=== PATIENT | female | born 1955 | race African-American/Black ===

== ENCOUNTER → 2019-11-14 12:50 | Outpatient (CLI) | payer MEDICARE, SELFPAY ==
--- NOTE | ~2019-11-14 | MR_ITS ---
EXAMINATION: MR cervical spine wo/w con EXAM DATE: 11/14/2019 14:20 INDICATION: Multiple sclerosis. Follow-up. TECHNIQUE: Multi-sequential, multiplanar MR images of the cervical spine were obtained without contra st. Axial T2, axial T2 MERGE sequence. Sagittal T1, T2, T2 fat saturation images also obtained. Axi al T1 weighted sequence. Patient was then injected with 15 mL Multihance intravenous contrast and re imaged. Postcontrast axial and sagittal T1-weighted fat saturation sequences were obtained. Compar sangita is made to prior examination from 10/16/2017. FINDINGS: Again there is anterior, osseous fusion of the C4-6 vertebral bodies. There is some increa sed T2 cord signal posterior to the C4-5 disc level and also posterior to the C2 level, with slight v olume loss. Likely 2 regions of myelomalacia. No enhancing regions to suggest active disease. The blaze tebral bodies are aligned in the AP dimension. There is mild to moderate disc disease C3-4 and C6-7. There is a goiter. Level by level evaluation: C2-C3: Disc does not extend beyond the endplate margin. Uncovertebral joint arthropathy: None. Facet joint arthropathy: Moderate left, mild right. Neural foraminal stenosis: No stenosis. Central canal stenosis: No stenosis. C3-C4: There is a mild to moderate diffuse disc bulge, central protrusion Uncovertebral joint arthropathy: Mild to moderate bilateral. Facet joint arthropathy: Moderate bilateral. Neural foraminal stenosis: Moderate to severe left, mild to moderate right. Central canal stenosis: Mild to moderate . Central canal measures 5-6 mm in mid sagittal AP diameter . Cord is being indented but no cord edema. C4-C5: This level is fused. Uncovertebral joint arthropathy: Mild but fused. Facet joint arthropathy: Mild. Neural foraminal stenosis: Mild right. Central canal stenosis: No stenosis. C5-C6: This level is fused. Uncovertebral joint arthropathy: Fused. Facet joint arthropathy: Probably partially fused. Neural foraminal stenosis: Mild right. Central canal stenosis: No stenosis. C6-C7: There is a moderate diffuse disc bulge. Uncovertebral joint arthropathy: Mild to moderate bilateral. Facet joint arthropathy: Mild to moderate bilateral. Neural foraminal stenosis: Moderate left, mild to moderate right. Central canal stenosis: Mild. C7-T1: There is a mild diffuse disc bulge. Uncovertebral joint arthropathy: Mild. Facet joint arthropathy: Mild bilateral. Neural foraminal stenosis: No stenosis. Central canal stenosis: No stenosis. Compared to prior study, slight progression in the disc disease. The spinal cord signal, appearance d oes not appear significantly changed. IMPRESSION: 1. Small regions of abnormal cervical cord signal, myelomalacia. Could be quiescent multiple scleros is. No enhancing lesions, no evidence of active disease. 2. Mild progression in cervical spondylosis as detailed above. Reviewed, dictated and finalized at location A. IMPRESSION: 1. Small regions of abnormal cervical cord signal, myelomalacia. Could be quie scent multiple sclerosis. No enhancing lesions, no evidence of active disease. 2. Mild progression in cervical spondylosis as detailed above.
[2019-11-14 13:50] LABS: Estimated Glomerular Filt Rate > 60
== END ==
PROVIDERS: Visit Provider Psychiatry & Neurology Neurology
DX: G35 Multiple sclerosis (principal); G95.89 Other specified diseases of spinal cord; M47.812 Spondylosis without myelopathy or radiculopathy, cervical region
CPT/HCPCS: 36415; 72156; A9577

== ENCOUNTER 2020-06-09 10:38 | Outpatient (CLI) | payer MEDICARE, SELFPAY ==
--- NOTE | ~2020-06-09 | XR_ITS ---
EXAMINATION: XR elbow RT 2V DATE: 06/09/2020 11:05 INDICATION: Acute onset right elbow pain TECHNIQUE: Anteroposterior and lateral views of the right elbow were obtained. COMPARISON: None. FINDINGS: Alignment is normal. No fracture or joint effusion. Joint spaces are normal. Soft tissues are unremar kable. IMPRESSION: 1. Negative right elbow radiographs. Reviewed, dictated and finalized at location B. R OPERATOR
--- NOTE | ~2020-06-09 | XR_ITS ---
EXAMINATION: XR shoulder RT min 2V DATE: 06/09/2020 11:05 INDICATION: Right shoulder pain. TECHNIQUE: 4 views of right shoulder were obtained. COMPARISON: Right shoulder radiographs 04/20/2008 FINDINGS: Bone alignment is normal. No fracture. There is mild osteoarthritis of glenohumeral joint a nd moderate osteoarthritis of acromioclavicular joint. IMPRESSION: 1. Polyarticular osteoarthritis. Reviewed, dictated and finalized at location A. ITY CONTROL SCIENTIST
== END 2020-06-09 10:39 | disposition home or self-care (01) ==
LOC: ANHIMG 10:46
PROVIDERS: PCP Internal Medicine; Visit Provider Internal Medicine
DX: M79.601 Pain in right arm (principal); M19.011 Primary osteoarthritis, right shoulder
CPT/HCPCS: 73030; 73070

== ENCOUNTER 2020-08-09 03:06 | Emergency (ER) | payer MEDICARE, SELFPAY ==
--- NOTE | ~2020-08-09 | XR_ITS ---
EXAMINATION: XR shoulder RT min 2V INDICATION: Right shoulder pain TECHNIQUE: Four views of the right shoulder are submitted. COMPARISON: 06/09/2020 FINDINGS: Normal alignment. No fracture. There is mild osteoarthritis of the glenohumeral joint and m oderate osteoarthritis of the acromioclavicular joint. Soft tissues are unremarkable. Changes of cerv ical spine fusion are noted. IMPRESSION: 1. No acute osseous abnormality. Reviewed, dictated and finalized at location A.
--- NOTE | ~2020-08-09 | CT_ITS ---
EXAMINATION: CT brain wo con, CT cervical spine wo con EXAM DATE: 08/09/2020 03:48 INDICATION: Fall, head injury, neck pain. TECHNIQUE: Spiral CT of the head was performed without contrast. Axial, coronal and sagittal images were reviewed. Spiral CT of the cervical spine was performed without contrast. Axial images were rev iewed. Coronal and sagittal reformatted images were also reviewed. The dose-length product (DLP) fo r this examination was 605.33 (accession [id number]), 349.77 (accession [id number]) mGy-cm. The exposure was tailored according to patient size, and iterative reconstruction (ASIR) was used as additional dose reduction technique. Correlation is made to brain MRI examination 10/16/2017. FINDINGS: HEAD CT: There is small acute subdural hematoma along the right side of the falx, measuring up to 5 m m in thickness. There is no acute intraparenchymal hemorrhage. No evidence of intraparenchymal brain mass lesion. No evidence of acute infarction. Again there is extensive white matter disease, with i nvolvement of the corpus callosum confirmed on prior MRI examination, appearance most consistent with changes from quiescent multiple sclerosis. There is mild atrophy. There is no mass effect or midline shift. There is no obstructive hydrocephalus suspected. There are no acute calvarial fractures. Th e orbits are unremarkable. Soft tissue is unremarkable. The visualized sinuses and mastoid air cell s are well aerated. CERVICAL CT: Anterior and interbody fusion C4-6. There is ossification of the posterior longitudinal ligament at these levels contributing to mild to moderate midcervical central canal stenosis There is no evidence of acute cervical fracture. The odontoid process is intact. Pre-dens space is normal. Prevertebral soft tissue is normal. There are no soft tissue abnormalities identified. There is no disc space widening or traumatic vertebral body subluxation suspected. There is advanced left-sided facet arthropathy at C2-3 and C3-4. Multinodular goiter. Moderate disc disease at C3-4 and C6-7. A d etailed level by level evaluation of spondylosis can be added as addendum if requested. IMPRESSION: 1. Acute small right-sided subdural myxoma. 2. White matter changes, old multiple sclerosis. 3. Intact cervical fusion. 4. Spondylosis. STAT Rad radiologist phoned, discussed this case with clinician as per documentation in their report, which was faxed and scanned into PACS with this exam. Reviewed, dictated and finalized at location B. IMPRESSION: 1. Acute small right-sided subdural myxoma. 2. White matter changes, old multiple sclerosis. 3. Intact cervical fusion. 4. Spondylosis. STAT Rad radiologist phoned, discussed this case with clinician as per document ation in their report, which was faxed and scanned into PACS with this exam.
--- NOTE | ~2020-08-09 | XR_ITS ---
EXAMINATION: XR pelvis 1-2V INDICATION: Pain after fall TECHNIQUE: AP view the pelvis is obtained. COMPARISON: None available FINDINGS: Bone alignment is normal. There is no fracture. There is moderate left hip osteoarthritis. Calcified atherosclerosis is noted. IMPRESSION: 1. No acute osseous abnormality. Reviewed, dictated and finalized at location A.
--- NOTE | ~2020-08-09 | XR_ITS ---
EXAMINATION: XR chest 1V INDICATION: Pain after fall TECHNIQUE: AP view of the chest is obtained. COMPARISON: None available FINDINGS: The lungs are free of acute opacities. There is no pleural effusion or pneumothorax. The ca rdiomediastinal silhouette is normal. There are partially imaged changes of fusion in the lower cervi carlitos spine. IMPRESSION: 1. No acute cardiopulmonary abnormality. Reviewed, dictated and finalized at location A.
[2020-08-09 03:05] VITALS: BP 196/93; PULSE 86; RESP 18; TEMP 36.4; O2SAT 100
[2020-08-09 03:16] VITALS: BP 196/93; PULSE 86; RESP 18; TEMP 36.4; O2SAT 100
--- NOTE | 2020-08-09 03:22 | PC.NURSE ---
Pt to imaging at this time.
[2020-08-09 03:48] VITALS: BP 196/98; PULSE 84; O2SAT 100
--- NOTE | 2020-08-09 03:54 | ED.GENADULT ---
HPI - General Adult General Chief complaint: Head Injury Stated complaint: slipped, fell, hit back of head Time Seen by Provider: 08/09/20 03:07 Source: RN notes reviewed History of Present Illness HPI narrative: Patient presents to emergency department from home via EMS for a fall. Patient had gotten up and was going to the restroom when she had a slip and fall states she does have a walker at home but does not use it patient states she hit the back of her head but does not believe she lost any consciousness notes some mild neck pain as well as right shoulder pain patient denies any vision changes, chest pain, shortness of breath abdominal pain or any other symptoms Related Data Allergies Allergy/AdvReac Type Severity Reaction Status Date / Time No Known Allergies Allergy Verified 08/09/20 03:14 Review of Systems Review of Systems: Narrative: Gen.: Denies fevers or chills Eyes: Denies eye pain or visual change ENT: Denies congestion Respiratory: Denies shortness of breath or cough CV: Denies chest pain GI: Denies abdominal pain nausea, emesis or diarrhea Musculoskeletal: See HPI Neuro: Denies numbness, tingling, weakness or focal weakness Skin: Denies rash Except as documented, all other systems reviewed and negative PMFSH Past Medical History Medical History Benign essential hypertension Biceps tendinitis of both shoulders BMI 27.0-27.9,adult BMI 28.0-28.9,adult BMI 30.0-30.9,adult Cervicalgia Chronic pain of right knee Colon cancer screening DJD (degenerative joint disease) DM type 2 (diabetes mellitus, type 2) Dysphagia Encounter for general adult medical examination w/o abnormal findings Encounter for Medicare annual wellness exam Encounter for screening mammogram for malignant neoplasm of breast Exposure to COVID-19 virus Follow up Hx of breast cancer Hyperlipidemia Multiple sclerosis Muscle weakness 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 HEENT: normocephalic atraumtaic. No facial tenderness without pain. EYES: PERRL NECK: C-collar present supple. No midline tenderness to palpation. Tender to palpation bilateral para 2 muscles C5-7 RESPIRATORY: No respiratory distress. Clear to auscultation bilaterally CARDIOVASCULAR: Regular rate and rhythm without murmurs rubs or gallops. ABDOMINAL: Soft, nontender, nondistended, no rebound or guarding MUSCULOSKELETAl: Moves all extremities. No tenderness to palpation of left upper and bilateral lower extremities. No clubbing cyanosis or edema. Mild tenderness over the right anterior shoulder no swelling or ecchymosis pain with flexion greater than 45 degrees no tenderness of the right elbow or wrist, radial pulse 2+ neurovascular intact NEURO: Awake and alert ?3. Follows commands. Speech normal. No focal deficits. SKIN:: Warm, dry. Normal Color Course Course Emergency Course: Discussed with patient results of CT scan and need for transfer request [facility] at this time. Denies any blood thinner use Called and discussed with [facility] Dr. Rodriguez presentation work-up accepts transfer at this time Patient is due for a.m. amlodipine at this time will hold p.o. and give hydralazine Vital Signs Vital signs: Vital Signs Temperature 97.5 F L 08/09/20 03:05
[2020-08-09 04:00] VITALS: BP 209/91; PULSE 74; O2SAT 100
--- NOTE | 2020-08-09 04:05 | PC.NURSE ---
david rn in room taking manual bp on pt due to monitor reading 209/91. pt states she normally takes her amlodapine in the AM but didn't yesterday. notified.
--- NOTE | 2020-08-09 04:06 | PC.NURSE ---
Manual blood pressure taken by RN, 202/96. EDP aware.
--- NOTE | 2020-08-09 04:07 | PC.NURSE ---
pt told mia hernandez that she actually thinks she did take her bp medication yesterday AM. notified.
--- NOTE | 2020-08-09 04:32 | PC.NURSE ---
david bellamy and this rn attempted to get IV in pt at this time, no success. mario bellamy in room attempting. rn will give hydralzine once access is established.
--- NOTE | 2020-08-09 04:34 | PC.NURSE ---
[facility] accepted transfer to [facility] at this time. ETA [id number]
[2020-08-09] MEDS: hydrALAZINE HCL 20 MG/ML VIAL 10 MG IV PUSH (04:42)
--- NOTE | 2020-08-09 04:43 | PC.NURSE ---
[facility] run report not available at this time to send with pt.'s chart to [facility].
[2020-08-09 04:45] VITALS: BP 164/127; PULSE 89
[2020-08-09 04:55] LABS: Basophils Absolute Auto 0.1 K/mm3 (0.0-0.1); Basophils Percent Auto 0.5 % (0.2-1.2); Hematocrit 42.4 % (37.0-47.0); Hemoglobin 13.2 g/dL (12.0-15.0); Immature Granulocyte Absolute 0.04 K/mm3 (0.00-0.031); Immature Granulocyte Percent A 0.4 % (0-0.5); Lymphocytes Absolute Auto 1.98 K/mm3 (0.9-3.2); Lymphocytes Percent Auto 17.7 % (18.3-44.2); Mean Corpuscular HGB Conc 31.1 g/dl (32-36); Mean Corpuscular Hemoglobin 25.8 pg (26-34); Mean Platelet Volume 11.8 fl (7.4-10.4); Monocytes Percent Auto 8.8 % (2.6-8.5); Neutrophils Absolute Auto 8.1 K/mm3 (1.3-6.7); Neutrophils Percent Auto 72.6 % (45.5-73.1); Platelet Count Result 248 k/mm3 (150-375); Red Blood Count 5.11 M/mm3 (4.2-5.4); Red Cell Distribution Width 15.1 % (11.5-14.5); White Blood Count 11.2 K/mm3 (4.5-10.0)
[2020-08-09 05:15] LABS: Prothrombin Time 13.6 Seconds (11.1-14.7)
[2020-08-09 05:16] LABS: Partial Thromboplastin Time 23.6 SECONDS (22.3-36.8)
== END 2020-08-09 04:58 | disposition short-term general hospital (02) ==
PROVIDERS: Emergency Provider Emergency Medicine; PCP Internal Medicine
DX: S06.5X0A Traumatic subdural hemorrhage without loss of consciousness, initial encounter (principal); S40.011A Contusion of right shoulder, initial encounter; I10 Essential (primary) hypertension; G35 Multiple sclerosis; E11.9 Type 2 diabetes mellitus without complications; E78.5 Hyperlipidemia, unspecified; E55.9 Vitamin D deficiency, unspecified; Z85.3 Personal history of malignant neoplasm of breast; Z79.84 Long term (current) use of oral hypoglycemic drugs; W01.0XXA Fall on same level from slipping, tripping and stumbling without subsequent striking against object, initial encounter
CPT/HCPCS: 36415; 70450; 71045; 72125; 72170; 73030; 85025; 85610; 85730; 96374; 99285; J0360; L0140

== ENCOUNTER 2020-08-23 07:53 | Outpatient (CLI) | payer MEDICARE, SELFPAY ==
--- NOTE | ~2020-08-23 | XR_ITS ---
EXAMINATION: XR UGI w barium swallow DATE: 08/23/2020 08:39 INDICATION: Dysphagia. TECHNIQUE: The patient drank thin barium. Fluoroscopy of the esophagus, stomach, and proximal small b owel was performed. Fluoroscopy exposure time was 1.0 minutes. The total number of images was 282. To lizbet dose-area product was 5.6 Gy-cm^2. COMPARISON: CT cervical spine 08/09/2020 FINDINGS: There are changes of anterior fusion procedure from C4 to C6 with anterior plate and screws . There is decreased primary and secondary esophageal peristalsis. Some abnormal tertiary waves were noted. There is no mass or stricture of the esophagus. There is no hiatal hernia. The stomach and pro ximal small bowel show normal folding patterns. IMPRESSION: 1. Mild esophageal dysmotility. Reviewed, dictated and finalized at location A.
== END 2020-08-23 07:54 | disposition home or self-care (01) ==
PROVIDERS: PCP Internal Medicine; Visit Provider Internal Medicine
DX: R13.10 Dysphagia, unspecified (principal)
CPT/HCPCS: 74240

== ENCOUNTER → 2020-08-28 02:08 | Outpatient (CLI) | payer MEDICARE, SELFPAY ==
[2020-08-28 19:55] LABS: SARS-CoV-2 RNA PCR Negative
== END ==
PROVIDERS: PCP Internal Medicine; Visit Provider Internal Medicine Gastroenterology
DX: Z01.812 Encounter for preprocedural laboratory examination (principal); Z20.822 Contact with and (suspected) exposure to COVID-19
CPT/HCPCS: C9803; U0003; U0005

== ENCOUNTER 2020-08-31 02:55 | Day surgery (SDC) | payer MEDICARE, SELFPAY ==
[2020-08-25 15:11] VITALS: BMI 45.1
[2020-08-31 11:25] VITALS: BP 138/70; PULSE 97; RESP 18; TEMP 36.2; O2SAT 98; BMI 28.0
[2020-08-31] MEDS: LACTATED RINGERS 1,000 ML 150 ML IV CONT (11:29)
[2020-08-31 11:31] LABS: Glucose Point of Care 206 mg/dl (65-105)
--- NOTE | 2020-08-31 11:39 | WPDANESEPPF ---
Anes - Initial Pre Proc Eval Procedure: Operation Date: 08/31/20 11:30 Proposed Procedures p Esophagogastroduodenoscopy - Darrin Pablo MD Date/Time: 08/31/20 11:39 Surgeon: Darrin Pablo MD Pre Op Diagnosis: esphageal stricture, dysphagia Patient Data Age: 64 Gender: F Height: 5 ft 6 in Weight: 78.8 kg Last Vital Signs Temp 97.2 F L 08/31/20 11:25 Pulse 97 08/31/20 11:25 Resp 18 08/31/20 11:25 BP 138/70 08/31/20 11:25 Pulse Ox 98 08/31/20 11:25 Allergies Allergy/AdvReac Type Severity Reaction Status Date / Time No Known Allergies Allergy Verified 08/31/20 11:22 Home Medications Medication Instructions Recorded Confirmed Type lancets #100 each 02/21/19 08/06/20 Rx ezetimibe 10 mg tablet 10 mg PO DAILY #90 tablet 06/26/19 08/25/20 Rx solifenacin 10 mg tablet 10 mg PO DAILY #90 tablet 10/30/19 08/25/20 Rx amlodipine 5 mg-benazepril 10 mg See Rx Instructions .ROUTE 02/11/20 08/25/20 Rx capsule .COMPLEX #90 cap blood sugar diagnostic See Rx Instructions .ROUTE 04/26/20 08/25/20 Rx .COMPLEX #50 strip blood-glucose meter #1 ea 07/22/20 08/06/20 Rx indapamide 2.5 mg tablet 2.5 mg PO DAILY #90 tablet 07/22/20 08/25/20 Rx linagliptin 5 mg tablet 5 mg PO QAM 08/18/20 08/25/20 History teriflunomide [Aubagio] 14 mg PO DAILY 08/25/20 08/25/20 History insulin glargine 100 unit/mL (3 26 unit SUBCUT QPM #15 ml 08/30/20 08/31/20 Rx mL) subcutaneous pen pen needle, diabetic 32 gauge x #100 ea 08/30/20 Rx rosuvastatin 40 mg tablet See Rx Instructions .ROUTE 08/30/20 08/31/20 Rx .COMPLEX #90 tablet Laboratory Tests 08/31/20 11:28 POC Capillary Glucose 206 mg/dl H mg/dl (65-105) Patient hx anesthesia problems: none Family hx anesthesia problems: none PMFSH Past Medical History Medical History (Updated 08/30/20 @ 13:[address] [facility]) Benign essential hypertension Biceps tendinitis of both shoulders BMI 27.0-27.9,adult BMI 28.0-28.9,adult BMI 30.0-30.9,adult Carpal tunnel syndrome, bilateral Cervicalgia Chronic pain of right knee Colon cancer screening DJD (degenerative joint disease) DM type 2 (diabetes mellitus, type 2) Dysphagia Encounter for general adult medical examination w/o abnormal findings Encounter for Medicare annual wellness exam Encounter for screening mammogram for malignant neoplasm of breast Episode of syncope Esophageal stricture Exposure to COVID-19 virus Follow up Hx of breast cancer Hyperlipidemia Multiple sclerosis Muscle weakness 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 Shoulder pain, bilateral Subdural hematoma Urinary frequency Vitamin B12 deficiency Family History Family History Mother Hypertension Family history of diabetes mellitus in first degree relative Diabetes mellitus Father Cerebrovascular accident Sibling Family history of lung cancer Family history of primary malignant neoplasm of liver Social History Social History Smoking status: Never smoker Second hand tobacco smoke exposure: No Alcohol intake: never Living arrangements: with family Spiritual care concerns: No Anes - Eval Final PreProcedure Day of Procedure 08/31/20 11:39 Patient weight: obese Heart: regular rate and rhythm Lungs: clear to auscultation Airway: Mallampati scale class II Neurological: alert and oriented Last oral intake: >/= 8 hours ASA classification: III Emergent: no Anesthetic plan: proceed Anesthesia type and monitoring: general GIVS and standard monitoring Informed Consent: The patient's anesthetic plan and its attendant risks and benefits were discussed with the patient/family/POA. Questions were solicited and answers provided to the satisfaction of the patient/family/POA.
[2020-08-31] MEDS: BENZOCAINE (*SP) 60 ML SPRAY CAN (HURRICAINE) 1 SPRAY MUCOUS MEM (11:42)
[2020-08-31 12:02] VITALS: BP 131/71; PULSE 83; RESP 14; O2SAT 98
[2020-08-31 12:12] VITALS: BP 126/78; PULSE 95; RESP 25; O2SAT 100
[2020-08-31 12:22] VITALS: BP 140/81; PULSE 82; RESP 15; O2SAT 100
--- NOTE | 2020-09-03 13:11 | PM.HPGS ---
History of Present Illness History of Present Illness Consent: Risks, benefits, and alternatives have been discussed and questions answered. Patient agrees to proceed with procedure. Chief complaint: esphageal stricture, dysphagia Narrative: Jacinta Moreno is a 64 year old female was been having difficulty with swallowing. An upper GI showed narrowing in the proximal esophagus. She has had previous cervical spine surgery. Review of Systems Review of Systems: All systems reviewed & are unremarkable except as noted in HPI and below PMFSH Past Medical History Medical History Benign essential hypertension Biceps tendinitis of both shoulders BMI 27.0-27.9,adult BMI 28.0-28.9,adult BMI 30.0-30.9,adult Carpal tunnel syndrome, bilateral Cervicalgia Chronic pain of right knee Colon cancer screening DJD (degenerative joint disease) DM type 2 (diabetes mellitus, type 2) Dysphagia Encounter for general adult medical examination w/o abnormal findings Encounter for Medicare annual wellness exam Encounter for screening mammogram for malignant neoplasm of breast Episode of syncope Esophageal stricture Exposure to COVID-19 virus Follow up Hx of breast cancer Hyperlipidemia Multiple sclerosis Muscle weakness On intermediate drug therapy Shoulder pain, bilateral Subdural hematoma Urinary frequency Vitamin B12 deficiency Family History Family History Mother Hypertension Family history of diabetes mellitus in first degree relative Diabetes mellitus Father Cerebrovascular accident Sibling Family history of lung cancer Family history of primary malignant neoplasm of liver Social History Social History Smoking status: Never smoker Second hand tobacco smoke exposure: No Alcohol intake: never Spiritual care concerns: No Meds Home Medications and Allergies Home Medications Medication Instructions Recorded Confirmed Type lancets #100 each 02/21/19 09/02/20 Rx ezetimibe 10 mg tablet 10 mg PO DAILY #90 tablet 06/26/19 09/02/20 Rx solifenacin 10 mg tablet 10 mg PO DAILY #90 tablet 10/30/19 09/02/20 Rx amlodipine 5 mg-benazepril 10 mg See Rx Instructions .ROUTE 02/11/20 09/02/20 Rx capsule .COMPLEX #90 cap blood sugar diagnostic See Rx Instructions .ROUTE 04/26/20 09/02/20 Rx .COMPLEX #50 strip blood-glucose meter #1 ea 07/22/20 09/02/20 Rx indapamide 2.5 mg tablet 2.5 mg PO DAILY #90 tablet 07/22/20 09/02/20 Rx linagliptin 5 mg tablet 5 mg PO QAM 08/18/20 09/02/20 History Aubagio 14 mg PO DAILY 08/25/20 09/02/20 History insulin glargine 100 unit/mL (3 26 unit SUBCUT QPM #15 ml 08/30/20 09/02/20 Rx mL) subcutaneous pen pen needle, diabetic 32 gauge x #100 ea 08/30/20 09/02/20 Rx rosuvastatin 40 mg tablet See Rx Instructions .ROUTE 08/30/20 09/02/20 Rx .COMPLEX #90 tablet omeprazole 40 mg PO DAILY #30 cap 08/31/20 09/02/20 Rx Allergies Allergy/AdvReac Type Severity Reaction Status Date / Time No Known Allergies Allergy Verified 08/31/20 11:22 Exam Const: General: alert Orientation/consciousness: patient oriented x3 Resp: Auscultation: clear to auscultation bilaterally Cardio: Rhythm: regular rhythm GI: GI Palp: Yes Soft to palpation and No Tenderness to palpation present (GI) Neuro: General: patient oriented x3 Assessment and Plan Assessment and plan (1) Esophageal stricture: Code(s): K22.2 - Esophageal obstruction Status: Acute Assessment and Plan: EGD with possible biopsy or dilatation or cautery.
== END 2020-08-31 12:45 | disposition home or self-care (01) ==
PROVIDERS: PCP Internal Medicine; Visit Provider Internal Medicine Gastroenterology
PROC: 0DJ08ZZ Inspection of Upper Intestinal Tract, Via Natural or Artificial Opening Endoscopic (ICD-10-PCS; CPT 43235; principal; 2020-08-31 11:30)
DX: K22.2 Esophageal obstruction (principal); K25.3 Acute gastric ulcer without hemorrhage or perforation; K20.90 Esophagitis, unspecified without bleeding; I10 Essential (primary) hypertension; E78.5 Hyperlipidemia, unspecified; E11.9 Type 2 diabetes mellitus without complications; E53.8 Deficiency of other specified B group vitamins; G56.03 Carpal tunnel syndrome, bilateral upper limbs; M54.2 Cervicalgia; M25.561 Pain in right knee; M19.90 Unspecified osteoarthritis, unspecified site; G35 Multiple sclerosis; R35.0 Frequency of micturition; Z85.3 Personal history of malignant neoplasm of breast; Z79.899 Other long term (current) drug therapy
CPT/HCPCS: 43249; 43239; 82948; 87081; 88305; C1726; C9803; J2704; J7120; U0003; U0005

== ENCOUNTER 2020-12-14 15:55 | Outpatient (CLI) | payer MEDICARE, SELFPAY ==
--- NOTE | ~2020-12-14 | US_ITS ---
EXAMINATION:US venous doppler LE LT INDICATION:Left leg pain and swelling TECHNIQUE: Multiple grayscale, color flow and Doppler images of the left lower extremity deep venous systems were obtained and reviewed. COMPARISON:No prior studies for comparison. FINDINGS: The common femoral, superficial femoral and popliteal veins demonstrate normal respiratory variation, augmentation and compressibility. Color flow is also seen within the posterior tibial, pe roneal, greater saphenous and profunda veins. 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 IMPRESSION: 1: No lower extremity deep venous thrombosis. Reviewed, dictated and finalized at location A.
[2020-12-14 17:28] LABS: INR 0.9; Prothrombin Time 12.4 Seconds (11.1-14.7)
[2020-12-14 17:29] LABS: Partial Thromboplastin Time 26.1 SECONDS (22.3-36.8)
== END 2020-12-14 15:56 | disposition home or self-care (01) ==
LOC: ANHIMG 16:00
PROVIDERS: PCP Internal Medicine; Visit Provider Internal Medicine
DX: M79.605 Pain in left leg (principal); M79.89 Other specified soft tissue disorders
CPT/HCPCS: 36415; 85610; 85730; 93971

== ENCOUNTER 2021-03-29 11:55 | Outpatient (CLI) | payer MEDICARE, SELFPAY ==
--- NOTE | ~2021-03-29 | XR_ITS ---
XR lumbar spine 2-3V 03/29/2021 12:38 Indication: Low back pain Procedure: 4 views lumbar spine Comparison: No prior studies for comparison. Findings: There is degenerative disc disease at L4-5 and L5-S1. There is moderate lower lumbar facet hypertrophy. There is grade 1 degenerative spondylolisthesis at L3-4. No acute fracture or traumatic malalignment. Pedicles are intact. Sacral foramen are symmetric. Impression: 1: Moderate lumbar spondylosis. Reviewed, dictated and finalized at location A. CTOR CHECK Impression: 1: Moderate lumbar spondylosis.
[2021-03-29 12:25] LABS: Basophils Absolute Auto 0.1 K/mm3 (0.0-0.1); Basophils Percent Auto 0.6 % (0.2-1.2); Eosinophils Absolute Auto 0.2 K/mm3 (0-0.3); Eosinophils Percent Auto 2.3 % (0-4.4); Hematocrit 37.7 % (37.0-47.0); Hemoglobin 11.5 g/dL (12.0-15.0); Immature Granulocyte Absolute 0.02 K/mm3 (0.00-0.031); Immature Granulocyte Percent A 0.2 % (0-0.5); Lymphocytes Absolute Auto 1.62 K/mm3 (0.9-3.2); Lymphocytes Percent Auto 19.5 % (18.3-44.2); Mean Corpuscular HGB Conc 30.5 g/dl (32-36); Mean Corpuscular Hemoglobin 25.2 pg (26-34); Mean Corpuscular Volume 82.7 fl (80-100); Monocytes Absolute Auto 0.7 K/mm3 (0.1-0.6); Monocytes Percent Auto 8.7 % (2.6-8.5); Neutrophils Absolute Auto 5.7 K/mm3 (1.3-6.7); Neutrophils Percent Auto 68.7 % (45.5-73.1); Platelet Count Result 210 k/mm3 (150-375); Red Blood Count 4.56 M/mm3 (4.2-5.4); Red Cell Distribution Width 16.4 % (11.5-14.5); White Blood Count 8.3 K/mm3 (4.5-10.0)
[2021-03-29 12:44] LABS: Anion Gap 8 mmol/L (8-16); Blood Urea Nitrogen 10 mg/dL (7-17); Calcium 9.3 mg/dL (8.4-10.2); Carbon Dioxide 27 mmol/L (22-30); Chloride 104 mmol/L (98-107); Estimated Glomerular Filt Rate > 60; Glucose 166 mg/dL (65-110); Potassium 3.9 mmol/L (3.4-5.0); Sodium 139 mmol/L (137-145)
[2021-03-29 21:27] LABS: Erythrocyte Sedimentation Rate 48 mm/hr (0-20)
== END 2021-03-29 11:56 | disposition home or self-care (01) ==
PROVIDERS: PCP Internal Medicine; Visit Provider Internal Medicine
DX: M79.604 Pain in right leg (principal); M47.816 Spondylosis without myelopathy or radiculopathy, lumbar region; M79.605 Pain in left leg; M62.81 Muscle weakness (generalized); Z51.81 Encounter for therapeutic drug level monitoring; Z79.899 Other long term (current) drug therapy; I10 Essential (primary) hypertension; M79.89 Other specified soft tissue disorders
CPT/HCPCS: 36415; 72100; 80048; 85025; 85652; 86140

== ENCOUNTER 2021-05-06 11:43 | Outpatient (CLI) | payer MEDICARE, SELFPAY ==
[2021-05-06 13:19] LABS: Hepatitis B Surface Antigen Negative (Negative)
[2021-05-06 13:36] LABS: HIV 1/2 Ab P24 Ag Result Negative (Negative); Hepatitis C Virus Antibody Negative (Negative)
== END 2021-05-06 11:44 | disposition home or self-care (01) ==
PROVIDERS: PCP Internal Medicine; Visit Provider Internal Medicine
DX: Z11.4 Encounter for screening for human immunodeficiency virus [HIV] (principal); Z13.9 Encounter for screening, unspecified; W46.0XXA Contact with hypodermic needle, initial encounter
CPT/HCPCS: 36415; 86703; 86803; 87340; G0432

== ENCOUNTER 2021-08-14 04:40 | Observation (INO) | payer MEDICARE, SELFPAY ==
[2021-08-14] VITALS (13 sets, daily range): BP systolic 113–191; BP diastolic 62–146; PULSE 85–169; RESP 12–35; TEMP 36.3–37.6; O2SAT 96–100; BMI 23.6
--- NOTE | ~2021-08-14 | MR_ITS ---
EXAMINATION: MR brain/brain stem wo/w con DATE: 08/14/2021 15:43 INDICATION: dizziness TECHNIQUE: Magnetic resonance imaging (MRI) of the brain and brainstem was performed without and with 14 mL MultiHance intravenous contrast. Sequences included sagittal and axial T1-weighted SE, axial d iffusion-weighted FS EPI ASSET, axial T2*-weighted GRE, axial T2-weighted FLAIR Propeller, and axial T2-weighted Propeller. Postcontrast axial and coronal T1-weighted SE was obtained. Apparent diffusion coefficient (ADC) maps were created. COMPARISON: CT brain 08/14/2021, MR brain 10/16/2017 FINDINGS: Examination is limited by motion. No abnormal restricted diffusion to suggest acute ischemic infarct. No MRI evidence of hemorrhage or extra-axial collection. No suspicious foci of susceptibility to suggest prior intraparenchymal hemorr alexandro. Severe confluent white matter change with areas of encephalomalacia. Mild generalized parenchym al volume loss. Ventricles are proportional to brain volume. Basilar cisterns are patent. Partially e mpty sella. Flow voids are preserved. No abnormal enhancement. Orbits and aerated spaces are within normal limits. IMPRESSION: Motion limited examination. 1. Extensive white matter disease consistent with the given history of multiple sclerosis. 2. No current evidence of active demyelination. Reviewed, dictated and finalized at location K.
--- NOTE | ~2021-08-14 | CT_ITS ---
EXAMINATION: CT brain wo con INDICATION: Confusion, dizziness COMPARISON: 08/09/2020 TECHNIQUE: Standard unenhanced head CT. The dose-length product (DLP) was 605.33 mGy-cm. The mA was a djusted according to patient size. Iterative reconstruction technique was employed. FINDINGS: There is no acute intraparenchymal hemorrhage. No evidence of mass lesion. No evidence of a cute infarction. There is extensive periventricular and subcortical hypodensity. There is mild promin ence of the sulci and ventricles related to cerebral atrophy. Intracranial calcified cerebral atheros clerosis is noted. There are no extra-axial collections. There is no mass effect or midline shift. Th e orbits and soft tissues are unremarkable. The visualized sinuses and mastoid air cells are well aer ated. IMPRESSION: 1. No acute intracranial abnormality. 2. Age related findings. Reviewed, dictated and finalized at location A.
--- NOTE | ~2021-08-14 | XR_ITS ---
EXAMINATION: XR chest 1V portable INDICATION: Altered mental status TECHNIQUE: Portable AP chest at 0546 hours COMPARISON: 08/09/2020 FINDINGS: The lungs are free of acute opacities. There is no pleural effusion or pneumothorax. The ca rdiomediastinal silhouette is normal. IMPRESSION: 1. No acute cardiopulmonary abnormality. Reviewed, dictated and finalized at location A.
--- NOTE | 2021-08-14 04:50 | ECG_ITS ---
Measurements Intervals [place] Rate: 166 P: [place]: 0 QRS: 48 QRSD: 75 T: 64 QT: 264 QTc: 440 Interpretive Statements SINUS OR ECTOPIC ATRIAL TACHYCARDIA BASELINE WANDER- III, V3 ABNORMAL ECG Electronically Signed On 08-14-2021 8:56:53 CDT by Fadi Fu D.O.
[2021-08-14] MEDS: LORazepam INJ (*CRX) 2 MG/ML VIAL 1 MG IV PUSH (04:55)
[2021-08-14] MEDS: SODIUM CHLORIDE 0.9% IV 1,000 ML 999 ML IV CONT ×2 (04:59→05:44)
--- NOTE | 2021-08-14 05:07 | PC.NURSE ---
Unable to obtain IV access x 1 attempt; multiple attempts by other RNs. 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
[2021-08-14 05:11] LABS: Basophils Absolute Auto 0.1 K/mm3 (0.0-0.1); Basophils Percent Auto 0.6 % (0.2-1.2); Eosinophils Absolute Auto 0.3 K/mm3 (0-0.3); Eosinophils Percent Auto 2.2 % (0-4.4); Hematocrit 38.5 % (37.0-47.0); Hemoglobin 11.4 g/dL (12.0-15.0); Immature Granulocyte Absolute 0.03 K/mm3 (0.00-0.031); Immature Granulocyte Percent A 0.2 % (0-0.5); Lymphocytes Absolute Auto 4.99 K/mm3 (0.9-3.2); Lymphocytes Percent Auto 41.1 % (18.3-44.2); Mean Corpuscular HGB Conc 29.6 g/dl (32-36); Mean Corpuscular Hemoglobin 25.7 pg (26-34); Mean Corpuscular Volume 86.7 fl (80-100); Mean Platelet Volume 11.1 fl (7.4-10.4); Monocytes Absolute Auto 1.2 K/mm3 (0.1-0.6); Monocytes Percent Auto 10.1 % (2.6-8.5); Neutrophils Absolute Auto 5.5 K/mm3 (1.3-6.7); Neutrophils Percent Auto 45.8 % (45.5-73.1); Platelet Count Result 293 k/mm3 (150-375); Red Blood Count 4.44 M/mm3 (4.2-5.4); Red Cell Distribution Width 15.8 % (11.5-14.5); White Blood Count 12.1 K/mm3 (4.5-10.0)
[2021-08-14 05:20] LABS: Ethanol < 10 mg/dL (<10)
[2021-08-14 05:22] LABS: Alanine Aminotransferase 22 U/L (4-35); Alkaline Phosphatase 208 U/L (38-126); Anion Gap 14 mmol/L (8-16); Aspartate Amino Transferase 35 U/L (14-36); Bilirubin,Total 0.4 mg/dL (0.2-1.3); Blood Urea Nitrogen 11 mg/dL (7-17); Calcium 9.2 mg/dL (8.4-10.2); Carbon Dioxide 23 mmol/L (22-30); Chloride 104 mmol/L (98-107); Estimated Glomerular Filt Rate > 60; Glucose 213 mg/dL (65-110); INR 1.1; Magnesium 1.6 mg/dL (1.6-2.3); Potassium 4.5 mmol/L (3.4-5.0); Prothrombin Time 14.1 Seconds (11.1-14.7); Sodium 141 mmol/L (137-145)
[2021-08-14 05:33] LABS: Lactic Acid Reflex 8.5 mmol/L (0.7-2.0); Platelet Estimate Adequate (Adequate); Troponin I 0.015 ng/mL (0.000-0.034)
[2021-08-14 05:34] LABS: Anisocytosis 1+ (NORMAL); Hypochromasia 1+ (NORMAL)
--- NOTE | 2021-08-14 05:36 | ED.GENADULT ---
HPI - General Adult General Chief complaint: Altered Mental Status <Dharmesh Tolliver MD - Last Filed: 08/14/21 07:38> Stated complaint: altered <Dharmesh Tolliver MD - Last Filed: 08/14/21 07:38> Time Seen by Provider: 08/14/21 04:42 <Dharmesh Tolliver MD - Last Filed: 08/14/21 07:38> History of Present Illness HPI narrative: Patient is a six 5-year-old female who presents the emergency department with chief complaint of bilateral knee pain and altered mental status. Per EMS the patient called originally for bilateral knee pain but when they arrived there the patient was screaming and was complaining that she was going to fall. The patient is able to answer some questions denying pain states that she is afraid that she might fall even he is laying on stretcher the patient denies vertigo symptoms states that she does feel somewhat lightheaded. The patient denies chest pain denies shortness of breath denies abdominal pain. <Dharmesh Tolliver MD - Last Filed: 08/14/21 07:38> Related Data Home medications: Home Medications Medication Instructions Recorded Confirmed linagliptin 5 mg tablet 5 mg PO QAM 08/18/20 07/26/21 Aubagio 14 mg PO DAILY 08/25/20 07/26/21 insulin degludec 100 unit/mL (3 See Rx Instructions SUBCUT DAILY 11/18/20 07/26/21 mL) subcutaneous pen cholecalciferol (vitamin D3) 75 5,000 unit PO DAILY tablet 07/18/21 07/26/21 mcg (3,000 unit) tablet <Dharmesh Tolliver MD - Last Filed: 08/14/21 07:38> Allergies/adverse reactions: Allergies Allergy/AdvReac Type Severity Reaction Status Date / Time No Known Allergies Allergy Verified 07/26/21 14:22 <Dharmesh Tolliver MD - Last Filed: 08/14/21 07:38> Review of Systems Review of Systems: A 10 system review of systems was completed on the patient and is negative except for what is stated in the HPI. Nursing and ancillary documentation was reviewed. <Dharmesh Tolliver MD - Last Filed: 08/14/21 07:38> [facility] Past Medical History Medical History: Medical History Bakers cyst Benign essential hypertension Biceps tendinitis of both shoulders BMI 25.0-25.9,adult BMI 26.0-26.9,adult BMI 27.0-27.9,adult BMI 28.0-28.9,adult BMI 30.0-30.9,adult Carpal tunnel syndrome, bilateral Cervicalgia Chronic pain of right knee Colon cancer screening DJD (degenerative joint disease) DM type 2 (diabetes mellitus, type 2) Dysphagia Encounter for general adult medical examination w/o abnormal findings Encounter for Medicare annual wellness exam Encounter for screening mammogram for malignant neoplasm of breast Episode of syncope Esophageal stricture Esophagitis Exposure to COVID-19 virus Follow up Hemoglobin A1C greater than 9%, indicating poor diabetic control 07/14/20 A1c = 9.6 Hx of breast cancer Hyperlipidemia 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 Lower extremity pain, bilateral Multiple sclerosis Muscle weakness Need for pneumococcal vaccine Needle stick, hypodermic, accidental 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 Overactive bladder Pain and swelling of left lower extremity PMR (polymyalgia rheumatica) Right shoulder pain Shoulder pain, bilateral Subdural hematoma Urinary frequency Vitamin B12 deficiency <Dharmesh Tolliver MD - Last Filed: 08/14/21 07:38> Family History Family History: Family History Mother Hypertension Family history of diabetes mellitus in first degree relative Diabetes mellitus Father Cerebrovascular accident Sibling Family history of lung cancer Family history of primary malignant neoplasm of liver <Dharmesh Tolliver MD - Last Filed: 08/14/21 07:38> Social History Social History: Social History Smoking status: Never smoker Se
[2021-08-14 05:41] LABS: Glucose Point of Care 220 mg/dl (65-105)
[2021-08-14 05:46] LABS: Appearance Urine Clear (Clear); Bilirubin Urine Negative (Negative); Blood Urine Negative (Negative); Glucose Urine UA Trace mg/dL (Negative); Ketones Urine Trace mg/dL (Negative); Leukocyte Esterase Ur Negative LEU/UL (Negative); Nitrate Urine Negative (Negative); Protein Urine 2+ mg/dL (Negative); Urobilinogen Urine 0.2 mg/dL (<2.0); pH Urine 6.5 (5.0-9.0)
[2021-08-14 05:50] LABS: Mucus Urine Rare /lpf; RBC Urine 0-2 /hpf (0-2); Squamous Epithelial Cell Urine Rare /hpf (Few); WBC Urine 0-3 /hpf
[2021-08-14 05:55] LABS: Add Urine Microscopic? YES; Color Urine Light Yellow (Yellow)
[2021-08-14 06:01] LABS: Amphetamine Screen Urine Negative (Negative); Barbiturate Screen Urine Negative (Negative); Benzodiazepines Screen Urine Negative (Negative); Cannabinoid Screen Urine Negative (Negative); Cocaine Screen Urine Negative (Negative); Methadone Screen Urine Negative (Negative); Opiate Screen Urine Negative (Negative); Phencyclidine Screen Urine Negative (Negative)
--- NOTE | 2021-08-14 06:34 | ECG_ITS ---
Measurements Intervals [place] Rate: 143 P: 49 AL: 133 QRS: 16 QRSD: 74 T: 43 QT: 293 QTc: 453 Interpretive Statements SINUS TACHYCARDIA, POSSIBLE ATRIAL FLUTTER BORDERLINE R WAVE PROGRESSION, ANTERIOR LEADS BASELINE ARTIFACT- I, II, III, AVR, AVL, AVF, V1-V6 ABNORMAL ECG Electronically Signed On 08-16-2021 9:48:28 CDT by Fadi Fu D.O.
[2021-08-14] MEDS: METOPROLOL TARTRATE INJ 5 MG/5 ML VIAL IV PUSH (06:51)
[2021-08-14 08:09] LABS: Reflex Lactic Acid Yes or No Add Lactic
[2021-08-14] MEDS: FUROSEMIDE INJ 40 MG/4 ML VIAL IV PUSH (08:26)
[2021-08-14] MEDS: VALSARTAN 160 MG TABLET 320 MG PO (08:27)
[2021-08-14] MEDS: MECLIZINE HCL 25 MG TABLET PO (08:28)
[2021-08-14] MEDS: LABETALOL HCL INJ 100 MG/20 ML VIAL 20 MG IV PUSH (08:50)
[2021-08-14 09:15] LABS: Lactic Acid 1.5 mmol/L (0.7-2.0)
[2021-08-14 09:34] LABS: Troponin I 0.192 ng/mL (0.000-0.034)
[2021-08-14 10:15] LABS: SARS-CoV-2 RNA PCR Negative
--- NOTE | 2021-08-14 12:05 | PC.NURSE ---
This patient, Jacinta Moreno, was admitted to IMU Room 206-01. Patient/family oriented to hospital policies and general routines including ID bracelet, bed and alarms, visiting hours, pain management, procedures, bathroom and other care routines, personal items, smoking policy, room service/diet, and visiting hours. Information on how to activate the Rapid Response Team has been discussed. Patient/Family are encouraged to report perceived risks to care and to ask questions if they do not understand what they are told or what they should do.
--- NOTE | 2021-08-14 12:41 | PM.IMHP ---
H&P: HPI History of Present Illness Date/Time: 08/14/21 12:41 Chief Complaint: 65 years old female with past medical history of hypertension diabetes presented to the hospital with severe bilateral knee pain worsening gradually associated with altered mental status and feeling that going to fall denies weakness of upper or lower extremities patient recently had bilateral knee injections at the ER patient was found to have tachycardia up to 169 elevated lactic acid up to 8 blood pressure was elevated more than 220 systolic patient was given IV Lasix IV labetalol blood pressure improved mental status improved troponin was elevated patient admitted for further evaluation and treatment Review of Systems Review of Systems: Twelve system review was done was negative except mentioned in HPI PMFSH Past Medical History Medical History Bakers cyst Benign essential hypertension Biceps tendinitis of both shoulders BMI 25.0-25.9,adult BMI 26.0-26.9,adult BMI 27.0-27.9,adult BMI 28.0-28.9,adult BMI 30.0-30.9,adult Carpal tunnel syndrome, bilateral Cervicalgia Chronic pain of right knee Colon cancer screening DJD (degenerative joint disease) DM type 2 (diabetes mellitus, type 2) Dysphagia Encounter for general adult medical examination w/o abnormal findings Encounter for Medicare annual wellness exam Encounter for screening mammogram for malignant neoplasm of breast Episode of syncope Esophageal stricture Esophagitis Exposure to COVID-19 virus Follow up Hemoglobin A1C greater than 9%, indicating poor diabetic control 07/14/20 A1c = 9.6 Hx of breast cancer Hyperlipidemia 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 Lower extremity pain, bilateral Multiple sclerosis Muscle weakness Need for pneumococcal vaccine Needle stick, hypodermic, accidental On long-term drug therapy Overactive bladder Pain and swelling of left lower extremity PMR (polymyalgia rheumatica) Right shoulder pain Shoulder pain, bilateral Subdural hematoma Urinary frequency Vitamin B12 deficiency Family History Family History Mother Hypertension Family history of diabetes mellitus in first degree relative Diabetes mellitus Father Cerebrovascular accident Sibling Family history of lung cancer Family history of primary malignant neoplasm of liver Social History Social History Smoking status: Never smoker Second hand tobacco smoke exposure: No Alcohol intake: never Substance use: never Substance use type: does not use Gender identity (if verbalized by the patient): Female Spiritual care concerns: No Meds Home Medications and Allergies Home Medications Medication Instructions Recorded Confirmed Type linagliptin 5 mg tablet 5 mg PO QAM 08/18/20 08/14/21 History Aubagio 14 mg PO DAILY 08/25/20 08/14/21 History insulin degludec 100 unit/mL (3 19 unit SUBCUT DAILY 11/18/20 08/14/21 History mL) subcutaneous pen ezetimibe 10 mg tablet 10 mg PO DAILY #90 tablet 06/22/21 08/14/21 Rx omeprazole 40 mg capsule,delayed 40 mg PO DAILY #90 cap 06/22/21 08/14/21 Rx release solifenacin 10 mg tablet 10 mg PO DAILY #90 tablet 06/22/21 08/14/21 Rx valsartan 320 mg tablet 320 mg PO DAILY #90 tablet 08/08/21 08/14/21 Rx furosemide 40 mg PO DAILY 08/14/21 08/14/21 History potassium chloride 25 meq PO DAILY 08/14/21 08/14/21 History rosuvastatin 40 mg PO DAILY 08/14/21 08/14/21 History Allergies Allergy/AdvReac Type Severity Reaction Status Date / Time No Known Allergies Allergy Verified 07/26/21 14:22 Vital Signs Vital Signs - 24 hr 08/14/21 04:41 08/14/21 06:08 08/14/21 06:51 Temperature 99.6 F Pulse Rate 169 H 137 H 135 H Respiratory Rate 35 H 15 Blood Pressure 164/146 H 191/142 H Pulse Oximetry 98 08/14/21 07:20 08/14/21 09:03
[2021-08-14 13:01] LABS: Creatine Kinase 90 U/L (30-135)
[2021-08-14 13:04] LABS: Hemoglobin A1C 9.8 % (<5.7)
[2021-08-14] MEDS: MECLIZINE HCL 12.5 MG TABLET PO ×3 (13:32→20:59)
[2021-08-14] MEDS: LORazepam INJ (*CRX) 2 MG/ML VIAL 0.5 MG IV PUSH (14:53)
[2021-08-14] MEDS: ASPIRIN 81 MG ENTERIC TABLET PO (14:53)
[2021-08-14 17:20] LABS: Glucose Point of Care 229 mg/dl (65-105)
[2021-08-14] MEDS: INSULIN ASPART (*BKC) 100 UNITS/ML SUB-Q (17:31)
[2021-08-14] MEDS: HEPARIN SODIUM 5,000 UNITS/ML VIAL 5000 UNITS SUB-Q (20:58)
[2021-08-14] MEDS: carvediloL 12.5 MG TABLET PO (20:59)
[2021-08-14] MEDS: PANTOPRAZOLE 40 MG TABLET PO (21:00)
[2021-08-15] VITALS (14 sets, daily range): BP systolic 121–141; BP diastolic 59–78; PULSE 79–96; RESP 16–20; TEMP 36.6–36.8; O2SAT 96–100
[2021-08-15 05:39] LABS: Basophils Absolute Auto 0.1 K/mm3 (0.0-0.1); Basophils Percent Auto 0.8 % (0.2-1.2); Eosinophils Absolute Auto 0.1 K/mm3 (0-0.3); Eosinophils Percent Auto 1.5 % (0-4.4); Hematocrit 33.8 % (37.0-47.0); Hemoglobin 10.1 g/dL (12.0-15.0); Immature Granulocyte Absolute 0.02 K/mm3 (0.00-0.031); Immature Granulocyte Percent A 0.3 % (0-0.5); Lymphocytes Absolute Auto 3.18 K/mm3 (0.9-3.2); Lymphocytes Percent Auto 40.3 % (18.3-44.2); Mean Corpuscular HGB Conc 29.9 g/dl (32-36); Mean Corpuscular Hemoglobin 25.4 pg (26-34); Mean Corpuscular Volume 85.1 fl (80-100); Monocytes Absolute Auto 0.8 K/mm3 (0.1-0.6); Monocytes Percent Auto 9.6 % (2.6-8.5); Neutrophils Absolute Auto 3.8 K/mm3 (1.3-6.7); Neutrophils Percent Auto 47.5 % (45.5-73.1); Platelet Count Result 223 k/mm3 (150-375); Red Blood Count 3.97 M/mm3 (4.2-5.4); Red Cell Distribution Width 15.9 % (11.5-14.5); White Blood Count 7.9 K/mm3 (4.5-10.0)
[2021-08-15 05:57] LABS: Alanine Aminotransferase 11 U/L (6-35); Albumin Level 3.2 g/dL (3.5-5.1); Alkaline Phosphatase 93 U/L (38-126); Anion Gap 6 mmol/L (8-16); Aspartate Amino Transferase 20 U/L (14-36); Bilirubin,Total 0.6 mg/dL (0.2-1.3); Blood Urea Nitrogen 13 mg/dL (7-17); Calcium 8.4 mg/dL (8.4-10.2); Carbon Dioxide 29 mmol/L (22-30); Chloride 104 mmol/L (98-107); Estimated CRCL calculation 72 ml/min; Estimated Glomerular Filt Rate > 60; Glucose 129 mg/dL (65-110); Potassium 3.1 mmol/L (3.4-5.0); Sodium 139 mmol/L (137-145)
[2021-08-15 06:14] LABS: Anisocytosis 1+ (NORMAL); Hypochromasia 1+ (NORMAL); Ovalocytes 1+ (NORMAL); Platelet Estimate Adequate (Adequate)
[2021-08-15 09:01] LABS: Glucose Point of Care 146 mg/dl (65-105)
[2021-08-15] MEDS: POTASSIUM CHLORIDE 10 MEQ TABLET.ER 20 MEQ PO (09:47)
[2021-08-15] MEDS: SOLIFENACIN 5 MG TABLET 10 MG PO (09:47)
[2021-08-15] MEDS: ASPIRIN 81 MG ENTERIC TABLET PO (09:47)
[2021-08-15] MEDS: carvediloL 12.5 MG TABLET PO ×2 (09:48→20:32)
[2021-08-15] MEDS: MECLIZINE HCL 12.5 MG TABLET PO ×4 (09:48→20:32)
[2021-08-15] MEDS: VALSARTAN 160 MG TABLET 320 MG PO (09:48)
[2021-08-15] MEDS: PANTOPRAZOLE 40 MG TABLET PO ×2 (09:48→20:32)
[2021-08-15] MEDS: HEPARIN SODIUM 5,000 UNITS/ML VIAL 5000 UNITS SUB-Q ×2 (09:49→20:32)
[2021-08-15] MEDS: ROSUVASTATIN 10 MG TABLET 40 MG PO (09:49)
[2021-08-15] MEDS: EZETIMIBE 10 MG TABLET PO (09:49)
--- NOTE | 2021-08-15 11:03 | PM.IMPN ---
Progress Note: A&P Assessment and Plan (1) Hypertension, uncontrolled: Code(s): I10 - Essential (primary) hypertension Status: Acute Assessment and Plan: Associated with hypertensive urgency associated with altered mental status and dizziness CT scan of the head was negative Status post labetalol IV Lasix Started Coreg and hydralazine Cardiology recommendation pending (2) Overactive bladder: Code(s): N32.81 - Overactive bladder Status: Acute Assessment and Plan: Most likely related to multiple sclerosis Lactic acid was elevated no evidence of infection continue to monitor No clinical evidence of septic arthritis Follow-up blood culture (3) PMR (polymyalgia rheumatica): Code(s): M35.3 - Polymyalgia rheumatica Status: Acute Assessment and Plan: Pain control (4) Multiple sclerosis: Code(s): G35 - Multiple sclerosis Status: Acute Assessment and Plan: Probable associated with acute exacerbation MRI shows extensive multiple sclerosis Neurology consult May benefit from IV steroid (5) Hyperlipidemia: Qualifiers: Hyperlipidemia type: mixed hyperlipidemia Qualified Code(s): E78.2 - Mixed hyperlipidemia Code(s): E78.5 - Hyperlipidemia, unspecified Status: Acute Assessment and Plan: Resume home medication once reconciled (6) DM type 2 (diabetes mellitus, type 2): Qualifiers: Diabetes mellitus assisted insulin use: unspecified 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 status Diabetes mellitus complication status: without complication Qualified Code(s): E11.9 - Type 2 diabetes mellitus without complications Code(s): E11.9 - Type 2 diabetes mellitus without complications Status: Acute Assessment and Plan: Insulin sliding scale (7) Elevated troponin: Code(s): R77.8 - Other specified abnormalities of plasma proteins Status: Acute Assessment and Plan: Probably related to hypertensive urgency cardiology consult is pending Pending D-dimer if D-dimer is positive may need CT scan of the chest to rule out PE (8) Sinus tachycardia: Code(s): R00.0 - Tachycardia, unspecified Status: Acute Assessment and Plan: Improved continue telemonitor pending cardiology evaluation Probably related to bilateral lower extremity pain (9) Bilateral knee pain: Code(s): M25.561 - Pain in right knee; M25.562 - Pain in left knee Status: Acute Assessment and Plan: Status post therapeutic injection in the bilateral knee no evidence of infection pain is better controlled now Anticipate discharge [place] once okay with Neurology and Cardiology Probably patient will need IV steroid for 3 days pending neurology evaluation Subjective Date/time seen: 08/15/21 11:03 Interval history: 65 years old female with past medical history of hypertension diabetes presented to the hospital with severe bilateral knee pain worsening gradually associated with altered mental status and feeling that going to fall denies weakness of upper or lower extremities patient recently had bilateral knee injections at the ER patient was found to have tachycardia up to 169 elevated lactic acid up to 8 blood pressure was elevated more than 220 systolic patient was given IV Lasix IV labetalol blood pressure improved mental status improved patient also complained of dizziness and generalized weakness MRI of the brain shows extensive multiple sclerosis patient feels better today Patient denies fever headache chest pain shortness of breath I am seeing the patient for hypertensive urgency Exam Narrative: Alert Chest no wheeze crackles Abdomen nontender nondistended CVS S1 + S2 Lower extremity edema Weakness of upper lower extremity 4/5 Sensation intact Difficulty of opening right upper eyelid Objective Data Vital Signs Vital Signs: Vital Signs - 24 hr 08/14/21 11:41 08/14/21 12:00 08/14/21 14:00 Temperat
[2021-08-15 11:33] LABS: D Dimer 1.62 ug/mL (<0.48)
--- NOTE | 2021-08-15 11:57 | PHAR ---
HOME MED VERIFIED = AUBAGIO 14 MG IN FLIGHT RADIO OPERATOR'S 30 TABLET BOTTLE. NO RX LABEL ON BOTTLE.
[2021-08-15] MEDS: INSULIN GLARGINE (*BKC) 100 UNITS/ML 15 UNITS SUB-Q (12:15)
[2021-08-15] MEDS: INSULIN ASPART (*BKC) 100 UNITS/ML SUB-Q (12:15)
[2021-08-15] MEDS: POTASSIUM CHLORIDE 20 MEQ TABLET 40 MEQ PO (12:15)
[2021-08-15 12:38] LABS: Glucose Point of Care 203 mg/dl (65-105)
--- NOTE | 2021-08-15 15:47 | ECG_ITS ---
Measurements Intervals [place] Rate: 86 P: 29 MO: 136 QRS: 0 QRSD: 80 T: 42 QT: 393 QTc: 472 Interpretive Statements SINUS RHYTHM BORDERLINE R WAVE PROGRESSION, ANTERIOR LEADS CONSIDER INFERIOR INFARCT, AGE INDETERMINATE ABNORMAL ECG Electronically Signed On 08-15-2021 16:35:29 CDT by Fadi Fu D.O.
--- NOTE | 2021-08-15 15:57 | PM.CNCAR ---
Assessment and Plan Additional Plan This is a 65-year-old woman with elevated troponin levels that were done for reasons that I cannot explain. She has no cardiovascular symptoms and no evidence of acute coronary syndrome on ECG. Her blood pressure was very high on admission which might explain this because she was in severe pain with her knees. In the absence of any additional concern regarding her cardiac status I do not recommend keeping her in the hospital for ischemic workup at this time. Please contact me if you have any questions regarding this situation Fer Warren MD [facility] History of Present Illness History of Present Illness Consult date/time: 08/15/21 15:57 Consult reason: Other (Elevated troponin level) Reason For Visit: Vertigo, Uncontrolled Hypertension Narrative: This is a 65-year-old woman that I am seeing at the request of the hospitalist this afternoon because of an elevated troponin level that was found upon admission to the hospital over the weekend. She is not known to have any cardiac problems before this to the best of her knowledge. She is a pleasant lady with a history of hypertension, dyslipidemia and multiple sclerosis. She apparently has a lot of trouble with chronic severe knee pain related to degenerative joint disease and related to her to her multiple sclerosis. Apparently she receives some sort of injection periodically for treatment of this pain. The pain became severe and intolerable over the weekend and she came into the emergency room for that reason. She is not reporting any sense of heaviness pain or pressure in the chest when she came into the emergency room she was very tachycardic her EKG showed rapid sinus tachycardia but no acute ST or T-wave abnormalities. For reasons that are not clear to me after looking at the chart troponin levels were done and they were out of normal range for this reason we have been consulted to see her. She is resting comfortably in bed when I came in to see her in the IMU she was sleeping upon awakening offers no complaints. Review of Systems Constitutional: Constitutional: Reports no additional constitutional complaints Eyes: Eyes: Reports no additional eye complaints ENT: Reports system reviewed and no additional complaints, except as documented Cardiovascular: Cardiovascular: Reports no additional cardiovascular complaints Respiratory: Respiratory: Reports no additional respiratory complaints Gastrointestinal: Gastrointestinal: Reports no additional gastrointestinal complaints Musculoskeletal: Musculoskeletal: Reports no additional musculoskeletal complaints Integumentary/Breasts: Skin/Breast: Reports system reviewed and no additional complaints, except as docu Neurologic: Reports system reviewed and no additional complaints, except as documented Endocrine: Endocrine: Reports no additional endocrine complaints Hematologic/Lymphatic: Hematologic/Lymphatic: Reports no additional hematologic/lymphatic complaints Allergic/Immunologic: Allergic/Immunologic: Reports no additional allergic/immunologic complaints PMFSH Past Medical History Medical History Bakers cyst Benign essential hypertension Biceps tendinitis of both shoulders BMI 25.0-25.9,adult BMI 26.0-26.9,adult BMI 27.0-27.9,adult BMI 28.0-28.9,adult BMI 30.0-30.9,adult Carpal tunnel syndrome, bilateral Cervicalgia Chronic pain of right knee Colon cancer screening DJD (degenerative joint disease) DM type 2 (diabetes mellitus, type 2) Dysphagia Encounter for general adult medical examination w/o abnormal findings Encounter for Medicare annual wellness exam Encounter for screening mammogram for malignant neoplasm of breast Episode of syncope Esophageal stricture Esophagitis Exposure to COVID-19 virus Follow up Hemoglobin A1C greater than 9%, indicating poor diabetic control 07/14/20 A1c = 9.6 Hx of breast cancer Hyperlipidemi
[2021-08-15 16:41] LABS: Glucose Point of Care 184 mg/dl (65-105)
--- NOTE | 2021-08-15 16:54 | WPDNEURCNPN ---
Consult date: 08/15/21 HPI: Jacinta Moreno is a 65 year old female has been admitted to [facility] through the emergency room with history of 1. Hypertension 2. Diabetes mellitus 3. Ongoing severe bilateral knee pain which is gradually getting worse 4. Changes in the mental status with statement like she is getting weaker and she will fall on initial evaluation she was found to be tachycardiac with blood heart rate of 169 and lactic acid of 8 blood pressure of 220 systolic for which she received IV Lasix IV labetalol with some improvement in the mental status and was admitted for further evaluation she has never a smoker never alcohol intake never substance user and her out medications included a bulge of 14 mg daily for the ongoing diagnosis of multiple sclerosis in addition to insulin ease at [facility] for diabetes and Terry starting furosemide for the blood pressure elevation and rosuvastatin 40 mg daily for hyper cholesterolemia, initial vital signs were abnormal, CBC revealed mild leukocytosis, normal electrolytes a blood sugar of 213, waited alkaline phos of 208 admitted to the hospital for the hypertension, ongoing history of multiple sclerosis, and polymyalgia rheumatica in addition to diabetes mellitus Review of Systems Review of Systems: All systems reviewed & are unremarkable except as noted in HPI and below PMFSH Past Medical History Medical History Bakers cyst Benign essential hypertension Biceps tendinitis of both shoulders BMI 25.0-25.9,adult BMI 26.0-26.9,adult BMI 27.0-27.9,adult BMI 28.0-28.9,adult BMI 30.0-30.9,adult Carpal tunnel syndrome, bilateral Cervicalgia Chronic pain of right knee Colon cancer screening DJD (degenerative joint disease) DM type 2 (diabetes mellitus, type 2) Dysphagia Encounter for general adult medical examination w/o abnormal findings Encounter for Medicare annual wellness exam Encounter for screening mammogram for malignant neoplasm of breast Episode of syncope Esophageal stricture Esophagitis Exposure to COVID-19 virus Follow up Hemoglobin A1C greater than 9%, indicating poor diabetic control 07/14/20 A1c = 9.6 Hx of breast cancer Hyperlipidemia 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 Lower extremity pain, bilateral Multiple sclerosis Muscle weakness Need for pneumococcal vaccine Needle stick, hypodermic, accidental 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 Overactive bladder Pain and swelling of left lower extremity PMR (polymyalgia rheumatica) Right shoulder pain Shoulder pain, bilateral Subdural hematoma Urinary frequency Vitamin B12 deficiency Family History Family History Mother Hypertension Family history of diabetes mellitus in first degree relative Diabetes mellitus Father Cerebrovascular accident Sibling Family history of lung cancer Family history of primary malignant neoplasm of liver Social History Social History Smoking status: Never smoker Second hand tobacco smoke exposure: No Alcohol intake: never Substance use: never Substance use type: does not use Gender identity (if verbalized by the patient): Female Spiritual care concerns: No Meds Home Medications and Allergies Home Medications Medication Instructions Recorded Confirmed Type linagliptin 5 mg tablet 5 mg PO QAM 08/18/20 08/14/21 History Aubagio 14 mg PO DAILY 08/25/20 08/14/21 History insulin degludec 100 unit/mL (3 19 unit SUBCUT DAILY 11/18/20 08/14/21 History mL) subcutaneous pen ezetimibe 10 mg tablet 10 mg PO DAILY #90 tablet 06/22/21 08/14/21 Rx omeprazole 40 mg capsule,delayed 40 mg PO DAILY #90 cap 06/22/21 08/14/21 Rx release solifenacin 10 mg tablet 10 mg PO DAILY #90 tablet 06/22/21 08/14/21 Rx valsartan 320 mg tablet 320 mg PO DAILY #90 tablet 08/08/21 08/14/21 Rx furosemide 40 mg PO DAILY 08/14/21 08/14/21 Histor
[2021-08-15 20:30] LABS: Glucose Point of Care 248 mg/dl (65-105)
[2021-08-16] VITALS (17 sets, daily range): BP systolic 113–141; BP diastolic 54–81; PULSE 70–100; RESP 14–20; TEMP 36.5–36.8; O2SAT 97–100
[2021-08-16 06:22] LABS: Basophils Absolute Auto 0.1 K/mm3 (0.0-0.1); Basophils Percent Auto 0.9 % (0.2-1.2); Eosinophils Absolute Auto 0.3 K/mm3 (0-0.3); Eosinophils Percent Auto 3.7 % (0-4.4); Hematocrit 35.3 % (37.0-47.0); Hemoglobin 10.2 g/dL (12.0-15.0); Immature Granulocyte Absolute 0.02 K/mm3 (0.00-0.031); Immature Granulocyte Percent A 0.3 % (0-0.5); Lymphocytes Absolute Auto 2.96 K/mm3 (0.9-3.2); Lymphocytes Percent Auto 43.3 % (18.3-44.2); Mean Corpuscular HGB Conc 28.9 g/dl (32-36); Mean Corpuscular Hemoglobin 25.3 pg (26-34); Mean Corpuscular Volume 87.6 fl (80-100); Monocytes Absolute Auto 0.8 K/mm3 (0.1-0.6); Monocytes Percent Auto 12.3 % (2.6-8.5); Neutrophils Absolute Auto 2.7 K/mm3 (1.3-6.7); Neutrophils Percent Auto 39.5 % (45.5-73.1); Platelet Count Result 220 k/mm3 (150-375); Red Blood Count 4.03 M/mm3 (4.2-5.4); Red Cell Distribution Width 15.7 % (11.5-14.5); White Blood Count 6.8 K/mm3 (4.5-10.0)
[2021-08-16 06:39] LABS: Alanine Aminotransferase 11 U/L (6-35); Albumin Level 3.3 g/dL (3.5-5.1); Alkaline Phosphatase 87 U/L (38-126); Anion Gap 5 mmol/L (8-16); Aspartate Amino Transferase 18 U/L (14-36); Bilirubin,Total 0.7 mg/dL (0.2-1.3); Blood Urea Nitrogen 13 mg/dL (7-17); Calcium 8.5 mg/dL (8.4-10.2); Carbon Dioxide 27 mmol/L (22-30); Chloride 107 mmol/L (98-107); Estimated CRCL calculation 72 ml/min; Estimated Glomerular Filt Rate > 60; Glucose 123 mg/dL (65-110); Potassium 3.5 mmol/L (3.4-5.0); Sodium 139 mmol/L (137-145)
[2021-08-16] MEDS: carvediloL 12.5 MG TABLET PO ×2 (08:24→20:29)
[2021-08-16] MEDS: PANTOPRAZOLE 40 MG TABLET PO ×2 (08:24→20:29)
[2021-08-16] MEDS: POTASSIUM CHLORIDE 10 MEQ TABLET.ER 20 MEQ PO (08:24)
[2021-08-16] MEDS: FUROSEMIDE 40 MG TABLET PO (08:24)
[2021-08-16] MEDS: ROSUVASTATIN 10 MG TABLET 40 MG PO (08:25)
[2021-08-16] MEDS: VALSARTAN 160 MG TABLET 320 MG PO (08:25)
[2021-08-16] MEDS: EZETIMIBE 10 MG TABLET PO (08:25)
[2021-08-16] MEDS: SOLIFENACIN 5 MG TABLET 10 MG PO (08:25)
[2021-08-16] MEDS: MECLIZINE HCL 12.5 MG TABLET PO ×4 (08:25→20:29)
[2021-08-16] MEDS: ASPIRIN 81 MG ENTERIC TABLET PO (08:25)
[2021-08-16] MEDS: HEPARIN SODIUM 5,000 UNITS/ML VIAL 5000 UNITS SUB-Q ×2 (08:26→20:29)
[2021-08-16] MEDS: ACETAMINOPHEN 325 MG TABLET 650 MG PO ×3 (08:33→22:23)
[2021-08-16 08:59] LABS: Glucose Point of Care 196 mg/dl (65-105)
[2021-08-16] MEDS: INSULIN GLARGINE (*BKC) 100 UNITS/ML 15 UNITS SUB-Q (10:07)
[2021-08-16 12:09] LABS: Glucose Point of Care 255 mg/dl (65-105)
[2021-08-16] MEDS: INSULIN ASPART (*BKC) 100 UNITS/ML SUB-Q ×2 (12:52→17:23)
--- NOTE | 2021-08-16 13:40 | ECHO_ITS ---
Patient Info Name: Jacinta Moreno Age: 65 years : 1955 Gender: Female Ht: 66 in Wt: 146 lbs BSA: 1.76 m2 HR: 79 bpm BP: 134 / 66 mmHg Heart Rhythm: Sinus Rhythm Technical Quality: Fair Exam Date: 08/16/2021 10:45 AM Exam Location: [facility] Patient Status: Outpatient Admit Date: 08/14/2021 Staff Ordering Physician: Perico Biswas MD Farm Mortgage Agent: Kim Munoz RDCS Attending Provider: Kim Corona DO Referring Physician: True KHAN; Exam Type: CA echo doppler color flow Study Info Indications - elevated troponin, htn Complete two-dimensional, color flow and Doppler transthoracic echocardiogram is performed. Summary 1. Complete two-dimensional, color flow and Doppler transthoracic echocardiogram is performed. 2. Left ventricular chamber dimension is normal. 3. Left ventricular systolic function is normal, estimated at 65-70%. 4. There is no increased left ventricular wall thickness. 5. The left ventricular diastolic function is normal. 6. There is trace mitral valve regurgitation. 7. There is no aortic valve stenosis. Left Ventricle Left ventricular chamber dimension is normal. Left ventricular systolic function is normal, estimated at 65-70%. There is no increased left ventricular wall thickness. The left ventricular diastolic function is normal. Right Ventricle Right ventricular chamber dimension is normal. Right ventricular systolic function is normal. Left Atria Left atrial chamber dimension is normal. Right Atria Right atrial chamber dimension is normal. Aortic Valve The aortic valve is not well visualized. There is no aortic valve stenosis. There is no aortic valve regurgitation. Pulmonic Valve The pulmonic valve is not well visualized. Mitral Valve The mitral valve has thickened leaflets. There is trace mitral valve regurgitation. The mitral valve annulus is mildly calcified. Tricuspid Valve The tricuspid valve leaflets are normal. There is trace tricuspid valve regurgitation. No pulmonary hypertension, estimated pulmonary arterial systolic pressure is 22 mmHg. Pericardium/Pleural The pericardium appears normal. There is no pericardial effusion. Inferior Vena Cava Normal inferior vena cava with >50% collapse upon inspiration consistent with normal right atrial pressure, 5 mmHg. Aorta The aortic root size at the sinus of Valsalva is normal. There is mild aortic atherosclerosis. Left Ventricular Outflow Tract Name Value Normal LVOT 2D LVOT Diameter 2.0 cm LVOT Doppler LVOT Peak Gradient 3 mmHg LVOT Mean Gradient 1 mmHg LVOT VTI 14 cm LVOT VTI/AV VTI Ratio 0.7 LVOT Stroke Volume 44 ml LVOT CO 3.4 l/min LVOT CI 1.9 l/min/m2 Pulmonic Valve Name Value Normal
--- NOTE | 2021-08-16 13:51 | WPDNEUROPN ---
Subjective Date/time seen: 08/16/21 13:52 Objective Data Vital Signs Vital Signs: Vital Signs - 24 hr 08/15/21 14:00 08/15/21 16:00 08/15/21 18:00 Temperature 36.8 C Pulse Rate 89 90 94 Respiratory Rate 18 Blood Pressure 133/68 Pulse Oximetry 100 08/15/21 20:00 08/15/21 20:32 08/15/21 22:00 Temperature 36.7 C Pulse Rate 81 84 81 Respiratory Rate 18 Blood Pressure 141/60 H Pulse Oximetry 97 08/15/21 23:51 08/16/21 00:00 08/16/21 02:00 Temperature 36.6 C Pulse Rate 79 74 82 Respiratory Rate 18 18 Blood Pressure 136/63 Pulse Oximetry 97 97 08/16/21 04:00 08/16/21 05:30 08/16/21 08:00 Temperature 36.6 C 36.7 C Pulse Rate 82 79 91 Respiratory Rate 20 18 Blood Pressure 134/66 113/61 Pulse Oximetry 97 100 08/16/21 08:16 08/16/21 12:00 Temperature 36.8 C Pulse Rate 79 Respiratory Rate 14 Blood Pressure 122/81 Pulse Oximetry 97 100 Intake/Output Intake/Output: Intake & Output 08/13/21 08/14/21 08/15/21 08/16/21 23:59 23:59 23:59 23:59 Intake Total 2240 1020 440 Output Total 500 900 650 Balance 1740 120 -210 Meds/Results Medications: Active Medications Generic Name Dose Route Start Last Admin Trade Name Freq PRN Reason Stop Dose Admin Acetaminophen 650 mg 08/16/21 07:54 08/16/21 08:33 Acetaminophen 325 Mg Tablet PO 650 mg Q6H PRN Administration Mild Pain (1-3) or Fever Aspirin 81 mg 08/14/21 13:30 08/16/21 08:25 Aspirin 81 Mg Enteric Tablet PO 81 mg QAM DASHA Administration Carvedilol 12.5 mg 08/14/21 21:00 08/16/21 08:24 Carvedilol 12.5 Mg Tablet PO 12.5 mg Q12HR DASHA Administration Dextrose 12.5 gm 08/14/21 12:40 Dextrose 50% 25 Gm/50 Ml Syringe IV PUSH PRN PRN Hypoglycemia Protocol Ezetimibe 10 mg 08/15/21 09:00 08/16/21 08:25 Ezetimibe 10 Mg Tablet PO 10 mg DAILY DASHA Administration Furosemide 40 mg 08/16/21 09:00 08/16/21 08:24 Furosemide 40 Mg Tablet PO 40 mg DAILY DASHA Administration Glucagon 1 mg 08/14/21 12:40 Glucagon For Inj 1 Mg Vial IM PRN PRN Hypoglycemia Protocol Glucose 15 gm 08/14/21 12:40 Glucose Oral Gel 15 Gm Of Glucse In 37.5 Gm Tube PO PRN PRN Hypoglycemia Protocol Heparin Sodium (Porcine) 5,000 units 08/14/21 21:00 08/16/21 08:26 Heparin Sodium 5,000 Units/Ml Vial SUB-Q 5,000 units Q12HR DASHA Administration Home Med 1 each 08/15/21 09:00 08/16/21 08:26 Teriflunomide [Aubagio] 14 Mg Tablet BY MOUTH 09/14/21 08:59 1 each DAILY DASHA Administration Hydralazine HCl 10 mg 08/14/21 12:38 Hydralazine Hcl 20 Mg/Ml Vial IV PUSH Q6H PRN Hypertension Dextrose 1,000 mls @ 100 mls/hr 08/14/21 12:40 Dextrose 5% 1,000 Ml IVPB PRN PRN Hypoglycemia Protocol Insulin Aspart 3 - 6 units 08/14/21 17:00 08/16/21 12:52 Insulin Aspart (*Bkc) 100 Units/Ml SUB-Q 4 units TIDWM DASHA Administration Protocol Insulin Glargine 15 units 08/15/21 09:00 08/16/21 10:07 Insulin Glargine (*Bkc) 100 Units/Ml SUB-Q 15 units DAILY DASHA Administration Meclizine HCl 12.5 mg 08/14/21 13:00 08/16/21 12:53 Meclizine Hcl 12.5 Mg Tablet PO 12.5 mg QID DASHA Administration Miscellaneous Information 1 each 08/15/21 00:01 Tradjenta Is Nonoformulary XX 09/14/21 00:00 [facility] Morphine Sulfate 2 mg 08/14/21 12:40 Morphine Sulfate (*Crx) 2 Mg/Ml Inj IV PUSH Q4H PRN For pain 7-10 Non-Formulary Medication 5 mg 08/15/21 09:00 Linagliptin [Tradjenta] PO 09/14/21 08:59 QAM DASHA Ondansetron HCl 4 mg 08/14/21 08:51 Ondansetron Inj 4 Mg/2 Ml Vial IV PUSH Q4H PRN Nausea Pantoprazole Sodium 40 mg 08/14/21 21:00 08/16/21 08:24 Pantoprazole 40 Mg Tablet PO 40 mg Q12HR DASHA Administration Perflutren Lipid Microsphere 0 ml 08/15/21 13:40 Perflutren Lipid Microspheres 1.5 Ml Vial Diluted To 10 Ml
--- NOTE | 2021-08-16 16:44 | PM.DS ---
DS: Summary Time Spent with Patient Time attestation: Total time spent providing and/or coordinating discharge services: DS: Data Data Completed and Pending Labs on day of discharge: Labs from last 24 hours 08/16/21 08/16/21 08/16/21 12:05 08:56 05:18 WBC RBC Hgb Hct MCV MCH MCHC RDW Plt Count MPV Immature Gran % (Auto) Neut % (Auto) Lymph % (Auto) Talbot % (Auto) Eos % (Auto) Baso % (Auto) Lymph # (Auto) Talbot # (Auto) Eos # (Auto) Baso # (Auto) Abs Immat Gran (auto) Absolute Neuts (auto) Absolute Nucleated RBC Nucleated RBC % Sodium 139 Potassium 3.5 Chloride 107 Carbon Dioxide 27 Anion Gap 5 L BUN 13 Creatinine 0.60 L Estim Creat Clear Calc 72 Estimated GFR > 60 Glucose 123 H POC Capillary Glucose 255 H 196 H Calcium 8.5 Total Bilirubin 0.7 AST 18 ALT 11 Alkaline Phosphatase 87 Total Protein 7.0 Albumin 3.3 L 08/16/21 08/15/21 05:18 20:22 WBC 6.8 RBC 4.03 L Hgb 10.2 L Hct 35.3 L MCV 87.6 MCH 25.3 L MCHC 28.9 L RDW 15.7 H Plt Count 220 MPV 12.0 H Immature Gran % (Auto) 0.3 Neut % (Auto) 39.5 L Lymph % (Auto) 43.3 Talbot % (Auto) 12.3 H Eos % (Auto) 3.7 Baso % (Auto) 0.9 Lymph # (Auto) 2.96 Talbot # (Auto) 0.8 H Eos # (Auto) 0.3 Baso # (Auto) 0.1 Abs Immat Gran (auto) 0.02 Absolute Neuts (auto) 2.7 Absolute Nucleated RBC 0.0 Nucleated RBC % 0.0 Sodium Potassium Chloride Carbon Dioxide Anion Gap BUN Creatinine Estim Creat Clear Calc Estimated GFR Glucose POC Capillary Glucose 248 H Calcium Total Bilirubin AST ALT Alkaline Phosphatase Total Protein Albumin Preliminary micro results at discharge 08/14/21 14:14 Blood Culture - Preliminary Blood 08/14/21 14:14 Blood Culture - Preliminary Blood Discharge Plan Discharge Attending physician on discharge: Sharmila Ceballos Consulting providers: Pankaj Paz ; Fermín eMade Discharging Clinician: Sharmila Ceballos Patient Disposition: Home, Self-Care Activity: as tolerated Diet: heart healthy Discharge Instructions: patient to follow-up with her neurologist and orthopedic as scheduled, patient to follow-up with her primary care provider as soon as possible, patient is instructed if any symptoms redeveloped to go to nearest emergency department Patient Instructions: Antibiotic Form Stand Alone Forms: General Discharge Information Follow-up/Referrals: Wilbert Crowder MD [Primary Care Provider] - Discharge Medications: New carvedilol [Coreg] 12.5 mg Tablet 12.5 mg PO Q12HR Qty: 60 RF: 0 aspirin 81 mg Tablet,Delayed Release (Dr/Ec) 81 mg PO QAM Qty: 30 RF: 0 meclizine 12.5 mg tablet 12.5 mg PO TID PRN (Reason: dizziness) Qty: 20 RF: 0 Continued Aubagio 14 mg Tablet 14 mg PO DAILY RF: 0 furosemide 40 mg tablet 40 mg PO DAILY RF: 0 potassium chloride 10 mEq capsule, extended release 25 meq PO DAILY RF: 0 rosuvastatin 40 mg tablet 40 mg PO DAILY RF: 0 Tradjenta 5 mg tablet 5 mg PO QAM RF: 0 Tresiba FlexTouch U-100 100 unit/mL (3 mL) insulin pen 19 unit subcut DAILY RF: 0 ezetimibe [Zetia] 10 mg tablet 10 mg PO DAILY Qty: 90 RF: 1 omeprazole 40 mg capsule,delayed release(DR/EC) 40 mg PO DAILY Qty: 90 RF: 1 solifenacin [Vesicare] 10 mg tablet 10 mg PO DAILY Qty: 90 RF: 1 valsartan 320 mg tablet 320 mg PO DAILY Qty: 90 RF: 1 Date of admission: 08/14/21 08:51 Primary Care Provider: Wilbert Crowder Admitting Provider: Kim Corona Attending physician on admission: Kim Corona Condition: Stable
[2021-08-16 16:45] LABS: Glucose Point of Care 211 mg/dl (65-105)
--- NOTE | 2021-08-16 17:46 | PM.IMPN ---
Progress Note: A&P Assessment and Plan (1) Hypertension, uncontrolled: Code(s): I10 - Essential (primary) hypertension Status: Acute Assessment and Plan: Associated with hypertensive urgency associated with altered mental status and dizziness CT scan of the head was negative Status post labetalol IV Lasix Started Coreg and hydralazine Cardiology recommendation pending (2) Overactive bladder: Code(s): N32.81 - Overactive bladder Status: Acute Assessment and Plan: Most likely related to multiple sclerosis Lactic acid was elevated no evidence of infection continue to monitor No clinical evidence of septic arthritis Follow-up blood culture (3) PMR (polymyalgia rheumatica): Code(s): M35.3 - Polymyalgia rheumatica Status: Acute Assessment and Plan: Pain control (4) Multiple sclerosis: Code(s): G35 - Multiple sclerosis Status: Acute Assessment and Plan: Probable associated with acute exacerbation MRI shows extensive multiple sclerosis Neurology consult May benefit from IV steroid (5) Hyperlipidemia: Qualifiers: Hyperlipidemia type: mixed hyperlipidemia Qualified Code(s): E78.2 - Mixed hyperlipidemia Code(s): E78.5 - Hyperlipidemia, unspecified Status: Acute Assessment and Plan: Resume home medication once reconciled (6) DM type 2 (diabetes mellitus, type 2): Qualifiers: Diabetes mellitus penitentiary insulin use: unspecified mobility architect manager insulin use status Diabetes mellitus complication status: without complication Qualified Code(s): E11.9 - Type 2 diabetes mellitus without complications Code(s): E11.9 - Type 2 diabetes mellitus without complications Status: Acute Assessment and Plan: Insulin sliding scale (7) Elevated troponin: Code(s): R77.8 - Other specified abnormalities of plasma proteins Status: Acute Assessment and Plan: Probably related to hypertensive urgency cardiology consult is pending Pending D-dimer if D-dimer is positive may need CT scan of the chest to rule out PE (8) Sinus tachycardia: Code(s): R00.0 - Tachycardia, unspecified Status: Acute Assessment and Plan: Improved continue telemonitor pending cardiology evaluation Probably related to bilateral lower extremity pain (9) Bilateral knee pain: Code(s): M25.561 - Pain in right knee; M25.562 - Pain in left knee Status: Acute Assessment and Plan: Status post therapeutic injection in the bilateral knee no evidence of infection pain is better controlled now Anticipate discharge Scharff once okay with Neurology and Cardiology Probably patient will need IV steroid for 3 days pending neurology evaluation 08/16/2021 interval history: Patient with tachycardia and elevated blood pressure which is trending down patient was seen by Cardiology not suspect any cardiac issues, patient continued to complain bilateral knee pain states he was seen by her orthopedic and had a gel placed and both of her knees patient continue to have pain but states is much better as compared to when she arrived, patient work with physical therapy and taper maximum assistance with bed ambulation recommending patient will benefit going to acute rehab, patient is working with disabilities caregiver and further recommendation to follow. patient has been is present in the room Subjective Date/time seen: 08/16/21 17:46 Chief Complaint: 65 years old female with past medical history of hypertension diabetes presented to the hospital with severe bilateral knee pain worsening gradually associated with altered mental status and feeling that going to fall denies weakness of upper or lower extremities patient recently had bilateral knee injections at the ER patient was found to have tachycardia up to 169 elevated lactic acid up to 8 blood pressure was elevated more than 220 systolic patient was given IV Lasix IV labetalol bl
[2021-08-16 20:25] LABS: Glucose Point of Care 126 mg/dl (65-105)
[2021-08-17] VITALS (12 sets, daily range): BP systolic 88–143; BP diastolic 52–66; PULSE 16–87; RESP 14–20; TEMP 36.2–37.3; O2SAT 97–100
[2021-08-17] MEDS: ACETAMINOPHEN 325 MG TABLET 650 MG PO ×2 (07:22→21:32)
[2021-08-17 07:59] LABS: Basophils Absolute Auto 0.1 K/mm3 (0.0-0.1); Basophils Percent Auto 0.8 % (0.2-1.2); Eosinophils Absolute Auto 0.3 K/mm3 (0-0.3); Eosinophils Percent Auto 4.6 % (0-4.4); Hematocrit 35.1 % (37.0-47.0); Hemoglobin 10.3 g/dL (12.0-15.0); Immature Granulocyte Absolute 0.02 K/mm3 (0.00-0.031); Immature Granulocyte Percent A 0.3 % (0-0.5); Lymphocytes Absolute Auto 2.31 K/mm3 (0.9-3.2); Lymphocytes Percent Auto 38.3 % (18.3-44.2); Mean Corpuscular HGB Conc 29.3 g/dl (32-36); Mean Corpuscular Hemoglobin 25.6 pg (26-34); Mean Corpuscular Volume 87.1 fl (80-100); Mean Platelet Volume 11.3 fl (7.4-10.4); Monocytes Absolute Auto 0.7 K/mm3 (0.1-0.6); Monocytes Percent Auto 12.1 % (2.6-8.5); Neutrophils Absolute Auto 2.6 K/mm3 (1.3-6.7); Neutrophils Percent Auto 43.9 % (45.5-73.1); Platelet Count Result 208 k/mm3 (150-375); Red Blood Count 4.03 M/mm3 (4.2-5.4); Red Cell Distribution Width 15.7 % (11.5-14.5)
[2021-08-17 08:10] LABS: Anion Gap 4 mmol/L (8-16); Blood Urea Nitrogen 10 mg/dL (7-17); Calcium 8.3 mg/dL (8.4-10.2); Carbon Dioxide 30 mmol/L (22-30); Chloride 104 mmol/L (98-107); Estimated CRCL calculation 85 ml/min; Estimated Glomerular Filt Rate > 60; Glucose 118 mg/dL (65-110); Potassium 3.4 mmol/L (3.4-5.0); Sodium 138 mmol/L (137-145)
[2021-08-17 08:13] LABS: Anisocytosis 1+ (NORMAL); Platelet Estimate Adequate (Adequate)
[2021-08-17 08:20] LABS: Glucose Point of Care 127 mg/dl (65-105)
[2021-08-17] MEDS: ASPIRIN 81 MG ENTERIC TABLET PO (09:30)
[2021-08-17] MEDS: PANTOPRAZOLE 40 MG TABLET PO ×2 (09:30→21:26)
[2021-08-17] MEDS: VALSARTAN 160 MG TABLET 320 MG PO (09:31)
[2021-08-17] MEDS: POTASSIUM CHLORIDE 10 MEQ TABLET.ER 20 MEQ PO (09:31)
[2021-08-17] MEDS: FUROSEMIDE 40 MG TABLET PO (09:31)
[2021-08-17] MEDS: carvediloL 12.5 MG TABLET PO ×2 (09:31→21:25)
[2021-08-17] MEDS: MECLIZINE HCL 12.5 MG TABLET PO ×4 (09:31→21:25)
[2021-08-17] MEDS: EZETIMIBE 10 MG TABLET PO (09:31)
[2021-08-17] MEDS: ROSUVASTATIN 10 MG TABLET 40 MG PO (09:31)
[2021-08-17] MEDS: INSULIN GLARGINE (*BKC) 100 UNITS/ML 15 UNITS SUB-Q (09:32)
[2021-08-17] MEDS: HEPARIN SODIUM 5,000 UNITS/ML VIAL 5000 UNITS SUB-Q ×2 (09:32→21:26)
[2021-08-17] MEDS: SOLIFENACIN 5 MG TABLET 10 MG PO (09:33)
[2021-08-17 12:32] LABS: Glucose Point of Care 220 mg/dl (65-105)
[2021-08-17] MEDS: INSULIN ASPART (*BKC) 100 UNITS/ML SUB-Q (13:47)
[2021-08-17 17:00] LABS: Glucose Point of Care 162 mg/dl (65-105)
--- NOTE | 2021-08-17 17:11 | PC.NURSE ---
Blood pressure reassessed - 108/54, heart rate 74. Patient denies dizziness, shortness of breath, pain. Patient resting comfortably at this time.
--- NOTE | 2021-08-17 19:01 | PM.IMPN ---
Progress Note: A&P Assessment and Plan (1) Hypertension, uncontrolled: Code(s): I10 - Essential (primary) hypertension Status: Acute Assessment and Plan: Associated with hypertensive urgency associated with altered mental status and dizziness CT scan of the head was negative Status post labetalol IV Lasix Started Coreg and hydralazine Cardiology recommendation pending (2) Overactive bladder: Code(s): N32.81 - Overactive bladder Status: Acute Assessment and Plan: Most likely related to multiple sclerosis Lactic acid was elevated no evidence of infection continue to monitor No clinical evidence of septic arthritis Follow-up blood culture (3) PMR (polymyalgia rheumatica): Code(s): M35.3 - Polymyalgia rheumatica Status: Acute Assessment and Plan: Pain control (4) Multiple sclerosis: Code(s): G35 - Multiple sclerosis Status: Acute Assessment and Plan: Probable associated with acute exacerbation MRI shows extensive multiple sclerosis Neurology consult May benefit from IV steroid (5) Hyperlipidemia: Qualifiers: Hyperlipidemia type: mixed hyperlipidemia Qualified Code(s): E78.2 - Mixed hyperlipidemia Code(s): E78.5 - Hyperlipidemia, unspecified Status: Acute Assessment and Plan: Resume home medication once reconciled (6) DM type 2 (diabetes mellitus, type 2): Qualifiers: Diabetes mellitus longterm insulin use: unspecified terminal manager insulin use status Diabetes mellitus complication status: without complication Qualified Code(s): E11.9 - Type 2 diabetes mellitus without complications Code(s): E11.9 - Type 2 diabetes mellitus without complications Status: Acute Assessment and Plan: Insulin sliding scale (7) Elevated troponin: Code(s): R77.8 - Other specified abnormalities of plasma proteins Status: Acute Assessment and Plan: Probably related to hypertensive urgency cardiology consult is pending Pending D-dimer if D-dimer is positive may need CT scan of the chest to rule out PE (8) Sinus tachycardia: Code(s): R00.0 - Tachycardia, unspecified Status: Acute Assessment and Plan: Improved continue telemonitor pending cardiology evaluation Probably related to bilateral lower extremity pain (9) Bilateral knee pain: Code(s): M25.561 - Pain in right knee; M25.562 - Pain in left knee Status: Acute Assessment and Plan: Status post therapeutic injection in the bilateral knee no evidence of infection pain is better controlled now Anticipate discharge Scharff once okay with Neurology and Cardiology Probably patient will need IV steroid for 3 days pending neurology evaluation 08/16/2021 interval history: Patient with tachycardia and elevated blood pressure which is trending down patient was seen by Cardiology not suspect any cardiac issues, patient continued to complain bilateral knee pain states he was seen by her orthopedic and had a gel placed and both of her knees patient continue to have pain but states is much better as compared to when she arrived, patient work with physical therapy and taper maximum assistance with bed ambulation recommending patient will benefit going to acute rehab, patient is working with med care manager and further recommendation to follow. patient has been is present in the room. 08/17/2021 interval history: Patient with tachycardia and elevated blood pressure which is trending down patient was seen by Cardiology not suspect any cardiac issues, patient continued to complain bilateral knee pain states he was seen by her orthopedic and had a gel placed and both of her knees patient continue to have pain but states is much better as compared to when she arrived, patient work with physical therapy and required maximum assistance with ambulation recommending patient will benefit going to acute rehab, patient is working with care
[2021-08-17 20:07] LABS: Glucose Point of Care 305 mg/dl (65-105)
[2021-08-18] VITALS (10 sets, daily range): BP systolic 106–155; BP diastolic 56–64; PULSE 61–85; RESP 16–20; TEMP 36.6–37.5; O2SAT 97–100
[2021-08-18 04:43] LABS: Basophils Absolute Auto 0.1 K/mm3 (0.0-0.1); Eosinophils Absolute Auto 0.3 K/mm3 (0-0.3); Hematocrit 33.6 % (37.0-47.0); Hemoglobin 10.2 g/dL (12.0-15.0); Immature Granulocyte Absolute 0.02 K/mm3 (0.00-0.031); Immature Granulocyte Percent A 0.3 % (0-0.5); Lymphocytes Absolute Auto 3.11 K/mm3 (0.9-3.2); Lymphocytes Percent Auto 43.1 % (18.3-44.2); Mean Corpuscular HGB Conc 30.4 g/dl (32-36); Mean Corpuscular Hemoglobin 25.7 pg (26-34); Mean Corpuscular Volume 84.6 fl (80-100); Monocytes Absolute Auto 0.8 K/mm3 (0.1-0.6); Monocytes Percent Auto 11.5 % (2.6-8.5); Neutrophils Absolute Auto 2.9 K/mm3 (1.3-6.7); Neutrophils Percent Auto 40.1 % (45.5-73.1); Platelet Count Result 214 k/mm3 (150-375); Red Blood Count 3.97 M/mm3 (4.2-5.4); Red Cell Distribution Width 15.5 % (11.5-14.5); White Blood Count 7.2 K/mm3 (4.5-10.0)
[2021-08-18 04:54] LABS: Anion Gap 5 mmol/L (8-16); Blood Urea Nitrogen 12 mg/dL (7-17); Calcium 8.3 mg/dL (8.4-10.2); Carbon Dioxide 29 mmol/L (22-30); Chloride 103 mmol/L (98-107); Estimated CRCL calculation 72 ml/min; Estimated Glomerular Filt Rate > 60; Glucose 122 mg/dL (65-110); Potassium 3.4 mmol/L (3.4-5.0); Sodium 137 mmol/L (137-145)
[2021-08-18] MEDS: ACETAMINOPHEN 325 MG TABLET 650 MG PO ×2 (08:27→20:35)
[2021-08-18] MEDS: ROSUVASTATIN 10 MG TABLET 40 MG PO (08:28)
[2021-08-18] MEDS: MECLIZINE HCL 12.5 MG TABLET PO ×4 (08:28→20:29)
[2021-08-18] MEDS: ASPIRIN 81 MG ENTERIC TABLET PO (08:28)
[2021-08-18] MEDS: POTASSIUM CHLORIDE 10 MEQ TABLET.ER 20 MEQ PO (08:29)
[2021-08-18] MEDS: SOLIFENACIN 5 MG TABLET 10 MG PO (08:29)
[2021-08-18] MEDS: PANTOPRAZOLE 40 MG TABLET PO ×2 (08:29→20:29)
[2021-08-18] MEDS: VALSARTAN 160 MG TABLET 320 MG PO (08:29)
[2021-08-18] MEDS: carvediloL 12.5 MG TABLET PO ×2 (08:29→20:32)
[2021-08-18] MEDS: EZETIMIBE 10 MG TABLET PO (08:30)
[2021-08-18] MEDS: HEPARIN SODIUM 5,000 UNITS/ML VIAL 5000 UNITS SUB-Q ×2 (08:30→20:34)
[2021-08-18] MEDS: INSULIN GLARGINE (*BKC) 100 UNITS/ML 15 UNITS SUB-Q (08:30)
[2021-08-18] MEDS: FUROSEMIDE 40 MG TABLET PO (08:30)
[2021-08-18 12:03] LABS: Glucose Point of Care 172 mg/dl (65-105)
[2021-08-18] MEDS: POTASSIUM CHLORIDE 20 MEQ PACKET (FOR LIQUID) 40 MEQ PO (13:48)
[2021-08-18 16:32] LABS: Glucose Point of Care 236 mg/dl (65-105)
--- NOTE | 2021-08-18 17:29 | PM.IMPN ---
Progress Note: A&P Assessment and Plan (1) Hypertension, uncontrolled: Code(s): I10 - Essential (primary) hypertension Status: Acute Assessment and Plan: Associated with hypertensive urgency associated with altered mental status and dizziness CT scan of the head was negative Status post labetalol IV Lasix Started Coreg and hydralazine Cardiology recommendation pending (2) Overactive bladder: Code(s): N32.81 - Overactive bladder Status: Acute Assessment and Plan: Most likely related to multiple sclerosis Lactic acid was elevated no evidence of infection continue to monitor No clinical evidence of septic arthritis Follow-up blood culture (3) PMR (polymyalgia rheumatica): Code(s): M35.3 - Polymyalgia rheumatica Status: Acute Assessment and Plan: Pain control (4) Multiple sclerosis: Code(s): G35 - Multiple sclerosis Status: Acute Assessment and Plan: Probable associated with acute exacerbation MRI shows extensive multiple sclerosis Neurology consult May benefit from IV steroid (5) Hyperlipidemia: Qualifiers: Hyperlipidemia type: mixed hyperlipidemia Qualified Code(s): E78.2 - Mixed hyperlipidemia Code(s): E78.5 - Hyperlipidemia, unspecified Status: Acute Assessment and Plan: Resume home medication once reconciled (6) DM type 2 (diabetes mellitus, type 2): Qualifiers: Diabetes mellitus group home insulin use: unspecified equipment 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 insulin use status Diabetes mellitus complication status: without complication Qualified Code(s): E11.9 - Type 2 diabetes mellitus without complications Code(s): E11.9 - Type 2 diabetes mellitus without complications Status: Acute Assessment and Plan: Insulin sliding scale (7) Elevated troponin: Code(s): R77.8 - Other specified abnormalities of plasma proteins Status: Acute Assessment and Plan: Probably related to hypertensive urgency cardiology consult is pending Pending D-dimer if D-dimer is positive may need CT scan of the chest to rule out PE (8) Sinus tachycardia: Code(s): R00.0 - Tachycardia, unspecified Status: Acute Assessment and Plan: Improved continue telemonitor pending cardiology evaluation Probably related to bilateral lower extremity pain (9) Bilateral knee pain: Code(s): M25.561 - Pain in right knee; M25.562 - Pain in left knee Status: Acute Assessment and Plan: Status post therapeutic injection in the bilateral knee no evidence of infection pain is better controlled now Anticipate discharge Scharff once okay with Neurology and Cardiology Probably patient will need IV steroid for 3 days pending neurology evaluation 08/16/2021 interval history: Patient with tachycardia and elevated blood pressure which is trending down patient was seen by Cardiology not suspect any cardiac issues, patient continued to complain bilateral knee pain states he was seen by her orthopedic and had a gel placed and both of her knees patient continue to have pain but states is much better as compared to when she arrived, patient work with physical therapy and taper maximum assistance with bed ambulation recommending patient will benefit going to acute rehab, patient is working with nursing care partner and further recommendation to follow. patient has been is present in the room. 08/17/2021 interval history: Patient with tachycardia and elevated blood pressure which is trending down patient was seen by Cardiology not suspect any cardiac issues, patient continued to complain bilateral knee pain states he was seen by her orthopedic and had a gel placed and both of her knees patient continue to have pain but states is much better as compared to when she arrived, patient work with physical therapy and required maximum assistance with ambulation recommending patient will benefit going to acute rehab, patient is working with care
[2021-08-18] MEDS: INSULIN ASPART (*BKC) 100 UNITS/ML SUB-Q (17:33)
[2021-08-18 20:27] LABS: Glucose Point of Care 161 mg/dl (65-105)
[2021-08-19] VITALS: BP 120/56; PULSE 72; RESP 16; TEMP 37.2; O2SAT 100
[2021-08-19 04:43] VITALS: BP 137/66; PULSE 74; RESP 16; TEMP 36.3; O2SAT 100
[2021-08-19 04:52] LABS: Basophils Absolute Auto 0.1 K/mm3 (0.0-0.1); Eosinophils Absolute Auto 0.3 K/mm3 (0-0.3); Eosinophils Percent Auto 4.7 % (0-4.4); Hematocrit 33.5 % (37.0-47.0); Hemoglobin 10.2 g/dL (12.0-15.0); Immature Granulocyte Absolute 0.02 K/mm3 (0.00-0.031); Immature Granulocyte Percent A 0.3 % (0-0.5); Lymphocytes Percent Auto 47.1 % (18.3-44.2); Mean Corpuscular HGB Conc 30.4 g/dl (32-36); Mean Corpuscular Hemoglobin 26.2 pg (26-34); Mean Corpuscular Volume 85.9 fl (80-100); Mean Platelet Volume 11.7 fl (7.4-10.4); Monocytes Absolute Auto 0.8 K/mm3 (0.1-0.6); Monocytes Percent Auto 12.2 % (2.6-8.5); Neutrophils Absolute Auto 2.1 K/mm3 (1.3-6.7); Neutrophils Percent Auto 34.7 % (45.5-73.1); Platelet Count Result 223 k/mm3 (150-375); Red Cell Distribution Width 15.4 % (11.5-14.5); White Blood Count 6.2 K/mm3 (4.5-10.0)
[2021-08-19] MEDS: ACETAMINOPHEN 325 MG TABLET 650 MG PO (05:00)
[2021-08-19 05:07] LABS: Anion Gap 6 mmol/L (8-16); Blood Urea Nitrogen 13 mg/dL (7-17); Calcium 8.4 mg/dL (8.4-10.2); Carbon Dioxide 27 mmol/L (22-30); Chloride 104 mmol/L (98-107); Estimated CRCL calculation 63 ml/min; Estimated Glomerular Filt Rate > 60; Glucose 103 mg/dL (65-110); Potassium 3.9 mmol/L (3.4-5.0); Sodium 137 mmol/L (137-145)
[2021-08-19 08:00] VITALS: BP 126/63; PULSE 75; RESP 20; TEMP 36.8; O2SAT 100
[2021-08-19 08:13] LABS: Glucose Point of Care 111 mg/dl (65-105)
[2021-08-19] MEDS: ROSUVASTATIN 10 MG TABLET 40 MG PO (08:26)
[2021-08-19] MEDS: EZETIMIBE 10 MG TABLET PO (08:26)
[2021-08-19] MEDS: SOLIFENACIN 5 MG TABLET 10 MG PO (08:26)
[2021-08-19] MEDS: FUROSEMIDE 40 MG TABLET PO (08:26)
[2021-08-19] MEDS: ASPIRIN 81 MG ENTERIC TABLET PO (08:26)
[2021-08-19] MEDS: POTASSIUM CHLORIDE 10 MEQ TABLET.ER 20 MEQ PO (08:27)
[2021-08-19] MEDS: carvediloL 12.5 MG TABLET PO (08:27)
[2021-08-19] MEDS: PANTOPRAZOLE 40 MG TABLET PO (08:27)
[2021-08-19] MEDS: MECLIZINE HCL 12.5 MG TABLET PO ×2 (08:27→12:01)
[2021-08-19] MEDS: HEPARIN SODIUM 5,000 UNITS/ML VIAL 5000 UNITS SUB-Q (08:27)
[2021-08-19] MEDS: VALSARTAN 160 MG TABLET 320 MG PO (08:28)
[2021-08-19] MEDS: INSULIN GLARGINE (*BKC) 100 UNITS/ML 15 UNITS SUB-Q (08:29)
[2021-08-19 11:45] LABS: Glucose Point of Care 199 mg/dl (65-105)
[2021-08-19 12:22] VITALS: BP 94/41; PULSE 69; RESP 16; TEMP 37; O2SAT 92
--- NOTE | 2021-08-19 12:36 | PM.DS ---
DS: Admitting Diagnosis Discharge Date 08/19/2021 Admitting Diagnosis severe bilateral knee pain DS: Discharge Diagnosis Discharge Diagnosis (1) Hypertension, uncontrolled: Code(s): I10 - Essential (primary) hypertension Status: Acute Assessment and Plan: Associated with hypertensive urgency associated with altered mental status and dizziness CT scan of the head was negative Status post labetalol IV Lasix Started Coreg and hydralazine Cardiology recommendation pending (2) Overactive bladder: Code(s): N32.81 - Overactive bladder Status: Acute Assessment and Plan: Most likely related to multiple sclerosis Lactic acid was elevated no evidence of infection continue to monitor No clinical evidence of septic arthritis Follow-up blood culture (3) PMR (polymyalgia rheumatica): Code(s): M35.3 - Polymyalgia rheumatica Status: Acute Assessment and Plan: Pain control (4) Multiple sclerosis: Code(s): G35 - Multiple sclerosis Status: Acute Assessment and Plan: Probable associated with acute exacerbation MRI shows extensive multiple sclerosis Neurology consult May benefit from IV steroid (5) Hyperlipidemia: Qualifiers: Hyperlipidemia type: mixed hyperlipidemia Qualified Code(s): E78.2 - Mixed hyperlipidemia Code(s): E78.5 - Hyperlipidemia, unspecified Status: Acute Assessment and Plan: Resume home medication once reconciled (6) DM type 2 (diabetes mellitus, type 2): Qualifiers: Diabetes mellitus skilled nursing insulin use: unspecified intermodal dispatcher insulin use status Diabetes mellitus complication status: without complication Qualified Code(s): E11.9 - Type 2 diabetes mellitus without complications Code(s): E11.9 - Type 2 diabetes mellitus without complications Status: Acute Assessment and Plan: Insulin sliding scale (7) Elevated troponin: Code(s): R77.8 - Other specified abnormalities of plasma proteins Status: Acute Assessment and Plan: Probably related to hypertensive urgency cardiology consult is pending Pending D-dimer if D-dimer is positive may need CT scan of the chest to rule out PE (8) Sinus tachycardia: Code(s): R00.0 - Tachycardia, unspecified Status: Acute Assessment and Plan: Improved continue telemonitor pending cardiology evaluation Probably related to bilateral lower extremity pain (9) Bilateral knee pain: Code(s): M25.561 - Pain in right knee; M25.562 - Pain in left knee Status: Acute Assessment and Plan: Status post therapeutic injection in the bilateral knee no evidence of infection pain is better controlled now Anticipate discharge [facility] once okay with Neurology and Cardiology Probably patient will need IV steroid for 3 days pending neurology evaluation 08/16/2021 interval history: Patient with tachycardia and elevated blood pressure which is trending down patient was seen by Cardiology not suspect any cardiac issues, patient continued to complain bilateral knee pain states he was seen by her orthopedic and had a gel placed and both of her knees patient continue to have pain but states is much better as compared to when she arrived, patient work with physical therapy and taper maximum assistance with bed ambulation recommending patient will benefit going to acute rehab, patient is working with assurance services manager health care and further recommendation to follow. patient has been is present in the room. 08/17/2021 interval history: Patient with tachycardia and elevated blood pressure which is trending down patient was seen by Cardiology not suspect any cardiac issues, patient continued to complain bilateral knee pain states he was seen by her orthopedic and had a gel placed and both of her knees patient continue to have pain but states is much better as compared to when she arrived, patient work with physical therapy and required maximum assi
[2021-08-19 13:16] LABS: EDCOVIDSCREEN Negative (Negative)
== END 2021-08-19 13:47 ==
LOC: ANHED 09:35 → ANHIMU 08-16 07:57
PROVIDERS: Emergency Medicine; Internal Medicine; Admitting Provider Student in an Organized Health Care Education/Training Program; Emergency Provider Emergency Medicine; PCP Internal Medicine; Visit Provider Family Medicine
DX: R41.82 Altered mental status, unspecified (principal); R42 Dizziness and giddiness; M25.562 Pain in left knee; M25.561 Pain in right knee; N32.81 Overactive bladder; M35.3 Polymyalgia rheumatica; G35 Multiple sclerosis; R77.8 Other specified abnormalities of plasma proteins; R00.0 Tachycardia, unspecified; I10 Essential (primary) hypertension; E11.9 Type 2 diabetes mellitus without complications; E78.5 Hyperlipidemia, unspecified; Z85.3 Personal history of malignant neoplasm of breast; Z20.822 Contact with and (suspected) exposure to COVID-19; Z79.899 Other long term (current) drug therapy
CPT/HCPCS: 36415; 51701; 70450; 70553; 71045; 80048; 80053; 80307; 81001; 82550; 82948; 83036; 83605; 83735; 84484; 85025; 85380; 85610; 85730; 87040; 87426; 93005; 93306; 96361; 96372; 96374; 96375; 96376; 97110; 97163; 97165; 97530; 97535; 99285; A9270; A9577; C9803; G0378; J1644; J1815; J1940; J2060; J7030; U0003; U0005

== ENCOUNTER 2021-09-08 01:00 | Day surgery (SDC) | payer MEDICARE, SELFPAY ==
[2021-08-24 13:28] VITALS: BMI 43.7
--- NOTE | 2021-09-08 07:13 | PM.HPGS ---
History of Present Illness History of Present Illness Consent: Risks, benefits, and alternatives have been discussed and questions answered. Patient agrees to proceed with procedure. Chief complaint: dysphagia Narrative: Jacinta Moreno is a 65 year old female who has had difficulty with swallowing for few years.? I noticed that she had a barium swallow study 5 years ago that was interpreted as normal.? however 1 done last year shows mild decrease in esophageal motility and evidence of previous cervical spine fusion. She feels as though the food will not go down past her neck.? She also feels tightness in the area just above her sternal notch.? She states that liquids go down fine but solid food she must chew repeatedly.? She takes omeprazole.? She believes that it was started because of these symptoms, not heartburn.? She actually does not take omeprazole every day.? She denies nausea vomiting or weight loss.? Her appetite is good.? She has no abdominal pain.? She does have MS but does not feel that it is related to this condition.? She had? an anterior approach for surgery on her cervical spine many years ago but has not had thyroid surgery or other neck surgery. Review of Systems Review of Systems: All systems reviewed & are unremarkable except as noted in HPI and below PMFSH Past Medical History Medical History Bakers cyst Benign essential hypertension Biceps tendinitis of both shoulders BMI 25.0-25.9,adult BMI 26.0-26.9,adult BMI 27.0-27.9,adult BMI 28.0-28.9,adult BMI 30.0-30.9,adult Carpal tunnel syndrome, bilateral Cervicalgia Chronic pain of right knee Colon cancer screening DJD (degenerative joint disease) DM type 2 (diabetes mellitus, type 2) Dysphagia Encounter for general adult medical examination w/o abnormal findings Encounter for Medicare annual wellness exam Encounter for screening mammogram for malignant neoplasm of breast Episode of syncope Esophageal stricture Esophagitis Exposure to COVID-19 virus Follow up Hemoglobin A1C greater than 9%, indicating poor diabetic control 07/14/20 A1c = 9.6 Hx of breast cancer Hyperlipidemia 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 Lower extremity pain, bilateral Multiple sclerosis Muscle weakness Need for pneumococcal vaccine Needle stick, hypodermic, accidental On detention drug therapy Overactive bladder Pain and swelling of left lower extremity PMR (polymyalgia rheumatica) Right shoulder pain Shoulder pain, bilateral Subdural hematoma Urinary frequency Vitamin B12 deficiency Family History Family History Mother Hypertension Family history of diabetes mellitus in first degree relative Diabetes mellitus Father Cerebrovascular accident Sibling Family history of lung cancer Family history of primary malignant neoplasm of liver Social History Social History Smoking status: Never smoker Second hand tobacco smoke exposure: No Alcohol intake: never Substance use: never Substance use type: does not use Living arrangements: with family Gender identity (if verbalized by the patient): Female Spiritual care concerns: No Meds Home Medications and Allergies Home Medications Medication Instructions Recorded Confirmed Type linagliptin 5 mg tablet (Tradjenta) 5 mg PO QAM 08/18/20 09/08/21 History teriflunomide 14 mg tablet 14 mg PO DAILY 08/25/20 09/08/21 History (Aubagio) insulin degludec 100 unit/mL (3 19 unit subcut DAILY 11/18/20 09/08/21 History mL) subcutaneous pen (Tresiba FlexTouch U-100 insulin) ezetimibe 10 mg tablet (Zetia) 10 mg PO DAILY #90 tabs 06/22/21 09/08/21 Rx omeprazole 40 mg capsule,delayed 40 mg PO DAILY #90 caps 06/22/21 09/08/21 Rx release solifenacin 10 mg tablet (Vesicare) 10 mg PO DAILY #90 tabs 06/22/21 09/08/21 Rx valsartan 320 mg table
[2021-09-08 10:00] VITALS: BP 183/68; PULSE 85; RESP 16; TEMP 36.3; O2SAT 100; BMI 24.0
[2021-09-08] MEDS: LACTATED RINGERS 1,000 ML 150 ML IV CONT (10:25)
[2021-09-08 10:27] LABS: Glucose Point of Care 154 mg/dl (65-105)
--- NOTE | 2021-09-08 10:46 | WPDANESEPPF ---
Anes - Initial Pre Proc Eval Procedure: Operation Date: 09/08/21 10:00 Proposed Procedures p Esophagogastroduodenoscopy - Darrin Pablo MD Date/Time: 09/08/21 10:46 Surgeon: Darrin Pablo MD Pre Op Diagnosis: dysphagia Patient Data Age: 65 Gender: F Height: 1.68 m Weight: 67.5 kg Last Vital Signs Temp 97.3 F L 09/08/21 10:00 Pulse 85 09/08/21 10:00 Resp 16 09/08/21 10:00 BP 183/68 H 09/08/21 10:00 Pulse Ox 100 09/08/21 10:00 O2 Del Method Room Air 09/08/21 10:00 Allergies Allergy/AdvReac Type Severity Reaction Status Date / Time No Known Allergies Allergy Verified 09/08/21 10:13 Home Medications Medication Instructions Recorded Confirmed Type linagliptin 5 mg tablet (Tradjenta) 5 mg PO QAM 08/18/20 09/08/21 History teriflunomide 14 mg tablet 14 mg PO DAILY 08/25/20 09/08/21 History (Aubagio) insulin degludec 100 unit/mL (3 19 unit subcut DAILY 11/18/20 09/08/21 History mL) subcutaneous pen (Tresiba FlexTouch U-100 insulin) ezetimibe 10 mg tablet (Zetia) 10 mg PO DAILY #90 tabs 06/22/21 09/08/21 Rx omeprazole 40 mg capsule,delayed 40 mg PO DAILY #90 caps 06/22/21 09/08/21 Rx release solifenacin 10 mg tablet (Vesicare) 10 mg PO DAILY #90 tabs 06/22/21 09/08/21 Rx valsartan 320 mg tablet 320 mg PO DAILY #90 tabs 08/08/21 09/08/21 Rx furosemide 40 mg tablet 40 mg PO DAILY 08/14/21 09/08/21 History potassium chloride 10 mEq 25 meq PO DAILY 08/14/21 09/08/21 History capsule,extended release rosuvastatin 40 mg tablet 40 mg PO DAILY 08/14/21 09/08/21 History aspirin 81 mg tablet,delayed 81 mg PO QAM #30 tabs 08/16/21 09/08/21 Rx release carvedilol 12.5 mg tablet (Coreg) 12.5 mg PO Q12HR #60 tabs 08/16/21 09/08/21 Rx meclizine 12.5 mg tablet 12.5 mg PO TID PRN dizziness #20 08/16/21 09/08/21 Rx tabs Laboratory Tests 09/08/21 10:21 POC Capillary Glucose 154 mg/dl H mg/dl (65-105) Patient hx anesthesia problems: none Family hx anesthesia problems: none Results Review: All pre-operative results and documents have been reviewed as part of the pre-operative evaluation. [facility] Past Medical History Medical History Bakers cyst Benign essential hypertension Biceps tendinitis of both shoulders BMI 25.0-25.9,adult BMI 26.0-26.9,adult BMI 27.0-27.9,adult BMI 28.0-28.9,adult BMI 30.0-30.9,adult Carpal tunnel syndrome, bilateral Cervicalgia Chronic pain of right knee Colon cancer screening DJD (degenerative joint disease) DM type 2 (diabetes mellitus, type 2) Dysphagia Encounter for general adult medical examination w/o abnormal findings Encounter for Medicare annual wellness exam Encounter for screening mammogram for malignant neoplasm of breast Episode of syncope Esophageal stricture Esophagitis Exposure to COVID-19 virus Follow up Hemoglobin A1C greater than 9%, indicating poor diabetic control 07/14/20 A1c = 9.6 Hx of breast cancer Hyperlipidemia 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 Lower extremity pain, bilateral Multiple sclerosis Muscle weakness Need for pneumococcal vaccine Needle stick, hypodermic, accidental On watermaster drug therapy Overactive bladder Pain and swelling of left lower extremity PMR (polymyalgia rheumatica) Right shoulder pain Shoulder pain, bilateral Subdural hematoma Urinary frequency Vitamin B12 deficiency Family History Family History Mother Hypertension Family history of diabetes mellitus in first degree relative Diabetes mellitus Father Cerebrovascular accident Sibling Family history of lung cancer Family history of primary malignant neoplasm of liver Social History Social History Smoking status: Never smoker Second hand tobacco smoke exposure: No Alcohol intake: never Substance use: never Substance use type: does
[2021-09-08] MEDS: BENZOCAINE (*SP) 60 ML SPRAY CAN (HURRICAINE) 1 SPRAY MUCOUS MEM (11:09)
[2021-09-08 11:20] VITALS: BP 130/73; PULSE 77; RESP 13; O2SAT 100
[2021-09-08 11:30] VITALS: BP 123/70; PULSE 79; RESP 18; O2SAT 100
[2021-09-08 11:37] LABS: Glucose Point of Care 160 mg/dl (65-105)
[2021-09-08 11:40] VITALS: BP 135/79; PULSE 76; RESP 20; O2SAT 100
== END 2021-09-08 11:46 | disposition home or self-care (01) ==
PROVIDERS: PCP Internal Medicine; Visit Provider Internal Medicine Gastroenterology
PROC: 0DJ08ZZ Inspection of Upper Intestinal Tract, Via Natural or Artificial Opening Endoscopic (ICD-10-PCS; CPT 43235; principal; 2021-09-08 10:00)
DX: K22.2 Esophageal obstruction (principal); K20.90 Esophagitis, unspecified without bleeding; I10 Essential (primary) hypertension; E11.9 Type 2 diabetes mellitus without complications; E78.5 Hyperlipidemia, unspecified; G35 Multiple sclerosis; E53.8 Deficiency of other specified B group vitamins; Z79.84 Long term (current) use of oral hypoglycemic drugs; Z79.4 Long term (current) use of insulin; Z79.82 Long term (current) use of aspirin
CPT/HCPCS: 43239; 43450; 82948; 88305; J2704; J7120

== ENCOUNTER 2021-09-09 11:49 | Outpatient (CLI) | payer MEDICARE, SELFPAY ==
[2021-09-09 12:09] LABS: Basophils Absolute Auto 0.1 K/mm3 (0.0-0.1); Basophils Percent Auto 0.7 % (0.2-1.2); Eosinophils Absolute Auto 0.3 K/mm3 (0-0.3); Eosinophils Percent Auto 3.7 % (0-4.4); Hematocrit 33.4 % (37.0-47.0); Hemoglobin 10.1 g/dL (12.0-15.0); Immature Granulocyte Absolute 0.02 K/mm3 (0.00-0.031); Immature Granulocyte Percent A 0.2 % (0-0.5); Mean Corpuscular HGB Conc 30.2 g/dl (32-36); Mean Corpuscular Hemoglobin 25.6 pg (26-34); Mean Corpuscular Volume 84.8 fl (80-100); Mean Platelet Volume 11.6 fl (7.4-10.4); Monocytes Absolute Auto 0.8 K/mm3 (0.1-0.6); Monocytes Percent Auto 8.6 % (2.6-8.5); Neutrophils Absolute Auto 5.8 K/mm3 (1.3-6.7); Neutrophils Percent Auto 62.8 % (45.5-73.1); Platelet Count Result 218 k/mm3 (150-375); Red Blood Count 3.94 M/mm3 (4.2-5.4); Red Cell Distribution Width 14.3 % (11.5-14.5); White Blood Count 9.2 K/mm3 (4.5-10.0)
[2021-09-09 12:20] LABS: Hemoglobin A1C 9.6 % (<5.7)
[2021-09-09 12:24] LABS: Alanine Aminotransferase 16 U/L (6-35); Albumin Level 3.4 g/dL (3.5-5.1); Alkaline Phosphatase 103 U/L (38-126); Anion Gap 4 mmol/L (8-16); Aspartate Amino Transferase 19 U/L (14-36); Bilirubin,Total 0.3 mg/dL (0.2-1.3); Blood Urea Nitrogen 12 mg/dL (7-17); CRP 1.2 mg/dL (<1.0); Calcium 8.6 mg/dL (8.4-10.2); Carbon Dioxide 29 mmol/L (22-30); Chloride 105 mmol/L (98-107); Cholesterol 90 mg/dL (0-200); Estimated Glomerular Filt Rate > 60; Glucose 243 mg/dL (65-110); HDL Direct 25 mg/dL; Potassium 3.6 mmol/L (3.4-5.0); Sodium 138 mmol/L (137-145); Triglycerides 101 mg/dL (<150)
[2021-09-09 12:33] LABS: LDL Cholesterol Direct 33 mg/dL
[2021-09-09 13:36] LABS: Erythrocyte Sedimentation Rate > 140 mm/hr (0-20)
[2021-09-09 13:48] LABS: Free T4 Free Thyroxine 1.39 ng/mL (0.78-2.19); Vitamin D 25 Hydroxy 33.8 ng/mL
[2021-09-12 13:01] LABS: Apolipoprotein B 54 mg/dL (<90)
== END 2021-09-09 11:50 | disposition home or self-care (01) ==
LOC: ANHLAB 11:52
PROVIDERS: PCP Internal Medicine; Visit Provider Internal Medicine
DX: E78.2 Mixed hyperlipidemia (principal); E11.9 Type 2 diabetes mellitus without complications; Z79.899 Other long term (current) drug therapy; I10 Essential (primary) hypertension; G35 Multiple sclerosis; M35.3 Polymyalgia rheumatica; E55.9 Vitamin D deficiency, unspecified
CPT/HCPCS: 36415; 80053; 80061; 82172; 82306; 83036; 84439; 84443; 85025; 85652; 86140

== ENCOUNTER 2021-10-25 07:39 | Emergency (ER) | payer MEDICARE, SELFPAY ==
[2021-10-25] VITALS (13 sets, daily range): BP systolic 162–215; BP diastolic 87–104; PULSE 80–121; RESP 18–22; TEMP 36.7; O2SAT 95–100
--- NOTE | ~2021-10-25 | CT_ITS ---
EXAMINATION: CT brain wo con DATE: 10/25/2021 09:36 INDICATION: Confusion. Head injury. TECHNIQUE: Computed tomography (CT) of the head was performed without intravenous contrast. The mA wa s adjusted according to patient size. Iterative reconstruction technique was employed. The dose-lengt h product was 605.33 mGy-cm. COMPARISON: Head CT 08/14/2021, brain MRI 08/14/2021 FINDINGS: There are scattered areas of low attenuation in the cerebral white matter. There is no intr acranial hemorrhage, acute infarction, or abnormal intracranial mass lesion. The ventricles are violetta l in size. The orbits are normal. The paranasal sinuses are clear. The mastoid air cells are normal. IMPRESSION: 1. Stable extensive cerebral white matter disease, likely a combination multiple sclerosis and chroni c small vessel ischemic disease. Reviewed, dictated and finalized at location A. IMPRESSION: 1. Stable extensive cerebral white matter disease, likely a combination multipl e sclerosis and chronic small vessel ischemic disease.
--- NOTE | ~2021-10-25 | XR_ITS ---
EXAMINATION: XR knee LT min 4V DATE: 10/25/2021 10:00 INDICATION: Left knee pain. Fall. TECHNIQUE: 4 views of left knee were obtained. COMPARISON: Left knee radiographs 12/17/2012 FINDINGS: Bone alignment is normal. No fracture. There is severe osteoarthritis of patellofemoral com partment and mild osteoarthritis of medial and lateral compartments. There is chondrocalcinosis of th e menisci. No knee joint effusion. IMPRESSION: 1. Severe left knee osteoarthritis. Reviewed, dictated and finalized at location A.
--- NOTE | ~2021-10-25 | CT_ITS ---
EXAMINATION: CT cervical spine wo con DATE: 10/25/2021 09:36 INDICATION: Head injury. TECHNIQUE: Computed tomography (CT) of the cervical spine was performed without intravenous contrast. Automated exposure control and iterative reconstruction technique were employed. The dose-length pro duct was 176.45 mGy-cm. COMPARISON: CT cervical spine 08/09/2020 FINDINGS: The thyroid is enlarged. There is 9 degrees levocurvature of cervicothoracic spine. There a re changes of anterior fusion procedure from C4 to C6 with discectomies, healed interbody bone graft, and anterior plate and screws. Vertebral body heights are normal. There is moderately decreased disc height at C3-C4 and C6-C7 with endplate remodeling. 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 The following disc levels are specifically discussed: C2-C3: There is mild bilateral uncovertebral joint osteoarthritis. There is mild right and moderate l eft facet joint osteoarthritis. There is no neural foraminal stenosis. There is mild central canal st enosis. C3-C4: There is moderate and mild left uncovertebral joint osteoarthritis. There is mild right and se sanam left facet joint osteoarthritis. There is mild bilateral neural foraminal stenosis. There is mod erate central canal stenosis. C4-C5: There is moderate right and mild left uncovertebral joint hypertrophy. There is ankylosis of t he facet joints with mild hypertrophy. There is mild bilateral neural foraminal stenosis. There is mi ld central canal stenosis. C5-C6: There is no uncovertebral joint hypertrophy. There is ankylosis of the facet joints with mild hypertrophy. There is no neural foraminal stenosis. There is moderate central canal stenosis. C6-C7: There is moderate bilateral uncovertebral joint osteoarthritis. There is severe bilateral face t joint osteoarthritis. There is mild bilateral neural foraminal stenosis. There is mild central elzbieta l stenosis. C7-T1: There is no uncovertebral joint osteoarthritis. There is severe bilateral facet joint osteoart hritis. There is mild bilateral neural foraminal stenosis. There is no central canal stenosis. IMPRESSION: 1. No fracture. 2. Moderate cervical spondylosis. 3. Anterior fusion from C4 to C6. Reviewed, dictated and finalized at location A.
--- NOTE | ~2021-10-25 | XR_ITS ---
EXAMINATION: XR hip BI 2V w AP pelvis DATE: 10/25/2021 10:00 INDICATION: Hip pain. Fall. TECHNIQUE: An anteroposterior view of the pelvis and 2 views of each hip were obtained. COMPARISON: Pelvis radiograph 08/09/2020 FINDINGS: Bone alignment is normal. No fracture. There is severe lumbar spondylosis. There is moderat e osteoarthritis of the hips. IMPRESSION: 1. Moderate osteoarthritis of the hips. Reviewed, dictated and finalized at location A.
--- NOTE | ~2021-10-25 | XR_ITS ---
EXAMINATION: XR chest 2V DATE: 10/25/2021 10:00 INDICATION: Altered mental status. TECHNIQUE: Frontal and lateral views of the chest were obtained. COMPARISON: Chest single view 08/14/2021 FINDINGS: The chest demonstrates clear lungs without pneumonia, pleural effusion, or pneumothorax. Th e heart size is normal. There are changes of anterior fusion procedure in cervical spine. IMPRESSION: 1. No acute cardiopulmonary disease. Reviewed, dictated and finalized at location A.
--- NOTE | ~2021-10-25 | XR_ITS ---
EXAMINATION: XR knee RT min 4V DATE: 10/25/2021 10:00 INDICATION: Right knee pain. Fall. TECHNIQUE: 4 views of right knee were obtained. COMPARISON: Right knee radiographs 02/21/2019 FINDINGS: Bone alignment is normal. No fracture. There is moderate osteoarthritis of medial and later al compartments and severe osteoarthritis of patellofemoral compartment. There is chondrocalcinosis o f the menisci. No knee joint effusion. IMPRESSION: 1. Severe right knee osteoarthritis. Reviewed, dictated and finalized at location A.
--- NOTE | 2021-10-25 08:08 | ED.FALL ---
HPI - Fall General Chief Complaint: Fall Stated Complaint: fall. right knee pain Time Seen by Provider: 10/25/21 08:08 History of Present Illness HPI Narrative: The patient is a 66-year-old female with a history of type 2 diabetes, hypertension, multiple sclerosis, chronic bilateral knee pain, presenting to the emergency department for evaluation of a ground-level fall. Patient is accompanied by her who helps to provide the history. Reportedly, the patient was trying to stand up from the couch after she had been watching television, she was using her walker to help her ambulate when she fell forward onto her knees, striking her head. This was witnessed by the who states she did not lose consciousness. Patient is not on any anticoagulation. Patient had no prodromal symptoms prior to the fall such as chest pain, lightheadedness or dizziness. Patient's feels like her mental status has changed since the fall states that she is more confused from baseline. Patient currently is awake alert and oriented to person, place and to time. Intermittently throughout the history she does become confused at one time talking about her insurance cards being in the refrigerator, bu can recognize this and then correct. Patient without fever, chills, nausea, vomiting. Normal oral intake per family. Denies any dysuria, hematuria or any other infectious type symptoms such as cough or shortness of breath. Patient is also reporting bilateral knee pain which is dull, aching in nature. Patient states she has a longstanding history of chronic knee pain. Patient denies any specific hip pain. Reviewed previous admission, patient seemed to have similar complaints of altered mental status, elevated blood pressure and chronic knee pain in which work-ups for all of these were negative per chart review. Related Data Home Medications Medication Instructions Recorded Confirmed linagliptin 5 mg tablet (Tradjenta) 5 mg PO QAM 08/18/20 09/13/21 teriflunomide 14 mg tablet 14 mg PO DAILY 08/25/20 09/13/21 (Aubagio) furosemide 40 mg tablet 40 mg PO DAILY 08/14/21 09/13/21 potassium chloride 10 mEq 25 meq PO DAILY 08/14/21 09/13/21 capsule,extended release rosuvastatin 40 mg tablet 40 mg PO DAILY 08/14/21 09/13/21 oxybutynin chloride 10 mg 10 mg PO DAILY 09/09/21 09/13/21 tablet,extended release 24 hr insulin degludec 100 unit/mL (3 26 unit subcut DAILY 09/12/21 09/13/21 mL) subcutaneous pen (Tresiba FlexTouch U-100 insulin) Allergies Allergy/AdvReac Type Severity Reaction Status Date / Time No Known Allergies Allergy Verified 10/25/21 08:07 Review of Systems Review of Systems: CONSTITUTIONAL: Denies fever, chills, or sweats. EYES: Denies visual changes, redness, or discharge. ENT: Denies rhinorrhea, congestion, sore throat, or otalgia. CARDIOVASCULAR: Denies chest pain, palpitations, or edema. RESPIRATORY: Denies cough or dyspnea. GASTROINTESTINAL: Denies abdominal pain, nausea, vomiting, or diarrhea. GENITOURINARY: Denies dysuria or hematuria. SKIN: Denies rash or itching. MUSCULOSKELETAL: Denies back pain, reports bilateral knee pain NEUROLOGIC: Denies headache, numbness, or weakness. [facility] Past Medical History Medical History Bakers cyst Benign essential hypertension Biceps tendinitis of both shoulders BMI 25.0-25.9,adult BMI 26.0-26.9,adult BMI 27.0-27.9,adult BMI 28.0-28.9,adult BMI 30.0-30.9,adult Carpal tunnel syndrome, bilateral Cervicalgia Chronic pain of right knee Colon cancer screening DJD (degenerative joint disease) DM type 2 (diabetes mellitus, type 2) Dysphagia Encounter for general adult medical examination w/o abnormal findings Encounter for Medicare annual wellness exam Encounter for routine adult health examination with abnormal findings Encounter for screening mammogram for malignant neoplasm of breast Episode of syncope Esophageal stricture
--- NOTE | 2021-10-25 08:26 | ECG_ITS ---
Measurements Intervals [place] Rate: 115 P: 58 OK: 200 QRS: 1 QRSD: 82 T: 24 QT: 320 QTc: 443 Interpretive Statements SINUS TACHYCARDIA CONSIDER INFERIOR INFARCT, AGE INDETERMINATE BASELINE ARTIFACT- II, III, AVR, AVF, V5 ABNORMAL ECG Electronically Signed On 10-25-2021 10:11:34 CDT by Fadi Fu D.O.
--- NOTE | 2021-10-25 09:14 | PC.NURSE ---
pt attempted to provide urine sample. unable to at this time.
[2021-10-25] MEDS: ACETAMINOPHEN 500 MG TABLET 1000 MG PO (09:20)
[2021-10-25] MEDS: SODIUM CHLORIDE 0.9% IV 500 ML 999 ML IV CONT (09:20)
--- NOTE | 2021-10-25 09:24 | PC.NURSE ---
Pt to CT at this time
[2021-10-25 09:30] LABS: Basophils Absolute Auto 0.1 K/mm3 (0.0-0.1); Basophils Percent Auto 0.5 % (0.2-1.2); Eosinophils Absolute Auto 0.1 K/mm3 (0-0.3); Eosinophils Percent Auto 0.6 % (0-4.4); Hematocrit 39.3 % (37.0-47.0); Hemoglobin 11.9 g/dL (12.0-15.0); Immature Granulocyte Absolute 0.06 K/mm3 (0.00-0.031); Immature Granulocyte Percent A 0.4 % (0-0.5); Lymphocytes Absolute Auto 1.77 K/mm3 (0.9-3.2); Lymphocytes Percent Auto 12.5 % (18.3-44.2); Mean Corpuscular HGB Conc 30.3 g/dl (32-36); Mean Corpuscular Hemoglobin 24.8 pg (26-34); Mean Platelet Volume 12.1 fl (7.4-10.4); Monocytes Absolute Auto 0.9 K/mm3 (0.1-0.6); Monocytes Percent Auto 6.6 % (2.6-8.5); Neutrophils Absolute Auto 11.2 K/mm3 (1.3-6.7); Neutrophils Percent Auto 79.4 % (45.5-73.1); Platelet Count Result 235 k/mm3 (150-375); Red Blood Count 4.79 M/mm3 (4.2-5.4); Red Cell Distribution Width 17.4 % (11.5-14.5); White Blood Count 14.1 K/mm3 (4.5-10.0)
[2021-10-25 09:51] LABS: Anion Gap 9 mmol/L (8-16); Blood Urea Nitrogen 15 mg/dL (7-17); Calcium 8.7 mg/dL (8.4-10.2); Carbon Dioxide 23 mmol/L (22-30); Chloride 108 mmol/L (98-107); Estimated CRCL calculation 74 ml/min; Estimated Glomerular Filt Rate > 60; Glucose 166 mg/dL (65-110); Potassium 4.3 mmol/L (3.4-5.0); Sodium 140 mmol/L (137-145)
--- NOTE | 2021-10-25 10:12 | PC.NURSE ---
attempted to straight cath patient. no urine output at this time
[2021-10-25 10:16] LABS: Troponin I 0.017 ng/mL (0.000-0.034)
[2021-10-25] MEDS: METOPROLOL TARTRATE INJ 5 MG/5 ML VIAL IV PUSH (11:04)
[2021-10-25 11:16] LABS: Appearance Urine Clear (Clear); Bilirubin Urine Negative (Negative); Blood Urine 2+ (Negative); Color Urine Yellow (Yellow); Glucose Urine UA Negative (Negative); Ketones Urine Negative (Negative); Leukocyte Esterase Ur Negative LEU/UL (Negative); Nitrate Urine Negative (Negative); Protein Urine Negative (Negative); Specific Grav Ur 1.015 (1.001-1.035); Urobilinogen Urine 0.2 mg/dL (<2.0)
--- NOTE | 2021-10-25 11:22 | PC.NURSE ---
Patient report received from MADHAV Ruiz. All questions answered and care of patient assumed.
--- NOTE | 2021-10-25 11:27 | PC.NURSE ---
Pt. was st. cathed by ED staff; checked pt. - no urine in bag; pt. stated she felt the irritation of the catheter; checked pt. approx 20 minutes ago - pt. had voided in bed; pt., bed cleaned at that time; straight cath obtained, clear yellow urine obtained and sent to lab.
[2021-10-25 11:36] LABS: Mucus Urine Rare /lpf; RBC Urine 0-2 /hpf (0-2); WBC Urine 0-3 /hpf
[2021-10-25 11:42] LABS: Add Urine Microscopic? YES
[2021-10-25] MEDS: VALSARTAN 160 MG TABLET 320 MG PO (11:57)
[2021-10-25] MEDS: carvediloL 12.5 MG TABLET PO (11:57)
== END 2021-10-25 12:07 | disposition home or self-care (01) ==
PROVIDERS: Emergency Provider Emergency Medicine; PCP Internal Medicine
DX: S09.90XA Unspecified injury of head, initial encounter (principal); I10 Essential (primary) hypertension; E11.9 Type 2 diabetes mellitus without complications; G35 Multiple sclerosis; Z79.4 Long term (current) use of insulin; E78.5 Hyperlipidemia, unspecified; Z85.3 Personal history of malignant neoplasm of breast; N32.81 Overactive bladder; M35.3 Polymyalgia rheumatica; E53.8 Deficiency of other specified B group vitamins; E55.9 Vitamin D deficiency, unspecified; R90.82 White matter disease, unspecified; M47.812 Spondylosis without myelopathy or radiculopathy, cervical region; M16.0 Bilateral primary osteoarthritis of hip; M17.0 Bilateral primary osteoarthritis of knee; R94.31 Abnormal electrocardiogram [ECG] [EKG]; R00.0 Tachycardia, unspecified; W01.0XXA Fall on same level from slipping, tripping and stumbling without subsequent striking against object, initial encounter
CPT/HCPCS: 36415; 51701; 70450; 71046; 72125; 73521; 73564; 80048; 81001; 84443; 84484; 85025; 93005; 96361; 96374; 99284; A9270; J7040

== ENCOUNTER 2022-06-05 08:03 | Outpatient (RCR) | payer MEDICARE, SELFPAY ==
[2022-03-09 12:30] VITALS: BMI 24.3
== END 2022-06-07 23:59 | disposition home or self-care (01) ==
LOC: ANHWOC 08:03
PROVIDERS: PCP Internal Medicine; Visit Provider Internal Medicine
DX: S81.809D Unspecified open wound, unspecified lower leg, subsequent encounter (principal)
CPT/HCPCS: 29581

== ENCOUNTER 2022-06-08 10:11 | Outpatient (RCR) | payer MEDICARE, SELFPAY ==
[2022-06-08 00:05] VITALS: BMI 24.3
== END 2022-07-24 12:48 | disposition home or self-care (01) ==
LOC: ANHWOC 10:11
PROVIDERS: PCP Internal Medicine; Visit Provider Internal Medicine
DX: S81.809D Unspecified open wound, unspecified lower leg, subsequent encounter (principal)
CPT/HCPCS: 29581

== ENCOUNTER 2022-11-20 15:45 | Outpatient (CLI) | payer MEDICARE, SELFPAY ==
[2022-11-20 16:47] LABS: Basophils Absolute Auto 0.1 K/mm3 (0.0-0.1); Basophils Percent Auto 0.7 % (0.2-1.2); Eosinophils Absolute Auto 0.4 K/mm3 (0-0.3); Eosinophils Percent Auto 4.9 % (0-4.4); Hematocrit 39.9 % (37.0-47.0); Immature Granulocyte Absolute 0.02 K/mm3 (0.00-0.031); Immature Granulocyte Percent A 0.2 % (0-0.5); Lymphocytes Percent Auto 32.7 % (18.3-44.2); Mean Corpuscular HGB Conc 30.1 g/dl (32-36); Mean Corpuscular Volume 86.6 fl (80-100); Mean Platelet Volume 11.1 fl (7.4-10.4); Monocytes Absolute Auto 0.6 K/mm3 (0.1-0.6); Neutrophils Absolute Auto 4.7 K/mm3 (1.3-6.7); Neutrophils Percent Auto 54.5 % (45.5-73.1); Platelet Count Result 211 k/mm3 (150-375); Red Blood Count 4.61 M/mm3 (4.2-5.4); Red Cell Distribution Width 16.2 % (11.5-14.5); White Blood Count 8.6 K/mm3 (4.5-10.0)
[2022-11-20 17:01] LABS: Alanine Aminotransferase 26 U/L (6-35); Albumin Level 4.5 g/dL (3.5-5.1); Alkaline Phosphatase 115 U/L (38-126); Anion Gap 8 mmol/L (8-16); Aspartate Amino Transferase 24 U/L (14-36); Bilirubin,Total 0.6 mg/dL (0.2-1.3); Blood Urea Nitrogen 13 mg/dL (7-17); CRP 0.7 mg/dL (<1.0); Calcium 9.3 mg/dL (8.4-10.2); Carbon Dioxide 28 mmol/L (22-30); Chloride 106 mmol/L (98-107); Estimated Glomerular Filt Rate > 60; Glucose 130 mg/dL (65-110); Potassium 3.9 mmol/L (3.4-5.0); Sodium 142 mmol/L (137-145)
[2022-11-20 17:43] LABS: Erythrocyte Sedimentation Rate 36 mm/hr (0-20)
== END 2022-11-20 15:46 | disposition home or self-care (01) ==
LOC: ANHLAB 15:48
PROVIDERS: PCP Internal Medicine; Visit Provider Orthopaedic Surgery
DX: Z01.818 Encounter for other preprocedural examination (principal)
CPT/HCPCS: 36415; 80053; 85025; 85652; 86140

== ENCOUNTER 2022-11-22 13:39 | Outpatient (NON) | payer MEDICARE, SELFPAY ==
[2022-11-22 13:59] LABS: Appearance Urine Clear (Clear); Bacteria Urine None Seen /hpf; Bilirubin Urine Negative (Negative); Color Urine Yellow (Yellow); Glucose Urine UA Negative (Negative); Ketones Urine Negative (Negative); Leukocyte Esterase Ur Trace LEU/UL (Negative); Nitrate Urine Negative (Negative); Non Pathogenic Casts 0-2; Protein Urine Negative (Negative); RBC Urine 0-2 /hpf (0-2); Specific Grav Ur 1.009 (1.001-1.035); Squamous Epithelial Cell Urine Few /hpf (Few); Urobilinogen Urine 0.2 mg/dL (<2.0); WBC Urine 0-5 /hpf; pH Urine 5.5 (5.0-9.0)
[2022-11-22 14:06] LABS: Add Urine Microscopic? YES
== END 2022-11-22 13:40 | disposition home or self-care (01) ==
PROVIDERS: PCP Internal Medicine; Visit Provider Orthopaedic Surgery
DX: Z01.818 Encounter for other preprocedural examination (principal)
CPT/HCPCS: 81001

== ENCOUNTER 2022-11-24 15:34 | Outpatient (CLI) | payer MEDICARE, SELFPAY ==
--- NOTE | ~2022-11-24 | XR_ITS ---
EXAMINATION: XR chest 2V DATE: 11/24/2022 16:06 INDICATION: Hypertension TECHNIQUE: AP and lateral views of the chest are obtained. COMPARISON: 10/25/2021 FINDINGS: The lungs are free of acute opacities. No pleural effusion or pneumothorax. The cardiomedia stinal silhouette is normal. There is moderate thoracic spondylosis. There are changes of anterior fu nando procedure in the lower cervical spine. IMPRESSION: 1. No acute cardiopulmonary abnormality. Reviewed, dictated and finalized at location B.
== END 2022-11-24 15:35 | disposition home or self-care (01) ==
PROVIDERS: PCP Internal Medicine; Visit Provider Orthopaedic Surgery
DX: Z01.818 Encounter for other preprocedural examination (principal)
CPT/HCPCS: 71046

== ENCOUNTER 2023-09-19 12:55 | Outpatient (CLI) | payer MEDICARE, SELFPAY ==
--- NOTE | ~2023-09-19 | XR_ITS ---
XR sinus min 3V 09/19/2023 13:42 Indication: Cough Procedure: 5 views sinuses Comparison: No prior studies for comparison. Findings: There is no significant opacification the paranasal sinuses. No cyst nasal septal deviation . No air-fluid levels. Mastoids are pneumatized. Impression: 1: No significant abnormality of the sinuses. Reviewed, dictated and finalized at location B. Impression: 1: No significant abnormality of the sinuses.
--- NOTE | ~2023-09-19 | XR_ITS ---
XR chest 2V 09/19/2023 13:42 Indication: Cough Procedure: 2 view chest Comparison: Comparison to multiple prior studies sequentially, with oldest reviewed study dated 06/2020. Findings: Heart size normal. Right basilar airspace disease may represent atelectasis and/or pneumoni a. No significant effusion. No edema. No pneumothorax. Impression: 1: Right basilar airspace disease, atelectasis versus pneumonia. Reviewed, dictated and finalized at location B. Impression: 1: Right basilar airspace disease, atelectasis versus pneumonia.
== END 2023-09-19 12:56 | disposition home or self-care (01) ==
PROVIDERS: PCP Internal Medicine; Visit Provider Internal Medicine
DX: R05.9 Cough, unspecified (principal)
CPT/HCPCS: 70220; 71046

== ENCOUNTER 2024-02-01 12:08 | Outpatient (CLI) | payer MEDICARE, SELFPAY ==
--- NOTE | ~2024-02-01 | XR_ITS ---
EXAMINATION: XR hip RT min 2V DATE: 02/01/2024 12:41 INDICATION: Right hip pain. TECHNIQUE: 2 views of right hip were obtained. COMPARISON: Right hip radiographs 10/25/2021 FINDINGS: Alignment is normal. No fracture. There is mild right hip osteoarthritis. IMPRESSION: 1. Mild right hip osteoarthritis. Reviewed, dictated and finalized at location A.
== END 2024-02-01 12:09 | disposition home or self-care (01) ==
PROVIDERS: PCP Internal Medicine; Visit Provider Internal Medicine
DX: M16.11 Unilateral primary osteoarthritis, right hip (principal)
CPT/HCPCS: 73502

== ENCOUNTER 2024-12-22 08:00 | Outpatient (RCR) | payer MEDICARE, SELFPAY ==
--- NOTE | 2024-11-05 12:25 | WNDPHOTO ---
PHOTO ONLY - See Nursing Notes and/ or assessments for documentation.
[2024-11-05 12:53] VITALS: BMI 30.7
--- NOTE | 2024-12-19 10:53 | PCWOUND ---
WOCN NOTE Patient called to cancel due to illness. Rescheduled for next Sunday.
== END 2025-02-03 23:59 | disposition home or self-care (01) ==
LOC: ANHWOC 08:00
PROVIDERS: PCP Internal Medicine; Visit Provider Internal Medicine
DX: S81.801A Unspecified open wound, right lower leg, initial encounter (principal)
CPT/HCPCS: 29581; 99213; G0463

== ENCOUNTER 2025-01-12 09:44 | Inpatient (IN) | payer MEDICARE, SELFPAY ==
--- NOTE | ~2025-01-12 | XR_ITS ---
XR cervical spine 4-5V Indication: history of surgery on cervical spine. Comparison: None Findings: Anterior fixation of C4, C5-C6 with a disc prosthesis at C3-4, no fracture identified. Moderate loss of the remaining disc height throughout Soft tissues unremarkable Impression: No acute abnormality. Reviewed, dictated and finalized at location P. Impression: No acute abnormality.
--- NOTE | ~2025-01-12 | MR_ITS ---
EXAMINATION: MR cervical spine wo con DATE: 01/14/2025 10:57 INDICATION: Lower extremity weakness TECHNIQUE: Magnetic resonance imaging (MRI) of the cervical spine was performed without intravenous contrast. Sequences included sagittal T2-weighted FSE, sagittal T2-weighted FS FSE, sagittal T1-weighted FSE, axial MERGE and axial T2- weighted FSE. COMPARISON: Cervical spine CT dated 10/25/2021 and MRI dated 11/14/2019 FINDINGS: Bone alignment is normal. There is prominent metallic magnetic field artifact associated with an anterior plate and screw fixation associated with previously seen C4-C6 anterior spinal fusion. There is additional metallic magnetic field artifact projecting over the anterior margin of the C3 vertebral body and obscuring the C3-C4 disc space, unclear whether this is related to the prior plate-screw fixation or there has been interval extension of the anterior fusion also include C3-C4. Bone marrow signal intensity is normal. Moderate disc height loss at C6-C7, T2-T3 and T3-T4 and mild disc height loss at T1-T2. Assessment for subtle cord signal changes is limited by the adjacent metallic magnetic field artifact. There does however appear to be an unchanged small region of myelomalacia with increased cord signal on both the left and right sides of the cord at the level of C4 with associated decreased AP diameter at this level which is been present since MRI dated 11/14/2019. Enlarged multinodular goiter. The following disc levels are specifically discussed: C2-C3: Disc is mildly bulging. There is mild bilateral uncovertebral joint osteoarthritis. There is right and severe left facet joint osteoarthritis. There is mild left neural foraminal stenosis. There is no central canal stenosis. C3-C4: Disc space is largely obscured by magnetic field artifact as previously noted. There is mild posterior bulging of the margin of the thecal sac, unclear whether related to a disc bulge or hypertrophic endplate osteophytes post prior discectomy. Moderate hypertrophic changes at the bilateral uncovertebral joints. There is moderate to severe right and severe left facet joint osteoarthritis. There is moderate bilateral neural foraminal stenosis. There is moderate central canal stenosis which measures 6 mm AP in the mid sagittal plane with effacement of the surrounding CSF signal. C4-C5: Disc space is fused. Ossification along the posterior longitudinal ligament. There is mild osteoarthritic changes at the bilateral facet joints with developing fusion. There is minimal bilateral neural foraminal stenosis. There is mild central canal stenosis. C5-C6: Disc space is fused. Ossification of the posterior longitudinal ligament. There is mild osteoarthritic changes at the bilateral facet joints with developing fusion. There is minimal neural foraminal stenosis. There is mild central canal stenosis. C6-C7: Disc is bulging with annular fissure. There is mild to moderate right and moderate left uncovertebral joint osteoarthritis. There is moderate bilateral facet joint osteoarthritis. There is moderate left and mild to moderate right neural foraminal stenosis. There is mild central canal stenosis. C7-T1: The disc does not extend beyond the endplate margin. There is minimal bilateral uncovertebral joint osteoarthritis. There is moderate to severe left and severe right facet joint osteoarthritis. There is mild bilateral, left greater than right neural foraminal stenosis. There is no central canal stenosis. IMPRESSION: 1. Again seen C4-C6 anterior spinal fusion with anterior plate and screw fixation. There is new magnetic field artifact now obscuring the C3-C4 disc space which was not present at the time of the prior study suggesting possible interval extension of the anterior fusion. Correlate with surgical history and could consider correlation with plain radiographs as clinically indicated. 2. No significant change in moderate cervical spondylosis including a small region of likely myelomalacia with decrease cross-sectional diameter of the cord and increased cord signal at the level of C4. 3. Multinodular goiter. Reviewed, dictated and finalized at location A. IMPRESSION: 1. Again seen C4-C6 anterior spinal fusion with anterior plate and screw fixati on. There is new magnetic field artifact now obscuring the C3-C4 disc space whi ch was not present at the time of the prior study suggesting possible interval extension of the anterior fusion. Correlate with surgical history and could con accounting teacher correlation with plain radiographs as clinically indicated. 2. No significant change in moderate cervical spondylosis including a small reg ion of likely myelomalacia with decrease cross-sectional diameter of the cord a nd increased cord signal at the level of C4. 3. Multinodular goiter.
--- NOTE | ~2025-01-12 | XR_ITS ---
EXAMINATION: XR lumbar puncture diagnostic DATE: 01/22/2025 14:19 INDICATION: Bilateral lower limb weakness. TECHNIQUE: The procedure including the risks and benefits was discussed with the patient. Risks discussed included spinal headache, cerebrospinal fluid leak, bleeding, and infection. The patient understood the risks and agreed to proceed. A timeout was performed to verify the patient's name, date of , and procedure to be performed. Prior lumbar spine MRI and CT were reviewed with the tip the conus confirmed at the level of midportion of the L2 vertebral body. The skin overlying the L2-L3 level was prepped and draped in usual sterile fashion. Subcutaneous 1% lidocaine was used for local anesthesia. A 22 gauge spinal needle was advanced under fluoroscopic guidance. The needle was removed and the entry site was cleaned and dressed. There were no immediate complications. A total of 2 fluoroscopic images and one crosstable lateral radiograph were obtained. The amount of fluoroscopy time used during this procedure was 0.4 minutes. Total DAP was 7.498 Gycm^2. There were no immediate complications. FINDINGS: Real-time fluoroscopy demonstrates the needle at the L2-L3 level. Opening pressure was 16 cm water. (Normal range is variably defined as 6-20 cm water and up to 25 cm water in obese patients. Pressure >25 cm water is one of the modified Dandy criteria for idiopathic intracranial hypertension). 14 mL of clear, colorless fluid was collected in 4 tubes. IMPRESSION: 1. Successful fluoro-guided lumbar puncture with normal opening pressure of 16 cm water. Reviewed, dictated and finalized at location A.
--- NOTE | ~2025-01-12 | XR_ITS ---
EXAMINATION: XR hip RT min 2V, XR femur RT min 2V, XR knee RT min 4V DATE: 01/22/2025 12:42 INDICATION: Right hip and knee pain and stiffness TECHNIQUE: 1. Anteroposterior and frog-leg lateral views of the right hip were obtained. 2. AP and lateral views of the right femur obtained on overlapping proximal and distal images. 3. AP, lateral and 2 oblique views of the right knee were obtained. COMPARISON: None. FINDINGS: Alignment is normal. No fracture. Noncemented right total knee arthroplasty without patellar resurfacing which appears well seated with no periprosthetic lucency to suggest loosening or infection. Right hip joint space is normal. Mild osteoarthritis at the right sacral iliac joint. Small right knee joint effusion. Soft tissues are otherwise unremarkable. IMPRESSION: 1. No acute osseous abnormality at the right hip, femur or knee. 2. Right total knee arthroplasty with small right knee joint effusion. Reviewed, dictated and finalized at location A. IMPRESSION: 1. No acute osseous abnormality at the right hip, femur or knee. 2. Right total knee arthroplasty with small right knee joint effusion. IMPRESSION: 1. No acute osseous abnormality at the right hip, femur or knee. 2. Right total knee arthroplasty with small right knee joint effusion.
--- NOTE | ~2025-01-12 | XR_ITS ---
EXAMINATION: XR hip RT min 2V, 01/15/2025 15:05 CDT HISTORY: pain in the right hip COMPARISON: No comparisons available. Findings: No acute fracture or malalignment. No significant degenerative changes. Soft tissues unremarkable. Impression: No acute fracture or malalignment. Reviewed, dictated and finalized at location P. Impression: No acute fracture or malalignment.
--- NOTE | ~2025-01-12 | MR_ITS ---
EXAMINATION: MR lumbar spine wo con DATE: 01/14/2025 11:36 INDICATION: Lower extremity weakness. TECHNIQUE: Magnetic resonance imaging (MRI) of the lumbar spine was performed without intravenous contrast. Sequences included sagittal T2-weighted FSE, sagittal T2-weighted FS FSE, sagittal T1-weighted FSE, and axial T2-weighted FSE. COMPARISON: None FINDINGS: There is 4 degrees levocurvature of lumbar spine. There is 3 mm anterolisthesis of L3 on L4. Vertebral body heights are normal. There is mildly decreased disc height at L3-L4 and severely decreased disc height at L4-L5 and L5-S1. There is ligamentum flavum hypertrophy at the disc levels from L1-L2 through L4-L5. The distal spinal cord signal intensity is normal. The conus medullaris is at L2. The following disc levels are specifically discussed: L1-L2: The disc is bulging. There is severe bilateral facet joint osteoarthritis. There is mild bilateral neural foraminal stenosis. There is mild central canal stenosis. L2-L3: The disc is bulging. There is severe bilateral facet joint osteoarthritis. There is mild bilateral neural foraminal stenosis. There is no central canal stenosis. L3-L4: The disc is bulging with superimposed right central reticular zone extrusion. There is severe bilateral facet joint osteoarthritis. There is moderate right and mild left neural foraminal stenosis. There is moderate central canal stenosis. There is severe stenosis of right lateral recess. L4-L5: The disc is bulging and has an annular fissure. There is severe bilateral facet joint osteoarthritis. There is mild right and moderate left neural foraminal stenosis. There is mild central canal stenosis. L5-S1: The disc is bulging and has an annular fissure. There is severe bilateral facet joint osteoarthritis. There is moderate bilateral neural foraminal stenosis. There is mild central canal stenosis. IMPRESSION: 1. Severe lumbar spondylosis. Reviewed, dictated and finalized at location E.
--- NOTE | ~2025-01-12 | MR_ITS ---
EXAMINATION: MR thoracic spine wo con DATE: 01/14/2025 11:25 INDICATION: Lower extremity weakness TECHNIQUE: Magnetic resonance imaging (MRI) of the thoracic spine was performed without intravenous contrast. Sagittal localizer T1-weighted FSE of the cervicothoracic spine was obtained. Thoracic spine sequences included sagittal T2-weighted FSE, sagittal T1-weighted SE, Sagittal fluid sensitive FSE STIR, and axial T2-weighted FSE. COMPARISON: None FINDINGS: 25 degree upper thoracic dextroscoliosis. Sagittal alignment is normal. Vertebral body heights are normal. Normal marrow signal.Mild disc height loss at T2-T3 through T7-T8 as well as at T9-T10. Right paracentral disc protrusions at C7-T1 and T1-T2, each resulting in mild central canal stenosis and which indent the right ventral surface of the cord at both levels. Mild diffuse disc bulge with minimal central canal stenosis at T2-T3. Left paracentral disc protrusions at T3-T4 through T5-T6 which results in mild central canal stenosis most prominent at T3-T4 and T4-T5 where it flattens the left ventral surface of the cord. Diffuse disc bulge with mild central canal stenosis at T6-T7. Right paracentral disc protrusion at T7-T8 resulting in mild central canal stenosis. Annular fissure and small right paracentral disc extrusion at T9-T10 with disc material extending up to 5 mm cephalad to the level of the inferior endplate of T9. Minimal disc bulge without significant central canal stenosis at T11-T12. There is normal thoracic spinal cord signal. The conus terminates at L2. Paravertebral soft tissues are unremarkable. IMPRESSION: 1. 25 degrees upper thoracic dextroscoliosis with mild spondylosis. Reviewed, dictated and finalized at location A.
--- NOTE | ~2025-01-12 | CT_ITS ---
EXAMINATION: CT lumbar spine wo con DATE: 01/12/2025 11:19 INDICATION: Low back pain. Lower extremity weakness. TECHNIQUE: Computed tomography (CT) of the lumbar spine was performed without intravenous contrast. Automated exposure control and iterative reconstruction technique were employed. The dose-length product was 755.86 mGy-cm. COMPARISON: None FINDINGS: 8 degree thoracolumbar dextrocurvature. 2-3 mm anterolisthesis L3 on L4. Vertebral body heights are normal. No acute fracture. Severe disc height loss with mild degenerative endplate changes at L4-L5 and L5-S1. Mild to moderate disc height loss with vacuum phenomena at L3-L4. Additional mild disc height loss at T9-T10. Paravertebral soft tissues are unremarkable. The following disc levels are specifically discussed: T10-T11: The disc does not extend beyond the endplate margin. There is moderate bilateral facet joint osteoarthritis. There is mild bilateral neural foraminal stenosis. There is no central canal stenosis. T11-T12: The disc does not extend beyond the endplate margin. There is moderate right and severe left facet joint osteoarthritis. There is mild left neural foraminal stenosis. There is no central canal stenosis. T12-L1: The disc does not extend beyond the endplate margin. There is moderate bilateral facet joint osteoarthritis. There is no neural foraminal stenosis. There is no central canal stenosis. L1-L2: Disc is mildly bulging. There is moderate left and moderate to severe right facet joint osteoarthritis. There is mild bilateral neural foraminal stenosis. There is minimal central canal stenosis. L2-L3: Disc is mildly bulging. There is moderate left and severe right facet joint osteoarthritis. There is mild bilateral neural foraminal stenosis. There is mild central canal stenosis. L3-L4: Disc is bulging. There is hypertrophy of the ligamentum flavum. There is severe bilateral facet joint osteoarthritis. There is mild bilateral neural foraminal stenosis. There is severe central canal stenosis. L4-L5: Disc is bulging. There is hypertrophy of the ligamentum flavum. There is severe bilateral facet joint osteoarthritis. There is moderate right and severe left neural foraminal stenosis. There is moderate central canal stenosis. L5-S1: Disc is bulging. There is moderate bilateral facet joint osteoarthritis. There is severe bilateral neural foraminal stenosis. There is mild central canal stenosis. IMPRESSION: 1. A degree thoracolumbar dextrocurvature with severe lower lumbar spondylosis. Reviewed, dictated and finalized at location A.
--- NOTE | ~2025-01-12 | MR_ITS ---
EXAMINATION: MR brain/brain stem wo/w con DATE: 01/16/2025 11:42 INDICATION: Acute exacerbation of multiple sclerosis TECHNIQUE: Magnetic resonance imaging (MRI) of the brain and brainstem was performed without and with 18 mL Multihance intravenous contrast. Sequences included sagittal and axial T1-weighted FLAIR, axial T1-weighted FSE, axial diffusion-weighted FS EPI, sagittal T2-weighted FLAIR, axial T2*-weighted GRE, axial T2-weighted FLAIR Propeller, and axial T2-weighted Propeller. Postcontrast sequences included axial, coronal, and sagittal T1-weighted FSE. Apparent diffusion coefficient (ADC) maps were created. COMPARISON: 08/14/2021, 10/16/2017 and 09/22/2015 FINDINGS: extensive confluent increased T2-weighted signal intensity in the periventricular and deep cerebral white matter with associated decreased T1 signal intensity and areas of volume loss. There are other scattered lesions of increased T2-weighted signal intensity in the cerebral white matter including juxtacortical lesions. There are also lesions in the middle cerebellar peduncles and bilateral cerebellar white matter. These all appear unchanged on MRI studies dating between 08/14/2021 and 09/22/2015. None of the lesions enhance.. No other abnormally enhancing brain lesions identified. There is no acute ischemic infarct or intracranial hemorrhage. The ventricles are normal in size with normal variant cavum septum pellucidum and vergae. There is mild mucosal thickening in the frontal and ethmoid sinuses. The mastoid air cells are normal. The orbits are normal. IMPRESSION: 1. Extensive chronically unchanged cerebral and cerebellar white matter disease, consistent with quiescent multiple sclerosis. Reviewed, dictated and finalized at location A. IMPRESSION: 1. Extensive chronically unchanged cerebral and cerebellar white matter disease , consistent with quiescent multiple sclerosis.
--- NOTE | ~2025-01-12 | XR_ITS ---
EXAMINATION: XR knee RT 3V, 01/15/2025 15:05 CDT HISTORY: pain in the right kne COMPARISON: No comparisons available. Findings: No acute fracture or malalignment. Prosthesis intact Soft tissues unremarkable. Impression: No acute fracture or malalignment. Reviewed, dictated and finalized at location P. Impression: No acute fracture or malalignment.
[2025-01-12 09:56] VITALS: BP 138/54; PULSE 69; RESP 17; TEMP 36.4; O2SAT 100
--- OUTSIDE RECORDS SUMMARY | 2025-01-12 10:38 | XMS_ITS | Clinical Summary ---
Author Organization [facility] Address [facility] [place] [address] Care Team Providers Care Harvester Operator Name Role Phone Deni Conklin MD Primary Care Provider [phone] Medications insulin glargine 100 UNIT/ML injection (PEN) Inject 18 Units into the skin in the morning. Active amLODIPine-benaz epril 5-10 MG capsule Take by mouth daily. 06/23/2021 Active Dalfampridine 10 MG TABLET SR 12 HR Take 10 mg by mouth 2 (two) times daily. 10/06/2020 Active furosemide 40 MG tablet Take 40 mg by mouth in the morning. 12/14/2020 Active glimepiride 2 MG tablet Take 2 mg by mouth in the morning. Active linaGLIPtin 5 MG tablet Take 5 mg by mouth in the morning. Active omeprazole 40 MG capsule Take 40 mg by mouth in the morning. 06/22/2021 Active potassium chloride CR 10 MEQ CR capsule Take 10 mEq by mouth in the morning. 12/14/2020 Active rosuvastatin 40 MG tablet TAKE 1 TABLET DAILY (DISCONTINU E ATORVASTATI N) 05/16/2021 Active Active Problems Problem Noted Date Diagnosed Date Carpal tunnel syndrome, bilateral 10/07/2020 Overview (08/31/2021): Last Assessment & Plan: EMG/NCS 08/04/20: Severe right and moderate to severe left median nerve entrapment at the flexor retinaculum. Non localizing bilateral ulnar neuropathy. 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 Likely a mix of diabetic neuropathy and compression at wrist due to carpal tunnel syndrome. Follow-up with orthopedic hand surgeon Dr. Sebastien Landeros on 10/27/20. Patient deferred on carpal tunnel release. Acute pain due to trauma 08/11/2020 Subdural hematoma 08/10/2020 Overview (08/31/2021): Last Assessment & Plan: Fell August 09, 2020. 6 mm right parafalcine subdural hematoma Resolved on September 16, 2020 study Fall prevention discussed Ongoing physical therapy Using a walker Osteoarthritis of right knee 10/16/2019 Overview (08/31/2021): Last Assessment & Plan: Severe tricompartmental degenerative changes per x-ray of right knee on May 01, 2019 Orthopedic follow-up Neurogenic bladder 09/18/2017 Overview (08/31/2021): Treatment history Detrol LA (oxybutinyn) 03/2007-01/2009 Vesicare (solifenacin) 09/2010- Last Assessment & Plan: Solifenacin 10 mg daily Hypercholesterolemia 08/23/2013 Overview (08/31/2021): Hypercholesterolemia Hypertension 08/23/2013 Overview (08/31/2021): HTN (hypertension) Last Assessment & Plan: Scheduled amlodipine + PRN labetalol Ductal carcinoma in situ (DCIS) of right breast 06/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 Status post breast-concerning surgery followed by whole breast radiation therapy completed in December 2008 Multiple sclerosis 09/17/2008 Overview (08/31/2021): Multiple Sclerosis DMT History: Rebif: 08/2011- 06/2015 Aubagio: 06/2015- Current Last Assessment & Plan: Aubagio 14 mg daily. Risks discussed including hepatotoxicity and hypertension. Increased risk of serious complications if develops COVID 19 infection discussed including pneumonia and possible reviewed. She received her 3rd mRNA COVID-19 vaccine May 16, 2021. She understands that vaccination data generally favorable for Aubagio, but potentially she may not be protected against COVID-19. Paxlovid advised if develops COVID-19. Dalfampridine 10 mg twice a day Ongoing physical therapy Vitamin D3 2000 IU daily MRI cervical spine November 2019: Status post ACDF C4-6. Trophic cord. Increased T2 signal C2 ventrally and C4-5 levels. Type 2 diabetes mellitus ([facility]) 09/17 Overview (08/31/2021): Last Assessment & Plan: Elevated blood glucose in ICU, likely 2/2 poor glycemic control + concurrent prednisone prior to admission - Lantus 10u qhs + HDSSI - Endo consult Immunizations Immunization Administration Dates Next Due Fluzone Intradermal Quad (IIV4) 01/31/2016 Influenza (Generic) 02/10/2015,01/21/2014,2012,02/07/2012 Influenza Adult (Generic) 12/31/2018,12/27/2017, 01/02/2017 Social History Tobacco Use Types Packs/Day Years Used Date Smoking Tobacco: Never Assessed Comments Unknown Sex and Gender Information Value Date Recorded Sex Assigned at Not on file Legal Sex Female 10:37 AM CDT Gender Identity Not on file Sexual Orientation Not on file Last Filed Vital Signs Vital Sign Reading Time Taken Comments Blood Pressure 139/71 08/31/2021 10:28 AM CDT Pulse 70 08/31/2021 10:28 AM CDT Temperature 35.9 C (96.6 F) 08/31/2021 10:28 AM CDT Respiratory Rate 20 08/31/2021 10:28 AM CDT Oxygen Saturation 98% 08/31/2021 10:28 AM CDT Inhaled Oxygen Concentration - - Weight 65.9 kg (145 lb 3.2 oz) 08/31/2021 10:28 AM CDT Height - - Body Mass Index - - Plan of Treatment Health Maintenance Due Date Last Done Comments Colorectal Cancer Screening Colonoscopy (10 Years) 1955 Kidney Health Evaluation 1955 Diabetes: Retinopathy Eye Exam 09/26/1971 Hepatitis C 09/26/1971 DTaP, Tdap and Td Vaccines (1 - Tdap) 1972 Mammogram Screening 1993 Zoster Vaccines (1 of 2) 09/26/2003 RSV Immunization or 60+ Years (1 - Risk 60-74 years 1-dose series) 2013 Annual Medicare Wellness Visit 2018 Dexa Scan (General) 2018 Pneumococcal Vaccine: 50+ Years (2 of 2 - PPSV23) 01/14/2020 11/19/2019 Hemoglobin A1C 02/24/2022 08/24/2021, 05/0 07/2020, 08/09/2020 Lipid Panel 08/24/2022 08/24/2021 COVID-19 Vaccine ( season) 2024 05/16/2021, 06/28/2020, 05/31/2020 Influenza Adult (#1) 2025 12/31/2018, 12/27/2017, 01/02/2017, Additional history exists Meningococcal B Vaccine Aged Out No l onger eligible based on patient's age to complete this topic Meningococcal Vaccine Aged Out No martha logan eligible based on patient's age to complete this topic RSV Immunizations Under 20 Months Aged Out No longer eligible based on patient's age to complete this topic Procedures Procedure Name Priority Date/Time Associated Diagnosis Comments LIPID PANEL Routine 08/24/2021 6:58 AM CDT HTN (hypertension) Hyperlipidemia Vitamin B12 deficiency anemia White matter disease, unspecified Multiple sclerosis DM type 2 (diabetes mellitus, type 2) HEMOGLOBIN, GLYCOSYLATED Routine 08/24/2021 6:58 AM CDT HTN (hypertension) Hyperlipidemia Vitamin B12 deficiency anemia White matter disease, unspecified Multiple sclerosis DM type 2 (diabetes mellitus, type 2) from Last 3 Months or Most Recently Relevant to Health Maintenance Results * (ABNORMAL) HEMOGLOBIN, GLYCOSYLATED (08/24/2021 6:58 AM CDT) HGB A1C 10.2(H) <5.7 % 08/24/2021 11:32 AM CDT [facility] Comment: INCREASED RISK OF DIABETES <5.7% NON-DIABETES 5.7-6.4% INCREASED RISK FOR FUTURE DIABETES > OR = 6.5 CONSISTENT WITH DIABETES STANDARDS OF MEDICAL CARE IN DIABETES-2010 DIABETES CARE, 33(SUPP 1): S1-S61,2010 ESTIMATED AVG GLUCOSE 246 mg/dL 08/24/2021 11:32 AM CDT [facility] 08/24/2021 6:58 AM CDT us Deni Conklin MD LABORATORY Final Resul t [facility] [address] [place] [address], [place] [phone] * (ABNORMAL) LIPID PANEL (08/24/2021 6:58 AM CDT) Pathologist [facility] CHOLESTEROL 99 <200.0 MG/DL 08/24/2021 11:30 AM CDT [facility] TRIGLYCERIDES 112 <150 MG/DL 08/24/2021 11:30 AM T [facility] HDL 36(L) >40.0 MG/DL 08/24/2021 11:30 AM CDT [facility] LDL (CALCULATED) 41 <100 MG/DL 08/25/19 11:30 AM CDT [facility] NON HDL CHOLESTEROL 63 <130 MG/DL 08/24 11:30 AM CDT [facility] CHOL/HDL RATIO 2.8 0.0 - 4.5 08/24/2021 11:30 AM CDT [facility] VLDL CALCULATION 22 5 - 55 MG/DL 08/24/2021 11:30 AM CDT [facility] LIPID INTERPRETATION 08/24/2021 11:30 AM CDT [facility] Comment: NIH CONCENSUS REPORT RECOMMENDATIONS: ADULT CHILD LOW RISK: CHOLESTEROL <200 <170 TRIGLYCERIDE <150 --- HDL >=60 --- LDL <100 <110 BORDERLINE: CHOLESTEROL 200-239 170-199 TRIGLYCERIDE 150-199 --- HDL 40-59 --- LDL 100-159 110-129 HIGH RISK: CHOLESTEROL >=240 >=200 TRIGLYCERIDE >=200 --- HDL <40 --- LDL >=160 >=130 08/24/2021 6:58 AM CDT Deni Conklin MD LABORATORY Final Resul t [facility] [address] [place] [address], from Last 3 Months or Most Recently Relevant to Health Maintenance Insurance [employer] MEDICARE Care Teams Harvester Operator Relationship Specialty [place] [address] [place] [address] PCP - General FAMILY PRACTICE 08/24/21
--- OUTSIDE RECORDS SUMMARY | 2025-01-12 10:39 | XMS_ITS ---
Author Organization [facility] Care Team Providers Care Tip Fixer Name Role Phone Deni Conklin Unavailable Unavailable Allergies and adverse reactions No Known Allergies Care Team Name Role Address Phone Organization Dates Deni Conklin PCP [address] [place], [address], [place] (Office): : [facility] 08/19/2021 - 09/02/2021 Immunizations Immunization Status Vaccine Details Vaccine Code CodeSystem Jad e Notes Prevnar 13 normal pneumococcal conjugate vaccine, 13 valent 133 CVX created date: 08/30/2021 consent date: 08/30/2021 Influenza (Flu) normal Influenza, high-dose, split virus, trivalent, injectable, preservative free 135 CVX created date: 08/30/2021 consent date: 08/30/2021 Mental Status Section Date Assessment Total Score Description 09/02/2021 BIMS 15 cognitively int act CAM 0 No delirium ind icated PHQ-9 06 mild depression 08/26/2021 BIMS 15 cognitively int act CAM 0 No delirium ind icated PHQ-9 06 mild depression Insurance Providers Problems Problem # Description Date of onset Resolved Date Code CodeSystem Concern Status 1 CARPAL TUNNEL SYNDROME, UNSPECIFIED UPPER LIMB 08/19/[address] active 2 DYSPHAGIA, UNSPECIFIED 08/19/[address] active 3 ESOPHAGEAL OBSTRUCTION 08/19/[address] active 4 ESSENTIAL (PRIMARY) HYPERTENSION 08/19/[address] active 5 HYPERLIPIDEMIA, UNSPECIFIED 08/19/[address] active 6 MULTIPLE SCLEROSIS 08/19/[address] active 7 OVERACTIVE BLADDER 08/19/2021 873440154 SNOMED C T active 8 PERSONAL HISTORY OF MALIGNANT NEOPLASM OF BREAST 08/19/[address] active 9 POLYMYALGIA RHEUMATICA 08/19/[address] active 10 TACHYCARDIA, UNSPECIFIED 08/19/[address] active 11 TYPE 2 DIABETES MELLITUS WITH DIABETIC NEUROPATHY, UNSPECIFIED 08/19/[address] active 12 UNSPECIFIED OSTEOARTHRITIS, UNSPECIFIED SITE 08/19/[address] active 13 VITAMIN B12 DEFICIENCY ANEMIA, UNSPECIFIED 08/19/[address] active 14 WHITE MATTER DISEASE, UNSPECIFIED 08/19/[address] active Reason for Referral No Reasons for Referral Entered Social History Social History Observation Description Start Date End Date Code Code System Current Smoking Status Tobacco smoking consumption unknown 732682269 SNOMED CT Sex Assigned At Female 1955 33591-7 [facility] Gender Identity Sexual Orientation Vital Signs Code Code System Vitals Name Values and Units Timing Information 05339-2 [facility] Pain Level Value=0.0 09/02/2021 2339-0 [facility] Blood Sugar Tjraf=069.0 Units=mg/dL 09/02/2021 9279-1 [facility] Respiratory Rate Value=18.0 Units=/m in 09/02/2021 8462-4 [facility] Blood Pressure-Diastolic Value=76 Un its=mmHg 09/02/2021 8480-6 [facility] Blood Pressure-Systolic Ntzjf=514 Un its=mmHg 09/02/2021 8310-5 [facility] Body Temperature Value=97.8 Units= F 09/02/2021 8867-4 [facility] Heart rate Value=80.0 Units=/min 42290-7 [facility] O2 % dC Oximetry Value=96.0 Units= % 09/02/2021 55257-1 [facility] Weight Vijio=939.2 Units=Lbs 8302-2 [facility] Height Value=66.0 Units=Inches 08/19/2021
--- OUTSIDE RECORDS SUMMARY | 2025-01-12 10:39 | XMS_ITS | Clinical Summary ---
Author Organization [facility] Address [address] [place] [address] Care Team Providers Care Cryptography Teacher Name Role Phone Wilbert Crowder MD Primary Care Provider [phone] Moo Kirkpatrick MD Unavailable [phone] Amandeep Pagan Unavailable [phone] Lalo Gasca MD Unavailable [phone] Allergies No known active allergies Medications linaGLIPtin (TRADJENTA) 5 mg tablet Take 1 tablet (5 mg total) by mouth every morning Active furosemide (LASIX) 40 mg tablet Take 1 tablet (40 mg total) by mouth every morning 1 Active cholecalciferol (Vitamin D3) 2000 unit tablet Take 1 tablet (2,000 Units total) by mouth daily Active aspirin 81 mg enteric coated tablet Take 1 tablet (81 mg total) by mouth daily Active benzonatate (TESSALON) 200 mg capsule Take 1 capsule (200 mg total) by mouth 3 (three) times a day as needed for cough Active insulin degludec (TRESIBA) 100 unit/mL vial for injection Inject 35 Units under the skin daily with dinner Active solifenacin (VESIcare) 10 mg tablet Take 1 tablet (10 mg total) by mouth every morning Active valsartan (DIOVAN) 160 mg tablet Take 1 tablet (160 mg total) by mouth every morning Active senna-docusate (PERICOLACE) 8.6-50 mgIndications:c onstipation Take 1 tablet by mouth 2 (two) times a day for 10 days 20 tablet 4 Active teriflunomide 14 mg tabletIndicatio ns:Multiple sclerosis Take 1 tablet (14 mg total) by mouth every morning 90 tablet 3 5 Active Microlet Lancet misc USE TO CHECK BLOOD SUGAR TWICE A DAY 5 Active BD Veronica 2nd Gen Pen Needle 32 gauge x needle USE ONE NEEDLE WITH TRESIBA DAILY 5 Active carvediloL (COREG) 25 mg tablet Take 1 tablet (25 mg total) by mouth 2 (two) times a day with meals 5 Active glimepiride (AMARYL) 1 mg tablet Take 2 tablets (2 mg total) by mouth daily before breakfast 5 Active rosuvastatin (CRESTOR) 5 mg tablet Take 1 tablet (5 mg total) by mouth daily 5 Active dalfampridine 10 mg tablet extended release 12 hrIndications:M ultiple sclerosis Take 1 tablet (10 mg total) by mouth every 12 (twelve) hours 180 tablet 3 5 Active Active Problems Problem Noted Date Diagnosed Date Cervical disc disorder with myelopathy of mid-cervical region 08/06/2023 Cervical spinal stenosis 08/06/2023 Chronic pain of right knee 03/23/2022 Dysphagia, unspecified 08/19/2021 Esophageal obstruction 08/19/2021 Overactive bladder 08/19/2021 Polymyalgia rheumatica 08/19/2021 Tachycardia, unspecified 08/19/2021 Type 2 diabetes mellitus wit h diabetic neuropathy, unspecified 08/19/2021 Vitamin B12 deficiency anemia, unspecified 08/19 Carpal tunnel syndrome, unspecified upper limb 0 08/19/2021 Hyperlipidemia, unspecified 08/19/2021 White matter disease, unspecified 08/19/2021 Unspecified osteoarthritis, unspecified site Carpal tunnel syndrome, bilateral 10/07/2020 Assessment & Plan (05/12/2023 4:41 PM PLASTIC MACHINE OPERATOR): EMG/NCS 08/04/20: Severe right and moderate to severe left median nerve entrapment at the flexor retinaculum. Non localizing bilateral ulnar neuropathy. 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 Likely a mix of diabetic neuropathy and compression at wrist due to carpal tunnel syndrome. Previous follow-up with orthopedic hand surgeon Dr. Crowe; patient deferred on carpal tunnel release. Her Assessment & Plan (07/06/2021 1:51 PM CDT): EMG/NCS 08/04/20: Severe right and moderate to severe left median nerve entrapment at the flexor retinaculum. Non localizing bilateral ulnar neuropathy. 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 Likely a mix of diabetic neuropathy and compression at wrist due to carpal tunnel syndrome. Follow-up with orthopedic hand surgeon Dr. Sebastien Landeros on 10/27/20. Patient deferred on carpal tunnel release. Assessment & Plan (10/07/2020 8:39 AM CDT): EMG/NCS 08/04/20: Severe right and moderate to severe left median nerve entrapment at the flexor retinaculum. Non localizing bilateral ulnar neuropathy. 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 Likely a mix of diabetic neuropathy and compression at wrist due to carpal tunnel syndrome. Scheduled for evaluation with orthopedic hand surgeon Dr. Sebastien Landeros on 10/27/20. Since painful, gabapentin 300-600 mg every 8 hours as needed. Risks discussed including leg edema and gait imbalance. Acute pain due to trauma 08/11/2020 Subdural hematoma 08/10/2020 Assessment & Plan (05/12/2023 4:39 PM PLASTIC MACHINE OPERATOR): August 09, 2020. 6 mm right parafalcine subdural hematoma Resolved on September 16, 2020 study Fall prevention discussed Ongoing physical therapy Using a walker Assessment & Plan (07/06/2021 1:50 PM CDT): August 09, 2020. 6 mm right parafalcine subdural hematoma Resolved on September 16, 2020 study Fall prevention discussed Ongoing physical therapy Using a walker Assessment & Plan (10/07/2020 8:25 AM CDT): Fell August 09, 2020. 6 mm right parafalcine subdural hematoma Resolved on September 16, 2020 study Fall prevention discussed Ongoing physical therapy Using a walker Assessment & Plan (08/10/2020 11:13 PM CDT): Mechanical fall now with SDH - Stable on CT scan - No residual deficits - Not on AC - Per NSGY, Keppra 500 BID x7d Primary osteoarthritis of right knee 10/16/2019 Assessment & Plan (07/06/2021 1:52 PM CDT): Severe tricompartmental degenerative changes per x-ray of right knee on May 01, 2019 Orthopedic follow-up Assessment & Plan (10/07/2020 8:32 AM CDT): Severe tricompartmental degenerative changes per x-ray of right knee on May 01, 2019 Orthopedic follow-up Assessment & Plan (04/21/2020 6:30 AM PLASTIC MACHINE OPERATOR): Severe tricompartmental degenerative changes per x-ray of right knee on May 01, 2019 Orthopedic follow-up Assessment & Plan (10/16/2019 9:44 AM CDT): Severe tricompartmental degenerative changes per x-ray of right knee on May 01, 2019 Orthopedic follow-up Neurogenic bladder 09/18/2017 Overview (12/07/2020): Treatment history Detrol LA (oxybutinyn) 03/2007-01/2009 Vesicare (solifenacin) 09/2010- Assessment & Plan (05/12/2023 4:41 PM PLASTIC MACHINE OPERATOR): Solifenacin 10 mg daily Likely exacerbated by furosemide Assessment & Plan (07/06/2021 1:51 PM CDT): Solifenacin 10 mg daily Assessment & Plan (10/07/2020 8:30 AM CDT): Solifenacin 10 mg daily Assessment & Plan (04/21/2020 6:29 AM PLASTIC MACHINE OPERATOR): Solifenacin 10 mg daily Assessment & Plan (10/16/2019 9:43 AM CDT): Solifenacin 10 mg daily Assessment & Plan (04/10/2019 11:06 AM PLASTIC MACHINE OPERATOR): Vesicare Assessment & Plan (09/10/2018 11:34 AM CDT): Vesicare prn in the past Assessment & Plan (03/04/2018 10:30 AM PLASTIC MACHINE OPERATOR): Vesicare prn Assessment & Plan (09/18/2017 12:05 PM CDT): Vesicare prn Hypertension 08/23/2013 Overview (07/12/2016): HTN (hypertension) Assessment & Plan (08/10/2020 11:17 PM CDT): Scheduled amlodipine + PRN labetalol Assessment & Plan (10/16/2019 9:45 AM CDT): Apparently blood pressure improved but elevated at 170 5/91 on June 02, 2019. Risk of hypertension on Aubagio discussed. Assessment & Plan (03/04/2018 10:31 AM PLASTIC MACHINE OPERATOR): Follow-up with PCP KRISH due to persistent hypertension. Risk of hypertension with Aubagio was discussed Patient will check her blood pressure twice a day for 1 week in chair with her primary care physician. Her blood pressure was elevated 156/90 at appointment Assessment & Plan (09/18/2017 11:57 AM CDT): Follow-up with PCP KRISH due to persistent hypertension. Risk of hypertension with Aubagio was discussed. 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 Status post breast-concerning surgery followed by whole breast radiation therapy completed in December 2008 Assessment & Plan (07/06/2021 1:52 PM CDT): Grade 1, ER positive. Status post breast-concerning surgery followed by whole breast radiation therapy completed in December 2008 Assessment & Plan (10/07/2020 8:32 AM CDT): Grade 1, ER positive. Status post breast-concerning surgery followed by whole breast radiation therapy completed in December 2008 Assessment & Plan (04/21/2020 6:30 AM PLASTIC MACHINE OPERATOR): Grade 1, ER positive. Status post breast-concerning surgery followed by whole breast radiation therapy completed in December 2008 Assessment & Plan (10/16/2019 9:45 AM CDT): Grade 1, ER positive. Status post breast-concerning surgery followed by whole breast radiation therapy completed in December 2008 Assessment & Plan (03/04/2018 10:31 AM PLASTIC MACHINE OPERATOR): Grade 1, ER positive. Status post breast-concerning surgery followed by whole breast radiation therapy completed in December 2008 Assessment & Plan (09/18/2017 12:01 PM CDT): Grade 1, ER positive. Status post breast-concerning surgery followed by whole breast radiation therapy completed in December 2008 Type 2 diabetes mellitus 09/17/2008 Assessment & Plan (08/10/2020 11:18 PM CDT): Elevated blood glucose in ICU, likely 2/2 poor glycemic control + concurrent prednisone prior to admission - Lantus 10u qhs + HDSSI - Endo consult Multiple sclerosis 09/17/2008 Overview (03/14/2018): Multiple Sclerosis DMT History: Rebif: 08/2011- 06/2015 Aubagio: 06/2015- Current Assessment & Plan (05/12/2023 4:39 PM PLASTIC MACHINE OPERATOR): Left optic neuritis 2002 Resume teriflunomide (Aubagio) 14 mg daily. Option of [facility] discussed. Risks discussed including hepatotoxicity and hypertension. Currently hypertensive off of teriflunomide. Address with Dr. Crowder. Increased risk of serious complications if develops COVID 19 infection discussed including pneumonia and possible reviewed. Last COVID-19 vaccine fall 2022. She understands that vaccination data generally favorable for Aubagio, but potentially she may not be protected against COVID- 19. Paxlovid advised if she develops COVID-19. Dalfampridine 10 mg twice a day Continue physical therapy exercises Vitamin D3 3000 IU daily MRI cervical spine November 2019: Status post ACDF C4-6. Increased T2 signal C2 ventrally and C4-5 levels. Assessment & Plan (07/06/2021 1:49 PM CDT): Aubagio 14 mg daily. Risks discussed including [...] T2 signal C2 ventrally and C4-5 levels. Assessment & Plan (10/07/2020 8:34 AM CDT): Aubagio. Risks discussed including hepatotoxicity and hypertension. Increased risk of serious complications if develops coronavirus infection (COVID-19) discussed including pneumonia and possible reviewed. She received her 2nd mRNA COVID-19 vaccine in early 2020. Patient understands that vaccinations such as influenza are generally effective on Aubagio, but lacking COVID-19 vaccination efficacy data on Aubagio. Potentially she may not be protected as reviewed with patient. I advised her to wear a mask in public and around unvaccinated people. Resume dalfampridine since helped gait. Risks discussed including seizures. Ongoing home physical therapy Vitamin D3 2000 IU daily Will order follow-up MRI scan of the brain at next appointment. MRI ordered November 2019 but only her cervical spine MRI was completed. Assessment & Plan (08/10/2020 11:14 PM CDT): Was on prednisone daily x5d prior to fall - Discontinued prednisone on admission to SICU Assessment & Plan (04/21/2020 6:29 AM PLASTIC MACHINE OPERATOR): Aubagio. Risks discussed including hepatotoxicity and hypertension. Increased risk of serious complications if develops coronavirus infection (COVID-19) discussed including pneumonia and possible reviewed. Patient wants to continue Aubagio. She is primarily staying at home and maintaining social distancing. COVID-19 vaccination recommended. Patient understands that vaccinations such as influenza are generally effective on Aubagio, but lacking COVID-19 vaccination efficacy data on Aubagio. Potentially she may not be protected as reviewed with patient. Ampyra. Risks discussed including seizures. Continue exercise; recommended recumbent bike at home. Water therapy helpful, but no longer able to participate due to COVID-19. Vitamin D3 2000 IU daily Assessment & Plan (10/16/2019 9:45 AM CDT): Aubagio. Risks discussed including hepatotoxicity and hypertension. Increased risk of serious complications if develops coronavirus infection (COVID-19) discussed including pneumonia and possible reviewed. Patient wants to continue Aubagio. She is primarily staying at home and maintaining social distancing. Ampyra. Risks discussed including seizures. Continue exercise; recommended recumbent bike at home. Water therapy helpful, but no longer able to participate Vitamin D3 2000 IU daily Assessment & Plan (04/10/2019 11:06 AM PLASTIC MACHINE OPERATOR): Continue Aubagio daily. Reviewed risks including hepatotoxicity and blood pressure. Blood work today Close blood pressure monitoring Discussed co-morbidities and Ms Ampyra 10mg BID. Discussed importance of 12 hours apart and risk of seizure Restart Vitamin D 3 3,000IU daily. Reviewed importance. Will recheck levels at next visit. PT ordered Follow up with Dr. Shaikh in 6 months summer Assessment & Plan (09/10/2018 12:49 PM CDT): Continue Aubagio. Discussed risks including hepatotoxicity and hypertension. She is instructed to watch her blood pressure daily and to discuss with her PCP today. Blood work today Continue exercise Continue Ampyra, new script sent. Reviewed narrow therapeutic index and dosing including risks of seizure Continue Vitamin D Follow up in 6 months or sooner if any issues Assessment & Plan (03/04/2018 10:30 AM PLASTIC MACHINE OPERATOR): Aubagio. Risks discussed including hepatotoxicity and hypertension. Ampyra. Risks discussed including seizures. Continue exercise; continue going to the gym Orthopedic evaluation recommended for right knee pain Vitamin D3 4000 IU daily Assessment & Plan (09/18/2017 11:57 AM CDT): Aubagio. Risks discussed including hepatotoxicity. Ampyra. Risks discussed including seizures. Continue exercise Vitamin D3 4000 IU daily Resolved Problems Problem Noted Date Diagnosed Date Resolved Date Vitamin D deficiency 09/10/2018 05 021 Assessment & Plan (09/10/2018 12:50 PM CDT): Currently taking 2,000IU to meet goal for MS patients of 50-80 High risk medication use 09/10/201808/2020 Encounter for screening mamm ogram for malignant neoplasm of breast 11/27/2017 08/11/2020 History of breast cancer 11/09/2016 Carcinoma in situ of breast 09/21/2011 09/18/2017 Atypical ductal hyperplasia of breast 09/21/2011 08/11/2020 Bacteremia 09/17/2008 08/11/2020 Postoperative infection 09/17/2008 05/08/2020 Encounters Date Type Department Care Team Description 10/24/2024 Telephone [facility] [address] [place] [id number] Sujata SimaGlenn headley 10/24/2024 Telephone [facility] [address] [place] [address] Mark Shaikh MD 10/20/2024 Telephone [facility] [address] [place] [address] Patria Jacobs RN 10/17/2024 12:45 PM CDT Office Visit [facility] [address] [place] [address] Mark Shaikh MD Multiple sclerosis (HCC) (Primary Dx); Ductal carcinoma in situ (DCIS) of right breast; Carpal tunnel syndrome, bilateral; Subdural hematoma (HCC); Cervical spinal stenosis; Neurogenic bladder 10/14/2024 10:53 AM CDT - 10/14/2024 11:59 PM CDT Hospital Encounter [facility] ([facility]) [address] [place] [id number] Screening mammogram, encounter for Discharge Disposition: Discharge to home or self care from Last 3 Months Immunizations Immunization Administration Dates Next Due Influenza, Quad, Adjuvantate d, Intramuscular 02/15/2021 Influenza, Quadrivalent, Hig h Dose, Preservative Free, Intrr 11/26/2019 Influenza, Quadrivalent, Rec ombinant, Egg Free, Preservative Free, Intramuscular 01/31/2016 Influenza, Quadrivalent, Spl it, Preservative Free, Intramuscular 12/28/2017,12/27/2017,01/02/2017 Influenza, Trivalent, High D ose, Split, Preservative Free, Intramuscular 12/31/2018 Influenza, Trivalent, IM (MDV) 02/10/2015 Influenza, Unspecified 12/31/2018,2017,01/02/2017,02/10,01/21/2014,02/10/2013,02/07/2012 Pneumococcal Conjugate PCV 13 11/19/2019 Pneumococcal, Unspecified 02/07/2012 Surgical History Surgery Date Site/Laterality Comments FLUORO GUIDED INJECTION SHOULDER RIGHT 10/19/2020 Right TOTAL KNEE ARTHROPLASTY 12/08/2022 - 01/06/2023 Right ANTERIOR CERVICAL DISCECTOMY W/ FUSION C4-6 BREAST LUMPECTOMY 04/09/2008 - 04/08/2009 Right DCIS HYSTERECTOMY N/A Uterus only removed BREAST EXCISIONAL BIOPSY 08/26/2010 Right benign BREAST EXCISIONAL BIOPSY 04/09/2008 - 04/08/2009 Left ADH BREAST LUMPECTOMY 04/09/2010 - 04/08/2011 Left DCIS BREAST BIOPSY 04/09/2010 - 04/08/2011 Left malignant needle bx BREAST BIOPSY 07/26/2010 Right benign stereo bx Medical History Medical History Date Comments Hypertension Diabetes mellitus Multiple sclerosis Cervical disc disorder with myelopathy of mid-cervical region History of breast cancer Dyslipidemia Polymyalgia rheumatica Neurogenic bladder Osteoarthritis Chronic anemia LEFT Breast cancer- DCIS 2010 DCIS Right Breast cancer- DCIS 2008 DCIS History of radiation therapy 200 and 2010 for breast cancer Family History Medical History Relation Name Comments Stroke Father Coronary artery disease Mother Relation Name Status Comments Father Mother Social History Tobacco Use Types Packs/Day Years Used Date Smoking Tobacco: Never Smokeless Tobacco: Never Tobacco Cessation:Counseling Given: Not Answered Alcohol Use Standard Drinks/Week Comments No 0 (1 standard drink = 0.6 oz pur e alcohol) AUDIT-C Answer Date Recorded Q1: How often do you have a drink containing alcohol? Never 08/27/2023 Q2: How many drinks containi ng alcohol do you have on a typical day when you are drinking? Patient does not drink Q3: How often do you have si x or more drinks on one occasion? Never 08/27/2023 PHQ-2 Answer Date Recorded PHQ-2 Total Score (If total score is 3 or more points, staff should administer the PHQ-9) 0 12/20/2022 Personal Safety Answer Date Recorded Have you ever been in or are you currently in a harmful physical or emotional relationship or is someone making you feel afraid or unsafe? Denies 08/27/2023 Comments No Sex and Gender Information Value Date Recorded Sex Assigned at Not on file Legal Sex Female 2:36 PM PLASTIC MACHINE OPERATOR Gender Identity Not on file Sexual Orientation Not on file Obstetrics History Para Term AB IAB SAB Ectopic Multiple Livin g Live Births 3 3 Date Outcome GA Total Labor Labor/2nd/3rd Weight Sex Type Anes PTL Margaret A1 A5 Name Clin Last Filed Vital Signs Vital Sign Reading Time Taken Comments Blood Pressure 118/66 10/17/2024 12:34 PM CDT Pulse 80 10/17/2024 12:34 PM CDT Temperature 36.3 C (97.4 F) 10/17/2024 12:34 PM CDT Respiratory Rate 18 08/28/2023 12:08 PM CDT Oxygen Saturation 96% 10/17/2024 12:34 PM CDT Inhaled Oxygen Concentration - - Weight 85.7 kg (189 lb) 10/17/2024 12:34 PM CDT Height 167.6 cm (5' 6) 10/17/2024 12:34 PM CDT Body Mass Index 30.51 10/17/2024 12:34 PM CDT Plan of Treatment Health Maintenance Due Date Last Done Comments Albumin Creatinine Ratio, Urine 1953 Colon Cancer Screening-Colonoscopy 1955 Hepatitis C Screening 1955 Osteoporosis Screening-Bone Density Scan 1953 Dilated Eye Exam 1953 Foot Exam 1953 DTaP/Tdap/Td Vaccine (1 - Tdap) 1964 Hepatitis B Screening 09/26/1971 Zoster Vaccine (1 of 2) 09/26/2003 Well Visit 65+ 2018 Pneumococcal vaccine 65+ (2 of 2 - PPSV23, PCV20, or PCV21) 01/14/2020 11/19/2019, 02/07/2012 Lipid Panel 08/24/2022 08/24/2021, 08/09/2020 Depression Screening 12/01/2023 11/30/2022, 03/23/2022, 03/23/2022 Hemoglobin A1C 02/09/2024 08/09/2023, 05/0 07/2020, 08/09/2020 Fall Risk Assessment 08/27/2024 08/28/2023 Covid-19 Vaccine (2024-2 6 season) 2024 05/16/2021, 06/28/2020, 05/31/2020 Influenza Vaccine (#1) 2024 , 11/26/2019, 12/31/2018, Additional history exists eGFR 01/15/2025 01/16/2024, 05/0 05/2023, 05/11/2023 Breast Cancer Screening-Mammogram 10/14/2025 10/14/2024, 03/12/2020, 12/19/2018, Additional history exists Medical Devices Implanted Type Area Laboratory Supervisor Device Identifier Shelf Expiration Date Model / Serial / Lot Depuy [employer] Attune Fb Tib Base Sz 6 Por [id number] - [id number] Implanted:Qty: 1 on 12/20/2022 by Slim Gan MD at [facility] Right: Knee [employer]uy [employer] 08/06/2032 [id number] / / [id number] [employer] Attune Cruciate Retain Cementless Knee Right 6 Component Femoral [id number] - [id number] Implanted:Qty: 1 on 12/20/2022 by Slim Gan MD at [facility] Right: Knee [employer]uy [employer] 11/06/2032 [id number] / / [id number] Dep[employer] Insert Attune Right Medial Stabilized Size 6 5mm [id number] - [id number] Implanted:Qty: 1 on 12/20/2022 by Slim Gan MD at [facility] Right: Knee [employer] 06/06/2030 [id number] / / [id number] [employer] Allograft Bone Putty 2.5cc 700-025 - [id number] Implanted:Qty: 1 on 08/27/2023 by Lalo Gasca MD at [facility] N/A: Spine Cervical [employer] [id number] 09/06/2025 700-025 / / [id number] [employer] Cage Spinal Cervical 6 Degree Acif Titanium [id number] - [id number] Implanted:Qty: 1 on 08/27/2023 by Lalo Gasca MD at [facility] N/A: Spine Cervical [employer] [id number] 01/03/2028 [id number] / / [id number] [employer] Screw Trelloss-C Sa 3.5x14mm [id number] - [id number] Implanted:Qty: 1 on 08/27/2023 by Lalo Gasca MD at [facility] N/A: Spine Cervical [employer] [id number] 01/11/2028 [id number] / / [id number] [employer] Screw Trelloss-C Sa 3.5x14mm [id number] - [id number] Implanted:Qty: 1 on 08/27/2023 by Lalo Gasca MD at [facility] N/A: Spine Cervical [employer] [id number] 12/16/2027 [id number] / / [id number] Procedures Procedure Name Priority Date/Time Associated Diagnosis Comments VITAMIN D 25 HYDROXY Routine 10/22/2024 11:56 AM CDT NMO IGG AUTOANTIBODIES Routine 10/22/2024 11:56 AM CDT Multiple sclerosis (HCC) HEPATIC FUNCTION PANEL Routine 10/22/2024 11:56 AM CDT Multiple sclerosis (HCC) CBC WITH AUTO DIFFERENTIAL Routine 10/22/2024 11:56 AM CDT Multiple sclerosis (HCC) SCREENING MAMMOGRAM BILATERAL W KENNETH Schedule Routine, Read Routine (OP Routine) 10/14/2024 12:15 PM CDT Screening mammogram, encounter for EGFR Routine 01/16/2024 3:33 PM CDT Multiple sclerosis (HCC) HEMOGLOBIN A1C Routine 08/09/2023 9:00 AM CDT Preoperative evaluation to rule out surgical contraindication LIPID PANEL STAT 08/09/2020 4:41 PM CDT from Last 3 Months or Most Recently Relevant to Health Maintenance Results * NMO - neuromyelitis optica autoantibody, IgG, serum (10/22/2024 11:56 AM CDT) Interpretation Sabrina Carlos-[place] KarlI bandar Comment: NEGATIVE This test did not detect abnormal levels of anti-AQP4 antibodies. Technical Results At [facility] Sabrina Barajas-Sabrina Guaman Comment: Interpretive Result Table INTERPRETIVE RESULT: Negative TEST: anti-AQP4 TECHNICAL RESULT: <1.5 REFERENCE RANGE: Negative <3.0 U/ml, Positive >=3.0 U/ml COMMENTS Consuelo BarajasI bandar-Consuelo BarajasI bandar Comment: Comments: This result does not exclude a diagnosis of Neuromyelitis Optica. Recommendations: Health care providers, please contact the [facility] Client Services Department at if you wish to speak with a clinical employment consultant regarding this test result. Background information: NMO (neuromyelitis optica, Devic disease) is an immune-mediated chronic inflammatory disease that predominantly affects the optic nerve and spinal cord and presents with optic neuritis (ON) and myelitis (1,2). Limited forms of this disease, such as isolated ON, brainstem encephalitis and longitudinal extensive transverses myelitis (LETM), have been referred to as NMO spectrum disorders (NMOSD) (2). NMO was originally thought to be a variant of multiple sclerosis, however, now is recognized as a distinct disease (2). The presence of autoantibodies against aquaporin-4 (AQP4), sometimes referred to as AQP4-IgG or NMO IgG, in patient serum is associated with NMO (3,4). Patients seropositive for AQP4 antibodies present with poor visual outcome and longitudinally extensive spinal cord lesions (3,5). METHODS [facility] Comment: Detection of antibodies was performed by Enzyme Linked Immunosorbent Assay (ERIC) methodology. Limitations of analysis: Although rare, false positive or false negative results may occur. All results should be interpreted in the context of clinical findings, relevant history, and other laboratory data. AQP4 references Ath Reacción,I la-[facility],I la Comment: 1. Joe Freedman, et al. (2014) VÍCTOR Neurol 71:276-83. (PMID: 20531095) 2. Chandu Shaw, et al. (2014) J Neurol 261: 1-16. (PMID: [id number]) 3. Kezuka, T, et al. (2012) J Neuroophthalmol 32: 107-10. (PMID: [id number]) 4. DarFOX, et al. (2014) Neurology 82: 474-81. (PMID: [id number]) 5. Troy S, et al. (2008) Brain 131: 3072-80. (PMID: 68564022) Laboratory oversight provided by Jami Wei M.D., Ph.D., CLIA license [place], [facility] (CLIA# [id number]) Testing performed at: [facility] [address] [place] [id number] Blood 10/22/2024 11:5 6 AM CDT 10/22/2024 11:56 AM CDT Narrative [facility] - 10/30/2024 10:41 AM CDT FASTING:NO FASTING: NO us Mark Shaikh MD LAB BLOOD ORDERABLES Final Re sult [facility] [address] [place] [address], [address] [place] [id number] * (ABNORMAL) CBC with auto differential (10/22/2024 11:56 AM CDT) WBC 6.4 3.8 - 10.8 Thousand/u L [facility] RBC, POC 4.29 3.80 - 5.10 Million/uL [facility] Hgb 11.4(L) 11.7 - 15.5 g/dL [facility] Hct 38.1 35.0 - 45.0 % [facility] MCV 88.8 80.0 - 100.0 fL [facility] MCH 26.6(L) 27.0 - 33.0 pg [facility] MCHC 29.9(L) 32.0 - 36.0 g/dL [facility] Comment: For adults, a slight decrease in the calculated MCHC value (in the range of 30 to 32 g/dL) is most likely not clinically significant; however, it should be interpreted with caution in correlation with other red cell parameters and the patient's clinical condition. Rdw 13.9 11.0 - 15.0 % [facility] Platelets 170 140 - 400 Thousand/u L [facility] MPV 13.0(H) 7.5 - 12.5 fL [facility] Neutrophils, abs 3,558 1,500 - 7,800 cells/uL [facility] Lymphocytes, abs 1,824 850 - 3,900 cells/uL [facility] Monocyte abs 608 200 - 950 cells/uL [facility] Eosinophils, abs 352 15 - 500 cells/uL [facility] Basophils, abs 58 0 - 200 cells/uL [facility] Neutrophils 55.6 % [facility] Lymphocyte pct 28.5 % [facility] Monocytes 9.5 % [facility] Eosinophils 5.5 % [facility] Basophils 0.9 % [facility] Blood 10/22/2024 11:5 6 AM CDT 10/22/2024 11:56 AM CDT Narrative [facility] - 10/30/2024 10:41 AM CDT FASTING:NO FASTING: NO Mark Shaikh MD LAB BLOOD ORDERABLES Final Re sult [facility] [address] [place] [address] * Vitamin D 25 hydroxy (10/22/2024 11:56 AM CDT) Vitamin D 25-OH 77 30 - 100 ng/mL [facility] Comment: Vitamin D Status 25-OH Vitamin D: Deficiency: <20 ng/mL Insufficiency: 20 - 29 ng/mL Optimal: > or = 30 ng/mL For 25-OH Vitamin D testing on patients on D2-supplementation and patients for whom quantitation of D2 and D3 fractions is required, the QuestAssureD(TM) 25-OH VIT D, (D2,D3), LC/MS/MS is recommended: order code [id number] (patients >2yrs). See Note 1 Note 1 For additional information, please refer to http://education.[employer]/faq/KER868 (This link is being provided for informational/ educational purposes only.) 10/22/2024 11:5 6 AM CDT 10/22/2024 11:56 AM CDT Narrative [facility] - 10/30/2024 10:41 AM CDT FASTING:NO FASTING: NO Mark Shaikh MD LAB BLOOD ORDERABLES Final Re sult [facility] [address] [place] [address] * (ABNORMAL) Hepatic function panel (10/22/2024 11:56 AM CDT) Protein, Total 7.2 6.4 - 8.4 g/dL [facility] Albumin 3.9 3.6 - 5.1 g/dL [facility] Globulin 3.3 2.2 - 4.0 g/dL (calc) [facility] Alb/glob ratio 1.2 0.9 - 2.3 (calc) [facility] Bilirubin, total 0.5 0.2 - 1.2 mg/dL [facility] Bilirubin, direct 0.2 < OR = 0.2 mg/dL [facility] Bilirubin, indirect 0.3 0.2 - 1.2 mg/dL (calc) [facility] Alk phos 98 37 - 153 U/L [facility] AST 8(L) 10 - 35 U/L [facility] ALT (SGPT) 7 6 - 29 U/L [facility] Blood 10/22/2024 11:5 6 AM CDT 10/22/2024 11:56 AM CDT Narrative [facility] - 10/30/2024 10:41 AM CDT FASTING:NO FASTING: NO us Mark Shaikh MD LAB BLOOD ORDERABLES Final Re sult [facility] [address] [place] [address] * Screening Mammogram Bilateral W Kenneth (10/14/2024 12:15 PM CDT) Anatomical Region Laterality Modality Breast Bilateral Mammography Impressions 10/14/2024 12:56 PM CDT Bilateral No evidence of malignancy in either breast. OVERALL BI-RADS FINAL ASSESSMENT: 2 - Benign RECOMMENDATION: Recommend bilateral annual screening mammography. Narrative 10/14/2024 12:56 PM CDT EXAMINATION: Screening Mammogram Bilateral W Kenneth: 10/14/2024 COMPARISON: Relevent prior studies available at the time of interpretation were reviewed, including the most recent mammogram on: 03/12/2020. TECHNIQUE: Mammography was performed with 2D and digital breast tomosynthesis (DBT) images. CAD was utilized. BREAST PARENCHYMAL COMPOSITION: There are scattered areas of fibroglandular density. FINDINGS: Bilateral 1) Post-Surgical Finding: There are post-surgical findings from a previous lumpectomy with radiation seen in both breasts. There has been no interval development of a suspicious finding. This finding is benign. There is no suspicious mass, calcification, or architectural distortion in either breast. us Self Screening Mammogram IMG MAMMO PROCEDURES Fi nal Result * eGFR (01/16/2024 3:33 PM CDT) eGFR 79 >=60 mL/min/1. 73 m2 Comment: Interpretive Data Reference Interval Normal >/= 90 mL/min/1.73m2 Mildly decreased* 60 - 89 mL/min/1.73m2 Mildly to moderately decreased 45 - 59 mL/min/1.73m2 Moderately to severely decreased 30 - 44 mL/min/1.73m2 Severely decreased 15 - 29 mL/min/1.73m2 Kidney Failure < 15 mL/min/1.73m2 *Relative to young adult level Estimated glomerular filtration rate is determined by the 2020 CKD-EPI equation recommended by the National Kidney Foundation (A Unifying Approach to GFR Estimation: Recommendations of the NKF-ASK Task Force on Reassessing the Inclusion of Race in Diagnosing Kidney Disease, JASN 2020). The CKD-EPI equation should not be used for patients with unstable renal function and has not been validated in children and those over 70. Current interpretive data was last reviewed 2021. Blood 01/16/2024 3:33 PM CDT 01/16/2024 3:33 PM CDT Mary GREENWOOD LAB BLOOD ORDERABLES Final Resu lt [facility] [address] Department [place] [address] * (ABNORMAL) Hemoglobin A1c (08/09/2023 9:00 AM CDT) Hgb A1C 8.3(H) 4.0 - 5.6 % Estimated Average Glucose 192 mg/dL [facility] Comment: The ADA recommends reporting an estimated Average Glucose (eAG) with all Hemoglobin A1c results using the equation derived from a study of 507 normal and diabetic adults. Minority populations were underrepresented and children were not included. (Diabetes Care 31:0858-6269, 2008). The eAG is not equivalent to a fasting glucose. Blood 08/09/2023 9:00 AM CDT 08/09/2023 9:31 AM CDT us Katina Lyle NP LAB BLOOD ORDERABLES Fin al Result [facility] [address] Department [place] [address] * (ABNORMAL) Lipid panel (08/09/2020 4:41 PM CDT) Cholesterol 127 30 - 199 mg/dL [facility] Comment: Interpretive Data Ages < or = 19 years Acceptable: <170 mg/dL Borderline high: 170-199 mg/dL High: >or= 200 mg/dL Ages > or = 20 years Desirable: <200 mg/dL Borderline high: 200-239 mg/dL High: >or= 240 mg/dL Literature References: 1. Expert Panel on Integrated Guidelines for Cardiovascular Health and Risk Reduction in Children and Adolescents. Pediatrics 2011;128:S213 2. NCEP Expert Panel. Circulation 2004;110:227 Current Interpretive Data was last revised on 2017. Triglycerides 151(H) <=149 mg/dL [facility] Comment: Interpretive Data Ages < or = 9 years Acceptable: <75 mg/dL Borderline high: 75-99 mg/dL High: >or= 100 mg/dL Ages 10 to 20 years Acceptable: <90 mg/dL Borderline high: 90-129 mg/dL High: >or= 130 mg/dL Ages > or = 20 years Desirable: <150 mg/dL Borderline high: 150-199 mg/dL High: 200-499 mg/dL Very high: >or= 499 mg/dL Literature References: 1. Expert Panel on Integrated Guidelines for Cardiovascular Health and Risk Reduction in Children and Adolescents. Pediatrics 2011;128:S213 2. NCEP Expert Panel. Circulation 2004;110:227 Current Interpretive Data was last revised on 2017. HDL 37(L) >=40 mg/dL [facility] Comment: Interpretive Data Ages < or = 19 years Acceptable: >45 mg/dL Borderline low: 40-45 mg/dL Low: <40 mg/dL Ages > or = 20 years Desirable: >or= 60 mg/dL Low: <40 mg/dL Literature References: 1. Expert Panel on Integrated Guidelines for Cardiovascular Health and Risk Reduction in Children and Adolescents. Pediatrics 2011;128:S213 2. NCEP Expert Panel. Circulation 2004;110:227 Current Interpretive Data was last revised on 2017. LDL, calculated 60 <=129 mg/dL [facility] Comment: Interpretive Data Ages < or = 19 years Acceptable: <110 mg/dL Borderline high: 110-129 mg/dL High: >or= 130 mg/dL Ages > or = 20 years Optimal: <100 mg/dL Near optimal: 100-129 mg/dL Borderline high: 130-159 mg/dL High: >160 mg/dL Literature References: 1. Expert Panel on Integrated Guidelines for Cardiovascular Health and Risk Reduction in Children and Adolescents. Pediatrics 2011;128:S213 2. NCEP Expert Panel. Circulation 2004;110:227 Current Interpretive Data was last revised on 2017. Non-HDL Cholesterol 90 mg/dL [facility] Comment: Interpretive Data Ages < or = 19 years Acceptable: <120 mg/dL Borderline high: 120-144 mg/dL High: >145 mg/dL Ages > or = 20 years When triglycerides are >200 mg/dL, Non-HDL cholesterol is a secondary target of therapy with treatment goals that are 30 mg/dL greater than the LDL cholesterol target. Literature References: 1. Expert Panel on Integrated Guidelines for Cardiovascular Health and Risk Reduction in Children and Adolescents. Pediatrics 2011;128:S213 2. NCEP Expert Panel. Circulation 2004;110:227 Current Interpretive Data was last revised on 2017. Chol/HDL ratio 3 [facility] Blood specimen (specimen) 08/09/2020 4:41 PM CDT 08/09/2020 4:48 PM CDT us Blaze Valles MD LAB BLOOD ORDERABLES Edit ed Result - Final [facility] Department [place] [address] from Last 3 Months or Most Recently Relevant to Health Maintenance Insurance [employer] MEDICARE Advance Directives For more information, please contact: [phone] * Full Code (Latest Code Status on File) Date Activated Date Inactivated Comments 08/27/2023 2:21 PM 08/28/2023 5:34 PM * Full Code Date Activated Date Inactivated Comments 12/20/2022 3:47 PM 12/21/2022 7:17 PM * Full Code Date Activated Date Inactivated Comments 08/09/2020 3:19 PM 08/12/2020 8:01 PM Care Teams Cryptography Teacher Relationship Specialty Start Date End Date Wilbert Crowder MD PCP - General 07/07/16 Moo Kirkpatrick MD [address] [facility] [address] [place] [address] Anesthesiologist Pain Management 03/23/22 Amandeep Pagan PA [address] [facility] [address] [place] [address] Physician Forest Pathologist Orthopedic Surgery 12/21/22 [place] [address] [place] [id number] Consulting Physician Neurosurgery 08/28/23
--- OUTSIDE RECORDS SUMMARY | 2025-01-12 10:39 | XMS_ITS | Clinical Summary ---
Author Organization [facility] Address [address] [place] [address] Phone Care Team Providers Care Conveyor Belt Installer Name Role Phone Wilbert Crowder MD Primary Care Provider [phone] Social History Tobacco Use Types Packs/Day Years Used Date Smoking Tobacco: Never Assessed Comments Unknown Sex and Gender Information Value Date Recorded Sex Assigned at Not on file Legal Sex Female 9:24 AM CDT Gender Identity Not on file Sexual Orientation Not on file Plan of Treatment Health Maintenance Due Date Last Done Comments Hepatitis C Virus (HCV) Screening 1955 TdaP Immunization 1955 Cologuard 1998 Colonoscopy 1998 Colorectal Cancer Screening 1998 Immunochemical Fecal Occult Blood 1998 Zoster Immunization (1 of 2) 09/26/2003 Pneumococcal Immunization (50+ years) (2 of 2 - PCV20 or PCV21) 11/18/2020 11/19/2019, 02/07/2012 Medicare Initial AWV [id number] 04/09/2021 Influenza Immunization (#1) 12/08/202411/07, 12/31/2018, 12/27/2017, Additional history exists SARS-COV-2 Immunization ( season) 2024 05/16/2021, 06/28/2020, 05/31/2020 Respiratory Syncytial Virus (RSV) Immunization (Adult) (1 - 1-dose 75+ series) 2028 Hepatitis B Immunization Aged Out No longer eligible based on patient's age to complete this topic Human Papillomavirus (HPV) Immunization Aged Out No longer eligible based on patient's age to complete this topic Meningococcal Immunization (ACWY) Aged Out No longer eligible based on patient's age to complete this topic Rotavirus Immunization Aged Out No lo nger eligible based on patient's age to complete this topic Insurance MEDICARE C AETNA Care Teams Conveyor Belt Installer Relationship Specialty Start Date End Date Wilbert Crodwer MD PCP - General Internal Medicine 07/26/20
--- OUTSIDE RECORDS SUMMARY | 2025-01-12 10:39 | XMS_ITS ---
Author Organization [facility] Address [address] [place] [address] Care Team Providers Care Anesthetic Assistant Name Role Phone Wilbert Crowder MD Primary Care Provider [phone] Moo Kirkpatrick MD Unavailable Amandeep Pagan Unavailable [phone] Lalo Gasca MD Unavailable Active Problems Problem Noted Date Diagnosed Date [...] 10/07/2020 Assessment & Plan (05/12/2023 4:41 PM BUSINESS ANALYST CONSULTANT): EMG/NCS 08/04/20: Severe right and moderate to [...] 08/10/2020 Assessment & Plan (05/12/2023 4:39 PM BUSINESS ANALYST CONSULTANT): August 09, 2020. 6 mm right parafalcine [...] follow-up Assessment & Plan (04/21/2020 6:30 AM BUSINESS ANALYST CONSULTANT): Severe tricompartmental degenerative changes per x-ray of right knee on May 01, 2019 Orthopedic follow-up Assessment & Plan (10/16/2019 9:44 AM CDT): Severe tricompartmental degenerative changes per x-ray of right knee on May 01, 2019 Orthopedic follow-up Neurogenic bladder 09/18/2017 Overview (12/07/2020): Treatment history Detrol LA (oxybutinyn) 03/2007-01/2009 Vesicare (solifenacin) 09/2010- Assessment & Plan (05/12/2023 4:41 PM BUSINESS ANALYST CONSULTANT): Solifenacin 10 mg daily Likely exacerbated by furosemide Assessment & Plan (07/06/2021 1:51 PM CDT): Solifenacin 10 mg daily Assessment & Plan (10/07/2020 8:30 AM CDT): Solifenacin 10 mg daily Assessment & Plan (04/21/2020 6:29 AM BUSINESS ANALYST CONSULTANT): Solifenacin 10 mg daily Assessment & Plan (10/16/2019 9:43 AM CDT): Solifenacin 10 mg daily Assessment & Plan (04/10/2019 11:06 AM BUSINESS ANALYST CONSULTANT): Vesicare Assessment & Plan (09/10/2018 11:34 AM CDT): Vesicare prn in the past Assessment & Plan (03/04/2018 10:30 AM BUSINESS ANALYST CONSULTANT): Vesicare prn Assessment & Plan (09/18/2017 12:05 PM CDT): Vesicare prn Hypertension 08/23/2013 Overview (07/12/2016): HTN (hypertension) Assessment & Plan (08/10/2020 11:17 PM CDT): Scheduled amlodipine + PRN labetalol Assessment & Plan (10/16/2019 9:45 AM CDT): Apparently blood pressure improved but elevated at 170 5/91 on June 02, 2019. Risk of hypertension on Aubagio discussed. Assessment & Plan (03/04/2018 10:31 AM BUSINESS ANALYST CONSULTANT): Follow-up with PCP KRISH due to persistent [...] 06/25/2013 Assessment & Plan (05/12/2023 4:42 PM BUSINESS ANALYST CONSULTANT): Grade 1, ER positive. Status post breast-concerning [...] 2008 Assessment & Plan (04/21/2020 6:30 AM BUSINESS ANALYST CONSULTANT): Grade 1, ER positive. Status post breast-concerning surgery followed by whole breast radiation therapy completed in December 2008 Assessment & Plan (10/16/2019 9:45 AM CDT): Grade 1, ER positive. Status post breast-concerning surgery followed by whole breast radiation therapy completed in December 2008 Assessment & Plan (03/04/2018 10:31 AM BUSINESS ANALYST CONSULTANT): Grade 1, ER positive. Status post breast-concerning [...] Current Assessment & Plan (05/12/2023 4:39 PM BUSINESS ANALYST CONSULTANT): Left optic neuritis 2002 Resume teriflunomide (Aubagio) 14 mg daily. Option of [facility] discussed. Risks discussed including [...] SICU Assessment & Plan (04/21/2020 6:29 AM BUSINESS ANALYST CONSULTANT): Aubagio. Risks discussed including hepatotoxicity and hypertension. [...] daily Assessment & Plan (04/10/2019 11:06 AM BUSINESS ANALYST CONSULTANT): Continue Aubagio daily. Reviewed risks including hepatotoxicity [...] issues Assessment & Plan (03/04/2018 10:30 AM BUSINESS ANALYST CONSULTANT): Aubagio. Risks discussed including hepatotoxicity and hypertension. Ampyra. Risks discussed including seizures. Continue exercise; continue going to the gym Orthopedic evaluation recommended for right knee pain Vitamin D3 4000 IU daily Assessment & Plan (09/18/2017 11:57 AM CDT): Aubagio. Risks discussed including hepatotoxicity. Ampyra. Risks discussed including seizures. Continue exercise Vitamin D3 4000 IU daily Current Treatment and Therapy Plans No current plan information found. Past Treatment and Therapy Plans No past plan information found. Lifetime Dose Tracking * Chemical Lifetime Dose Automatic Entry Manual Entr y Fluoro Time 0.102 minutes 0.102 minutes 0 minutes Air kerma at the reference point (Ka,r) 0.529 mGy 0 .529 mGy 0 mGy DLP 1,232 mGycm 1,232 mGycm 0 mGycm Resolved Problems Problem Noted Date Diagnosed Date Resolved Date Vitamin D deficiency 09/10/2018 021 Assessment & Plan (09/10/2018 12:50 PM CDT): Currently taking 2,000IU to meet goal for MS patients of 50-80 High risk medication use 09/10/201808/2020 Encounter for screening mamm ogram for malignant neoplasm of breast 11/27/2017 08/11/2020 History of breast cancer 11/09/2016 Carcinoma in situ of breast 09/21/2011 09/18/2017 Atypical ductal hyperplasia of breast 09/21/2011 08/11/2020 Bacteremia 09/17/2008 08/11/2020 Postoperative infection 09/17/200808/2020
[2025-01-12 10:49] VITALS: PULSE 69; RESP 15; O2SAT 100
--- NOTE | 2025-01-12 10:55 | ED.WEAKNESS ---
HPI - Weakness General Chief complaint: Weakness Stated complaint: weakness Time Seen by Provider: 01/12/25 10:50 History of Present Illness HPI Narrative: 69-year-old female history of MS, DMD 2, HLD, HTN presents ER complaining of lower extremity weakness for 6 days. States the weakness began gradually. Also reports pain to the right lower back that radiates into her thigh. Patient was seen at PCP of last week and prescribed tramadol. Reports no improvement with her pain. Patient states she is unable to stand or ambulate due to the weakness. Denies saddle anesthesia, bowel or bladder deficits. Related Data Home Medications ?Medication ?Instructions ?Recorded ?Confirmed ?Last Taken ?Type linagliptin 5 mg tablet (Tradjenta) 5 mg PO QAM 08/18/20 01/12/25 01/11/25 History teriflunomide 14 mg tablet 14 mg PO DAILY 08/25/20 01/12/25 01/11/25 History (Aubagio) cholecalciferol (vitamin D3) 50 100 mcg PO DAILY 11/09/22 01/12/25 01/11/25 History mcg (2,000 unit) capsule valsartan 160 mg tablet 160 mg PO BID 04/30/24 01/12/25 01/11/25 History Allergies Allergy/AdvReac Type Severity Reaction Status Date / Time No Known Allergies Allergy Verified 11/11/24 15:12 Review of Systems Review of Systems: All systems reviewed & are unremarkable except as noted in HPI and below PMFSH Past Medical History Medical History Chronic venous insufficiency BMI 31.0-31.9,adult Vitamin D deficiency Need for pneumococcal vaccine Overactive bladder PMR (polymyalgia rheumatica) Bakers cyst Hemoglobin A1C greater than 9%, indicating poor diabetic control 07/14/20 A1c = 9.6 Esophagitis Subdural hematoma Episode of syncope Esophageal stricture Carpal tunnel syndrome, bilateral Dysphagia Cervicalgia DJD (degenerative joint disease) Colon cancer screening Encounter for screening mammogram for malignant neoplasm of breast Benign essential hypertension Vitamin B12 deficiency Chronic pain of right knee Hx of breast cancer s/p radiation On medical terminologist drug therapy Multiple sclerosis Hyperlipidemia DM type 2 (diabetes mellitus, type 2) Surgical History Surgical History History of hysterectomy H/O excision of lamina of cervical vertebra for decompression of spinal cord Status post total knee replacement, right Family History Family History Mother Hypertension Family history of diabetes mellitus in first degree relative Diabetes mellitus Father Cerebrovascular accident Sibling Family history of lung cancer Family history of primary malignant neoplasm of liver Social History Social History Smoking status: Never smoker Second hand tobacco smoke exposure: No Alcohol intake: never Substance use: never Substance use type: does not use Lack of Transportation: No Lack of Food: Never True Current Housing: I Have Housing Concerned About Future Housing: No Difficulty Paying Gas/Electric Bills: No Difficulty Paying for Meds: No Currently Unemployed: No Education: Bachelor's Degree Difficulty w/ Childcare or Family Care: No Living arrangements: with family Gender identity (if verbalized by the patient): Female Spiritual care concerns: No Exam Const: General: no acute distress and alert Nutritional Appearance: well nourished and obese Orientation/consciousness: patient oriented x3 HENMT: Head: normal to inspection Eyes: Conjunctivae: conjunctivae normal Pupils: Equal, round and reactive pupils present EOM: EOMs intact bilaterally Chest: Chest palpation & inspection: normal inspection of the chest Resp: Effort & Inspection: normal respiratory effort and uses accessory muscles Auscultation: clear to auscultation bilaterally Cardio: Rate: regular rate Rhythm: regular rhythm Back/Spine/Pelvis: Other: l spine: TTP to right paravetebral lumbar spine. No midline tenderness, no step-offs Skin: General skin exam: normal color Rashes: no rashes Wounds: no wounds Neuro: General: patient oriented x3 and CN's II-XI intact bilaterally Speech: normal speech Other: generalized weakness to bilateral LEs, R>L. Extrem: General: normal to inspection Psych: Mental Status: mental status grossly normal Affect: normal affect Attitude: cooperative Course Vital Signs Vital signs: Vital Signs Temperature 36.4 C 01/12/25 09:56 Pulse Rate 69 01/12/25 09:56 Respiratory Rate 17 01/12/25 09:56 Blood Pressure 138/54 L 01/12/25 09:56 Pulse Oximetry 100 01/12/25 09:56 Temperature 36.4 C 01/12/25 09:56 Pulse Rate 62 01/12/25 13:30 Respiratory Rate 13 01/12/25 13:30 Blood Pressure 135/75 01/12/25 13:30 Pulse Oximetry 97 01/12/25 13:30 Oxygen Delivery Room Air 01/12/25 10:49 MDM - Weakness Lab Data 01/12/25 11:37 01/12/25 11:37 Labs: Lab Results 01/12/25 01/12/25 Range/Units 11:37 12:09 WBC 8.3 (4.5-10.0) K/mm3 RBC 4.70 (4.2-5.4) M/mm3 Hgb 12.2 (12.0-15.0) g/dL Hct 40.3 (37.0-47.0) % MCV 85.7 (80-100) fl MCH 26.0 (26-34) pg MCHC 30.3 L (32-36) g/dl RDW 16.0 H (11.5-14.5) % Plt Count 196 (150-375) k/mm3 MPV 11.1 H (7.4-10.4) fl Immature Gran % (Auto) 0.4 (0-0.5) % Neut % (Auto) 67.0 (45.5-73.1) % Lymph % (Auto) 19.4 (18.3-44.2) % [place] % (Auto) 9.0 H (2.6-8.5) % Eos % (Auto) 3.5 (0-4.4) % Baso % (Auto) 0.7 (0.2-1.2) % Lymph # (Auto) 1.61 (0.9-3.2) K/mm3 [place] # (Auto) 0.8 H (0.1-0.6) K/mm3 Eos # (Auto) 0.3 (0-0.3) K/mm3 Baso # (Auto) 0.1 (0.0-0.1) K/mm3 Abs Immat Gran (auto) 0.03 (0.00-0.031) K/mm3 Absolute Neuts (auto) 5.6 (1.3-6.7) K/mm3 Absolute Nucleated RBC 0.000 (0.0-0.012) K/mm3 Nucleated RBC % 0.0 (0.0-0.2) % Sodium 137 (137-145) mmol/L Potassium 3.6 (3.4-5.0) mmol/L Chloride 99 (98-107) mmol/L Carbon Dioxide 30 (22-30) mmol/L Anion Gap 8 (4-12) mmol/L BUN 12 (7-17) mg/dL Creatinine 0.79 (0.7-1.0) mg/dL Estim Creat Clear Calc 63 ml/min Estimated GFR > 60 (59 - ) Glucose 184 H (65-110) mg/dL Calcium 9.3 (8.4-10.2) mg/dL Total Bilirubin 0.7 (0.2-1.3) mg/dL AST 31 (14-36) U/L ALT 14 (6-35) U/L Alkaline Phosphatase 145 H (38-126) U/L Total Protein 8.3 H (6.3-8.2) g/dL Albumin 3.9 (3.5-5.1) g/dL Urine Color Yellow (Yellow) Urine Appearance Clear (Clear) Urine pH 5.5 (5.0-9.0) Ur Specific [place] 1.011 (1.001-1.035) Urine Protein Negative (Negative) mg/dL Urine Glucose (UA) Negative (Negative) mg/dL Urine Ketones Negative (Negative) mg/dL Ur Blood (Man) Negative (Negative) Urine Nitrate Negative (Negative) Urine Bilirubin Negative (Negative) Urine Urobilinogen 1.0 (<2.0) mg/dL Leukocyte Esterase Rfl Negative (Negative) CHRISTIN/UL Discharge Plan Discharge Clinical Impression: Generalized weakness, Low back pain, At high risk for falls Patient Disposition: Still a Patient Condition: Stable
[2025-01-12 11:56] LABS: Hematocrit 40.3 % (37.0-47.0); Hemoglobin 12.2 g/dL (12.0-15.0); Immature Granulocyte Percent A 0.4 % (0-0.5); Lymphocytes Absolute Auto 1.61 K/mm3 (0.9-3.2); Mean Corpuscular HGB Conc 30.3 g/dl (32-36); Mean Corpuscular Hemoglobin 26.0 pg (26-34); Mean Corpuscular Volume 85.7 fl (80-100); Nucleated Red Blood Cells Absolute Auto 0.000 K/mm3 (0.0-0.012); Nucleated Red Blood Cells Perc 0.0 % (0.0-0.2); Platelet Count Result 196 k/mm3 (150-375); Red Blood Count 4.70 M/mm3 (4.2-5.4); White Blood Count 8.3 K/mm3 (4.5-10.0)
[2025-01-12 12:09] LABS: Alanine Aminotransferase 14 U/L (6-35); Albumin Level 3.9 g/dL (3.5-5.1); Alkaline Phosphatase 145 U/L (38-126); Anion Gap 8 mmol/L (4-12); Aspartate Amino Transferase 31 U/L (14-36); Bilirubin,Total 0.7 mg/dL (0.2-1.3); Blood Urea Nitrogen 12 mg/dL (7-17); Calcium 9.3 mg/dL (8.4-10.2); Carbon Dioxide 30 mmol/L (22-30); Chloride 99 mmol/L (98-107); Estimated CRCL calculation 63 ml/min; Estimated Glomerular Filt Rate > 60; Glucose 184 mg/dL (65-110); Potassium 3.6 mmol/L (3.4-5.0); Sodium 137 mmol/L (137-145); Total Protein 8.3 g/dL (6.3-8.2)
[2025-01-12 12:14] VITALS: BP 127/56; PULSE 69; RESP 20
[2025-01-12 12:17] LABS: Add Urine Microscopic? NO; Appearance Urine Clear (Clear); Glucose Urine UA Negative (Negative); Leukocyte Esterase Ur Negative LEU/UL (Negative); Nitrate Urine Negative (Negative); Specific Grav Ur 1.011 (1.001-1.035)
--- OUTSIDE RECORDS SUMMARY | 2025-01-12 13:09 | XMS_ITS ---
Author Organization [facility] Care Team Providers Care Kennel Assistant Name Role Phone Deni Conklin Unavailable Unavailable Allergies and adverse reactions No Known Allergies Care Team Name Role Address Phone Organization Dates Deni Conklin PCP [address] [place], [address], [place] States (Office): : [facility] 08/19/2021 - 09/02/2021 Immunizations Immunization Status [...] CARPAL TUNNEL SYNDROME, UNSPECIFIED UPPER LIMB 08/19/[address] active 2 DYSPHAGIA, UNSPECIFIED 08/19/[address] active 3 ESOPHAGEAL OBSTRUCTION 08/19/[address] active 4 ESSENTIAL (PRIMARY) HYPERTENSION 08/19/[address] active 5 HYPERLIPIDEMIA, UNSPECIFIED 08/19/[address] active 6 MULTIPLE SCLEROSIS 08/19/[address] active 7 OVERACTIVE BLADDER 08/19/2021 121588033 SNOMED C T active 8 PERSONAL HISTORY OF MALIGNANT NEOPLASM OF BREAST 08/19/[address] active 9 POLYMYALGIA RHEUMATICA 08/19/[address] active 10 TACHYCARDIA, UNSPECIFIED 08/19/[address] active 11 TYPE 2 DIABETES MELLITUS WITH DIABETIC NEUROPATHY, UNSPECIFIED 08/19/[address] active 12 UNSPECIFIED OSTEOARTHRITIS, UNSPECIFIED SITE 08/19/[address] active 13 VITAMIN B12 DEFICIENCY ANEMIA, UNSPECIFIED 08/19/[address] active 14 WHITE MATTER DISEASE, UNSPECIFIED 08/19/[address] active Reason for Referral No Reasons for Referral Entered Social History Social History Observation Description Start Date End Date Code Code System Current Smoking Status Tobacco smoking consumption unknown 775465478 SNOMED CT Sex Assigned At Female 1955 41249-3 [facility] Gender Identity Sexual Orientation Vital Signs Code Code System Vitals Name Values and Units Timing Information 65534-6 [facility] Pain Level Value=0.0 09/02/2021 2339[facility] Blood Sugar Kovox=796.0 Units=mg/dL 09/02/2021 9279-1 [facility] Respiratory Rate Value=18.0 Units=/m in 09/02/2021 8462-4 [facility] Blood Pressure-Diastolic Value=76 Un its=mmHg 09/02/2021 8480-6 [facility] Blood Pressure-Systolic Klcov=902 Un its=mmHg 09/02/2021 8310-5 [facility] Body Temperature Value=97.8 Units= F 09/02/2021 8867-4 [facility] Heart rate Value=80.0 Units=/min 48731-8 [facility] O2 % dC Oximetry Value=96.0 Units= % 09/02/2021 43587-1 [facility] Weight Zjwjf=854.2 Units=Lbs 8302-2 [facility] Height Value=66.0 Units=Inches 08/19/2021
--- OUTSIDE RECORDS SUMMARY | 2025-01-12 13:09 | XMS_ITS | Clinical Summary ---
Author Organization [facility] Address [facility] [place] [address] Care Team Providers Care Toe Former [employer] Name Role Phone Deni Conklin MD Primary Care Provider [phone] Medications insulin glargine 100 UNIT/ML injection (PEN) [...] and C4-5 levels. Type 2 diabetes mellitus ([facility]) 09/17 Overview (08/31/2021): Last Assessment & Plan: [...] 10.2(H) <5.7 % 08/24/2021 11:32 AM CDT [facility] Comment: INCREASED RISK OF DIABETES <5.7% NON-DIABETES 5.7-6.4% INCREASED RISK FOR FUTURE DIABETES > OR = 6.5 CONSISTENT WITH DIABETES STANDARDS OF MEDICAL CARE IN DIABETES-2010 DIABETES CARE, 33(SUPP 1): S1-S61,2010 ESTIMATED AVG GLUCOSE 246 mg/dL 08/24/2021 11:32 AM CDT [facility] 08/24/2021 6:58 AM CDT us Deni Conklin MD LABORATORY Final Resul t [facility] [address] [place] [address], [place] [phone] * (ABNORMAL) LIPID PANEL (08/24/2021 6:58 AM CDT) Pathologist [facility] CHOLESTEROL 99 <200.0 MG/DL 08/24/2021 11:30 AM CDT [facility] TRIGLYCERIDES 112 <150 MG/DL 08/24/2021 11:30 AM T [facility] HDL 36(L) >40.0 MG/DL 08/24/2021 11:30 AM CDT [facility] LDL (CALCULATED) 41 <100 MG/DL 08/25/19 11:30 AM CDT [facility] NON HDL CHOLESTEROL 63 <130 MG/DL 08/24 11:30 AM CDT [facility] CHOL/HDL RATIO 2.8 0.0 - 4.5 08/24/2021 11:30 AM CDT [facility] VLDL CALCULATION 22 5 - 55 MG/DL 08/24/2021 11:30 AM CDT [facility] LIPID INTERPRETATION 08/24/2021 11:30 AM CDT [facility] Comment: [facility] CONCENSUS REPORT RECOMMENDATIONS: ADULT CHILD LOW RISK: CHOLESTEROL <200 <170 TRIGLYCERIDE <150 --- HDL >=60 --- LDL <100 <110 BORDERLINE: CHOLESTEROL 200-239 170-199 TRIGLYCERIDE 150-199 --- HDL 40-59 --- LDL 100-159 110-129 HIGH RISK: CHOLESTEROL >=240 >=200 TRIGLYCERIDE >=200 --- HDL <40 --- LDL >=160 >=130 08/24/2021 6:58 AM CDT Deni Conklin MD LABORATORY Final Resul t [facility] [address] [place] [address], from Last 3 Months or Most Recently Relevant to Health Maintenance Insurance [employer] MEDICARE Care Teams Toe Former [employer] Relationship Specialty [place] [address] [place] [address] PCP - General FAMILY PRACTICE 08/24/21
--- OUTSIDE RECORDS SUMMARY | 2025-01-12 13:09 | XMS_ITS | Clinical Summary ---
Author Organization [facility] Address [address] [place] [address] Care Team Providers Care Chartered Accountant Name Role Phone Wilbert Crowder MD Primary Care Provider [phone] Moo Kirkpatrick MD Unavailable [phone] Amandeep Pagan Unavailable [phone] Lalo Gasca MD Unavailable [phone] Allergies No known active allergies Medications [...] 10/07/2020 Assessment & Plan (05/12/2023 4:41 PM PHONE MANAGER): EMG/NCS 08/04/20: Severe right and moderate to [...] 08/10/2020 Assessment & Plan (05/12/2023 4:39 PM PHONE MANAGER): August 09, 2020. 6 mm right parafalcine [...] follow-up Assessment & Plan (04/21/2020 6:30 AM PHONE MANAGER): Severe tricompartmental degenerative changes per x-ray of right knee on May 01, 2019 Orthopedic follow-up Assessment & Plan (10/16/2019 9:44 AM CDT): Severe tricompartmental degenerative changes per x-ray of right knee on May 01, 2019 Orthopedic follow-up Neurogenic bladder 09/18/2017 Overview (12/07/2020): Treatment history Detrol LA (oxybutinyn) 03/2007-01/2009 Vesicare (solifenacin) 09/2010- Assessment & Plan (05/12/2023 4:41 PM PHONE MANAGER): Solifenacin 10 mg daily Likely exacerbated by furosemide Assessment & Plan (07/06/2021 1:51 PM CDT): Solifenacin 10 mg daily Assessment & Plan (10/07/2020 8:30 AM CDT): Solifenacin 10 mg daily Assessment & Plan (04/21/2020 6:29 AM PHONE MANAGER): Solifenacin 10 mg daily Assessment & Plan (10/16/2019 9:43 AM CDT): Solifenacin 10 mg daily Assessment & Plan (04/10/2019 11:06 AM PHONE MANAGER): Vesicare Assessment & Plan (09/10/2018 11:34 AM CDT): Vesicare prn in the past Assessment & Plan (03/04/2018 10:30 AM PHONE MANAGER): Vesicare prn Assessment & Plan (09/18/2017 12:05 PM CDT): Vesicare prn Hypertension 08/23/2013 Overview (07/12/2016): HTN (hypertension) Assessment & Plan (08/10/2020 11:17 PM CDT): Scheduled amlodipine + PRN labetalol Assessment & Plan (10/16/2019 9:45 AM CDT): Apparently blood pressure improved but elevated at 170 5/91 on June 02, 2019. Risk of hypertension on Aubagio discussed. Assessment & Plan (03/04/2018 10:31 AM PHONE MANAGER): Follow-up with PCP KRISH due to persistent [...] 06/25/2013 Assessment & Plan (05/12/2023 4:42 PM PHONE MANAGER): Grade 1, ER positive. Status post breast-concerning [...] 2008 Assessment & Plan (04/21/2020 6:30 AM PHONE MANAGER): Grade 1, ER positive. Status post breast-concerning surgery followed by whole breast radiation therapy completed in December 2008 Assessment & Plan (10/16/2019 9:45 AM CDT): Grade 1, ER positive. Status post breast-concerning surgery followed by whole breast radiation therapy completed in December 2008 Assessment & Plan (03/04/2018 10:31 AM PHONE MANAGER): Grade 1, ER positive. Status post breast-concerning [...] Current Assessment & Plan (05/12/2023 4:39 PM PHONE MANAGER): Left optic neuritis 2002 Resume teriflunomide (Aubagio) [...] SICU Assessment & Plan (04/21/2020 6:29 AM PHONE MANAGER): Aubagio. Risks discussed including hepatotoxicity and hypertension. [...] daily Assessment & Plan (04/10/2019 11:06 AM PHONE MANAGER): Continue Aubagio daily. Reviewed risks including hepatotoxicity [...] issues Assessment & Plan (03/04/2018 10:30 AM PHONE MANAGER): Aubagio. Risks discussed including hepatotoxicity and hypertension. [...] Telephone [facility] [address] [place] [id number] Sujata SimaGlenn headley 10/24/2024 Telephone [facility] [address] [place] [address] Mark Shaikh MD 10/20/2024 Telephone [facility] [address] [place] [address] Patria Jacobs RN 10/17/2024 12:45 PM CDT Office Visit [facility] [address] [place] [address] Mark Shaikh MD Multiple sclerosis (HCC) (Primary Dx); Ductal carcinoma in situ (DCIS) of right breast; Carpal tunnel syndrome, bilateral; Subdural hematoma (HCC); Cervical spinal stenosis; Neurogenic bladder 10/14/2024 10:53 AM CDT - 10/14/2024 11:59 PM CDT Hospital Encounter [facility] ([facility]) [address] [place] [address] Screening mammogram, encounter for Discharge Disposition: Discharge [...] on file Legal Sex Female 2:36 PM PHONE MANAGER Gender Identity Not on file Sexual Orientation [...] history exists Medical Devices Implanted Type Area Vehicle Washer Device Identifier Shelf Expiration Date Model / Serial / Lot [employer]uy [employer] Attune Fb Tib Base Sz 6 Por [id number] - [id number] Implanted:Qty: 1 on 12/20/2022 by Slim Gan MD at [facility] Right: Knee [employer] 08/06/2032 [id number] / / [id number] [employer] Attune Cruciate Retain Cementless Knee Right 6 Component Femoral [id number] - [id number] Implanted:Qty: 1 on 12/20/2022 by Slim Gan MD at [facility] Right: Knee [employer] 11/06/2032 [id number] / / [id number] [employer] Insert Attune Right Medial Stabilized Size 6 5mm [id number] - [id number] Implanted:Qty: 1 on 12/20/2022 by Slim Gan MD at [facility] Right: Knee [employer] 06/06/2030 [id number] / / [id number] [employer] Allograft Bone Putty 2.5cc 700-025 - [id number] Implanted:Qty: 1 on 08/27/2023 by Lalo Gasca MD at [facility] N/A: Spine Cervical [employer] [id number] 09/06/2025 700-025 / / [id number] [employer] Cage Spinal Cervical 6 Degree Acif Titanium [id number] - [id number] Implanted:Qty: 1 on 08/27/2023 by Lalo Gasca MD at [facility] N/A: Spine Cervical [employer] [id number] 01/03/2028 [id number] / / [id number] [employer] Screw Trelloss-C Sa 3.5x14mm [id number] - [id number] Implanted:Qty: 1 on 08/27/2023 by Lalo Gasca MD at [facility] N/A: Spine Cervical [employer] [id number] 01/11/2028 [id number] / / [id number] [employer] Screw Trelloss-C Sa 3.5x14mm [id number] - [id number] Implanted:Qty: 1 on 08/27/2023 by Lalo Gasca MD at [facility] N/A: Spine Cervical [employer] [id number] 12/16/2027 [id number] / / [id number] Procedures Procedure Name Priority Date/Time Associated Diagnosis [...] serum (10/22/2024 11:56 AM CDT) Interpretation Sabrina [place] KarlI bandar Comment: NEGATIVE This test did [...] Recommendations: Health care providers, please contact the [employer] Client Services Department at if you wish to speak with a clinical internet sales consultant regarding this test result. Background information: [...] longitudinally extensive spinal cord lesions (3,5). METHODS [employer] [facility] [place] Comment: Detection of antibodies was performed by Enzyme Linked Immunosorbent Assay (ERIC) methodology. Limitations of analysis: Although rare, false positive or false negative results may occur. All results should be interpreted in the context of clinical findings, relevant history, and other laboratory data. AQP4 references [facility] [employer] [place] [facility] Comment: 1. Joe Freedman, et al. (2014) VÍCTOR Neurol 71:276-83. (PMID: 32216749) 2. Chandu Shaw, et al. (2014) J Neurol 261: 1-16. (PMID: 78298345) 3. Kezuka, T, et al. (2012) J Neuroophthalmol 32: 107-10. (PMID: 85298034) 4. DarFOX, et al. (2014) Neurology 82: 474-81. (PMID: 58479999) 5. Troy S, et al. (2008) Brain 131: 3072-80. (PMID: 19435581) Laboratory oversight provided by Jami Wei M.D., Ph.D., CLIA license [place], [facility] (CLIA# [id number]) Testing performed at: [facility] [address] [place] [address] Blood 10/22/2024 11:5 6 AM CDT 10/22/2024 11:56 AM CDT Narrative [facility] - 10/30/2024 10:41 AM CDT FASTING:NO FASTING: NO us Mark Shaikh MD LAB BLOOD ORDERABLES Final Re sult [facility] [address] [place] [address], [address] [place] [id number] * (ABNORMAL) CBC with auto differential (10/22/2024 [...] LAB BLOOD ORDERABLES Final Re sult [facility] [address] [place] [address] * Vitamin D 25 hydroxy (10/22/2024 11:56 AM CDT) Vitamin D 25-OH 77 30 - 100 ng/mL [facility] Comment: Vitamin D Status 25-OH Vitamin D: Deficiency: <20 ng/mL Insufficiency: 20 - 29 ng/mL Optimal: > or = 30 ng/mL For 25-OH Vitamin D testing on patients on D2-supplementation and patients for whom quantitation of D2 and D3 fractions is required, the QuestAssureD(TM) 25-OH VIT D, (D2,D3), LC/MS/MS is recommended: order code 44606 (patients >2yrs). See Note 1 Note 1 For additional information, please refer to http://education.Simworx/faq/BPF558 (This link is being provided for informational/ educational purposes only.) 10/22/2024 11:5 6 AM CDT 10/22/2024 11:56 AM CDT Narrative [facility] - 10/30/2024 10:41 AM CDT FASTING:NO FASTING: NO Mark Shaikh MD LAB BLOOD ORDERABLES Final Re sult [facility] [address] [place] [address] * (ABNORMAL) Hepatic function panel (10/22/2024 11:56 AM CDT) Protein, Total 7.2 6.4 - 8.4 g/dL [facility] Albumin 3.9 3.6 - 5.1 g/dL [facility] Globulin 3.3 2.2 - 4.0 g/dL (calc) [facility] Alb/glob ratio 1.2 0.9 - 2.3 (calc) [facility] Bilirubin, total 0.5 0.2 - 1.2 mg/dL [facility] Bilirubin, direct 0.2 < OR = 0.2 mg/dL [facility] Bilirubin, indirect 0.3 0.2 - 1.2 mg/dL (calc) [facility] Alk phos 98 37 - 153 U/L [facility] AST 8(L) 10 - 35 U/L [facility] ALT (SGPT) 7 6 - 29 U/L [facility] Blood 10/22/2024 11:5 6 AM CDT 10/22/2024 11:56 AM CDT Narrative [facility] - 10/30/2024 10:41 AM CDT FASTING:NO FASTING: NO us Mark Shaikh MD LAB BLOOD ORDERABLES Final Re sult [facility] [address] [place] [address] * Screening Mammogram Bilateral W Kenneth (10/14/2024 [...] [place] LAB BLOOD ORDERABLES Final Resu lt [facility] [address] Department [place] [address] * (ABNORMAL) Hemoglobin A1c (08/09/2023 9:00 AM CDT) Hgb A1C 8.3(H) 4.0 - 5.6 % Estimated Average Glucose 192 mg/dL [facility] Comment: The ADA recommends reporting an estimated Average Glucose (eAG) with all Hemoglobin A1c results using the equation derived from a study of 507 normal and diabetic adults. Minority populations were underrepresented and children were not included. (Diabetes Care 31:1815-9917, 2008). The eAG is not equivalent to a fasting glucose. Blood 08/09/2023 9:00 AM CDT 08/09/2023 9:31 AM CDT us Katina Lyle NP LAB BLOOD ORDERABLES Fin al Result [facility] [address] Department [place] [address] * (ABNORMAL) Lipid panel (08/09/2020 4:41 PM CDT) Cholesterol 127 30 - 199 mg/dL [facility] Comment: Interpretive Data Ages < or = [...] on 2017. Triglycerides 151(H) <=149 mg/dL [facility] Comment: Interpretive Data Ages < or = [...] 2017. LDL, calculated 60 <=129 mg/dL [facility] Comment: Interpretive Data Ages < or = [...] BLOOD ORDERABLES Edit ed Result - Final [facility] [address] [facility] Department [place] [address] from Last 3 Months or Most Recently Relevant to Health Maintenance Insurance [employer] MEDICARE Advance Directives For more information, please contact: [phone] * Full Code (Latest Code Status on File) Date Activated Date Inactivated Comments 08/27/2023 2:21 PM 08/28/2023 5:34 PM * Full Code Date Activated Date Inactivated Comments 12/20/2022 3:47 PM 12/21/2022 7:17 PM * Full Code Date Activated Date Inactivated Comments 08/09/2020 3:19 PM 08/12/2020 8:01 PM Care Teams Chartered Accountant Relationship Specialty Start Date End Date Wilbert Crowder MD PCP - General 07/07/16 Moo Kirkpatrick MD [address] [place] [address] Anesthesiologist Pain Management 03/23/22 Amandeep Pagan PA [address] [place] [address] Physician Comic Illustrator Orthopedic Surgery 12/21/22 [place] [address] [place] [address] Consulting Physician Neurosurgery 08/28/23
--- OUTSIDE RECORDS SUMMARY | 2025-01-12 13:09 | XMS_ITS ---
Author Organization [facility] Address [address] [place] [address] Care Team Providers Care District Manager Postal Service Name Role Phone Wilbert Crowder MD Primary Care Provider Moo Kirkpatrick MD Unavailable Amandeep Pagan Unavailable [phone] Lalo Gasca MD Unavailable [phone] Active Problems Problem Noted Date Diagnosed Date [...] 10/07/2020 Assessment & Plan (05/12/2023 4:41 PM KNOBBER): EMG/NCS 08/04/20: Severe right and moderate to [...] 08/10/2020 Assessment & Plan (05/12/2023 4:39 PM KNOBBER): August 09, 2020. 6 mm right parafalcine [...] follow-up Assessment & Plan (04/21/2020 6:30 AM KNOBBER): Severe tricompartmental degenerative changes per x-ray of right knee on May 01, 2019 Orthopedic follow-up Assessment & Plan (10/16/2019 9:44 AM CDT): Severe tricompartmental degenerative changes per x-ray of right knee on May 01, 2019 Orthopedic follow-up Neurogenic bladder 09/18/2017 Overview (12/07/2020): Treatment history Detrol LA (oxybutinyn) 03/2007-01/2009 Vesicare (solifenacin) 09/2010- Assessment & Plan (05/12/2023 4:41 PM KNOBBER): Solifenacin 10 mg daily Likely exacerbated by furosemide Assessment & Plan (07/06/2021 1:51 PM CDT): Solifenacin 10 mg daily Assessment & Plan (10/07/2020 8:30 AM CDT): Solifenacin 10 mg daily Assessment & Plan (04/21/2020 6:29 AM KNOBBER): Solifenacin 10 mg daily Assessment & Plan (10/16/2019 9:43 AM CDT): Solifenacin 10 mg daily Assessment & Plan (04/10/2019 11:06 AM KNOBBER): Vesicare Assessment & Plan (09/10/2018 11:34 AM CDT): Vesicare prn in the past Assessment & Plan (03/04/2018 10:30 AM KNOBBER): Vesicare prn Assessment & Plan (09/18/2017 12:05 PM CDT): Vesicare prn Hypertension 08/23/2013 Overview (07/12/2016): HTN (hypertension) Assessment & Plan (08/10/2020 11:17 PM CDT): Scheduled amlodipine + PRN labetalol Assessment & Plan (10/16/2019 9:45 AM CDT): Apparently blood pressure improved but elevated at 170 5/91 on June 02, 2019. Risk of hypertension on Aubagio discussed. Assessment & Plan (03/04/2018 10:31 AM KNOBBER): Follow-up with PCP KRISH due to persistent [...] 06/25/2013 Assessment & Plan (05/12/2023 4:42 PM KNOBBER): Grade 1, ER positive. Status post breast-concerning [...] 2008 Assessment & Plan (04/21/2020 6:30 AM KNOBBER): Grade 1, ER positive. Status post breast-concerning surgery followed by whole breast radiation therapy completed in December 2008 Assessment & Plan (10/16/2019 9:45 AM CDT): Grade 1, ER positive. Status post breast-concerning surgery followed by whole breast radiation therapy completed in December 2008 Assessment & Plan (03/04/2018 10:31 AM KNOBBER): Grade 1, ER positive. Status post breast-concerning [...] Current Assessment & Plan (05/12/2023 4:39 PM KNOBBER): Left optic neuritis 2002 Resume teriflunomide (Aubagio) [...] SICU Assessment & Plan (04/21/2020 6:29 AM KNOBBER): Aubagio. Risks discussed including hepatotoxicity and hypertension. [...] daily Assessment & Plan (04/10/2019 11:06 AM KNOBBER): Continue Aubagio daily. Reviewed risks including hepatotoxicity [...] issues Assessment & Plan (03/04/2018 10:30 AM KNOBBER): Aubagio. Risks discussed including hepatotoxicity and hypertension. [...]
--- OUTSIDE RECORDS SUMMARY | 2025-01-12 13:09 | XMS_ITS | Clinical Summary ---
Author Organization [facility] Address [address] [place] [address] Phone Care Team Providers Care Way Inspector Name Role Phone Wilbert Crowder MD Primary Care Provider [phone] Social History Tobacco Use Types Packs/Day Years [...] topic Insurance MEDICARE C AETNA Care Teams Way Inspector Relationship Specialty Start Date End Date Wilbert Crowder MD PCP - General Internal Medicine 07/26/20
[2025-01-12 13:30] VITALS: BP 135/75; PULSE 62; RESP 13; O2SAT 97
[2025-01-12 13:31] VITALS: BMI 31.1
--- NOTE | 2025-01-12 13:46 | PM.IMHP ---
H&P: HPI History of Present Illness Date/Time: 01/12/25 13:46 Chief Complaint: Weakness, Leg Pain Narrative: 69 y/o F with PMH of multiple sclerosis, polymyalgia rheumatica, OAB, SDH, DJD, breast cancer, hyperlipidemia, and diabetes, and hypertension presents here with lower extremity weakness and right lower extremity pain. The patient presents here from home home on 01/12 for further evaluation of lower extremity weakness and right lower extremity pain. She reports onset approximately 6 days ago. She reports the weakness in her lower extremities has been gradual and progressively worsening. Now also experiencing low back pain that radiates into her right anterior thigh. She was initially evaluated by her PCP 1 week ago and was prescribed tramadol without relief. Weakness in her lower extremities is so significant that she is now unable to stand up or ambulate. At baseline she is ambulatory with a cane or a walker. She denies associated saddle anaesthesia, bladder incontinence, bowel incontinence, or recent straining/trauma/falls. She has a history significant for multiple sclerosis, follows with a neurologist at [facility]. Has not had a flare up of her MS previously, typically well controlled. Initial VS at presentation: 97.6? F, HR 69, R 17, 138/54, and 100% on RA. ED workup showed: No leukocytosis, no anemia, no significant electrolyte derangements, creatinine 0.79 and GFR >60, glucose 184, UA unremarkable. Lumbar CT showed a degree of thoracolumbar dextrocurvature with severe lower lumbar spondylosis. Review of Systems Review of Systems: All systems reviewed & are unremarkable except as noted in HPI and below PMFSH Past Medical History Medical History Chronic venous insufficiency BMI 31.0-31.9,adult Vitamin D deficiency Need for pneumococcal vaccine Overactive bladder PMR (polymyalgia rheumatica) Bakers cyst Hemoglobin A1C greater than 9%, indicating poor diabetic control 07/14/20 A1c = 9.6 Esophagitis Subdural hematoma Episode of syncope Esophageal stricture Carpal tunnel syndrome, bilateral Dysphagia Cervicalgia DJD (degenerative joint disease) Colon cancer screening Encounter for screening mammogram for malignant neoplasm of breast Benign essential hypertension Vitamin B12 deficiency Chronic pain of right knee Hx of breast cancer s/p radiation On prison drug therapy Multiple sclerosis Hyperlipidemia DM type 2 (diabetes mellitus, type 2) Surgical History Surgical History History of hysterectomy H/O excision of lamina of cervical vertebra for decompression of spinal cord Status post total knee replacement, right Family History Family History Mother Hypertension Family history of diabetes mellitus in first degree relative Diabetes mellitus Father Cerebrovascular accident Sibling Family history of lung cancer Family history of primary malignant neoplasm of liver Social History Social History Smoking status: Never smoker Second hand tobacco smoke exposure: No Alcohol intake: never Substance use: never Substance use type: does not use Lack of Transportation: No Lack of Food: Never True Current Housing: I Have Housing Concerned About Future Housing: No Difficulty Paying Gas/Electric Bills: No Difficulty Paying for Meds: No Currently Unemployed: No Education: Bachelor's Degree Difficulty w/ Childcare or Family Care: No Living arrangements: with family Gender identity (if verbalized by the patient): Female Spiritual care concerns: No Meds Home Medications and Allergies Home Medications ?Medication ?Instructions ?Recorded ?Confirmed ?Type linagliptin 5 mg tablet (Tradjenta) 5 mg PO QAM 08/18/20 01/12/25 History teriflunomide 14 mg tablet 14 mg PO DAILY 08/25/20 01/12/25 History (Aubagio) aspirin 81 mg tablet,delayed 81 mg PO QAM #30 tabs 08/16/21 01/12/25 Rx release cholecalciferol (vitamin D3) 50 100 mcg PO DAILY 11/09/22 01/12/25 History mcg (2,000 unit) capsule blood sugar diagnostic (Contour #100 strips 08/14/23 01/12/25 Rx Next Test Strips) benzonatate 200 mg capsule See Rx Instructions .Route 10/15/23 01/12/25 Rx .COMPLEX PRN cough #30 caps valsartan 160 mg tablet 160 mg PO BID 04/30/24 01/12/25 History furosemide 40 mg tablet See Rx Instructions .Route 06/16/24 01/12/25 Rx .COMPLEX #180 tabs carvedilol 25 mg tablet See Rx Instructions .Route 07/29/24 01/12/25 Rx .COMPLEX #180 tabs lancets #100 ea 08/15/24 01/12/25 Rx glimepiride 1 mg tablet See Rx Instructions .Route 08/31/24 01/12/25 Rx .COMPLEX #90 tabs rosuvastatin 5 mg tablet 5 mg PO DAILY #90 tabs 10/21/24 01/12/25 Rx spironolactone 50 mg tablet 50 mg PO DAILY #90 tabs 10/21/24 01/12/25 Rx (Aldactone) solifenacin 10 mg tablet (Vesicare) 10 mg PO DAILY #90 tabs 10/28/24 01/12/25 Rx lancets (Microlet Lancet) #200 ea 12/15/24 01/12/25 Rx tramadol 50 mg tablet See Rx Instructions PO .COMPLEX 01/07/25 01/12/25 Rx PRN pain #40 tabs Allergies Allergy/AdvReac Type Severity Reaction Status Date / Time No Known Allergies Allergy Verified 11/11/24 15:12 Vital Signs Vital Signs - 24 hr 01/12/25 09:56 01/12/25 10:49 01/12/25 12:14 Temperature 97.6 F Pulse Rate 69 69 69 Respiratory Rate 17 15 20 Blood Pressure 138/54 L 127/56 L Pulse Oximetry 100 100 Oxygen Delivery Room Air 01/12/25 13:30 Temperature Pulse Rate 62 Respiratory Rate 13 Blood Pressure 135/75 Pulse Oximetry 97 Oxygen Delivery Exam Const: General: comfortable and no acute distress Other: , female, nontoxic appearance HENMT: Face/Nose/Sinus: Normal nares present Mouth: Yes moist mucous membranes Eyes: General: appearance normal, both eyes and all related structures Sclera: sclerae normal Pupils: Equal, round and reactive pupils present EOM: EOMs intact bilaterally Resp: Effort & Inspection: normal respiratory effort Auscultation: clear to auscultation bilaterally Cardio: Rate: regular rate Rhythm: regular rhythm Other: S1-S2 present without murmur, rub, ectopy GI: Other: Abdomen soft, nondistended, nontender. Normoactive bowel sounds in all quadrants. Skin: General skin exam: normal color and no rashes or lesions noted Wounds: no wounds Neuro: Speech: normal speech Sensory Exam: normal sensation Other: A&O x4. +5in the upper extremities bilaterally. +4 in the lower extremities, right however worse than the left. Extrem: Other: 1+ pitting edema to the bilateral lower extremities, symmetric Psych: Mental Status: mental status grossly normal Affect: normal affect Other: Good insight and judgment, pleasant H&P: Results Labs Labs: Short CBC 01/12/25 Range/Units 11:37 WBC 8.3 (4.5-10.0) K/mm3 Hgb 12.2 (12.0-15.0) g/dL Hct 40.3 (37.0-47.0) % Plt Count 196 (150-375) k/mm3 BMP 01/12/25 11:37 Sodium 137 Potassium 3.6 Chloride 99 Carbon Dioxide 30 BUN 12 Creatinine 0.79 Glucose 184 H Calcium 9.3 Liver Function 01/12/25 Range/Units 11:37 Total Bilirubin 0.7 (0.2-1.3) mg/dL AST 31 (14-36) U/L ALT 14 (6-35) U/L Alkaline Phosphatase 145 H (38-126) U/L Albumin 3.9 (3.5-5.1) g/dL Urine 01/12/25 Range/Units 12:09 Urine Color Yellow (Yellow) Urine Appearance Clear (Clear) Urine pH 5.5 (5.0-9.0) Ur Specific [place] 1.011 (1.001-1.035) Urine Protein Negative (Negative) mg/dL Urine Glucose (UA) Negative (Negative) mg/dL Assessment and Plan Assessment and plan (1) Lower extremity weakness: Qualifiers: Laterality: bilateral Qualified Code(s): R29.898 - Other symptoms and signs involving the musculoskeletal system Code(s): R29.898 - Other symptoms and signs involving the musculoskeletal system Status: Acute Assessment and Plan: 6 days of BLE weakness and lower back pain radiating into her R thigh. Patient has hx of multiple sclerosis for which Neurology has been consulted, possibility of flare up as etiology. PT/OT/care coordination consulted for evaluation and acute rehab services. - PT/OT eval - care coordination for acute rehab - CT lumbar (01/12): A degree thoracolumbar dextrocurvature with severe lower lumbar spondylosis. - analgesics prn: Tylenol, Batchelor, morphine. Hold home tramadol. (2) Multiple sclerosis: Code(s): G35 - Multiple sclerosis Status: Acute Assessment and Plan: - see above - patient reports she has previously been stable and has not had any significant progression in her disease since diagnosis many years ago - follows with Neurology at [facility] - continue teriflulnomide (3) DM type 2 (diabetes mellitus, type 2): Qualifiers: Diabetes mellitus complication status: without complication Diabetes mellitus long term care social worker insulin use: unspecified long term care social worker insulin use status Qualified Code(s): E11.9 - Type 2 diabetes mellitus without complications Code(s): E11.9 - Type 2 diabetes mellitus without complications Status: Acute Assessment and Plan: - hypoglycemia protocol - POC blood glucose ACHS - home medication: Continue glimepiride, tradjenta - correct regimen ordered - high dose TIDWM, based off BMI - A1C 9.6% on 10/13/2024 (4) Hyperlipidemia: Qualifiers: Hyperlipidemia type: mixed hyperlipidemia Qualified Code(s): E78.2 - Mixed hyperlipidemia Code(s): E78.5 - Hyperlipidemia, unspecified Status: Chronic Assessment and Plan: - continue rosuvastatin (5) Benign essential hypertension: Code(s): I10 - Essential (primary) hypertension Status: Chronic Assessment and Plan: - chronic, currently 135/75, stable. - continue home medications: Coreg, Lasix, spironolactone, valsartan - monitor Plan Diet: Diabetic GI Prophylaxis: n/a DVT Prophylaxis: SCDs IV fluids: None Lines/Tubes: Peripheral IV Code Status: Full code Quality VTE Prophylaxis VTE prophylaxis: mechanical ordered Hospitalist MIPS Advance Care Plan I have confirmed that the patient's Advanced Care Plan is present, code status is documented, or surrogate decision maker is listed in patient medical record.: Yes Medication Reconciliation I have utilized all available resources to obtain, update and review the patients current medications (includes all prescriptions, OTC, herbals, cannabis, and nutritional supplements).: Yes
--- NOTE | 2025-01-12 14:08 | ADMGEN ---
This patient, Jacinta Moreno, was admitted to [facility] Room 328-01. Patient/family oriented to hospital policies and general routines including ID bracelet, bed and alarms, visiting hours, pain management, procedures, bathroom and other care routines, personal items, smoking policy, room service/diet, and visiting hours. Information on how to activate the Rapid Response Team has been discussed. Patient/Family are encouraged to report perceived risks to care and to ask questions if they do not understand what they are told or what they should do.
[2025-01-12] MEDS: HYDROcodone/acetaminophen (*CRX) 5-325 MG TABLET 1 TAB PO ×2 (17:25→23:15)
[2025-01-12 20:00] VITALS: BP 138/64; PULSE 78; PULSE 95; RESP 20; TEMP 36.9; O2SAT 100; O2SAT 96
[2025-01-12 20:35] VITALS: PULSE 95; RESP 20; O2SAT 96
[2025-01-13 04:00] VITALS: BP 123/53; PULSE 80; RESP 16; TEMP 37.1; O2SAT 100
--- NOTE | 2025-01-13 08:24 | PCPTNOTE ---
spoke with Current hospitalist. OK to remove bedrest orders for pt to safely participate in skilled therapy. Will make nursing aware.
[2025-01-13] MEDS: FUROSEMIDE 40 MG TABLET 80 MG PO (09:14)
[2025-01-13] MEDS: GLIMEPIRIDE 1 MG TABLET PO (09:14)
[2025-01-13] MEDS: ROSUVASTATIN 5 MG TABLET PO (09:14)
[2025-01-13] MEDS: CHOLECALCIFEROL (VITAMIN D3) 25 MCG (1,000 UNITS) TABLET 100 MCG PO (09:14)
[2025-01-13] MEDS: SOLIFENACIN 5 MG TABLET 10 MG PO (09:14)
[2025-01-13] MEDS: VALSARTAN 160 MG TABLET PO ×2 (09:14→20:53)
[2025-01-13 09:15] VITALS: PULSE 80
[2025-01-13] MEDS: SPIRONOLACTONE 50 MG TABLET PO (09:15)
[2025-01-13] MEDS: ASPIRIN 81 MG ENTERIC TABLET PO (09:15)
--- NOTE | 2025-01-13 09:34 | P.PNIM_ITS ---
Progress Note: A&P Assessment and Plan (1) Lower extremity weakness: Qualifiers: Laterality: bilateral Qualified Code(s): R29.898 - Other symptoms and signs involving the musculoskeletal system Code(s): R29.898 - Other symptoms and signs involving the musculoskeletal system Status: Acute Assessment and Plan: 6 days of BLE weakness and lower back pain radiating into her R thigh. Patient has hx of multiple sclerosis for which Neurology has been consulted, possibility of flare up as etiology. PT/OT/care coordination consulted for evaluation and acute rehab services. MRI pending. Recent history of a right knee placement - PT/OT eval - care coordination for acute rehab - CT lumbar (01/12): A degree thoracolumbar dextrocurvature with severe lower lumbar spondylosis. - analgesics prn: Tylenol, Blair, morphine. Hold home tramadol. 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: unspecified fdc insulin use status Qualified Code(s): E11.9 - Type 2 diabetes mellitus without complications Code(s): E11.9 - Type 2 diabetes mellitus without complications Status: Acute Assessment and Plan: - hypoglycemia protocol - POC blood glucose ACHS - home medication: Continue glimepiride, tradjenta - correct regimen ordered - high dose TIDWM, based off BMI - A1C 9.6% on 10/13/2024 (4) Hyperlipidemia: Qualifiers: Hyperlipidemia type: mixed hyperlipidemia Qualified Code(s): E78.2 - Mixed hyperlipidemia Code(s): E78.5 - Hyperlipidemia, unspecified Status: Chronic Assessment and Plan: - continue rosuvastatin (5) Benign essential hypertension: Code(s): I10 - Essential (primary) hypertension Status: Chronic Assessment and Plan: - chronic, currently 135/75, stable. - continue home medications: Coreg, Lasix, spironolactone, valsartan - monitor Plan Diet: Diabetic GI Prophylaxis: n/a DVT Prophylaxis: SCDs IV fluids: None Lines/Tubes: Peripheral IV Code Status: Full code Subjective Date/time seen: 01/13/25 09:34 Interval history: Patient reports a her last multiple sclerosis flare up was years ago but did not experience any leg weakness. Patient denies any urinary or fecal incontinence. Patient underwent a right knee replacement last December. Patient reports of back pain radiating to right lower extremity. Will order MRI Review of Systems Review of Systems: All systems reviewed & are unremarkable except as noted in HPI and below Exam Const: General: comfortable and no acute distress Other: , female, nontoxic appearance HENMT: Face/Nose/Sinus: Normal nares present Mouth: Yes moist mucous membranes Eyes: General: appearance normal, both eyes and all related structures Sclera: sclerae normal Pupils: Equal, round and reactive pupils present EOM: EOMs intact bilaterally Resp: Effort & Inspection: normal respiratory effort Auscultation: clear to auscultation bilaterally Cardio: Rate: regular rate Rhythm: regular rhythm Other: S1-S2 present without murmur, rub, ectopy GI: Other: Abdomen soft, nondistended, nontender. Normoactive bowel sounds in all quadrants. Skin: General skin exam: normal color and no rashes or lesions noted Wounds: no wounds Neuro: Cranial nerves: Yes Equal, round and reactive pupils present Speech: normal speech Sensory Exam: normal sensation Other: A&O x4. +5in the upper extremities bilaterally. +4 in the lower extremities, right however worse than the left. Extrem: Other: 1+ pitting edema to the bilateral lower extremities, symmetric Psych: Mental Status: mental status grossly normal Affect: normal affect Other: Good insight and judgment, pleasant Objective Data Vital Signs Vital Signs: Vital Signs - 24 hr 01/12/25 09:56 01/12/25 10:49 01/12/25 12:14 Temperature 97.6 F Pulse Rate 69 69 69 Respiratory Rate 17 15 20 Blood Pressure 138/54 L 127/56 L Pulse Oximetry 100 100 Oxygen Delivery Room Air Fraction of Inspired Oxygen 01/12/25 13:30 01/12/25 20:00 01/12/25 20:00 Temperature 98.4 F Pulse Rate 62 78 95 Respiratory Rate 13 20 20 Blood Pressure 135/75 138/64 Pulse Oximetry 97 100 96 Oxygen Delivery Room Air Fraction of Inspired Oxygen 21 01/12/25 20:35 01/13/25 04:00 01/13/25 08:00 Temperature 98.7 F Pulse Rate 95 80 Respiratory Rate 20 16 Blood Pressure 123/53 L Pulse Oximetry 96 100 Oxygen Delivery Room Air Room Air Fraction of Inspired Oxygen 21 01/13/25 09:15 Temperature Pulse Rate 80 Respiratory Rate Blood Pressure Pulse Oximetry Oxygen Delivery Fraction of Inspired Oxygen Intake/Output Intake/Output: Intake & Output 01/10/25 01/11/25 01/12/25 01/13/25 23:59 23:59 23:59 23:59 Intake Total 240 240 Output Total 200 Balance 40 240 Meds/Results Medications: Active Medications Generic Name Dose Route Start Last Admin Trade Name Freq PRN Reason Stop Dose Admin Acetaminophen 650 mg 01/12/25 12:59 Acetaminophen 325 Mg Tablet PO Q4H PRN Mild Pain (1-3) or Fever Hydrocodone Bitart/Acetaminophen 1 tab 01/12/25 15:25 01/12/25 23:15 Hydrocodone/Acetaminophen (*Crx) 5-325 Mg Tablet PO 1 tab Q4H PRN Administration Moderate Pain (4-6) Aspirin 81 mg 01/13/25 09:00 01/13/25 09:15 Aspirin 81 Mg Enteric Tablet PO 81 mg QAM DASHA Administration Benzonatate 200 mg 01/13/25 00:06 Benzonatate 100 Mg Capsule PO TID PRN cough Bisacodyl 5 mg 01/12/25 15:25 Bisacodyl 5 Mg Tablet Ec PO DAILY PRN Constipation Carvedilol 25 mg 01/13/25 09:00 01/13/25 09:15 Carvedilol 25 Mg Tablet PO 25 mg Q12HR DASHA Administration Dextrose 12.5 gm 01/12/25 15:25 Dextrose 50% 25 Gm/50 Ml Syringe IV PUSH PRN PRN Hypoglycemia Protocol Furosemide 80 mg 01/13/25 09:00 01/13/25 09:14 Furosemide 40 Mg Tablet PO 80 mg DAILY DASHA Administration Glimepiride 1 mg 01/13/25 08:00 01/13/25 09:14 Glimepiride 1 Mg Tablet PO 1 mg DAILY@0800 DASHA Administration Glucagon 1 mg 01/12/25 15:25 Glucagon For Inj 1 Mg Vial IM PRN PRN Hypoglycemia Protocol Glucose 15 gm 01/12/25 15:25 Glucose Oral Gel 15 Gm Of Glucse In 37.5 Gm Tube PO PRN PRN Hypoglycemia Protocol Dextrose 1,000 mls @ 100 mls/hr 01/12/25 15:25 Dextrose 5% 1,000 Ml IVPB PRN PRN Hypoglycemia Protocol Insulin Aspart 4 - 8 units 01/12/25 17:00 01/13/25 09:15 Insulin Aspart (*Bkc) 100 Units/Ml SUB-Q Not Given TIDWM DASHA Protocol Miscellaneous Information 1 each 01/13/25 00:01 01/13/25 00:59 Teriflunomide [Aubagio] 14 Mg Tablet Is Nonform, Can Patient Bring From Home? XX 02/12/25 00:00 Not Given CLARIFY DASHA Morphine Sulfate 2 mg 01/12/25 15:40 Morphine Sulfate (*Crx) 4 Mg/Ml Inj IV PUSH Q4H PRN Pain Rated 7-10 Non-Formulary Medication 14 mg 01/13/25 09:00 Teriflunomide [Aubagio] PO 02/12/25 08:59 DAILY DASHA Rosuvastatin Calcium 5 mg 01/13/25 09:00 01/13/25 09:14 Rosuvastatin 5 Mg Tablet PO 5 mg DAILY DASHA Administration Sitagliptin Phosphate 100 mg 01/13/25 09:00 01/13/25 09:21 Sitagliptin Phosphate 100 Mg Tablet PO 100 mg QAM DASHA Administration Solifenacin 10 mg 01/13/25 09:00 01/13/25 09:14 Solifenacin 5 Mg Tablet PO 10 mg QAM DASHA Administration Spironolactone 50 mg 01/13/25 09:00 01/13/25 09:15 Spironolactone 50 Mg Tablet PO 50 mg DAILY DASHA Administration Valsartan 160 mg 01/13/25 09:00 01/13/25 09:14 Valsartan 160 Mg Tablet PO 160 mg Q12HR DASHA Administration Vitamin D 100 mcg 01/13/25 09:00 01/13/25 09:14 Cholecalciferol (Vitamin D3) 25 Mcg (1,000 Units) Tablet PO 100 mcg DAILY DASHA Administration Radiology Results: ITS Impressions Lumbar Spine CT 01/12/25 11:28 IMPRESSION: 1. A degree thoracolumbar dextrocurvature with severe lower lumbar spondylosis. Labs Labs: Laboratory Results - last 24 hr 01/12/25 01/12/25 01/12/25 11:37 12:09 22:00 WBC 8.3 RBC 4.70 Hgb 12.2 Hct 40.3 MCV 85.7 MCH 26.0 MCHC 30.3 L RDW 16.0 H Plt Count 196 MPV 11.1 H Immature Gran % (Auto) 0.4 Neut % (Auto) 67.0 Lymph % (Auto) 19.4 Beckham % (Auto) 9.0 H Eos % (Auto) 3.5 Baso % (Auto) 0.7 Lymph # (Auto) 1.61 Beckham # (Auto) 0.8 H Eos # (Auto) 0.3 Baso # (Auto) 0.1 Abs Immat Gran (auto) 0.03 Absolute Neuts (auto) 5.6 Absolute Nucleated RBC 0.000 Nucleated RBC % 0.0 Sodium 137 Potassium 3.6 Chloride 99 Carbon Dioxide 30 Anion Gap 8 BUN 12 Creatinine 0.79 Estim Creat Clear Calc 63 Estimated GFR > 60 Glucose 184 H POC Capillary Glucose 208 H Calcium 9.3 Total Bilirubin 0.7 AST 31 ALT 14 Alkaline Phosphatase 145 H Total Protein 8.3 H Albumin 3.9 Urine Color Yellow Urine Appearance Clear Urine pH 5.5 Ur Specific [place] 1.011 Urine Protein Negative Urine Glucose (UA) Negative Urine Ketones Negative Ur Blood (Man) Negative Urine Nitrate Negative Urine Bilirubin Negative Urine Urobilinogen 1.0 Leukocyte Esterase Rfl Negative 01/13/25 07:20 WBC RBC Hgb Hct MCV MCH MCHC RDW Plt Count MPV Immature Gran % (Auto) Neut % (Auto) Lymph % (Auto) Beckham % (Auto) Eos % (Auto) Baso % (Auto) Lymph # (Auto) Beckham # (Auto) Eos # (Auto) Baso # (Auto) Abs Immat Gran (auto) Absolute Neuts (auto) Absolute Nucleated RBC Nucleated RBC % Sodium Potassium Chloride Carbon Dioxide Anion Gap BUN Creatinine Estim Creat Clear Calc Estimated GFR Glucose POC Capillary Glucose 154 H Calcium Total Bilirubin AST ALT Alkaline Phosphatase Total Protein Albumin Urine Color Urine Appearance Urine pH Ur Specific [place] Urine Protein Urine Glucose (UA) Urine Ketones Ur Blood (Man) Urine Nitrate Urine Bilirubin Urine Urobilinogen Leukocyte Esterase Rfl Quality VTE Prophylaxis VTE prophylaxis: mechanical ordered Hospitalist MIPS Advance Care Plan I have confirmed that the patient's Advanced Care Plan is present, code status is documented, or surrogate decision maker is listed in patient medical record.: Yes Medication Reconciliation I have utilized all available resources to obtain, update and review the patients current medications (includes all prescriptions, OTC, herbals, cannabis, and nutritional supplements).: Yes
[2025-01-13 09:59] LABS: Hematocrit 36.1 % (37.0-47.0); Hemoglobin 10.9 g/dL (12.0-15.0); Mean Corpuscular HGB Conc 30.2 g/dl (32-36); Mean Corpuscular Hemoglobin 26.2 pg (26-34); Mean Corpuscular Volume 86.8 fl (80-100); Platelet Count Result 176 k/mm3 (150-375); Red Blood Count 4.16 M/mm3 (4.2-5.4); White Blood Count 7.0 K/mm3 (4.5-10.0)
[2025-01-13 10:22] LABS: Alanine Aminotransferase 13 U/L (6-35); Albumin Level 3.3 g/dL (3.5-5.1); Alkaline Phosphatase 118 U/L (38-126); Anion Gap 3 mmol/L (4-12); Aspartate Amino Transferase 27 U/L (14-36); Bilirubin,Total 0.6 mg/dL (0.2-1.3); Blood Urea Nitrogen 10 mg/dL (7-17); Calcium 8.7 mg/dL (8.4-10.2); Carbon Dioxide 31 mmol/L (22-30); Chloride 101 mmol/L (98-107); Estimated CRCL calculation 68 ml/min; Estimated Glomerular Filt Rate > 60; Glucose 263 mg/dL (65-110); Potassium 3.9 mmol/L (3.4-5.0); Sodium 135 mmol/L (137-145); Total Protein 6.7 g/dL (6.3-8.2)
--- NOTE | 2025-01-13 12:23 | PC.NURSE ---
This nurse took over care of patient at 1200 and agrees with previous nurse shift assessment.
[2025-01-13] MEDS: INSULIN ASPART (*BKC) 100 UNITS/ML SUB-Q (12:31)
[2025-01-13 14:00] VITALS: BP 131/61; PULSE 79; RESP 18; TEMP 36.3; O2SAT 100
[2025-01-13 20:00] VITALS: PULSE 80; RESP 18; O2SAT 100
[2025-01-13 20:33] VITALS: BP 148/55; PULSE 79; RESP 18; TEMP 36.7; O2SAT 100
[2025-01-13 20:52] VITALS: PULSE 80
[2025-01-13] MEDS: HYDROcodone/acetaminophen (*CRX) 5-325 MG TABLET 1 TAB PO (20:52)
[2025-01-14 06:10] VITALS: BP 120/74; PULSE 72; RESP 18; TEMP 36.7; O2SAT 98
[2025-01-14 07:10] LABS: Potassium 3.4 mmol/L (3.4-5.0)
[2025-01-14] MEDS: CHOLECALCIFEROL (VITAMIN D3) 25 MCG (1,000 UNITS) TABLET 100 MCG PO (08:30)
[2025-01-14 08:31] VITALS: PULSE 88
[2025-01-14] MEDS: GLIMEPIRIDE 1 MG TABLET PO (08:31)
[2025-01-14] MEDS: SOLIFENACIN 5 MG TABLET 10 MG PO (08:31)
[2025-01-14] MEDS: VALSARTAN 160 MG TABLET PO ×2 (08:32→20:51)
[2025-01-14] MEDS: ROSUVASTATIN 5 MG TABLET PO (08:32)
[2025-01-14] MEDS: SPIRONOLACTONE 50 MG TABLET PO (08:33)
[2025-01-14] MEDS: ASPIRIN 81 MG ENTERIC TABLET PO (08:33)
[2025-01-14] MEDS: FUROSEMIDE 40 MG TABLET 80 MG PO (08:33)
[2025-01-14] MEDS: diazePAM INJ (*CRX) 10 MG/2 ML SYRINGE 5 MG IV PUSH (10:15)
--- NOTE | 2025-01-14 10:54 | PCPTNOTE ---
The patient treatment was not able to be completed at this time due to patient out of room for MRI. Will plan to continue treatment per plan of care.
--- NOTE | 2025-01-14 11:35 | PCOTNOTE ---
Patient out of the room at this time. Patient is down having a MRI, will try back at a later time.
[2025-01-14] MEDS: INSULIN ASPART (*BKC) 100 UNITS/ML SUB-Q (11:58)
--- NOTE | 2025-01-14 13:25 | PHAR ---
Home med Teriflunomide 14mg tablet verified by pharmacy. White round tablet, imprints H T41
[2025-01-14] MEDS: TERIFLUNOMIDE 14 MG 1 EACH PO (13:38)
[2025-01-14 14:00] VITALS: BP 133/69; PULSE 79; RESP 18; TEMP 35.9; O2SAT 99
--- NOTE | 2025-01-14 18:02 | P.PNIM_ITS ---
Progress Note: A&P Assessment and Plan (1) Lower extremity weakness: Qualifiers: Laterality: bilateral Qualified Code(s): R29.898 - Other symptoms and signs involving the musculoskeletal system Code(s): R29.898 - Other symptoms and signs involving the musculoskeletal system Status: Acute Assessment and Plan: 6 days of BLE weakness and lower back pain radiating into her R thigh. Patient has hx of multiple sclerosis for which Neurology has been consulted, possibility of flare up as etiology. PT/OT/care coordination consulted for evaluation and acute rehab services. MRI pending. Recent history of a right knee placement. Continues to have weakness R>L but it is slowly and slightly improving. - PT/OT eval -Neurology consult tomorrow, consideration for ortho or neurosurgery evaluation after discussion with neuro - care coordination for acute rehab - CT lumbar (01/12): A degree thoracolumbar dextrocurvature with severe lower lumbar spondylosis. - analgesics prn: Tylenol, [place], morphine. Hold home tramadol. - MRI C spine: 1. Again seen C4-C6 anterior spinal fusion with anterior plate and screw fixation. There is new magnetic field artifact now obscuring the C3-C4 disc space which was not present at the time of the prior study suggesting possible interval extension of the anterior fusion. Correlate with surgical history and could consider correlation with plain radiographs as clinically indicated. 2. No significant change in moderate cervical spondylosis including a small r egion of likely myelomalacia with decrease cross-sectional diameter of the cord and increased cord signal at the level of C4. 3. Multinodular goiter. -MRI L-spine: Severe lumbar spondylosis. No comment as to MS lesions noted. 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: unspecified intermediate insulin use status Diabetes mellitus complication status: without complication Qualified Code(s): E11.9 - Type 2 diabetes mellitus without complications Code(s): E11.9 - Type 2 diabetes mellitus without complications Status: Acute Assessment and Plan: - hypoglycemia protocol - POC blood glucose ACHS - home medication: Continue glimepiride, tradjenta - correct regimen ordered - high dose TIDWM, based off BMI - A1C 9.6% on 10/13/2024 (4) Hyperlipidemia: Qualifiers: Hyperlipidemia type: mixed hyperlipidemia Qualified Code(s): E78.2 - Mixed hyperlipidemia Code(s): E78.5 - Hyperlipidemia, unspecified Status: Chronic Assessment and Plan: - continue rosuvastatin (5) Benign essential hypertension: Code(s): I10 - Essential (primary) hypertension Status: Chronic Assessment and Plan: - chronic, currently 135/75, stable. - continue home medications: Coreg, Lasix, spironolactone, valsartan - monitor Plan Diet: Diabetic GI Prophylaxis: n/a DVT Prophylaxis: SCDs IV fluids: None Lines/Tubes: Peripheral IV Code Status: Full code Subjective Date/time seen: 01/14/25 18:02 Interval history: Patient reports a her last multiple sclerosis flare up was years ago but did not experience any leg weakness. Patient denies any urinary or fecal incontinence. Patient underwent a right knee replacement last December. Patient reports of back pain radiating to right lower extremity. Will order MRI Review of Systems Review of Systems: All systems reviewed & are unremarkable except as noted in HPI and below Exam Const: General: comfortable and no acute distress Other: , female, nontoxic appearance HENMT: Face/Nose/Sinus: Normal nares present Mouth: Yes moist mucous membranes Eyes: General: appearance normal, both eyes and all related structures Sclera: sclerae normal Pupils: Equal, round and reactive pupils present EOM: EOMs intact bilaterally Resp: Effort & Inspection: normal respiratory effort Auscultation: clear to auscultation bilaterally Cardio: Rate: regular rate Rhythm: regular rhythm Other: S1-S2 present without murmur, rub, ectopy GI: Other: Abdomen soft, nondistended, nontender. Normoactive bowel sounds in all quadrants. Skin: General skin exam: normal color and no rashes or lesions noted Wounds: no wounds Neuro: Cranial nerves: Yes Equal, round and reactive pupils present Speech: normal speech Sensory Exam: normal sensation Other: A&O x4. +5in the upper extremities bilaterally. +4 in the lower extremities, right however worse than the left. Extrem: Other: 1+ pitting edema to the bilateral lower extremities, symmetric Psych: Mental Status: mental status grossly normal Affect: normal affect Other: Good insight and judgment, pleasant Objective Data Vital Signs Vital Signs: Vital Signs - 24 hr 01/13/25 20:00 01/13/25 20:33 01/13/25 20:52 Temperature 98.0 F Pulse Rate 80 79 80 Respiratory Rate 18 18 Blood Pressure 148/55 H Pulse Oximetry 100 100 Oxygen Delivery Room Air Fraction of Inspired Oxygen 21 01/14/25 06:10 01/14/25 08:31 01/14/25 14:00 Temperature 98.1 F 96.7 F L Pulse Rate 72 88 79 Respiratory Rate 18 18 Blood Pressure 120/74 133/69 Pulse Oximetry 98 99 Oxygen Delivery Fraction of Inspired Oxygen Intake/Output Intake/Output: Intake & Output 01/11/25 01/12/25 01/13/25 01/14/25 23:59 23:59 23:59 23:59 Intake Total 681 403 6352 Output Total 741 443 3579 Balance 40 120 -1650 Meds/Results Medications: Active Medications Generic Name Dose Route Start Last Admin Trade Name Freq PRN Reason Stop Dose Admin Acetaminophen 650 mg 01/12/25 12:59 Acetaminophen 325 Mg Tablet PO Q4H PRN Mild Pain (1-3) or Fever Hydrocodone Bitart/Acetaminophen 1 tab 01/12/25 15:25 01/13/25 20:52 Hydrocodone/Acetaminophen (*Crx) 5-325 Mg Tablet PO 1 tab Q4H PRN Administration Moderate Pain (4-6) Aspirin 81 mg 01/13/25 09:00 01/14/25 08:33 Aspirin 81 Mg Enteric Tablet PO 81 mg QAM DASHA Administration Benzonatate 200 mg 01/13/25 00:06 Benzonatate 100 Mg Capsule PO TID PRN cough Bisacodyl 5 mg 01/12/25 15:25 Bisacodyl 5 Mg Tablet Ec PO DAILY PRN Constipation Carvedilol 25 mg 01/13/25 09:00 01/14/25 08:31 Carvedilol 25 Mg Tablet PO 25 mg Q12HR DASHA Administration Dextrose 12.5 gm 01/12/25 15:25 Dextrose 50% 25 Gm/50 Ml Syringe IV PUSH PRN PRN Hypoglycemia Protocol Diazepam 5 mg 01/14/25 08:18 01/14/25 10:15 Diazepam Inj (*Crx) 10 Mg/2 Ml Syringe IV PUSH 5 mg ONCE PRN Administration Anxiety Furosemide 80 mg 01/13/25 09:00 01/14/25 08:33 Furosemide 40 Mg Tablet PO 80 mg DAILY DASHA Administration Glimepiride 1 mg 01/13/25 08:00 01/14/25 08:31 Glimepiride 1 Mg Tablet PO 1 mg DAILY@0800 DASHA Administration Glucagon 1 mg 01/12/25 15:25 Glucagon For Inj 1 Mg Vial IM PRN PRN Hypoglycemia Protocol Glucose 15 gm 01/12/25 15:25 Glucose Oral Gel 15 Gm Of Glucse In 37.5 Gm Tube PO PRN PRN Hypoglycemia Protocol Home Med 1 each 01/13/25 09:00 01/14/25 13:40 Teriflunomide [Aubagio] 14 Mg Tablet Home Med PO 02/12/25 08:59 Not Given DAILY DASHA Dextrose 1,000 mls @ 100 mls/hr 01/12/25 15:25 Dextrose 5% 1,000 Ml IVPB PRN PRN Hypoglycemia Protocol Insulin Aspart 4 - 8 units 01/12/25 17:00 01/14/25 16:29 Insulin Aspart (*Bkc) 100 Units/Ml SUB-Q Not Given TIDWM DASHA Protocol Morphine Sulfate 2 mg 01/12/25 15:40 Morphine Sulfate (*Crx) 4 Mg/Ml Inj IV PUSH Q4H PRN Pain Rated 7-10 Rosuvastatin Calcium 5 mg 01/13/25 09:00 01/14/25 08:32 Rosuvastatin 5 Mg Tablet PO 5 mg DAILY DASHA Administration Sitagliptin Phosphate 100 mg 01/13/25 09:00 01/14/25 08:33 Sitagliptin Phosphate 100 Mg Tablet PO 100 mg QAM DASHA Administration Solifenacin 10 mg 01/13/25 09:00 01/14/25 08:31 Solifenacin 5 Mg Tablet PO 10 mg QAM DASHA Administration Spironolactone 50 mg 01/13/25 09:00 01/14/25 08:33 Spironolactone 50 Mg Tablet PO 50 mg DAILY DASHA Administration Valsartan 160 mg 01/13/25 09:00 01/14/25 08:32 Valsartan 160 Mg Tablet PO 160 mg Q12HR DASHA Administration Vitamin D 100 mcg 01/13/25 09:00 01/14/25 08:30 Cholecalciferol (Vitamin D3) 25 Mcg (1,000 Units) Tablet PO 100 mcg DAILY DASHA Administration Radiology Results: ITS Impressions Lumbar Spine CT 01/12/25 11:28 IMPRESSION: 1. A degree thoracolumbar dextrocurvature with severe lower lumbar spondylosis. Lumbar Spine MRI 01/14/25 11:44 IMPRESSION: 1. Severe lumbar spondylosis. Cervical Spine MRI 01/14/25 12:27 IMPRESSION: 1. Again seen C4-C6 anterior spinal fusion with anterior plate and screw fixation. There is new magnetic field artifact now obscuring the C3-C4 disc space which was not present at the time of the prior study suggesting possible interval extension of the anterior fusion. Correlate with surgical history and could consider correlation with plain radiographs as clinically indicated. 2. No significant change in moderate cervical spondylosis including a small region of likely myelomalacia with decrease cross-sectional diameter of the cord and increased cord signal at the level of C4. 3. Multinodular goiter. Labs Labs: Laboratory Results - last 24 hr 01/13/25 01/14/25 01/14/25 20:22 05:25 07:30 Potassium 3.4 POC Capillary Glucose 251 H 131 H 01/14/25 01/14/25 11:50 16:25 Potassium POC Capillary Glucose 244 H 183 H Quality VTE Prophylaxis VTE prophylaxis: mechanical ordered Hospitalist [facility] Advance Care Plan I have confirmed that the patient's Advanced Care Plan is present, code status is documented, or surrogate decision maker is listed in patient medical record.: Yes Medication Reconciliation I have utilized all available resources to obtain, update and review the patients current medications (includes all prescriptions, OTC, herbals, cannabis, and nutritional supplements).: Yes
[2025-01-14 20:00] VITALS: PULSE 73; RESP 16; O2SAT 98
[2025-01-14 20:51] VITALS: PULSE 74
[2025-01-14 21:33] VITALS: BP 118/60; PULSE 73; RESP 16; TEMP 36.8; O2SAT 98
[2025-01-14] MEDS: HYDROcodone/acetaminophen (*CRX) 5-325 MG TABLET 1 TAB PO (22:35)
[2025-01-15 06:00] VITALS: BP 113/54; PULSE 69; RESP 14; TEMP 36.6; O2SAT 100
[2025-01-15 06:05] LABS: Hematocrit 34.6 % (37.0-47.0); Hemoglobin 10.5 g/dL (12.0-15.0); Immature Granulocyte Percent A 0.4 % (0-0.5); Lymphocytes Absolute Auto 2.26 K/mm3 (0.9-3.2); Mean Corpuscular HGB Conc 30.3 g/dl (32-36); Mean Corpuscular Hemoglobin 26.2 pg (26-34); Mean Corpuscular Volume 86.3 fl (80-100); Nucleated Red Blood Cells Absolute Auto 0.000 K/mm3 (0.0-0.012); Nucleated Red Blood Cells Perc 0.0 % (0.0-0.2); Platelet Count Result 180 k/mm3 (150-375); Red Blood Count 4.01 M/mm3 (4.2-5.4); White Blood Count 7.5 K/mm3 (4.5-10.0)
[2025-01-15 06:22] LABS: Alanine Aminotransferase 11 U/L (6-35); Albumin Level 3.1 g/dL (3.5-5.1); Alkaline Phosphatase 117 U/L (38-126); Anion Gap 5 mmol/L (4-12); Aspartate Amino Transferase 22 U/L (14-36); Bilirubin,Total 0.4 mg/dL (0.2-1.3); Blood Urea Nitrogen 12 mg/dL (7-17); Calcium 8.4 mg/dL (8.4-10.2); Carbon Dioxide 30 mmol/L (22-30); Chloride 101 mmol/L (98-107); Estimated CRCL calculation 64 ml/min; Estimated Glomerular Filt Rate > 60; Glucose 130 mg/dL (65-110); Potassium 3.3 mmol/L (3.4-5.0); Sodium 136 mmol/L (137-145); Total Protein 6.3 g/dL (6.3-8.2)
[2025-01-15] MEDS: HYDROcodone/acetaminophen (*CRX) 5-325 MG TABLET 1 TAB PO (06:56)
[2025-01-15] MEDS: FUROSEMIDE 40 MG TABLET 80 MG PO (08:02)
[2025-01-15] MEDS: SOLIFENACIN 5 MG TABLET 10 MG PO (08:02)
[2025-01-15] MEDS: CHOLECALCIFEROL (VITAMIN D3) 25 MCG (1,000 UNITS) TABLET 100 MCG PO (08:02)
[2025-01-15] MEDS: GLIMEPIRIDE 1 MG TABLET PO (08:02)
[2025-01-15] MEDS: ASPIRIN 81 MG ENTERIC TABLET PO (08:02)
[2025-01-15] MEDS: VALSARTAN 160 MG TABLET PO ×2 (08:02→20:45)
[2025-01-15 08:03] VITALS: PULSE 82
[2025-01-15] MEDS: ROSUVASTATIN 5 MG TABLET PO (08:03)
[2025-01-15] MEDS: SPIRONOLACTONE 50 MG TABLET PO (08:03)
[2025-01-15] MEDS: TERIFLUNOMIDE 14 MG 1 EACH PO (08:04)
[2025-01-15] MEDS: POTASSIUM CHLORIDE 20 MEQ PACKET (FOR LIQUID) PO (09:20)
[2025-01-15] MEDS: INSULIN ASPART (*BKC) 100 UNITS/ML SUB-Q (12:25)
--- NOTE | 2025-01-15 14:24 | WPDNEURCNPN ---
Assessment and Plan Assessment and plan (1) Multiple sclerosis: Code(s): G35 - Multiple sclerosis Status: Acute (2) Chronic pain of right knee: Code(s): M25.561 - Pain in right knee; G89.29 - Other chronic pain Status: Acute (3) H/O excision of lamina of cervical vertebra for decompression of spinal cord: Code(s): Z98.890 - Other specified postprocedural states Status: Acute (4) Multiple sclerosis: Code(s): G35.D - Multiple sclerosis, unspecified Status: Acute Plan I do not find any hyperreflexia however she is weak in her right leg more so in hip flexion and knee flexion extension but she does not allow much movement of the right knee. The mid some stiffness of the side however left lower extremity appears to be within acceptable normal limits. There is no hyperreflexia. I will suggest to start with the MRI of the brain with and without contrast with MS protocol to look for any new lesion from multiple sclerosis or a vascular lesion. She should continue to work with a physical therapist in the meanwhile. She states that her diabetes has been difficult to control the pain in the right thigh does bring the question of amyotrophy as a possibility. She also has had a surgery on cervical spine for cervical myelopathy. A MRI of the cervical thoracic and lumbosacral spine were performed which did not show any evidence of spinal cord compression. Cervical spine MRI was somewhat compromised due to the anterior plate and screw fixation. Based upon overall of suggest an x-ray of the cervical spine and right knee and right hip in addition to the MRI of the brain. Consult date: 01/15/25 HPI: Jacinta Moreno is a 69 year old female With history of multiple sclerosis since the [address] Mark Shaikh at [facility]. She also has had cervical myelopathy for which she had surgery 1 or 2 years ago at [facility] and she did follow-up with Dr. Mares until last year. She also history of diabetes mellitus for many years. She came to the hospital because of weakness in both lower limbs right more than left side. She denies any bladder disturbance. She did also denies any difficulty speech or swallowing. No changes in her vision. She has glasses and they seem to be essentially same as before. No recent trauma or febrile illness. Patient has been on Aubagio for multiple sclerosis and has done well in her own opinion until she has now developed weakness. She is working with a physical therapist and she thinks that they may have been some minimal improvement since he came here. Review of Systems Review of Systems: All systems reviewed & are unremarkable except as noted in HPI and below PMFSH Past Medical History Medical History (Updated 01/15/25 @ 14:32 by Jorge A Jones MD) Multiple sclerosis Chronic venous insufficiency BMI 31.0-31.9,adult Vitamin D deficiency Need for pneumococcal vaccine Overactive bladder PMR (polymyalgia rheumatica) Bakers cyst Hemoglobin A1C greater than 9%, indicating poor diabetic control 07/14/20 A1c = 9.6 Esophagitis Subdural hematoma Episode of syncope Esophageal stricture Carpal tunnel syndrome, bilateral Dysphagia Cervicalgia DJD (degenerative joint disease) Colon cancer screening Encounter for screening mammogram for malignant neoplasm of breast Benign essential hypertension Vitamin B12 deficiency Chronic pain of right knee Hx of breast cancer s/p radiation On intermediate drug therapy Multiple sclerosis Hyperlipidemia DM type 2 (diabetes mellitus, type 2) Surgical History Surgical History History of hysterectomy H/O excision of lamina of cervical vertebra for decompression of spinal cord Status post total knee replacement, right Family History Family History Mother Hypertension Family history of diabetes mellitus in first degree relative Diabetes mellitus Father Cerebrovascular accident Sibling Family history of lung cancer Family history of primary malignant neoplasm of liver Social History Social History Smoking status: Never smoker Second hand tobacco smoke exposure: No Alcohol intake: never Substance use: never Substance use type: does not use Lack of Transportation: No Lack of Food: Never True Current Housing: I Have Housing Concerned About Future Housing: No Difficulty Paying Gas/Electric Bills: No Difficulty Paying for Meds: No Currently Unemployed: No Education: Bachelor's Degree Difficulty w/ Childcare or Family Care: No Living arrangements: with family Gender identity (if verbalized by the patient): Female Spiritual care concerns: No Meds Home Medications and Allergies Home Medications ?Medication ?Instructions ?Recorded ?Confirmed ?Type linagliptin 5 mg tablet (Tradjenta) 5 mg PO QAM 08/18/20 01/12/25 History teriflunomide 14 mg tablet 14 mg PO DAILY 08/25/20 01/12/25 History (Aubagio) aspirin 81 mg tablet,delayed 81 mg PO QAM #30 tabs 08/16/21 01/12/25 Rx release cholecalciferol (vitamin D3) 50 100 mcg PO DAILY 11/09/22 01/12/25 History mcg (2,000 unit) capsule blood sugar diagnostic (Contour #100 strips 08/14/23 01/12/25 Rx Next Test Strips) benzonatate 200 mg capsule See Rx Instructions .Route 10/15/23 01/12/25 Rx .COMPLEX PRN cough #30 caps valsartan 160 mg tablet 160 mg PO BID 04/30/24 01/12/25 History furosemide 40 mg tablet See Rx Instructions .Route 06/16/24 01/12/25 Rx .COMPLEX #180 tabs carvedilol 25 mg tablet See Rx Instructions .Route 07/29/24 01/12/25 Rx .COMPLEX #180 tabs lancets #100 ea 08/15/24 01/12/25 Rx glimepiride 1 mg tablet See Rx Instructions .Route 08/31/24 01/12/25 Rx .COMPLEX #90 tabs rosuvastatin 5 mg tablet 5 mg PO DAILY #90 tabs 10/21/24 01/12/25 Rx spironolactone 50 mg tablet 50 mg PO DAILY #90 tabs 10/21/24 01/12/25 Rx (Aldactone) solifenacin 10 mg tablet (Vesicare) 10 mg PO DAILY #90 tabs 10/28/24 01/12/25 Rx lancets (Microlet Lancet) #200 ea 12/15/24 01/12/25 Rx tramadol 50 mg tablet See Rx Instructions PO .COMPLEX 01/07/25 01/12/25 Rx PRN pain #40 tabs Allergies Allergy/AdvReac Type Severity Reaction Status Date / Time No Known Allergies Allergy Verified 11/11/24 15:12 Vital Signs Vital Signs - 24 hr 01/14/25 20:00 01/14/25 20:51 01/14/25 21:33 Temperature 98.2 F Pulse Rate 73 74 73 Respiratory Rate 16 16 Blood Pressure 118/60 Pulse Oximetry 98 98 Oxygen Delivery Room Air Fraction of Inspired Oxygen 21 01/15/25 06:00 01/15/25 08:03 Temperature 97.9 F Pulse Rate 69 82 Respiratory Rate 14 Blood Pressure 113/54 L Pulse Oximetry 100 Oxygen Delivery Fraction of Inspired Oxygen Exam Narrative: Fully conscious alert oriented to self time place and person. No aphasia or dysarthria. Examination head and neck shows no evidence of external trauma. No nuchal rigidity. Cranial nerves show pupils were equal react to light. Visual pearson and extraocular movements were intact. There is no facial asymmetry. Tongue was midline. Other cranial normal limits. Motor system power in both upper limbs however she has difficulty in testing her right lower limb because she tends to keep it lateral abduction at the hip and parents heard at the knee although the strength in plantar and dorsiflexion of the ankle appears comparable to the left side. No weakness noted of the left side. Deep tendon reflexes did not show any hyperreflexia or any asymmetry. In fact the deep tendon reflexes appears somewhat decreased but she was unremarkable. I was able to passively move around hip on the right side but difficult to straighten her knee. She states that she has pain in the right thigh area. Results Labs 01/15/25 05:09 01/15/25 05:09 Labs: Short CBC 01/15/25 Range/Units 05:09 WBC 7.5 (4.5-10.0) K/mm3 Hgb 10.5 L (12.0-15.0) g/dL Hct 34.6 L (37.0-47.0) % Plt Count 180 (150-375) k/mm3 BMP 01/15/25 05:09 Sodium 136 L Potassium 3.3 L Chloride 101 Carbon Dioxide 30 BUN 12 Creatinine 0.78 Glucose 130 H Calcium 8.4 Liver Function 01/15/25 Range/Units 05:09 Total Bilirubin 0.4 (0.2-1.3) mg/dL AST 22 (14-36) U/L ALT 11 (6-35) U/L Alkaline Phosphatase 117 (38-126) U/L Albumin 3.1 L (3.5-5.1) g/dL
[2025-01-15] MEDS: ACETAMINOPHEN 325 MG TABLET 650 MG PO (17:36)
--- NOTE | 2025-01-15 18:21 | P.PNIM_ITS ---
Progress Note: A&P Assessment and Plan (1) Lower extremity weakness: Qualifiers: Laterality: bilateral Qualified Code(s): R29.898 - Other symptoms and signs involving the musculoskeletal system Code(s): R29.898 - Other symptoms and signs involving the musculoskeletal system Status: Acute Assessment and Plan: 6 days of BLE weakness and lower back pain radiating into her R thigh. Patient has hx of multiple sclerosis for which Neurology has been consulted, possibility of flare up as etiology. PT/OT/care coordination consulted for evaluation and acute rehab services. Recent history of a right knee placement. Continues to have weakness R>L but it is slowly and slightly improving. - PT/OT eval -Neurology consult tomorrow, consideration for ortho or neurosurgery evaluation after discussion with neuro - care coordination for acute rehab - CT lumbar (01/12): A degree thoracolumbar dextrocurvature with severe lower lumbar spondylosis. - analgesics prn: Tylenol, [place], morphine. Hold home tramadol. - MRI C spine: 1. Again seen C4-C6 anterior spinal fusion with anterior plate and screw fixation. There is new magnetic field artifact now obscuring the C3-C4 disc space which was not present at the time of the prior study suggesting possible interval extension of the anterior fusion. Correlate with surgical history and could consider correlation with plain radiographs as clinically indicated. 2. No significant change in moderate cervical spondylosis including a small region of likely myelomalacia with decrease cross-sectional diameter of the cord and increased cord signal at the level of C4. 3. Multinodular goiter. -MRI L-spine: Severe lumbar spondylosis. No comment as to MS lesions noted. -seen by Neurology, brain MRI ordered to rule out multiple sclerosis lesions definitively as well as x-rays of the cervical spine, right knee, right hip. Continue PT. Neurology to follow (2) Multiple sclerosis: Code(s): G35 - Multiple sclerosis Status: Acute Assessment and Plan: - see above - patient reports she has previously been stable and has not had any significant progression in her disease since diagnosis many years ago -ordered MRI: as above; no MS lesions noted - follows with Neurology at [facility] - continue teriflulnomide -neurology recommending brain MRI MS protocol to rule out definitively (3) DM type 2 (diabetes mellitus, type 2): Qualifiers: Diabetes mellitus long term acute care registered nurse insulin use: unspecified long term acute care registered nurse insulin use status Diabetes mellitus complication status: without complication Qualified Code(s): E11.9 - Type 2 diabetes mellitus without complications Code(s): E11.9 - Type 2 diabetes mellitus without complications Status: Acute Assessment and Plan: - hypoglycemia protocol - POC blood glucose ACHS - home medication: Continue glimepiride, tradjenta - correct regimen ordered - high dose TIDWM, based off BMI - A1C 9.6% on 10/13/2024 (4) Hyperlipidemia: Qualifiers: Hyperlipidemia type: mixed hyperlipidemia Qualified Code(s): E78.2 - Mixed hyperlipidemia Code(s): E78.5 - Hyperlipidemia, unspecified Status: Chronic Assessment and Plan: - continue rosuvastatin (5) Benign essential hypertension: Code(s): I10 - Essential (primary) hypertension Status: Chronic Assessment and Plan: - chronic, currently 135/75, stable. - continue home medications: Coreg, Lasix, spironolactone, valsartan - monitor Plan Diet: Diabetic GI Prophylaxis: n/a DVT Prophylaxis: SCDs IV fluids: None Lines/Tubes: Peripheral IV Code Status: Full code Subjective Date/time seen: 01/15/25 18:21 Interval history: Patient reports a her last multiple sclerosis flare up was years ago but did not experience any leg weakness. Patient denies any urinary or fecal incontinence. Patient underwent a right knee replacement last December. Patient reports of back pain radiating to right lower extremity. Will order MRI Review of Systems Review of Systems: All systems reviewed & are unremarkable except as noted in HPI and below Exam Const: General: comfortable and no acute distress Other: , female, nontoxic appearance HENMT: Face/Nose/Sinus: Normal nares present Mouth: Yes moist mucous membranes Eyes: General: appearance normal, both eyes and all related structures Sclera: sclerae normal Pupils: Equal, round and reactive pupils present EOM: EOMs intact bilaterally Resp: Effort & Inspection: normal respiratory effort Auscultation: clear to auscultation bilaterally Cardio: Rate: regular rate Rhythm: regular rhythm Other: S1-S2 present without murmur, rub, ectopy GI: Other: Abdomen soft, nondistended, nontender. Normoactive bowel sounds in all quadrants. Skin: General skin exam: normal color and no rashes or lesions noted Wounds: no wounds Neuro: Cranial nerves: Yes Equal, round and reactive pupils present Speech: normal speech Sensory Exam: normal sensation Other: A&O x4. +5in the upper extremities bilaterally. +4 in the lower extremities, right however worse than the left. Extrem: Other: 1+ pitting edema to the bilateral lower extremities, symmetric Psych: Mental Status: mental status grossly normal Affect: normal affect Other: Good insight and judgment, pleasant Objective Data Vital Signs Vital Signs: Vital Signs - 24 hr 01/14/25 20:00 01/14/25 20:51 01/14/25 21:33 Temperature 98.2 F Pulse Rate 73 74 73 Respiratory Rate 16 16 Blood Pressure 118/60 Pulse Oximetry 98 98 Oxygen Delivery Room Air Fraction of Inspired Oxygen 21 01/15/25 06:00 01/15/25 08:03 Temperature 97.9 F Pulse Rate 69 82 Respiratory Rate 14 Blood Pressure 113/54 L Pulse Oximetry 100 Oxygen Delivery Fraction of Inspired Oxygen Intake/Output Intake/Output: Intake & Output 01/12/25 01/13/25 01/14/25 01/15/25 23:59 23:59 23:59 23:59 Intake Total 752 950 2477 1530 Output Total 189 351 6035 1550 Balance 40 120 -1650 -20 Meds/Results Medications: Active Medications Generic Name Dose Route Start Last Admin Trade Name Freq PRN Reason Stop Dose Admin Acetaminophen 650 mg 01/12/25 12:59 01/15/25 17:36 Acetaminophen 325 Mg Tablet PO 650 mg Q4H PRN Administration Mild Pain (1-3) or Fever Hydrocodone Bitart/Acetaminophen 1 tab 01/12/25 15:25 01/15/25 06:56 Hydrocodone/Acetaminophen (*Crx) 5-325 Mg Tablet PO 1 tab Q4H PRN Administration Moderate Pain (4-6) Aspirin 81 mg 01/13/25 09:00 01/15/25 08:02 Aspirin 81 Mg Enteric Tablet PO 81 mg QAM DASHA Administration Benzonatate 200 mg 01/13/25 00:06 Benzonatate 100 Mg Capsule PO TID PRN cough Bisacodyl 5 mg 01/12/25 15:25 Bisacodyl 5 Mg Tablet Ec PO DAILY PRN Constipation Carvedilol 25 mg 01/13/25 09:00 01/15/25 08:03 Carvedilol 25 Mg Tablet PO 25 mg Q12HR DASHA Administration Dextrose 12.5 gm 01/12/25 15:25 Dextrose 50% 25 Gm/50 Ml Syringe IV PUSH PRN PRN Hypoglycemia Protocol Diazepam 5 mg 01/14/25 08:18 01/14/25 10:15 Diazepam Inj (*Crx) 10 Mg/2 Ml Syringe IV PUSH 5 mg ONCE PRN Administration Anxiety Furosemide 80 mg 01/13/25 09:00 01/15/25 08:02 Furosemide 40 Mg Tablet PO 80 mg DAILY DASHA Administration Glimepiride 1 mg 01/13/25 08:00 01/15/25 08:02 Glimepiride 1 Mg Tablet PO 1 mg DAILY@0800 DASHA Administration Glucagon 1 mg 01/12/25 15:25 Glucagon For Inj 1 Mg Vial IM PRN PRN Hypoglycemia Protocol Glucose 15 gm 01/12/25 15:25 Glucose Oral Gel 15 Gm Of Glucse In 37.5 Gm Tube PO PRN PRN Hypoglycemia Protocol Home Med 1 each 01/13/25 09:00 01/15/25 08:04 Teriflunomide [Aubagio] 14 Mg Tablet Home Med PO 02/12/25 08:59 1 each DAILY DASHA Administration Dextrose 1,000 mls @ 100 mls/hr 01/12/25 15:25 Dextrose 5% 1,000 Ml IVPB PRN PRN Hypoglycemia Protocol Insulin Aspart 4 - 8 units 01/12/25 17:00 01/15/25 16:58 Insulin Aspart (*Bkc) 100 Units/Ml SUB-Q Not Given TIDWM DASHA Protocol Lorazepam 1 mg 01/15/25 14:25 Lorazepam (*Crx) 1 Mg Tablet PO ONCE PRN for MRI scan Morphine Sulfate 2 mg 01/12/25 15:40 Morphine Sulfate (*Crx) 4 Mg/Ml Inj IV PUSH Q4H PRN Pain Rated 7-10 Rosuvastatin Calcium 5 mg 01/13/25 09:00 01/15/25 08:03 Rosuvastatin 5 Mg Tablet PO 5 mg DAILY DASHA Administration Sitagliptin Phosphate 100 mg 01/13/25 09:00 01/15/25 08:02 Sitagliptin Phosphate 100 Mg Tablet PO 100 mg QAM DASHA Administration Solifenacin 10 mg 01/13/25 09:00 01/15/25 08:02 Solifenacin 5 Mg Tablet PO 10 mg QAM DASHA Administration Spironolactone 50 mg 01/13/25 09:00 01/15/25 08:03 Spironolactone 50 Mg Tablet PO 50 mg DAILY DASHA Administration Valsartan 160 mg 01/13/25 09:00 01/15/25 08:02 Valsartan 160 Mg Tablet PO 160 mg Q12HR DASHA Administration Vitamin D 100 mcg 01/13/25 09:00 01/15/25 08:02 Cholecalciferol (Vitamin D3) 25 Mcg (1,000 Units) Tablet PO 100 mcg DAILY DASHA Administration Radiology Results: ITS Impressions Lumbar Spine CT 01/12/25 11:28 IMPRESSION: 1. A degree thoracolumbar dextrocurvature with severe lower lumbar spondylosis. Lumbar Spine MRI 01/14/25 11:44 IMPRESSION: 1. Severe lumbar spondylosis. Cervical Spine MRI 01/14/25 12:27 IMPRESSION: 1. Again seen C4-C6 anterior spinal fusion with anterior plate and screw fixation. There is new magnetic field artifact now obscuring the C3-C4 disc space which was not present at the time of the prior study suggesting possible interval extension of the anterior fusion. Correlate with surgical history and could consider correlation with plain radiographs as clinically indicated. 2. No significant change in moderate cervical spondylosis including a small region of likely myelomalacia with decrease cross-sectional diameter of the cord and increased cord signal at the level of C4. 3. Multinodular goiter. Thoracic Spine MRI 01/14/25 20:35 IMPRESSION: 1. 25 degrees upper thoracic dextroscoliosis with mild spondylosis. Hip X-Ray 01/15/25 15:56 Impression: No acute fracture or malalignment. Knee X-Ray 01/15/25 15:56 Impression: No acute fracture or malalignment. Cervical Spine X-Ray 01/15/25 16:00 Impression: No acute abnormality. Labs Labs: Laboratory Results - last 24 hr 01/14/25 01/15/25 01/15/25 19:45 05:09 07:25 WBC 7.5 RBC 4.01 L Hgb 10.5 L Hct 34.6 L MCV 86.3 MCH 26.2 MCHC 30.3 L RDW 16.0 H Plt Count 180 MPV 11.5 H Immature Gran % (Auto) 0.4 Neut % (Auto) 52.5 Lymph % (Auto) 30.1 [place] % (Auto) 11.2 H Eos % (Auto) 5.1 H Baso % (Auto) 0.7 Lymph # (Auto) 2.26 [place] # (Auto) 0.8 H Eos # (Auto) 0.4 H Baso # (Auto) 0.1 Abs Immat Gran (auto) 0.03 Absolute Neuts (auto) 3.9 Absolute Nucleated RBC 0.000 Nucleated RBC % 0.0 Sodium 136 L Potassium 3.3 L Chloride 101 Carbon Dioxide 30 Anion Gap 5 BUN 12 Creatinine 0.78 Estim Creat Clear Calc 64 Estimated GFR > 60 Glucose 130 H POC Capillary Glucose 202 H 132 H Calcium 8.4 Total Bilirubin 0.4 AST 22 ALT 11 Alkaline Phosphatase 117 Total Protein 6.3 Albumin 3.1 L 01/15/25 01/15/25 11:45 16:47 WBC RBC Hgb Hct MCV MCH MCHC RDW Plt Count MPV Immature Gran % (Auto) Neut % (Auto) Lymph % (Auto) [place] % (Auto) Eos % (Auto) Baso % (Auto) Lymph # (Auto) [place] # (Auto) Eos # (Auto) Baso # (Auto) Abs Immat Gran (auto) Absolute Neuts (auto) Absolute Nucleated RBC Nucleated RBC % Sodium Potassium Chloride Carbon Dioxide Anion Gap BUN Creatinine Estim Creat Clear Calc Estimated GFR Glucose POC Capillary Glucose 223 H 189 H Calcium Total Bilirubin AST ALT Alkaline Phosphatase Total Protein Albumin Quality VTE Prophylaxis VTE prophylaxis: mechanical ordered
[2025-01-15 20:00] VITALS: PULSE 68; RESP 18; O2SAT 100
[2025-01-15 20:43] VITALS: PULSE 62
[2025-01-15 21:46] VITALS: BP 112/61; PULSE 68; RESP 18; TEMP 36.6; O2SAT 100
[2025-01-16 06:00] VITALS: BP 123/59; PULSE 70; RESP 18; TEMP 36.6; O2SAT 100
[2025-01-16 08:03] LABS: Hematocrit 36.9 % (37.0-47.0); Hemoglobin 11.3 g/dL (12.0-15.0); Immature Granulocyte Percent A 0.7 % (0-0.5); Lymphocytes Absolute Auto 2.06 K/mm3 (0.9-3.2); Mean Corpuscular HGB Conc 30.6 g/dl (32-36); Mean Corpuscular Hemoglobin 26.3 pg (26-34); Mean Corpuscular Volume 85.8 fl (80-100); Nucleated Red Blood Cells Absolute Auto 0.000 K/mm3 (0.0-0.012); Nucleated Red Blood Cells Perc 0.0 % (0.0-0.2); Platelet Count Result 199 k/mm3 (150-375); Red Blood Count 4.30 M/mm3 (4.2-5.4); White Blood Count 7.6 K/mm3 (4.5-10.0)
[2025-01-16] MEDS: HYDROcodone/acetaminophen (*CRX) 5-325 MG TABLET 1 TAB PO (08:06)
[2025-01-16 08:25] LABS: Alanine Aminotransferase 12 U/L (6-35); Albumin Level 3.4 g/dL (3.5-5.1); Alkaline Phosphatase 105 U/L (38-126); Anion Gap 4 mmol/L (4-12); Aspartate Amino Transferase 32 U/L (14-36); Bilirubin,Total 0.5 mg/dL (0.2-1.3); Blood Urea Nitrogen 15 mg/dL (7-17); Calcium 8.7 mg/dL (8.4-10.2); Carbon Dioxide 32 mmol/L (22-30); Chloride 102 mmol/L (98-107); Estimated CRCL calculation 55 ml/min; Estimated Glomerular Filt Rate > 60; Glucose 112 mg/dL (65-110); Potassium 3.8 mmol/L (3.4-5.0); Sodium 138 mmol/L (137-145); Total Protein 6.8 g/dL (6.3-8.2)
[2025-01-16] MEDS: SOLIFENACIN 5 MG TABLET 10 MG PO (09:13)
[2025-01-16] MEDS: GLIMEPIRIDE 1 MG TABLET PO (09:13)
[2025-01-16] MEDS: FUROSEMIDE 40 MG TABLET 80 MG PO (09:13)
[2025-01-16] MEDS: CHOLECALCIFEROL (VITAMIN D3) 25 MCG (1,000 UNITS) TABLET 100 MCG PO (09:13)
[2025-01-16] MEDS: VALSARTAN 160 MG TABLET PO ×2 (09:13→20:04)
[2025-01-16 09:14] VITALS: PULSE 70
[2025-01-16] MEDS: ROSUVASTATIN 5 MG TABLET PO (09:14)
[2025-01-16] MEDS: SPIRONOLACTONE 50 MG TABLET PO (09:14)
[2025-01-16] MEDS: ASPIRIN 81 MG ENTERIC TABLET PO (09:16)
[2025-01-16] MEDS: TERIFLUNOMIDE 14 MG 1 EACH PO (09:17)
--- NOTE | 2025-01-16 09:55 | P.PNIM_ITS ---
Progress Note: A&P Assessment and Plan (1) Lower extremity weakness: Qualifiers: Laterality: bilateral Qualified Code(s): R29.898 - Other symptoms and signs involving the musculoskeletal system Code(s): R29.898 - Other symptoms and signs involving the musculoskeletal system Status: Acute Assessment and Plan: 6 days of BLE weakness and lower back pain radiating into her R thigh. Patient has hx of multiple sclerosis for which Neurology has been consulted, possibility of flare up as etiology. PT/OT/care coordination consulted for evaluation and acute rehab services. Recent history of a right knee placement. Continues to have weakness R>L but it is slowly and slightly improving. - PT/OT eval -Neurology consult tomorrow, consideration for ortho or neurosurgery evaluation after discussion with neuro - care coordination for acute rehab - CT lumbar (01/12): A degree thoracolumbar dextrocurvature with severe lower lumbar spondylosis. - analgesics prn: Tylenol, [place], morphine. Hold home tramadol. - MRI C spine: 1. Again seen C4-C6 anterior spinal fusion with anterior plate and screw fixation. There is new magnetic field artifact now obscuring the C3-C4 disc space which was not present at the time of the prior study suggesting possible interval extension of the anterior fusion. Correlate with surgical history and could consider correlation with plain radiographs as clinically indicated. 2. No significant change in moderate cervical spondylosis including a small region of likely myelomalacia with decrease cross-sectional diameter of the cord and increased cord signal at the level of C4. 3. Multinodular goiter. -MRI L-spine: Severe lumbar spondylosis. No comment as to MS lesions noted. -seen by Neurology, brain MRI ordered to rule out multiple sclerosis lesions definitively as well as x-rays of the cervical spine, right knee, right hip. Continue PT. Neurology to follow (2) Multiple sclerosis: Code(s): G35 - Multiple sclerosis Status: Acute Assessment and Plan: - see above - patient reports she has previously been stable and has not had any significant progression in her disease since diagnosis many years ago -ordered MRI: as above; no MS lesions noted - follows with Neurology at [facility] - continue teriflulnomide -neurology recommending brain MRI MS protocol to rule out definitively (3) DM type 2 (diabetes mellitus, type 2): Qualifiers: Diabetes mellitus terminal superintendent insulin use: unspecified terminal superintendent insulin use status Diabetes mellitus complication status: without complication Qualified Code(s): E11.9 - Type 2 diabetes mellitus without complications Code(s): E11.9 - Type 2 diabetes mellitus without complications Status: Acute Assessment and Plan: - hypoglycemia protocol - POC blood glucose ACHS - home medication: Continue glimepiride, tradjenta - correct regimen ordered - high dose TIDWM, based off BMI - A1C 9.6% on 10/13/2024 (4) Hyperlipidemia: Qualifiers: Hyperlipidemia type: mixed hyperlipidemia Qualified Code(s): E78.2 - Mixed hyperlipidemia Code(s): E78.5 - Hyperlipidemia, unspecified Status: Chronic Assessment and Plan: - continue rosuvastatin (5) Benign essential hypertension: Code(s): I10 - Essential (primary) hypertension Status: Chronic Assessment and Plan: - chronic, currently 135/75, stable. - continue home medications: Coreg, Lasix, spironolactone, valsartan - monitor Plan Diet: Diabetic GI Prophylaxis: n/a DVT Prophylaxis: SCDs IV fluids: None Lines/Tubes: Peripheral IV Code Status: Full code Subjective Date/time seen: 01/16/25 09:55 Interval history: Patient was seen during the morning rounds today. Patient is feeling slightly better. Able to walk with support. No shortness of breath or chest pain. Number on pain, nausea, no vomiting. Review of Systems Review of Systems: All systems reviewed & are unremarkable except as noted in HPI and below Exam Const: General: comfortable and no acute distress Other: , female, nontoxic appearance HENMT: Face/Nose/Sinus: Normal nares present Mouth: Yes moist mucous membranes Eyes: General: appearance normal, both eyes and all related structures Sclera: sclerae normal Pupils: Equal, round and reactive pupils present EOM: EOMs intact bilaterally Resp: Effort & Inspection: normal respiratory effort Auscultation: clear to auscultation bilaterally Cardio: Rate: regular rate Rhythm: regular rhythm Other: S1-S2 present without murmur, rub, ectopy GI: Other: Abdomen soft, nondistended, nontender. Normoactive bowel sounds in all quadran ts. Skin: General skin exam: normal color and no rashes or lesions noted Wounds: no wounds Neuro: Cranial nerves: Yes Equal, round and reactive pupils present Speech: normal speech Sensory Exam: normal sensation Other: A&O x4. +5in the upper extremities bilaterally. +4 in the lower extremities, right however worse than the left. Extrem: Other: 1+ pitting edema to the bilateral lower extremities, symmetric Psych: Mental Status: mental status grossly normal Affect: normal affect Other: Good insight and judgment, pleasant Objective Data Vital Signs Vital Signs: Vital Signs - 24 hr 01/15/25 20:00 01/15/25 20:43 01/15/25 21:46 Temperature 36.6 C Pulse Rate 68 62 68 Respiratory Rate 18 18 Blood Pressure 112/61 Pulse Oximetry 100 100 Oxygen Delivery Room Air Fraction of Inspired Oxygen 21 01/16/25 06:00 01/16/25 08:00 01/16/25 09:14 Temperature 36.6 C Pulse Rate 70 70 Respiratory Rate 18 Blood Pressure 123/59 L Pulse Oximetry 100 Oxygen Delivery Room Air Fraction of Inspired Oxygen Intake/Output Intake/Output: Intake & Output 01/13/25 01/14/25 01/15/25 01/16/25 23:59 23:59 23:59 23:59 Intake Total 720 1300 1730 400 Output Total 600 2950 1550 Balance 120 -1650 180 400 Meds/Results Medications: Active Medications Generic Name Dose Route Start Last Admin Trade Name Freq PRN Reason Stop Dose Admin Acetaminophen 650 mg 01/12/25 12:59 01/15/25 17:36 Acetaminophen 325 Mg Tablet PO 650 mg Q4H PRN Administration Mild Pain (1-3) or Fever Hydrocodone Bitart/Acetaminophen 1 tab 01/12/25 15:25 01/16/25 08:06 Hydrocodone/Acetaminophen (*Crx) 5-325 Mg Tablet PO 1 tab Q4H PRN Administration Moderate Pain (4-6) Aspirin 81 mg 01/13/25 09:00 01/16/25 09:16 Aspirin 81 Mg Enteric Tablet PO 81 mg QAM DASHA Administration Benzonatate 200 mg 01/13/25 00:06 Benzonatate 100 Mg Capsule PO TID PRN cough Bisacodyl 5 mg 01/12/25 15:25 Bisacodyl 5 Mg Tablet Ec PO DAILY PRN Constipation Carvedilol 25 mg 01/13/25 09:00 01/16/25 09:14 Carvedilol 25 Mg Tablet PO 25 mg Q12HR DASHA Administration Dextrose 12.5 gm 01/12/25 15:25 Dextrose 50% 25 Gm/50 Ml Syringe IV PUSH PRN PRN Hypoglycemia Protocol Diazepam 5 mg 01/14/25 08:18 01/14/25 10:15 Diazepam Inj (*Crx) 10 Mg/2 Ml Syringe IV PUSH 5 mg ONCE PRN Administration Anxiety Furosemide 80 mg 01/13/25 09:00 01/16/25 09:13 Furosemide 40 Mg Tablet PO 80 mg DAILY DASHA Administration Glimepiride 1 mg 01/13/25 08:00 01/16/25 09:13 Glimepiride 1 Mg Tablet PO 1 mg DAILY@0800 DASHA Administration Glucagon 1 mg 01/12/25 15:25 Glucagon For Inj 1 Mg Vial IM PRN PRN Hypoglycemia Protocol Glucose 15 gm 01/12/25 15:25 Glucose Oral Gel 15 Gm Of Glucse In 37.5 Gm Tube PO PRN PRN Hypoglycemia Protocol Home Med 1 each 01/13/25 09:00 01/16/25 09:17 Teriflunomide [Aubagio] 14 Mg Tablet Home Med PO 02/12/25 08:59 1 each DAILY DASHA Administration Dextrose 1,000 mls @ 100 mls/hr 01/12/25 15:25 Dextrose 5% 1,000 Ml IVPB PRN PRN Hypoglycemia Protocol Insulin Aspart 4 - 8 units 01/12/25 17:00 01/16/25 09:11 Insulin Aspart (*Bkc) 100 Units/Ml SUB-Q Not Given TIDWM DASHA Protocol Lorazepam 1 mg 01/15/25 14:25 Lorazepam (*Crx) 1 Mg Tablet PO ONCE PRN for MRI scan Morphine Sulfate 2 mg 01/12/25 15:40 Morphine Sulfate (*Crx) 4 Mg/Ml Inj IV PUSH Q4H PRN Pain Rated 7-10 Rosuvastatin Calcium 5 mg 01/13/25 09:00 01/16/25 09:14 Rosuvastatin 5 Mg Tablet PO 5 mg DAILY DASHA Administration Sitagliptin Phosphate 100 mg 01/13/25 09:00 01/16/25 09:13 Sitagliptin Phosphate 100 Mg Tablet PO 100 mg QAM DASHA Administration Solifenacin 10 mg 01/13/25 09:00 01/16/25 09:13 Solifenacin 5 Mg Tablet PO 10 mg QAM DASHA Administration Spironolactone 50 mg 01/13/25 09:00 01/16/25 09:14 Spironolactone 50 Mg Tablet PO 50 mg DAILY DASHA Administration Valsartan 160 mg 01/13/25 09:00 01/16/25 09:13 Valsartan 160 Mg Tablet PO 160 mg Q12HR DASHA Administration Vitamin D 100 mcg 01/13/25 09:00 01/16/25 09:13 Cholecalciferol (Vitamin D3) 25 Mcg (1,000 Units) Tablet PO 100 mcg DAILY DASHA Administration Radiology Results: ITS Impressions Lumbar Spine CT 01/12/25 11:28 IMPRESSION: 1. A degree thoracolumbar dextrocurvature with severe lower lumbar spondylosis. Lumbar Spine MRI 01/14/25 11:44 IMPRESSION: 1. Severe lumbar spondylosis. Cervical Spine MRI 01/14/25 12:27 IMPRESSION: 1. Again seen C4-C6 anterior spinal fusion with anterior plate and screw fixation. There is new magnetic field artifact now obscuring the C3-C4 disc space which was not present at the time of the prior study suggesting possible interval extension of the anterior fusion. Correlate with surgical history and could consider correlation with plain radiographs as clinically indicated. 2. No significant change in moderate cervical spondylosis including a small region of likely myelomalacia with decrease cross-sectional diameter of the cord and increased cord signal at the level of C4. 3. Multinodular goiter. Thoracic Spine MRI 01/14/25 20:35 IMPRESSION: 1. 25 degrees upper thoracic dextroscoliosis with mild spondylosis. Hip X-Ray 01/15/25 15:56 Impression: No acute fracture or malalignment. Knee X-Ray 01/15/25 15:56 Impression: No acute fracture or malalignment. Cervical Spine X-Ray 01/15/25 16:00 Impression: No acute abnormality. Labs Labs: Laboratory Results - last 24 hr 01/15/25 01/15/25 01/15/25 11:45 16:47 20:13 WBC RBC Hgb Hct MCV MCH MCHC RDW Plt Count MPV Immature Gran % (Auto) Neut % (Auto) Lymph % (Auto) [place] % (Auto) Eos % (Auto) Baso % (Auto) Lymph # (Auto) [place] # (Auto) Eos # (Auto) Baso # (Auto) Abs Immat Gran (auto) Absolute Neuts (auto) Absolute Nucleated RBC Nucleated RBC % Sodium Potassium Chloride Carbon Dioxide Anion Gap BUN Creatinine Estim Creat Clear Calc Estimated GFR Glucose POC Capillary Glucose 223 H 189 H 256 H Calcium Total Bilirubin AST ALT Alkaline Phosphatase Total Protein Albumin 01/16/25 01/16/25 07:33 07:34 WBC 7.6 RBC 4.30 Hgb 11.3 L Hct 36.9 L MCV 85.8 MCH 26.3 MCHC 30.6 L RDW 16.3 H Plt Count 199 MPV 11.4 H Immature Gran % (Auto) 0.7 H Neut % (Auto) 53.8 Lymph % (Auto) 27.1 [place] % (Auto) 11.6 H Eos % (Auto) 5.7 H Baso % (Auto) 1.1 Lymph # (Auto) 2.06 [place] # (Auto) 0.9 H Eos # (Auto) 0.4 H Baso # (Auto) 0.1 Abs Immat Gran (auto) 0.05 H Absolute Neuts (auto) 4.1 Absolute Nucleated RBC 0.000 Nucleated RBC % 0.0 Sodium 138 Potassium 3.8 Chloride 102 Carbon Dioxide 32 H Anion Gap 4 BUN 15 Creatinine 0.91 Estim Creat Clear Calc 55 Estimated GFR > 60 Glucose 112 H POC Capillary Glucose 110 H Calcium 8.7 Total Bilirubin 0.5 AST 32 ALT 12 Alkaline Phosphatase 105 Total Protein 6.8 Albumin 3.4 L Quality VTE Prophylaxis VTE prophylaxis: mechanical ordered
[2025-01-16] MEDS: LORazepam (*CRX) 1 MG TABLET PO (10:17)
[2025-01-16 14:00] VITALS: BP 92/79; PULSE 69; RESP 20; TEMP 36.3; O2SAT 100
[2025-01-16] MEDS: ENOXAPARIN 40 MG/0.4 ML SYRINGE SUB-Q (14:08)
[2025-01-16] MEDS: INSULIN ASPART (*BKC) 100 UNITS/ML SUB-Q (17:00)
[2025-01-16 20:04] VITALS: PULSE 72
[2025-01-16 20:15] VITALS: BP 107/42; PULSE 68; RESP 16; TEMP 36; O2SAT 100
[2025-01-17] VITALS (8 sets, daily range): BP systolic 100–129; BP diastolic 51–85; PULSE 61–77; RESP 18–20; TEMP 36.3–36.4; O2SAT 98–100
[2025-01-17] MEDS: HYDROcodone/acetaminophen (*CRX) 5-325 MG TABLET 1 TAB PO (00:22)
[2025-01-17 09:12] LABS: Hematocrit 36.5 % (37.0-47.0); Hemoglobin 11.1 g/dL (12.0-15.0); Immature Granulocyte Percent A 0.3 % (0-0.5); Lymphocytes Absolute Auto 1.90 K/mm3 (0.9-3.2); Mean Corpuscular HGB Conc 30.4 g/dl (32-36); Mean Corpuscular Hemoglobin 26.1 pg (26-34); Mean Corpuscular Volume 85.9 fl (80-100); Nucleated Red Blood Cells Absolute Auto 0.000 K/mm3 (0.0-0.012); Nucleated Red Blood Cells Perc 0.0 % (0.0-0.2); Platelet Count Result 183 k/mm3 (150-375); Red Blood Count 4.25 M/mm3 (4.2-5.4); White Blood Count 6.8 K/mm3 (4.5-10.0)
[2025-01-17 09:35] LABS: Alanine Aminotransferase 14 U/L (6-35); Albumin Level 3.4 g/dL (3.5-5.1); Alkaline Phosphatase 96 U/L (38-126); Anion Gap 5 mmol/L (4-12); Aspartate Amino Transferase 32 U/L (14-36); Bilirubin,Total 0.6 mg/dL (0.2-1.3); Blood Urea Nitrogen 17 mg/dL (7-17); Calcium 8.7 mg/dL (8.4-10.2); Carbon Dioxide 31 mmol/L (22-30); Chloride 100 mmol/L (98-107); Estimated CRCL calculation 58 ml/min; Estimated Glomerular Filt Rate > 60; Glucose 113 mg/dL (65-110); Potassium 3.4 mmol/L (3.4-5.0); Sodium 136 mmol/L (137-145); Total Protein 6.9 g/dL (6.3-8.2)
[2025-01-17] MEDS: CHOLECALCIFEROL (VITAMIN D3) 25 MCG (1,000 UNITS) TABLET 100 MCG PO (09:38)
[2025-01-17] MEDS: ASPIRIN 81 MG ENTERIC TABLET PO (09:39)
[2025-01-17] MEDS: SOLIFENACIN 5 MG TABLET 10 MG PO (09:39)
[2025-01-17] MEDS: GLIMEPIRIDE 1 MG TABLET PO (09:39)
[2025-01-17] MEDS: VALSARTAN 160 MG TABLET PO ×2 (09:39→20:40)
[2025-01-17] MEDS: SPIRONOLACTONE 50 MG TABLET PO (09:40)
[2025-01-17] MEDS: ACETAMINOPHEN 325 MG TABLET 650 MG PO ×2 (09:40→23:26)
[2025-01-17] MEDS: ROSUVASTATIN 5 MG TABLET PO (09:40)
[2025-01-17] MEDS: FUROSEMIDE 40 MG TABLET 80 MG PO (09:41)
[2025-01-17] MEDS: ENOXAPARIN 40 MG/0.4 ML SYRINGE SUB-Q (09:50)
[2025-01-17] MEDS: TERIFLUNOMIDE 14 MG 1 EACH PO (10:02)
--- NOTE | 2025-01-17 10:49 | WPDNEUROPN ---
Progress Note: A&P Assessment and Plan (1) Weakness of both lower limbs: Code(s): R29.898 - Other symptoms and signs involving the musculoskeletal system Status: Acute Assessment and Plan: patient has symptoms mostly in the right thigh and a the hip and knee area. No appreciable upper motor neuron findings were noted at this time. She has had surgery the cervical spine for myelopathy and has multiple sclerosis. MRI of the brain did not show any sensing lesion on a fairly well-done study yesterday. She also had MRI of the cervical, thoracic and lumbosacral spine which did not show any significant abnormalities to explain the symptoms of weakness in her lower limbs but degenerative changes and postop changes were noted in cervical spine and degenerative changes noted in the thoracic and lumbosacral spine. There is no disc herniation on the right versus left in the lumbar spine pre however there is some narrowing of the neural foramina. I would also request to the x-ray of the right hip and right knee and that of the cervical spine. The later was suggested by the radiologist. These did not show any significant abnormalities other than some degenerative changes appropriate for her age. (2) Multiple sclerosis: Code(s): G35 - Multiple sclerosis Status: Acute (3) Chronic pain of right knee: Code(s): M25.561 - Pain in right knee; G89.29 - Other chronic pain Status: Acute (4) H/O excision of lamina of cervical vertebra for decompression of spinal cord: Code(s): Z98.890 - Other specified postprocedural states Status: Acute (5) Low back pain: Code(s): M54.50 - Low back pain, unspecified Status: Acute (6) At high risk for falls: Code(s): Z91.81 - History of falling Status: Acute (7) DM type 2 (diabetes mellitus, type 2): Qualifiers: Diabetes mellitus fdc insulin use: unspecified fdc insulin use status Diabetes mellitus complication status: without complication Qualified Code(s): E11.9 - Type 2 diabetes mellitus without complications Code(s): E11.9 - Type 2 diabetes mellitus without complications Status: Acute Plan The possibility of her right lower limb pain being coming from the the lumbar spine or diabetic amyotrophy or pain in the right hip or knee be in the differential diagnosis. I will suggest to get an opinion from a orthopedic surgeon. She has been seen by neurosurgeons until last year since he had a cervical myelopathy.. I doubt this to be the problem but if it is up to you to get an opinion from neurosurgeon at some point. This may also cover the problem of the lumbar spine being a possible source. Regard to the possible diabetic amyotrophy since the pain is most in the right anterior thigh she feels weak and EMG nerve can study of both lower limbs in 3-4 weeks after the onset of symptoms can be helpful if above approach does not provide a different answer. Finally the patient follows with Dr. Héctor Shaikh in [facility]. The patient should be advised to follow-up with him also to see if he has any different view about course of steroid treatment for her however I would not be in favor of treating her with steroids because there is no evidence for acute exacerbation on the any of the MRI so far. She is also diabetic and that may risk putting diabetes also out of control. her hemoglobin A1c was 9.2 in October 2024, If he had enhancing lesion or definite attack of MS exacerbation then certainly steroid will be justifiable. I shall be glad to discuss this further with you. In the meanwhile she is under physical therapy and that should continue. Subjective Date/time seen: 01/17/25 10:49 Interval history: The patient is 69-year-old Afro-English female with history of multiple sclerosis on [facility] under care of Dr. Anaya seeing her at [facility]. She continues to have difficulty in walking and she is not able to walk independently or has difficulty walking even with a walker. She complains of pain in the right thigh which shoots down from the back to her right leg. Most of the pain is in the right hip and knee area. She also history of arthritis of the right knee. The patient is known to be diabetic for several years and also has had a surgeon cervical spine for myelopathy at C3-4 level approximately 2 years ago. No new symptoms reported. Review of Systems Review of Systems: All systems reviewed & are unremarkable except as noted in HPI and below Exam Const: General: cooperative, comfortable and no acute distress HENMT: Head: atraumatic Eyes: Alignment and Position: alignment normal and position normal EOM: EOMs intact bilaterally Resp: Effort & Inspection: normal respiratory effort Skin: General skin exam: normal color Neuro: Cranial nerves: Yes CN's II-XII intact bilaterally, Yes facial symmetry and Yes Midline tongue present Cognition (Neuro): normal cognition Speech: normal speech Sensory Exam: normal sensation Other: Patient has weakness in the right leg and she is not able to extend the knee fully and unable to hold it against the gravity but she has normal on the left side. He has normal strength in the plantar flexion and dorsiflexion at the ankle on both sides. Deep tendon reflexes are decreased but no significant asymmetry was seen. Psych: Appearance: well kempt Mental Status: mental status grossly normal Speech and movement: Normal speech and movement present Affect: normal affect Thought process: Normal thought process present Thought content: Yes Normal thought content present Insight: Good insight present (Psych) Judgement: Good judgement present (Psych) Objective Data Vital Signs Vital Signs: Vital Signs - 24 hr 01/16/25 14:00 01/16/25 20:00 01/16/25 20:04 Temperature 97.3 F L Pulse Rate 69 72 Respiratory Rate 20 Blood Pressure 92/79 L Pulse Oximetry 100 Oxygen Delivery Room Air 01/16/25 20:15 01/17/25 05:00 01/17/25 09:41 Temperature 96.8 F L 97.6 F Pulse Rate 68 61 76 Respiratory Rate 16 20 Blood Pressure 107/42 L 108/51 L Pulse Oximetry 100 100 Oxygen Delivery 01/17/25 10:00 Temperature Pulse Rate 76 Respiratory Rate Blood Pressure 127/61 Pulse Oximetry Oxygen Delivery Intake/Output Intake/Output: Intake & Output 01/14/25 01/15/25 01/16/25 01/17/25 23:59 23:59 23:59 23:59 Intake Total 1300 1730 1480 520 Output Total 2950 1550 250 Balance -5663 233 6969 270 Meds/Results Medications: Active Medications Generic Name Dose Route Start Last Admin Trade Name Freq PRN Reason Stop Dose Admin Acetaminophen 650 mg 01/12/25 12:59 01/17/25 09:40 Acetaminophen 325 Mg Tablet PO 650 mg Q4H PRN Administration Mild Pain (1-3) or Fever Hydrocodone Bitart/Acetaminophen 1 tab 01/12/25 15:25 01/17/25 00:22 Hydrocodone/Acetaminophen (*Crx) 5-325 Mg Tablet PO 1 tab Q4H PRN Administration Moderate Pain (4-6) Aspirin 81 mg 01/13/25 09:00 01/17/25 09:39 Aspirin 81 Mg Enteric Tablet PO 81 mg QAM DASHA Administration Benzonatate 200 mg 01/13/25 00:06 Benzonatate 100 Mg Capsule PO TID PRN cough Bisacodyl 5 mg 01/12/25 15:25 Bisacodyl 5 Mg Tablet Ec PO DAILY PRN Constipation Carvedilol 25 mg 01/13/25 09:00 10 09:41 Carvedilol 25 Mg Tablet PO 25 mg Q12HR DASHA Administration Dextrose 12.5 gm 01/12/25 15:25 Dextrose 50% 25 Gm/50 Ml Syringe IV PUSH PRN PRN Hypoglycemia Protocol Diazepam 5 mg 01/14/25 08:18 01/14/25 10:15 Diazepam Inj (*Crx) 10 Mg/2 Ml Syringe IV PUSH 5 mg ONCE PRN Administration Anxiety Enoxaparin Sodium 40 mg 01/16/25 14:05 01/17/25 09:50 Enoxaparin 40 Mg/0.4 Ml Syringe SUB-Q 40 mg DAILY DASHA Administration Furosemide 80 mg 01/13/25 09:00 01/17/25 09:41 Furosemide 40 Mg Tablet PO 80 mg DAILY DASHA Administration Glimepiride 1 mg 01/13/25 08:00 01/17/25 09:39 Glimepiride 1 Mg Tablet PO 1 mg DAILY@0800 DASHA Administration Glucagon 1 mg 01/12/25 15:25 Glucagon For Inj 1 Mg Vial IM PRN PRN Hypoglycemia Protocol Glucose 15 gm 01/12/25 15:25 Glucose Oral Gel 15 Gm Of Glucse In 37.5 Gm Tube PO PRN PRN Hypoglycemia Protocol Home Med 1 each 01/13/25 09:00 01/17/25 10:02 Teriflunomide [Aubagio] 14 Mg Tablet Home Med PO 02/12/25 08:59 1 each DAILY DASHA Administration Dextrose 1,000 mls @ 100 mls/hr 01/12/25 15:25 Dextrose 5% 1,000 Ml IVPB PRN PRN Hypoglycemia Protocol Insulin Aspart 4 - 8 units 01/12/25 17:00 01/17/25 09:36 Insulin Aspart (*Bkc) 100 Units/Ml SUB-Q Not Given TIDWM DASHA Protocol Morphine Sulfate 2 mg 01/12/25 15:40 Morphine Sulfate (*Crx) 4 Mg/Ml Inj IV PUSH Q4H PRN Pain Rated 7-10 Rosuvastatin Calcium 5 mg 01/13/25 09:00 01/17/25 09:40 Rosuvastatin 5 Mg Tablet PO 5 mg DAILY DASHA Administration Sitagliptin Phosphate 100 mg 01/13/25 09:00 01/17/25 09:41 Sitagliptin Phosphate 100 Mg Tablet PO 100 mg QAM DASHA Administration Solifenacin 10 mg 01/13/25 09:00 01/17/25 09:39 Solifenacin 5 Mg Tablet PO 10 mg QAM DASHA Administration Spironolactone 50 mg 01/13/25 09:00 01/17/25 09:40 Spironolactone 50 Mg Tablet PO 50 mg DAILY DASHA Administration Valsartan 160 mg 01/13/25 09:00 01/17/25 09:39 Valsartan 160 Mg Tablet PO 160 mg Q12HR DASHA Administration Vitamin D 100 mcg 01/13/25 09:00 01/17/25 09:38 Cholecalciferol (Vitamin D3) 25 Mcg (1,000 Units) Tablet PO 100 mcg DAILY DASHA Administration Radiology Results: ITS Impressions Lumbar Spine CT 01/12/25 11:28 IMPRESSION: 1. A degree thoracolumbar dextrocurvature with severe lower lumbar spondylosis. Lumbar Spine MRI 01/14/25 11:44 IMPRESSION: 1. Severe lumbar spondylosis. Cervical Spine MRI 01/14/25 12:27 IMPRESSION: 1. Again seen C4-C6 anterior spinal fusion with anterior plate and screw fixation. There is new magnetic field artifact now obscuring the C3-C4 disc space which was not present at the time of the prior study suggesting possible interval extension of the anterior fusion. Correlate with surgical history and could consider correlation with plain radiographs as clinically indicated. 2. No significant change in moderate cervical spondylosis including a small region of likely myelomalacia with decrease cross-sectional diameter of the cord and increased cord signal at the level of C4. 3. Multinodular goiter. Thoracic Spine MRI 01/14/25 20:35 IMPRESSION: 1. 25 degrees upper thoracic dextroscoliosis with mild spondylosis. Hip X-Ray 01/15/25 15:56 Impression: No acute fracture or malalignment. Knee X-Ray 01/15/25 15:56 Impression: No acute fracture or malalignment. Cervical Spine X-Ray 01/15/25 16:00 Impression: No acute abnormality. Brain MRI 01/16/25 11:46 IMPRESSION: 1. Extensive chronically unchanged cerebral and cerebellar white matter disease, consistent with quiescent multiple sclerosis. Labs Labs: Laboratory Results - last 24 hr 01/16/25 01/16/25 01/16/25 11:38 16:43 20:20 WBC RBC Hgb Hct MCV MCH MCHC RDW Plt Count MPV Immature Gran % (Auto) Neut % (Auto) Lymph % (Auto) [place] % (Auto) Eos % (Auto) Baso % (Auto) Lymph # (Auto) [place] # (Auto) Eos # (Auto) Baso # (Auto) Abs Immat Gran (auto) Absolute Neuts (auto) Absolute Nucleated RBC Nucleated RBC % Sodium Potassium Chloride Carbon Dioxide Anion Gap BUN Creatinine Estim Creat Clear Calc Estimated GFR Glucose POC Capillary Glucose 157 H 245 H 166 H Calcium Total Bilirubin AST ALT Alkaline Phosphatase Total Protein Albumin 01/17/25 01/17/25 07:39 08:58 WBC 6.8 RBC 4.25 Hgb 11.1 L Hct 36.5 L MCV 85.9 MCH 26.1 MCHC 30.4 L RDW 16.2 H Plt Count 183 MPV 10.9 H Immature Gran % (Auto) 0.3 Neut % (Auto) 53.6 Lymph % (Auto) 28.0 [place] % (Auto) 10.3 H Eos % (Auto) 7.1 H Baso % (Auto) 0.7 Lymph # (Auto) 1.90 [place] # (Auto) 0.7 H Eos # (Auto) 0.5 H Baso # (Auto) 0.1 Abs Immat Gran (auto) 0.02 Absolute Neuts (auto) 3.6 Absolute Nucleated RBC 0.000 Nucleated RBC % 0.0 Sodium 136 L Potassium 3.4 Chloride 100 Carbon Dioxide 31 H Anion Gap 5 BUN 17 Creatinine 0.87 Estim Creat Clear Calc 58 Estimated GFR > 60 Glucose 113 H POC Capillary Glucose 88 Calcium 8.7 Total Bilirubin 0.6 AST 32 ALT 14 Alkaline Phosphatase 96 Total Protein 6.9 Albumin 3.4 L
--- NOTE | 2025-01-17 15:54 | PM.IMPN ---
Progress Note: A&P Assessment and Plan (1) Lower extremity weakness: Qualifiers: Laterality: bilateral Qualified Code(s): R29.898 - Other symptoms and signs involving the musculoskeletal system Code(s): R29.898 - Other symptoms and signs involving the musculoskeletal system Status: Acute Assessment and Plan: 6 days of BLE weakness and lower back pain radiating into her R thigh. Patient has hx of multiple sclerosis for which Neurology has been consulted, possibility of flare up as etiology. PT/OT/care coordination consulted for evaluation and acute rehab services. Recent history of a right knee placement. Continues to have weakness R>L but it is slowly and slightly improving. Neurology has evaluated MRI Brain/C-spine/L-spine- no MS lesions identified. - PT/OT eval -Neurology consult tomorrow, recommends orthopedic surgery eval and consideration of element of diabetic amyotrophy given uncontrolled DM and patient is having extremity pain- EMG can be done 3-4 weeks after discharge. Also was recommended to consider neurosurgery input as well after orthopedics input if no diagnosis can be identified. Continue PT. - care coordination for acute rehab - CT lumbar (01/12): A degree thoracolumbar dextrocurvature with severe lower lumbar spondylosis. - analgesics prn: Tylenol, [place], morphine. Hold home tramadol. - MRI C spine: 1. Again seen C4-C6 anterior spinal fusion with anterior plate and screw fixation. There is new magnetic field artifact now obscuring the C3-C4 disc space which was not present at the time of the prior study suggesting possible interval extension of the anterior fusion. Correlate with surgical history and could consider correlation with plain radiographs as clinically indicated. 2. No significant change in moderate cervical spondylosis including a small region of likely myelomalacia with decrease cross-sectional diameter of the cord and increased cord signal at the level of C4. 3. Multinodular goiter. -MRI L-spine: Severe lumbar spondylosis. No comment as to MS lesions noted. -seen by Neurology, brain MRI ruled out multiple sclerosis lesions definitively as well as x-rays of the cervical spine, right knee, right hip were done. 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 insulin use status Diabetes mellitus complication status: without complication Qualified Code(s): E11.9 - Type 2 diabetes mellitus without complications Code(s): E11.9 - Type 2 diabetes mellitus without complications Status: Acute Assessment and Plan: - hypoglycemia protocol - POC blood glucose ACHS - home medication: Continue glimepiride, tradjenta - correct regimen ordered - high dose TIDWM, based off BMI - A1C 9.6% on 10/13/2024 (4) Hyperlipidemia: Qualifiers: Hyperlipidemia type: mixed hyperlipidemia Qualified Code(s): E78.2 - Mixed hyperlipidemia Code(s): E78.5 - Hyperlipidemia, unspecified Status: Chronic Assessment and Plan: - continue rosuvastatin (5) Benign essential hypertension: Code(s): I10 - Essential (primary) hypertension Status: Chronic Assessment and Plan: - chronic, currently 135/75, stable. - continue home medications: Coreg, Lasix, spironolactone, valsartan - monitor Plan Diet: Diabetic GI Prophylaxis: n/a DVT Prophylaxis: SCDs IV fluids: None Lines/Tubes: Peripheral IV Code Status: Full code Subjective Date/time seen: 01/17/25 15:54 Review of Systems Review of Systems: All systems reviewed & are unremarkable except as noted in HPI and below Exam Const: General: comfortable and no acute distress Other: , female, nontoxic appearance HENMT: Face/Nose/Sinus: Normal nares present Mouth: Yes moist mucous membranes Eyes: General: appearance normal, both eyes and all related structures Sclera: sclerae normal Pupils: Equal, round and reactive pupils present EOM: EOMs intact bilaterally Resp: Effort & Inspection: normal respiratory effort Auscultation: clear to auscultation bilaterally Cardio: Rate: regular rate Rhythm: regular rhythm Other: S1-S2 present without murmur, rub, ectopy GI: Other: Abdomen soft, nondistended, nontender. Normoactive bowel sounds in all quadrants. Skin: General skin exam: normal color and no rashes or lesions noted Wounds: no wounds Neuro: Cranial nerves: Yes Equal, round and reactive pupils present Speech: normal speech Sensory Exam: normal sensation Other: A&O x4. +5in the upper extremities bilaterally. +4 in the lower extremities, right however worse than the left. Extrem: Other: 1+ pitting edema to the bilateral lower extremities, symmetric Psych: Mental Status: mental status grossly normal Affect: normal affect Other: Good insight and judgment, pleasant Objective Data Vital Signs Vital Signs: Vital Signs - 24 hr 01/16/25 20:00 01/16/25 20:04 01/16/25 20:15 Temperature 96.8 F L Pulse Rate 72 68 Respiratory Rate 16 Blood Pressure 107/42 L Pulse Oximetry 100 Oxygen Delivery Room Air 01/17/25 05:00 01/17/25 09:41 01/17/25 10:00 Temperature 97.6 F Pulse Rate 61 76 76 Respiratory Rate 20 Blood Pressure 108/51 L 127/61 Pulse Oximetry 100 Oxygen Delivery 01/17/25 14:42 Temperature Pulse Rate 77 Respiratory Rate 18 Blood Pressure 100/51 L Pulse Oximetry 100 Oxygen Delivery Intake/Output Intake/Output: Intake & Output 01/14/25 01/15/25 01/16/25 01/17/25 23:59 23:59 23:59 23:59 Intake Total 1300 1730 1480 760 Output Total 2950 1550 250 Balance -2858 773 1815 510 Meds/Results Medications: Active Medications Generic Name Dose Route Start Last Admin Trade Name Freq PRN Reason Stop Dose Admin Acetaminophen 650 mg 01/12/25 12:59 01/17/25 09:40 Acetaminophen 325 Mg Tablet PO 650 mg Q4H PRN Administration Mild Pain (1-3) or Fever Hydrocodone Bitart/Acetaminophen 1 tab 01/12/25 15:25 01/17/25 00:22 Hydrocodone/Acetaminophen (*Crx) 5-325 Mg Tablet PO 1 tab Q4H PRN Administration Moderate Pain (4-6) Aspirin 81 mg 01/13/25 09:00 01/17/25 09:39 Aspirin 81 Mg Enteric Tablet PO 81 mg QAM DASHA Administration Benzonatate 200 mg 01/13/25 00:06 Benzonatate 100 Mg Capsule PO TID PRN cough Bisacodyl 5 mg 01/12/25 15:25 Bisacodyl 5 Mg Tablet Ec PO DAILY PRN Constipation Carvedilol 25 mg 01/13/25 09:00 01/17/25 09:41 Carvedilol 25 Mg Tablet PO 25 mg Q12HR DASHA Administration Dextrose 12.5 gm 01/12/25 15:25 Dextrose 50% 25 Gm/50 Ml Syringe IV PUSH PRN PRN Hypoglycemia Protocol Diazepam 5 mg 01/14/25 08:18 01/14/25 10:15 Diazepam Inj (*Crx) 10 Mg/2 Ml Syringe IV PUSH 5 mg ONCE PRN Administration Anxiety Enoxaparin Sodium 40 mg 01/16/25 14:05 01/17/25 09:50 Enoxaparin 40 Mg/0.4 Ml Syringe SUB-Q 40 mg DAILY DASHA Administration Furosemide 80 mg 01/13/25 09:00 01/17/25 09:41 Furosemide 40 Mg Tablet PO 80 mg DAILY DASHA Administration Glimepiride 1 mg 01/13/25 08:00 01/17/25 09:39 Glimepiride 1 Mg Tablet PO 1 mg DAILY@0800 DASHA Administration Glucagon 1 mg 01/12/25 15:25 Glucagon For Inj 1 Mg Vial IM PRN PRN Hypoglycemia Protocol Glucose 15 gm 01/12/25 15:25 Glucose Oral Gel 15 Gm Of Glucse In 37.5 Gm Tube PO PRN PRN Hypoglycemia Protocol Home Med 1 each 01/13/25 09:00 01/17/25 10:02 Teriflunomide [Aubagio] 14 Mg Tablet Home Med PO 02/12/25 08:59 1 each DAILY DASHA Administration Dextrose 1,000 mls @ 100 mls/hr 01/12/25 15:25 Dextrose 5% 1,000 Ml IVPB PRN PRN Hypoglycemia Protocol Insulin Aspart 4 - 8 units 01/12/25 17:00 01/17/25 12:06 Insulin Aspart (*Bkc) 100 Units/Ml SUB-Q Not Given TIDWM DASHA Protocol Morphine Sulfate 2 mg 01/12/25 15:40 Morphine Sulfate (*Crx) 4 Mg/Ml Inj IV PUSH Q4H PRN Pain Rated 7-10 Rosuvastatin Calcium 5 mg 01/13/25 09:00 01/17/25 09:40 Rosuvastatin 5 Mg Tablet PO 5 mg DAILY DASHA Administration Sitagliptin Phosphate 100 mg 01/13/25 09:00 01/17/25 09:41 Sitagliptin Phosphate 100 Mg Tablet PO 100 mg QAM DASHA Administration Solifenacin 10 mg 01/13/25 09:00 01/17/25 09:39 Solifenacin 5 Mg Tablet PO 10 mg QAM DASHA Administration Spironolactone 50 mg 01/13/25 09:00 01/17/25 09:40 Spironolactone 50 Mg Tablet PO 50 mg DAILY DASHA Administration Valsartan 160 mg 01/13/25 09:00 01/17/25 09:39 Valsartan 160 Mg Tablet PO 160 mg Q12HR DASHA Administration Vitamin D 100 mcg 01/13/25 09:00 01/17/25 09:38 Cholecalciferol (Vitamin D3) 25 Mcg (1,000 Units) Tablet PO 100 mcg DAILY DASHA Administration Radiology Results: ITS Impressions Lumbar Spine CT 01/12/25 11:28 IMPRESSION: 1. A degree thoracolumbar dextrocurvature with severe lower lumbar spondylosis. Lumbar Spine MRI 01/14/25 11:44 IMPRESSION: 1. Severe lumbar spondylosis. Cervical Spine MRI 01/14/25 12:27 IMPRESSION: 1. Again seen C4-C6 anterior spinal fusion with anterior plate and screw fixation. There is new magnetic field artifact now obscuring the C3-C4 disc space which was not present at the time of the prior study suggesting possible interval extension of the anterior fusion. Correlate with surgical history and could consider correlation with plain radiographs as clinically indicated. 2. No significant change in moderate cervical spondylosis including a small region of likely myelomalacia with decrease cross-sectional diameter of the cord and increased cord signal at the level of C4. 3. Multinodular goiter. Thoracic Spine MRI 01/14/25 20:35 IMPRESSION: 1. 25 degrees upper thoracic dextroscoliosis with mild spondylosis. Hip X-Ray 01/15/25 15:56 Impression: No acute fracture or malalignment. Knee X-Ray 01/15/25 15:56 Impression: No acute fracture or malalignment. Cervical Spine X-Ray 01/15/25 16:00 Impression: No acute abnormality. Brain MRI 01/16/25 11:46 IMPRESSION: 1. Extensive chronically unchanged cerebral and cerebellar white matter disease, consistent with quiescent multiple sclerosis. Labs Labs: Laboratory Results - last 24 hr 01/16/25 01/16/25 01/17/25 16:43 20:20 07:39 WBC RBC Hgb Hct MCV MCH MCHC RDW Plt Count MPV Immature Gran % (Auto) Neut % (Auto) Lymph % (Auto) [place] % (Auto) Eos % (Auto) Baso % (Auto) Lymph # (Auto) [place] # (Auto) Eos # (Auto) Baso # (Auto) Abs Immat Gran (auto) Absolute Neuts (auto) Absolute Nucleated RBC Nucleated RBC % Sodium Potassium Chloride Carbon Dioxide Anion Gap BUN Creatinine Estim Creat Clear Calc Estimated GFR Glucose POC Capillary Glucose 245 H 166 H 88 Calcium Total Bilirubin AST ALT Alkaline Phosphatase Total Protein Albumin 01/17/25 01/17/25 08:58 12:00 WBC 6.8 RBC 4.25 Hgb 11.1 L Hct 36.5 L MCV 85.9 MCH 26.1 MCHC 30.4 L RDW 16.2 H Plt Count 183 MPV 10.9 H Immature Gran % (Auto) 0.3 Neut % (Auto) 53.6 Lymph % (Auto) 28.0 [place] % (Auto) 10.3 H Eos % (Auto) 7.1 H Baso % (Auto) 0.7 Lymph # (Auto) 1.90 [place] # (Auto) 0.7 H Eos # (Auto) 0.5 H Baso # (Auto) 0.1 Abs Immat Gran (auto) 0.02 Absolute Neuts (auto) 3.6 Absolute Nucleated RBC 0.000 Nucleated RBC % 0.0 Sodium 136 L Potassium 3.4 Chloride 100 Carbon Dioxide 31 H Anion Gap 5 BUN 17 Creatinine 0.87 Estim Creat Clear Calc 58 Estimated GFR > 60 Glucose 113 H POC Capillary Glucose 163 H Calcium 8.7 Total Bilirubin 0.6 AST 32 ALT 14 Alkaline Phosphatase 96 Total Protein 6.9 Albumin 3.4 L Quality VTE Prophylaxis VTE prophylaxis: mechanical ordered Hospitalist MIPS Advance Care Plan I have confirmed that the patient's Advanced Care Plan is present, code status is documented, or surrogate decision maker is listed in patient medical record.: Yes Medication Reconciliation I have utilized all available resources to obtain, update and review the patients current medications (includes all prescriptions, OTC, herbals, cannabis, and nutritional supplements).: Yes
[2025-01-18 05:40] VITALS: BP 119/66; PULSE 71; RESP 20; TEMP 36; O2SAT 98
[2025-01-18 06:11] LABS: Hematocrit 35.6 % (37.0-47.0); Hemoglobin 10.8 g/dL (12.0-15.0); Immature Granulocyte Percent A 0.6 % (0-0.5); Lymphocytes Absolute Auto 2.05 K/mm3 (0.9-3.2); Mean Corpuscular HGB Conc 30.3 g/dl (32-36); Mean Corpuscular Hemoglobin 26.2 pg (26-34); Mean Corpuscular Volume 86.4 fl (80-100); Nucleated Red Blood Cells Absolute Auto 0.000 K/mm3 (0.0-0.012); Nucleated Red Blood Cells Perc 0.0 % (0.0-0.2); Platelet Count Result 182 k/mm3 (150-375); Red Blood Count 4.12 M/mm3 (4.2-5.4); White Blood Count 6.8 K/mm3 (4.5-10.0)
[2025-01-18 06:23] LABS: Alanine Aminotransferase 18 U/L (6-35); Albumin Level 3.4 g/dL (3.5-5.1); Alkaline Phosphatase 105 U/L (38-126); Anion Gap 6 mmol/L (4-12); Aspartate Amino Transferase 45 U/L (14-36); Bilirubin,Total 0.4 mg/dL (0.2-1.3); Blood Urea Nitrogen 18 mg/dL (7-17); Calcium 8.5 mg/dL (8.4-10.2); Carbon Dioxide 29 mmol/L (22-30); Chloride 101 mmol/L (98-107); Estimated CRCL calculation 54 ml/min; Estimated Glomerular Filt Rate 59; Glucose 119 mg/dL (65-110); Potassium 3.4 mmol/L (3.4-5.0); Sodium 136 mmol/L (137-145); Total Protein 6.8 g/dL (6.3-8.2)
[2025-01-18 09:59] VITALS: PULSE 79
[2025-01-18] MEDS: FUROSEMIDE 40 MG TABLET 80 MG PO (09:59)
[2025-01-18] MEDS: ASPIRIN 81 MG ENTERIC TABLET PO (09:59)
[2025-01-18] MEDS: GLIMEPIRIDE 1 MG TABLET PO (09:59)
[2025-01-18] MEDS: SOLIFENACIN 5 MG TABLET 10 MG PO (09:59)
[2025-01-18] MEDS: VALSARTAN 160 MG TABLET PO ×2 (09:59→21:01)
[2025-01-18] MEDS: ENOXAPARIN 40 MG/0.4 ML SYRINGE SUB-Q (09:59)
[2025-01-18] MEDS: CHOLECALCIFEROL (VITAMIN D3) 25 MCG (1,000 UNITS) TABLET 100 MCG PO (09:59)
[2025-01-18] MEDS: ACETAMINOPHEN 325 MG TABLET 650 MG PO (10:01)
[2025-01-18] MEDS: SPIRONOLACTONE 50 MG TABLET PO (10:01)
[2025-01-18] MEDS: ROSUVASTATIN 5 MG TABLET PO (10:01)
[2025-01-18] MEDS: TERIFLUNOMIDE 14 MG 1 EACH PO (10:04)
--- NOTE | 2025-01-18 13:52 | PM.IMPN ---
Progress Note: A&P Assessment and Plan (1) Lower extremity weakness: Qualifiers: Laterality: bilateral Qualified Code(s): R29.898 - Other symptoms and signs involving the musculoskeletal system Code(s): R29.898 - Other symptoms and signs involving the musculoskeletal system Status: Acute Assessment and Plan: 6 days of BLE weakness and lower back pain radiating into her R thigh. Patient has hx of multiple sclerosis for which Neurology has been consulted, possibility of flare up as etiology. PT/OT/care coordination consulted for evaluation and acute rehab services. Recent history of a right knee placement. Continues to have weakness R>L but it is slowly and slightly improving. Neurology has evaluated MRI Brain/C-spine/L-spine- no MS lesions identified. - PT/OT eval -Neurology recommends orthopedic surgery eval and consideration of element of diabetic amyotrophy given uncontrolled DM and patient is having extremity pain- EMG can be done 3-4 weeks after discharge. Also was recommended to consider neurosurgery input as well after orthopedics input if no diagnosis can be identified. Continue PT orthopedics is aware and on board, to see patient tomorrow 01/19. - care coordination for acute rehab - CT lumbar (01/12): A degree thoracolumbar dextrocurvature with severe lower lumbar spondylosis. - analgesics prn: Tylenol, [place], morphine. Hold home tramadol. - MRI C spine: 1. Again seen C4-C6 anterior spinal fusion with anterior plate and screw fixation. There is new magnetic field artifact now obscuring the C3-C4 disc space which was not present at the time of the prior study suggesting possible interval extension of the anterior fusion. Correlate with surgical history and could consider correlation with plain radiographs as clinically indicated. 2. No significant change in moderate cervical spondylosis including a small region of likely myelomalacia with decrease cross-sectional diameter of the cord and increased cord signal at the level of C4. 3. Multinodular goiter. -MRI L-spine: Severe lumbar spondylosis. No comment as to MS lesions noted. -seen by Neurology, brain MRI ruled out multiple sclerosis lesions definitively as well as x-rays of the cervical spine, right knee, right hip were done. 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 insulin use status Diabetes mellitus complication status: without complication Qualified Code(s): E11.9 - Type 2 diabetes mellitus without complications Code(s): E11.9 - Type 2 diabetes mellitus without complications Status: Acute Assessment and Plan: - hypoglycemia protocol - POC blood glucose ACHS - home medication: Continue glimepiride, tradjenta - correct regimen ordered - high dose TIDWM, based off BMI - A1C 9.6% on 10/13/2024 (4) Hyperlipidemia: Qualifiers: Hyperlipidemia type: mixed hyperlipidemia Qualified Code(s): E78.2 - Mixed hyperlipidemia Code(s): E78.5 - Hyperlipidemia, unspecified Status: Chronic Assessment and Plan: - continue rosuvastatin (5) Benign essential hypertension: Code(s): I10 - Essential (primary) hypertension Status: Chronic Assessment and Plan: - chronic, currently 135/75, stable. - continue home medications: Coreg, Lasix, spironolactone, valsartan - monitor Plan Diet: Diabetic GI Prophylaxis: n/a DVT Prophylaxis: SCDs IV fluids: None Lines/Tubes: Peripheral IV Code Status: Full code Subjective Date/time seen: 01/18/25 13:52 Interval history: The patient is 69-year-old Afro[place] female with history of multiple sclerosis on [place] under care of Dr. Anaya seeing her at [facility]. She continues to have difficulty in walking and she is not able to walk independently or has difficulty walking even with a walker. She complains of pain in the right thigh which shoots down from the back to her right leg. Most of the pain is in the right hip and knee area. She also history of arthritis of the right knee. The patient is known to be diabetic for several years and also has had a surgeon cervical spine for myelopathy at C3-4 level approximately 2 years ago. No new symptoms reported. Review of Systems Review of Systems: All systems reviewed & are unremarkable except as noted in HPI and below Exam Const: General: comfortable and no acute distress Other: , female, nontoxic appearance HENMT: Face/Nose/Sinus: Normal nares present Mouth: Yes moist mucous membranes Eyes: General: appearance normal, both eyes and all related structures Sclera: sclerae normal Pupils: Equal, round and reactive pupils present EOM: EOMs intact bilaterally Resp: Effort & Inspection: normal respiratory effort Auscultation: clear to auscultation bilaterally Cardio: Rate: regular rate Rhythm: regular rhythm Other: S1-S2 present without murmur, rub, ectopy GI: Other: Abdomen soft, nondistended, nontender. Normoactive bowel sounds in all quadrants. Skin: General skin exam: normal color and no rashes or lesions noted Wounds: no wounds Neuro: Cranial nerves: Yes Equal, round and reactive pupils present Speech: normal speech Sensory Exam: normal sensation Other: A&O x4. +5in the upper extremities bilaterally. +4 in the lower extremities, right however worse than the left. Extrem: Other: 1+ pitting edema to the bilateral lower extremities, symmetric Psych: Mental Status: mental status grossly normal Affect: normal affect Other: Good insight and judgment, pleasant Objective Data Vital Signs Vital Signs: Vital Signs - 24 hr 01/17/25 14:42 01/17/25 20:00 01/17/25 20:40 Temperature 97.4 F L Pulse Rate 77 74 75 Respiratory Rate 18 20 20 Blood Pressure 100/51 L 129/85 Pulse Oximetry 100 98 98 Oxygen Delivery Room Air Fraction of Inspired Oxygen 21 01/17/25 20:41 01/17/25 22:03 01/18/25 05:40 Temperature 96.8 F L Pulse Rate 74 71 Respiratory Rate 20 Blood Pressure 119/66 Pulse Oximetry 98 98 Oxygen Delivery Room Air Fraction of Inspired Oxygen 01/18/25 09:59 Temperature Pulse Rate 79 Respiratory Rate Blood Pressure Pulse Oximetry Oxygen Delivery Fraction of Inspired Oxygen Intake/Output Intake/Output: Intake & Output 01/15/25 01/16/25 01/17/25 01/18/25 23:59 23:59 23:59 23:59 Intake Total 1730 1480 1000 340 Output Total 1550 2450 350 Balance 180 1480 -1450 -10 Meds/Results Medications: Active Medications Generic Name Dose Route Start Last Admin Trade Name Freq PRN Reason Stop Dose Admin Acetaminophen 650 mg 01/12/25 12:59 10/12/25 10:01 Acetaminophen 325 Mg Tablet PO 650 mg Q4H PRN Administration Mild Pain (1-3) or Fever Hydrocodone Bitart/Acetaminophen 1 tab 01/12/25 15:25 01/17/25 00:22 Hydrocodone/Acetaminophen (*Crx) 5-325 Mg Tablet PO 1 tab Q4H PRN Administration Moderate Pain (4-6) Aspirin 81 mg 01/13/25 09:00 01/18/25 09:59 Aspirin 81 Mg Enteric Tablet PO 81 mg QAM DASHA Administration Benzonatate 200 mg 01/13/25 00:06 Benzonatate 100 Mg Capsule PO TID PRN cough Bisacodyl 5 mg 01/12/25 15:25 Bisacodyl 5 Mg Tablet Ec PO DAILY PRN Constipation Carvedilol 25 mg 01/13/25 09:00 01/18/25 09:59 Carvedilol 25 Mg Tablet PO 25 mg Q12HR DASHA Administration Dextrose 12.5 gm 01/12/25 15:25 Dextrose 50% 25 Gm/50 Ml Syringe IV PUSH PRN PRN Hypoglycemia Protocol Diazepam 5 mg 01/14/25 08:18 01/14/25 10:15 Diazepam Inj (*Crx) 10 Mg/2 Ml Syringe IV PUSH 5 mg ONCE PRN Administration Anxiety Enoxaparin Sodium 40 mg 01/16/25 14:05 01/18/25 09:59 Enoxaparin 40 Mg/0.4 Ml Syringe SUB-Q 40 mg DAILY DASHA Administration Furosemide 80 mg 01/13/25 09:00 01/18/25 09:59 Furosemide 40 Mg Tablet PO 80 mg DAILY DASHA Administration Glimepiride 1 mg 01/13/25 08:00 01/18/25 09:59 Glimepiride 1 Mg Tablet PO 1 mg DAILY@0800 DASHA Administration Glucagon 1 mg 01/12/25 15:25 Glucagon For Inj 1 Mg Vial IM PRN PRN Hypoglycemia Protocol Glucose 15 gm 01/12/25 15:25 Glucose Oral Gel 15 Gm Of Glucse In 37.5 Gm Tube PO PRN PRN Hypoglycemia Protocol Home Med 1 each 01/13/25 09:00 01/18/25 10:04 Teriflunomide [Aubagio] 14 Mg Tablet Home Med PO 02/12/25 08:59 1 each DAILY DASHA Administration Dextrose 1,000 mls @ 100 mls/hr 01/12/25 15:25 Dextrose 5% 1,000 Ml IVPB PRN PRN Hypoglycemia Protocol Insulin Aspart 4 - 8 units 01/12/25 17:00 01/18/25 11:48 Insulin Aspart (*Bkc) 100 Units/Ml SUB-Q Not Given TIDWM DASHA Protocol Morphine Sulfate 2 mg 01/12/25 15:40 Morphine Sulfate (*Crx) 4 Mg/Ml Inj IV PUSH Q4H PRN Pain Rated 7-10 Rosuvastatin Calcium 5 mg 01/13/25 09:00 01/18/25 10:01 Rosuvastatin 5 Mg Tablet PO 5 mg DAILY DASHA Administration Sitagliptin Phosphate 100 mg 01/13/25 09:00 01/18/25 10:01 Sitagliptin Phosphate 100 Mg Tablet PO 100 mg QAM DASHA Administration Solifenacin 10 mg 01/13/25 09:00 01/18/25 09:59 Solifenacin 5 Mg Tablet PO 10 mg QAM DASHA Administration Spironolactone 50 mg 01/13/25 09:00 01/18/25 10:01 Spironolactone 50 Mg Tablet PO 50 mg DAILY DASHA Administration Valsartan 160 mg 01/13/25 09:00 01/18/25 09:59 Valsartan 160 Mg Tablet PO 160 mg Q12HR DASHA Administration Vitamin D 100 mcg 01/13/25 09:00 01/18/25 09:59 Cholecalciferol (Vitamin D3) 25 Mcg (1,000 Units) Tablet PO 100 mcg DAILY DASHA Administration Radiology Results: ITS Impressions Lumbar Spine CT 01/12/25 11:28 IMPRESSION: 1. A degree thoracolumbar dextrocurvature with severe lower lumbar spondylosis. Lumbar Spine MRI 01/14/25 11:44 IMPRESSION: 1. Severe lumbar spondylosis. Cervical Spine MRI 01/14/25 12:27 IMPRESSION: 1. Again seen C4-C6 anterior spinal fusion with anterior plate and screw fixation. There is new magnetic field artifact now obscuring the C3-C4 disc space which was not present at the time of the prior study suggesting possible interval extension of the anterior fusion. Correlate with surgical history and could consider correlation with plain radiographs as clinically indicated. 2. No significant change in moderate cervical spondylosis including a small region of likely myelomalacia with decrease cross-sectional diameter of the cord and increased cord signal at the level of C4. 3. Multinodular goiter. Thoracic Spine MRI 01/14/25 20:35 IMPRESSION: 1. 25 degrees upper thoracic dextroscoliosis with mild spondylosis. Hip X-Ray 01/15/25 15:56 Impression: No acute fracture or malalignment. Knee X-Ray 01/15/25 15:56 Impression: No acute fracture or malalignment. Cervical Spine X-Ray 01/15/25 16:00 Impression: No acute abnormality. Brain MRI 01/16/25 11:46 IMPRESSION: 1. Extensive chronically unchanged cerebral and cerebellar white matter disease, consistent with quiescent multiple sclerosis. Labs Labs: Laboratory Results - last 24 hr 01/17/25 01/17/25 01/18/25 16:21 20:44 05:44 WBC 6.8 RBC 4.12 L Hgb 10.8 L Hct 35.6 L MCV 86.4 MCH 26.2 MCHC 30.3 L RDW 16.1 H Plt Count 182 MPV 11.0 H Immature Gran % (Auto) 0.6 H Neut % (Auto) 49.3 Lymph % (Auto) 30.1 [place] % (Auto) 12.8 H Eos % (Auto) 6.3 H Baso % (Auto) 0.9 Lymph # (Auto) 2.05 [place] # (Auto) 0.9 H Eos # (Auto) 0.4 H Baso # (Auto) 0.1 Abs Immat Gran (auto) 0.04 H Absolute Neuts (auto) 3.4 Absolute Nucleated RBC 0.000 Nucleated RBC % 0.0 Sodium 136 L Potassium 3.4 Chloride 101 Carbon Dioxide 29 Anion Gap 6 BUN 18 H Creatinine 0.93 Estim Creat Clear Calc 54 Estimated GFR 59 Glucose 119 H POC Capillary Glucose 155 H 277 H Calcium 8.5 Total Bilirubin 0.4 AST 45 H ALT 18 Alkaline Phosphatase 105 Total Protein 6.8 Albumin 3.4 L 01/18/25 01/18/25 07:28 11:25 WBC RBC Hgb Hct MCV MCH MCHC RDW Plt Count MPV Immature Gran % (Auto) Neut % (Auto) Lymph % (Auto) [place] % (Auto) Eos % (Auto) Baso % (Auto) Lymph # (Auto) [place] # (Auto) Eos # (Auto) Baso # (Auto) Abs Immat Gran (auto) Absolute Neuts (auto) Absolute Nucleated RBC Nucleated RBC % Sodium Potassium Chloride Carbon Dioxide Anion Gap BUN Creatinine Estim Creat Clear Calc Estimated GFR Glucose POC Capillary Glucose 115 H 157 H Calcium Total Bilirubin AST ALT Alkaline Phosphatase Total Protein Albumin Quality VTE Prophylaxis VTE prophylaxis: mechanical ordered Hospitalist MIPS Advance Care Plan I have confirmed that the patient's Advanced Care Plan is present, code status is documented, or surrogate decision maker is listed in patient medical record.: Yes Medication Reconciliation I have utilized all available resources to obtain, update and review the patients current medications (includes all prescriptions, OTC, herbals, cannabis, and nutritional supplements).: Yes
[2025-01-18 14:00] VITALS: BP 97/47; PULSE 73; RESP 16; TEMP 36.3; O2SAT 95
[2025-01-18 18:58] VITALS: BP 110/54
[2025-01-18 21:42] VITALS: BP 124/75; PULSE 70; RESP 20; TEMP 36.4; O2SAT 100
[2025-01-19] VITALS (7 sets, daily range): BP systolic 90–110; BP diastolic 49–58; PULSE 68–70; RESP 16–20; TEMP 36.2–36.4; O2SAT 97–100
[2025-01-19] MEDS: ACETAMINOPHEN 325 MG TABLET 650 MG PO ×2 (06:09→09:40)
[2025-01-19 06:41] LABS: Hematocrit 35.9 % (37.0-47.0); Hemoglobin 11.1 g/dL (12.0-15.0); Immature Granulocyte Percent A 0.4 % (0-0.5); Lymphocytes Absolute Auto 2.08 K/mm3 (0.9-3.2); Mean Corpuscular HGB Conc 30.9 g/dl (32-36); Mean Corpuscular Hemoglobin 26.3 pg (26-34); Mean Corpuscular Volume 85.1 fl (80-100); Nucleated Red Blood Cells Absolute Auto 0.000 K/mm3 (0.0-0.012); Nucleated Red Blood Cells Perc 0.0 % (0.0-0.2); Platelet Count Result 182 k/mm3 (150-375); Red Blood Count 4.22 M/mm3 (4.2-5.4); White Blood Count 7.2 K/mm3 (4.5-10.0)
[2025-01-19] MEDS: HYDROcodone/acetaminophen (*CRX) 5-325 MG TABLET 1 TAB PO ×2 (06:51→10:32)
[2025-01-19 07:31] LABS: Alanine Aminotransferase 17 U/L (6-35); Albumin Level 3.4 g/dL (3.5-5.1); Alkaline Phosphatase 108 U/L (38-126); Anion Gap 8 mmol/L (4-12); Aspartate Amino Transferase 38 U/L (14-36); Bilirubin,Total 0.6 mg/dL (0.2-1.3); Blood Urea Nitrogen 18 mg/dL (7-17); Calcium 8.5 mg/dL (8.4-10.2); Carbon Dioxide 26 mmol/L (22-30); Chloride 101 mmol/L (98-107); Estimated CRCL calculation 50 ml/min; Estimated Glomerular Filt Rate 54; Glucose 91 mg/dL (65-110); Potassium 3.2 mmol/L (3.4-5.0); Sodium 135 mmol/L (137-145); Total Protein 6.9 g/dL (6.3-8.2)
[2025-01-19] MEDS: POTASSIUM CHLORIDE 20 MEQ ER TABLET 40 MEQ PO (08:19)
[2025-01-19] MEDS: ASPIRIN 81 MG ENTERIC TABLET PO (08:19)
[2025-01-19] MEDS: GLIMEPIRIDE 1 MG TABLET PO (08:19)
[2025-01-19] MEDS: SOLIFENACIN 5 MG TABLET 10 MG PO (08:20)
[2025-01-19] MEDS: FUROSEMIDE 40 MG TABLET 80 MG PO (08:20)
[2025-01-19] MEDS: CHOLECALCIFEROL (VITAMIN D3) 25 MCG (1,000 UNITS) TABLET 100 MCG PO (08:20)
[2025-01-19] MEDS: VALSARTAN 160 MG TABLET PO (08:21)
[2025-01-19] MEDS: SPIRONOLACTONE 50 MG TABLET PO (08:21)
[2025-01-19] MEDS: ROSUVASTATIN 5 MG TABLET PO (08:21)
--- NOTE | 2025-01-19 08:21 | PCPTNOTE ---
Attempted to see patient for PT, however patient refused due to pain.
[2025-01-19] MEDS: ENOXAPARIN 40 MG/0.4 ML SYRINGE SUB-Q (08:24)
[2025-01-19] MEDS: TERIFLUNOMIDE 14 MG 1 EACH PO (08:25)
--- NOTE | 2025-01-19 10:35 | PCNWS ---
Weekly nutritional screen. Patient is tolerating current diet diabetic diet with adequate intake 50-75%. No weight loss reported. No nutritional recommendations at this time.
[2025-01-19] MEDS: LACTATED RINGERS 1,000 ML 33 ML IV CONT (10:54)
--- NOTE | 2025-01-19 14:30 | P.PNIM_ITS ---
Progress Note: A&P Assessment and Plan (1) Lower extremity weakness: Qualifiers: Laterality: bilateral Qualified Code(s): R29.898 - Other symptoms and signs involving the musculoskeletal system Code(s): R29.898 - Other symptoms and signs involving the musculoskeletal system Status: Acute Assessment and Plan: 6 days of BLE weakness and lower back pain radiating into her R thigh. Patient has hx of multiple sclerosis for which Neurology has been consulted, possibility of flare up as etiology. PT/OT/care coordination consulted for evaluation and acute rehab services. Recent history of a right knee placement. Continues to have weakness R>L but it is slowly and slightly improving. Neurology has evaluated MRI Brain/C-spine/L-spine- no MS lesions identified. Patient's insurance has denied inpatient rehab despite peer to peer, they recommend [facility] facility with daily physical therapy instead at this time. Orthopedics to see, consider appeal if recommendations could change this outcome. Weakness continues to be present without much improvement. - PT/OT eval -Neurology recommends orthopedic surgery eval and consideration of element of diabetic amyotrophy given uncontrolled DM and patient is having extremity pain- EMG can be done 3-4 weeks after discharge. Also was recommended to consider neurosurgery input as well after orthopedics input if no diagnosis can be identified. Continue PT orthopedics is aware and on board, to see patient tomorrow 01/19. - care coordination for acute rehab - CT lumbar (01/12): A degree thoracolumbar dextrocurvature with severe lower lumbar spondylosis. - analgesics prn: Tylenol, [place], morphine. Hold home tramadol. - MRI C spine: 1. Again seen C4-C6 anterior spinal fusion with anterior plate and screw fixation. There is new magnetic field artifact now obscuring the C3-C4 disc space which was not present at the time of the prior study suggesting possible interval extension of the anterior fusion. Correlate with surgical history and could consider correlation with plain radiographs as clinically indicated. 2. No significant change in moderate cervical spondylosis including a small region of likely myelomalacia with decrease cross-sectional diameter of the cord and increased cord signal at the level of C4. 3. Multinodular goiter. -MRI L-spine: Severe lumbar spondylosis. No comment as to MS lesions noted. -seen by Neurology, brain MRI ruled out multiple sclerosis lesions definitively as well as x-rays of the cervical spine, right knee, right hip were done. (2) Multiple sclerosis: Code(s): G35 - Multiple sclerosis Status: Acute Assessment and Plan: - see above - patient reports she has previously been stable and has not had any significant progression in her disease since diagnosis many years ago -ordered MRI: as above; no MS lesions noted - follows with Neurology at [facility] - continue teriflulnomide -MRI Brain negative for new MS lesions (3) DM type 2 (diabetes mellitus, type 2): Qualifiers: Diabetes mellitus skilled nursing insulin use: unspecified skilled nursing insulin use status Diabetes mellitus complication status: without complication Qualified Code(s): E11.9 - Type 2 diabetes mellitus without complications Code(s): E11.9 - Type 2 diabetes mellitus without complications Status: Acute Assessment and Plan: - hypoglycemia protocol - POC blood glucose ACHS - home medication: Continue glimepiride, tradjenta - correct regimen ordered - high dose TIDWM, based off BMI - A1C 9.6% on 10/13/2024 (4) Hyperlipidemia: Qualifiers: Hyperlipidemia type: mixed hyperlipidemia Qualified Code(s): E78.2 - Mixed hyperlipidemia Code(s): E78.5 - Hyperlipidemia, unspecified Status: Chronic Assessment and Plan: - continue rosuvastatin (5) Benign essential hypertension: Code(s): I10 - Essential (primary) hypertension Status: Chronic Assessment and Plan: - chronic, currently 135/75, stable. - continue home medications: Coreg, Lasix, spironolactone, valsartan - monitor Plan Diet: Diabetic GI Prophylaxis: n/a DVT Prophylaxis: SCDs IV fluids: None Lines/Tubes: Peripheral IV Code Status: Full code Subjective Date/time seen: 01/19/25 14:30 Interval history: The patient is 69-year-old Afro-[place]ian female with history of multiple scler osis on Aubagio under care of Dr. Anaya seeing her at [facility]. She continues to have difficulty in walking and she is not able to walk independently or has difficulty walking even with a walker. She complains of pain in the right thigh which shoots down from the back to her right leg. Most of the pain is in the right hip and knee area. She also history of arthritis of the right knee. The patient is known to be diabetic for several years and also has had a surgeon cervical spine for myelopathy at C3-4 level approximately 2 years ago. No new symptoms reported. Review of Systems Review of Systems: All systems reviewed & are unremarkable except as noted in HPI and below Exam Const: General: comfortable and no acute distress Other: , female, nontoxic appearance HENMT: Face/Nose/Sinus: Normal nares present Mouth: Yes moist mucous membranes Eyes: General: appearance normal, both eyes and all related structures Sclera: sclerae normal Pupils: Equal, round and reactive pupils present EOM: EOMs intact bilaterally Resp: Effort & Inspection: normal respiratory effort Auscultation: clear to auscultation bilaterally Cardio: Rate: regular rate Rhythm: regular rhythm Other: S1-S2 present without murmur, rub, ectopy GI: Other: Abdomen soft, nondistended, nontender. Normoactive bowel sounds in all quadrants. Skin: General skin exam: normal color and no rashes or lesions noted Wounds: no wounds Neuro: Cranial nerves: Yes Equal, round and reactive pupils present Speech: normal speech Sensory Exam: normal sensation Other: A&O x4. +5in the upper extremities bilaterally. +4 in the lower extremities, right however worse than the left. Extrem: Other: 1+ pitting edema to the bilateral lower extremities, symmetric Psych: Mental Status: mental status grossly normal Affect: normal affect Other: Good insight and judgment, pleasant Objective Data Vital Signs Vital Signs: Vital Signs - 24 hr 01/18/25 18:58 01/18/25 20:00 01/18/25 21:42 Temperature 97.6 F Pulse Rate 70 Respiratory Rate 20 Blood Pressure 110/54 L 124/75 Pulse Oximetry 100 Oxygen Delivery Room Air Fraction of Inspired Oxygen 01/19/25 07:39 01/19/25 08:00 01/19/25 08:19 Temperature Pulse Rate 70 Respiratory Rate Blood Pressure 104/54 L Pulse Oximetry 100 Oxygen Delivery Room Air Fraction of Inspired Oxygen 21 01/19/25 14:00 Temperature 97.1 F L Pulse Rate 68 Respiratory Rate 16 Blood Pressure 92/50 L Pulse Oximetry 97 Oxygen Delivery Fraction of Inspired Oxygen Intake/Output Intake/Output: Intake & Output 01/16/25 01/17/25 01/18/25 01/19/25 23:59 23:59 23:59 23:59 Intake Total 1480 1000 580 580 Output Total 2450 950 100 Balance 1480 -6465 -021 480 Meds/Results Medications: Active Medications Generic Name Dose Route Start Last Admin Trade Name Freq PRN Reason Stop Dose Admin Acetaminophen 650 mg 01/12/25 12:59 01/19/25 09:40 Acetaminophen 325 Mg Tablet PO 650 mg Q4H PRN Administration Mild Pain (1-3) or Fever Hydrocodone Bitart/Acetaminophen 1 tab 01/12/25 15:25 01/19/25 10:32 Hydrocodone/Acetaminophen (*Crx) 5-325 Mg Tablet PO 1 tab Q4H PRN Administration Moderate Pain (4-6) Aspirin 81 mg 01/13/25 09:00 01/19/25 08:19 Aspirin 81 Mg Enteric Tablet PO 81 mg QAM DASHA Administration Benzonatate 200 mg 01/13/25 00:06 Benzonatate 100 Mg Capsule PO TID PRN cough Bisacodyl 5 mg 01/12/25 15:25 Bisacodyl 5 Mg Tablet Ec PO DAILY PRN Constipation Carvedilol 25 mg 01/13/25 09:00 01/19/25 08:19 Carvedilol 25 Mg Tablet PO 25 mg Q12HR DASHA Administration Dextrose 12.5 gm 01/12/25 15:25 Dextrose 50% 25 Gm/50 Ml Syringe IV PUSH PRN PRN Hypoglycemia Protocol Diazepam 5 mg 01/14/25 08:18 01/14/25 10:15 Diazepam Inj (*Crx) 10 Mg/2 Ml Syringe IV PUSH 5 mg ONCE PRN Administration Anxiety Enoxaparin Sodium 40 mg 01/16/25 14:05 01/19/25 08:24 Enoxaparin 40 Mg/0.4 Ml Syringe SUB-Q 40 mg DAILY DASHA Administration Furosemide 80 mg 01/13/25 09:00 01/19/25 08:20 Furosemide 40 Mg Tablet PO 80 mg DAILY DASHA Administration Glimepiride 1 mg 01/13/25 08:00 01/19/25 08:19 Glimepiride 1 Mg Tablet PO 1 mg DAILY@0800 DASHA Administration Glucagon 1 mg 01/12/25 15:25 Glucagon For Inj 1 Mg Vial IM PRN PRN Hypoglycemia Protocol Glucose 15 gm 01/12/25 15:25 Glucose Oral Gel 15 Gm Of Glucse In 37.5 Gm Tube PO PRN PRN Hypoglycemia Protocol Home Med 1 each 01/13/25 09:00 01/19/25 08:25 Teriflunomide [Aubagio] 14 Mg Tablet Home Med PO 02/12/25 08:59 1 each DAILY DASHA Administration Dextrose 1,000 mls @ 100 mls/hr 01/12/25 15:25 Dextrose 5% 1,000 Ml IVPB PRN PRN Hypoglycemia Protocol Lactated Ringer's 1,000 mls @ 33 mls/hr 01/19/25 11:00 01/19/25 10:54 Lr - Lactated Ringers Iv IV CONT 01/19/25 16:59 33 mls/hr .Q24H DASHA Administration Insulin Aspart 4 - 8 units 01/12/25 17:00 01/19/25 11:15 Insulin Aspart (*Bkc) 100 Units/Ml SUB-Q Not Given TIDWM DASHA Protocol Morphine Sulfate 2 mg 01/12/25 15:40 Morphine Sulfate (*Crx) 4 Mg/Ml Inj IV PUSH Q4H PRN Pain Rated 7-10 Rosuvastatin Calcium 5 mg 01/13/25 09:00 01/19/25 08:21 Rosuvastatin 5 Mg Tablet PO 5 mg DAILY DASHA Administration Sitagliptin Phosphate 100 mg 01/13/25 09:00 01/19/25 08:21 Sitagliptin Phosphate 100 Mg Tablet PO 100 mg QAM DASHA Administration Solifenacin 10 mg 01/13/25 09:00 01/19/25 08:20 Solifenacin 5 Mg Tablet PO 10 mg QAM DASHA Administration Spironolactone 50 mg 01/13/25 09:00 01/19/25 08:21 Spironolactone 50 Mg Tablet PO 50 mg DAILY DASHA Administration Valsartan 160 mg 01/13/25 09:00 01/19/25 08:21 Valsartan 160 Mg Tablet PO 160 mg Q12HR DASHA Administration Vitamin D 100 mcg 01/13/25 09:00 01/19/25 08:20 Cholecalciferol (Vitamin D3) 25 Mcg (1,000 Units) Tablet PO 100 mcg DAILY DASHA Administration Radiology Results: ITS Impressions Lumbar Spine CT 01/12/25 11:28 IMPRESSION: 1. A degree thoracolumbar dextrocurvature with severe lower lumbar spondylosis. Lumbar Spine MRI 01/14/25 11:44 IMPRESSION: 1. Severe lumbar spondylosis. Cervical Spine MRI 01/14/25 12:27 IMPRESSION: 1. Again seen C4-C6 anterior spinal fusion with anterior plate and screw fixation. There is new magnetic field artifact now obscuring the C3-C4 disc space which was not present at the time of the prior study suggesting possible interval extension of the anterior fusion. Correlate with surgical history and could consider correlation with plain radiographs as clinically indicated. 2. No significant change in moderate cervical spondylosis including a small region of likely myelomalacia with decrease cross-sectional diameter of the cord and increased cord signal at the level of C4. 3. Multinodular goiter. Thoracic Spine MRI 01/14/25 20:35 IMPRESSION: 1. 25 degrees upper thoracic dextroscoliosis with mild spondylosis. Hip X-Ray 01/15/25 15:56 Impression: No acute fracture or malalignment. Knee X-Ray 01/15/25 15:56 Impression: No acute fracture or malalignment. Cervical Spine X-Ray 01/15/25 16:00 Impression: No acute abnormality. Brain MRI 01/16/25 11:46 IMPRESSION: 1. Extensive chronically unchanged cerebral and cerebellar white matter disease, consistent with quiescent multiple sclerosis. Labs Labs: Laboratory Results - last 24 hr 01/18/25 01/18/25 01/19/25 16:39 20:37 06:21 WBC 7.2 RBC 4.22 Hgb 11.1 L Hct 35.9 L MCV 85.1 MCH 26.3 MCHC 30.9 L RDW 16.0 H Plt Count 182 MPV 11.0 H Immature Gran % (Auto) 0.4 Neut % (Auto) 51.4 Lymph % (Auto) 28.7 [place] % (Auto) 13.4 H Eos % (Auto) 5.1 H Baso % (Auto) 1.0 Lymph # (Auto) 2.08 [place] # (Auto) 1.0 H Eos # (Auto) 0.4 H Baso # (Auto) 0.1 Abs Immat Gran (auto) 0.03 Absolute Neuts (auto) 3.7 Absolute Nucleated RBC 0.000 Nucleated RBC % 0.0 Sodium 135 L Potassium 3.2 L Chloride 101 Carbon Dioxide 26 Anion Gap 8 BUN 18 H Creatinine 1.01 H Estim Creat Clear Calc 50 Estimated GFR 54 L Glucose 91 POC Capillary Glucose 191 H 214 H Calcium 8.5 Total Bilirubin 0.6 AST 38 H ALT 17 Alkaline Phosphatase 108 Total Protein 6.9 Albumin 3.4 L 01/19/25 01/19/25 07:36 11:08 WBC RBC Hgb Hct MCV MCH MCHC RDW Plt Count MPV Immature Gran % (Auto) Neut % (Auto) Lymph % (Auto) [place] % (Auto) Eos % (Auto) Baso % (Auto) Lymph # (Auto) [place] # (Auto) Eos # (Auto) Baso # (Auto) Abs Immat Gran (auto) Absolute Neuts (auto) Absolute Nucleated RBC Nucleated RBC % Sodium Potassium Chloride Carbon Dioxide Anion Gap BUN Creatinine Estim Creat Clear Calc Estimated GFR Glucose POC Capillary Glucose 89 122 H Calcium Total Bilirubin AST ALT Alkaline Phosphatase Total Protein Albumin Quality VTE Prophylaxis VTE prophylaxis: mechanical ordered Hospitalist MIPS Advance Care Plan I have confirmed that the patient's Advanced Care Plan is present, code status is documented, or surrogate decision maker is listed in patient medical record.: Yes Medication Reconciliation I have utilized all available resources to obtain, update and review the patients current medications (includes all prescriptions, OTC, herbals, cannabis, and nutritional supplements).: Yes
[2025-01-19] MEDS: LACTATED RINGERS 1,000 ML 75 ML IV CONT (15:02)
[2025-01-19] MEDS: INSULIN ASPART (*BKC) 100 UNITS/ML SUB-Q (17:07)
[2025-01-20 05:13] VITALS: BP 109/80; PULSE 68; RESP 18; TEMP 36.4; O2SAT 94
[2025-01-20 07:16] LABS: Hematocrit 35.3 % (37.0-47.0); Hemoglobin 10.9 g/dL (12.0-15.0); Immature Granulocyte Percent A 0.4 % (0-0.5); Lymphocytes Absolute Auto 2.30 K/mm3 (0.9-3.2); Mean Corpuscular HGB Conc 30.9 g/dl (32-36); Mean Corpuscular Hemoglobin 26.4 pg (26-34); Mean Corpuscular Volume 85.5 fl (80-100); Nucleated Red Blood Cells Absolute Auto 0.000 K/mm3 (0.0-0.012); Nucleated Red Blood Cells Perc 0.0 % (0.0-0.2); Platelet Count Result 175 k/mm3 (150-375); Red Blood Count 4.13 M/mm3 (4.2-5.4); White Blood Count 6.7 K/mm3 (4.5-10.0)
[2025-01-20 07:44] LABS: Alanine Aminotransferase 21 U/L (6-35); Albumin Level 3.4 g/dL (3.5-5.1); Alkaline Phosphatase 102 U/L (38-126); Anion Gap 5 mmol/L (4-12); Aspartate Amino Transferase 41 U/L (14-36); Bilirubin,Total 0.5 mg/dL (0.2-1.3); Blood Urea Nitrogen 19 mg/dL (7-17); Calcium 8.6 mg/dL (8.4-10.2); Carbon Dioxide 29 mmol/L (22-30); Chloride 103 mmol/L (98-107); Estimated CRCL calculation 50 ml/min; Estimated Glomerular Filt Rate 54; Glucose 97 mg/dL (65-110); Potassium 3.8 mmol/L (3.4-5.0); Sodium 137 mmol/L (137-145); Total Protein 6.9 g/dL (6.3-8.2)
--- NOTE | 2025-01-20 09:10 | PM.CNOR ---
Assessment and Plan Assessment and plan (1) Status post total knee replacement, right: Code(s): Z96.651 - Presence of right artificial knee joint Status: Acute Assessment and Plan: History, exam, radiographs, neurology and hospitalist notes reviewed. Radiographs of the right knee reveal right TKA in good position. No signs of loosening, dislocation. Right TKA by Dr. Gonzalez in March of 2024. Radiographs of the right hip negative for acute abnormalities. Patient has obvious stiffness of b/l LE on exam, right worse than left. Resistant to internal/external rotation of the right hip as well as extension of the right knee. No palpable knee joint effusion. No redness/warmth or notable swelling. No obvious signs of infection. Patient declines known injury. Progressive weakness x6 days prior to admission. She has been seen by neurology with no concerns for acute MS flare based on MRI of brain, cervical, thoracic and lumbar spine results. Lumbar spine MRI with multilevel stenosis. Her symptoms of the right thigh pain/weakness could be a results of this. Neurosurgery consult to be considered per neurology. Agree. Discussed with hospitalist service possible differential diagnoses, trying muscle relaxes for the LE stiffness vs. steroids as mentioned briefly from neurosurgery. Will continue to follow pending further medical work up. Based on imaging and physical exam of b/l LE, patient should be able to be WBAT with PT/OT. HIGH FALL RISK. Suspect patient will require formal rehab at d/c given current mobility status. (2) Lower extremity weakness: Qualifiers: Laterality: bilateral Qualified Code(s): R29.898 - Other symptoms and signs involving the musculoskeletal system Code(s): R29.898 - Other symptoms and signs involving the musculoskeletal system Status: Acute (3) Muscle weakness: Code(s): M62.81 - Muscle weakness (generalized) Status: Acute (4) Weakness of both lower limbs: Code(s): R29.898 - Other symptoms and signs involving the musculoskeletal system Status: Acute (5) Multiple sclerosis: Code(s): G35 - Multiple sclerosis Status: Acute Plan Reviewed history, exam, radiographs and current labs with attending MD and covering surgeon, Dr. Barger, who agrees with current plan as indicated above. No further recommendations from Dr. Barger at this time. History of Present Illness HPI Consult date: 01/20/25 Chief complaint: Lower Extremity Weakness Narrative: Orthopedic consult requested for this 69 year old female admitted on 01/12 with an acute onset b/l LE weakness x6 days prior to admission. She has a history of MS, DMD 2, HLD, HTN, Cervical Myelopathy with a history of a fusion and right TKA by Dr. Gonzalez at [facility] in March of 2024. She c/o pain in the right anterior thigh/weakness/stiffness. She also noted lumbar spine pain with difficulty ambulating. She denies loss of bowel or bladder. Neurology has been consulted who reports no new/active lesions to indicate MS flare. Recommended possible neurosurgery consult and orthopedic consults. Review of Systems Review of Systems: All systems reviewed & are unremarkable except as noted in HPI and below PMFSH Past Medical History Medical History Weakness of both lower limbs Multiple sclerosis Chronic venous insufficiency BMI 31.0-31.9,adult Vitamin D deficiency Need for pneumococcal vaccine Overactive bladder PMR (polymyalgia rheumatica) Bakers cyst Hemoglobin A1C greater than 9%, indicating poor diabetic control 07/14/20 A1c = 9.6 Esophagitis Subdural hematoma Episode of syncope Esophageal stricture Carpal tunnel syndrome, bilateral Dysphagia Cervicalgia DJD (degenerative joint disease) Colon cancer screening Encounter for screening mammogram for malignant neoplasm of breast Benign essential hypertension Vitamin B12 deficiency Chronic pain of right knee Hx of breast cancer s/p radiation On halfway drug therapy Multiple sclerosis Hyperlipidemia DM type 2 (diabetes mellitus, type 2) Surgical History Surgical History History of hysterectomy H/O excision of lamina of cervical vertebra for decompression of spinal cord Status post total knee replacement, right Family History Family History Mother Hypertension Family history of diabetes mellitus in first degree relative Diabetes mellitus Father Cerebrovascular accident Sibling Family history of lung cancer Family history of primary malignant neoplasm of liver Social History Social History Smoking status: Never smoker Second hand tobacco smoke exposure: No Alcohol intake: never Substance use: never Substance use type: does not use Lack of Transportation: No Lack of Food: Never True Current Housing: I Have Housing Concerned About Future Housing: No Difficulty Paying Gas/Electric Bills: No Difficulty Paying for Meds: No Currently Unemployed: No Education: Bachelor's Degree Difficulty w/ Childcare or Family Care: No Living arrangements: with family Gender identity (if verbalized by the patient): Female Spiritual care concerns: No Meds Home Medications and Allergies Home Medications ?Medication ?Instructions ?Recorded ?Confirmed ?Type linagliptin 5 mg tablet (Tradjenta) 5 mg PO QAM 08/18/20 01/12/25 History teriflunomide 14 mg tablet 14 mg PO DAILY 08/25/20 01/12/25 History (Aubagio) aspirin 81 mg tablet,delayed 81 mg PO QAM #30 tabs 08/16/21 01/12/25 Rx release cholecalciferol (vitamin D3) 50 100 mcg PO DAILY 11/09/22 01/12/25 History mcg (2,000 unit) capsule blood sugar diagnostic (Contour #100 strips 08/14/23 01/12/25 Rx Next Test Strips) benzonatate 200 mg capsule See Rx Instructions .Route 10/15/23 01/12/25 Rx .COMPLEX PRN cough #30 caps valsartan 160 mg tablet 160 mg PO BID 04/30/24 01/12/25 History furosemide 40 mg tablet See Rx Instructions .Route 06/16/24 01/12/25 Rx .COMPLEX #180 tabs carvedilol 25 mg tablet See Rx Instructions .Route 07/29/24 01/12/25 Rx .COMPLEX #180 tabs lancets #100 ea 08/15/24 01/12/25 Rx glimepiride 1 mg tablet See Rx Instructions .Route 08/31/24 01/12/25 Rx .COMPLEX #90 tabs rosuvastatin 5 mg tablet 5 mg PO DAILY #90 tabs 10/21/24 01/12/25 Rx spironolactone 50 mg tablet 50 mg PO DAILY #90 tabs 10/21/24 01/12/25 Rx (Aldactone) solifenacin 10 mg tablet (Vesicare) 10 mg PO DAILY #90 tabs 10/28/24 01/12/25 Rx lancets (Microlet Lancet) #200 ea 12/15/24 01/12/25 Rx tramadol 50 mg tablet See Rx Instructions PO .COMPLEX 01/07/25 01/12/25 Rx PRN pain #40 tabs Allergies Allergy/AdvReac Type Severity Reaction Status Date / Time No Known Allergies Allergy Verified 11/11/24 15:12 Vital Signs Vital Signs - 24 hr 01/19/25 14:00 01/19/25 14:49 01/19/25 16:04 Temperature 36.2 C L Pulse Rate 68 Respiratory Rate 16 Blood Pressure 92/50 L 90/50 L 110/58 L Pulse Oximetry 97 Oxygen Delivery 01/19/25 20:00 01/19/25 22:26 01/20/25 05:13 Temperature 36.4 C 36.4 C Pulse Rate 70 68 Respiratory Rate 20 18 Blood Pressure 106/49 L 109/80 Pulse Oximetry 100 94 Oxygen Delivery Room Air 01/20/25 08:00 Temperature Pulse Rate Respiratory Rate Blood Pressure Pulse Oximetry Oxygen Delivery Room Air Exam Const: General: cooperative and healthy appearing Orientation/consciousness: patient oriented x3 HENMT: Head: normal to inspection Ears: hearing grossly normal bilaterally Extrem: Right lower extremity: hip/thigh Details: tenderness Location: of the hip Location: anteromedially and anterolaterally and abnormal ROM Details: pain with active ROM during Details: to external rotation, pain with resistance to Details: to internal rotation and pain with passive ROM during Details: to internal rotation and to external rotation; no ecchymosis and no crepitus, knee Details: normal to inspection, tenderness Location: of the patella and abnormal ROM Details: held in an abnormal fashion Details: in flexion, pain with active ROM during Details: in extension and pain with passive ROM during Details: in extension, ankle Details: normal to inspection and no edema; no tenderness and no swelling and foot Details: normal capillary refill, toes with normal ROM and vascular exam Details: dorsalis pedis pulse present; no tenderness Left lower extremity: normal to inspection and hip/thigh Details: normal to inspection and normal ROM; no swelling Results Labs 01/20/25 06:37 01/20/25 06:37 Labs: Abnormal lab results 01/19/25 01/19/25 01/19/25 Range/Units 11:08 16:19 21:23 RBC (4.2-5.4) M/mm3 Hgb (12.0-15.0) g/dL Hct (37.0-47.0) % MCHC (32-36) g/dl RDW (11.5-14.5) % MPV (7.4-10.4) fl [place] % (Auto) (2.6-8.5) % Eos % (Auto) (0-4.4) % [place] # (Auto) (0.1-0.6) K/mm3 Eos # (Auto) (0-0.3) K/mm3 BUN (7-17) mg/dL Creatinine (0.7-1.0) mg/dL Estimated GFR (59 - ) POC Capillary Glucose 122 H 212 H 186 H (65-105) mg/dl AST (14-36) U/L Albumin (3.5-5.1) g/dL 01/20/25 Range/Units 06:37 RBC 4.13 L (4.2-5.4) M/mm3 Hgb 10.9 L (12.0-15.0) g/dL Hct 35.3 L (37.0-47.0) % MCHC 30.9 L (32-36) g/dl RDW 16.2 H (11.5-14.5) % MPV 11.5 H (7.4-10.4) fl [place] % (Auto) 11.5 H (2.6-8.5) % Eos % (Auto) 6.1 H (0-4.4) % [place] # (Auto) 0.8 H (0.1-0.6) K/mm3 Eos # (Auto) 0.4 H (0-0.3) K/mm3 BUN 19 H (7-17) mg/dL Creatinine 1.01 H (0.7-1.0) mg/dL Estimated GFR 54 L (59 - ) POC Capillary Glucose (65-105) mg/dl AST 41 H (14-36) U/L Albumin 3.4 L (3.5-5.1) g/dL H & H 01/12/25 01/13/25 01/15/25 Range/Units 11:37 09:52 05:09 Hgb 12.2 10.9 L 10.5 L (12.0-15.0) g/dL Hct 40.3 36.1 L 34.6 L (37.0-47.0) % 01/16/25 01/17/2501/18/25 Range/Units 07:34 08:58 05:44 Hgb 11.3 L 11.1 L 10.8 L (12.0-15.0) g/dL Hct 36.9 L 36.5 L 35.6 L (37.0-47.0) % 01/19/25 01/20/25 Range/Units 06:21 06:37 Hgb 11.1 L 10.9 L (12.0-15.0) g/dL Hct 35.9 L 35.3 L (37.0-47.0) % All other labs normal.
[2025-01-20 09:20] VITALS: PULSE 68
[2025-01-20] MEDS: SPIRONOLACTONE 50 MG TABLET PO (09:20)
[2025-01-20] MEDS: ROSUVASTATIN 5 MG TABLET PO (09:20)
[2025-01-20] MEDS: ENOXAPARIN 40 MG/0.4 ML SYRINGE SUB-Q (09:20)
[2025-01-20] MEDS: CHOLECALCIFEROL (VITAMIN D3) 25 MCG (1,000 UNITS) TABLET 100 MCG PO (09:20)
[2025-01-20] MEDS: SOLIFENACIN 5 MG TABLET 10 MG PO (09:20)
[2025-01-20] MEDS: ASPIRIN 81 MG ENTERIC TABLET PO (09:20)
[2025-01-20] MEDS: GLIMEPIRIDE 1 MG TABLET PO (09:20)
[2025-01-20] MEDS: TERIFLUNOMIDE 14 MG 1 EACH PO (09:25)
[2025-01-20 13:48] VITALS: BP 111/63; PULSE 87; RESP 16; TEMP 35.6; O2SAT 100
--- NOTE | 2025-01-20 14:01 | PM.IMPN ---
Progress Note: A&P Assessment and Plan (1) Lower extremity weakness: Qualifiers: Laterality: bilateral Qualified Code(s): R29.898 - Other symptoms and signs involving the musculoskeletal system Code(s): R29.898 - Other symptoms and signs involving the musculoskeletal system Status: Acute Assessment and Plan: 6 days of BLE weakness and lower back pain radiating into her R thigh. Patient has hx of multiple sclerosis for which Neurology has been consulted, possibility of flare up as etiology. PT/OT/care coordination consulted for evaluation and acute rehab services. Recent history of a right knee placement. Continues to have weakness R>L but it is slowly and slightly improving. Neurology has evaluated MRI Brain/C-spine/L-spine- no MS lesions identified. Patient's insurance has denied inpatient rehab despite peer to peer, they recommend senior care facility with daily physical therapy instead at this time. Orthopedics to see, consider appeal if recommendations could change this outcome. Weakness continues to be present without much improvement. - PT/OT eval -Neurology recommends orthopedic surgery eval and consideration of element of diabetic amyotrophy given uncontrolled DM and patient is having extremity pain- EMG can be done 3-4 weeks after discharge. Also was recommended to consider neurosurgery input as well after orthopedics input if no diagnosis can be identified. Continue PT orthopedics is aware and on board, to see patient tomorrow 01/19. - care coordination for acute rehab - CT lumbar (01/12): A degree thoracolumbar dextrocurvature with severe lower lumbar spondylosis. - analgesics prn: Tylenol, [place], morphine. Hold home tramadol. - MRI C spine: 1. Again seen C4-C6 anterior spinal fusion with anterior plate and screw fixation. There is new magnetic field artifact now obscuring the C3-C4 disc space which was not present at the time of the prior study suggesting possible interval extension of the anterior fusion. Correlate with surgical history and could consider correlation with plain radiographs as clinically indicated. 2. No significant change in moderate cervical spondylosis including a small region of likely myelomalacia with decrease cross-sectional diameter of the cord and increased cord signal at the level of C4. 3. Multinodular goiter. -MRI L-spine: Severe lumbar spondylosis. No comment as to MS lesions noted. -seen by Neurology, brain MRI ruled out multiple sclerosis lesions definitively as well as x-rays of the cervical spine, right knee, right hip were done. Lumbar puncture ordered for CSF analysis (2) Multiple sclerosis: Code(s): G35 - Multiple sclerosis Status: Acute Assessment and Plan: - see above - patient reports she has previously been stable and has not had any significant progression in her disease since diagnosis many years ago -ordered MRI: as above; no MS lesions noted - follows with Neurology at 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: unspecified terminal operations supervisor insulin use status Diabetes mellitus complication status: without complication Qualified Code(s): E11.9 - Type 2 diabetes mellitus without complications Code(s): E11.9 - Type 2 diabetes mellitus without complications Status: Acute Assessment and Plan: - hypoglycemia protocol - POC blood glucose ACHS - home medication: Continue glimepiride, tradjenta - correct regimen ordered - high dose TIDWM, based off BMI - A1C 9.6% on 10/13/2024 (4) Hyperlipidemia: Qualifiers: Hyperlipidemia type: mixed hyperlipidemia Qualified Code(s): E78.2 - Mixed hyperlipidemia Code(s): E78.5 - Hyperlipidemia, unspecified Status: Chronic Assessment and Plan: - continue rosuvastatin (5) Benign essential hypertension: Code(s): I10 - Essential (primary) hypertension Status: Chronic Assessment and Plan: - chronic, currently 135/75, stable. - continue home medications: Coreg, Lasix, spironolactone, valsartan - monitor Plan Diet: Diabetic GI Prophylaxis: n/a DVT Prophylaxis: SCDs IV fluids: None Lines/Tubes: Peripheral IV Code Status: Full code Subjective Date/time seen: 01/20/25 14:01 Interval history: Comfortable at bedside noted no change in bilateral lower extremities weakness Lumbar puncture ordered Review of Systems Review of Systems: All systems reviewed & are unremarkable except as noted in HPI and below Exam Const: General: comfortable and no acute distress Other: , female, nontoxic appearance HENMT: Face/Nose/Sinus: Normal nares present Mouth: Yes moist mucous membranes Eyes: General: appearance normal, both eyes and all related structures Sclera: sclerae normal Pupils: Equal, round and reactive pupils present EOM: EOMs intact bilaterally Resp: Effort & Inspection: normal respiratory effort Auscultation: clear to auscultation bilaterally Cardio: Rate: regular rate Rhythm: regular rhythm Other: S1-S2 present without murmur, rub, ectopy GI: Other: Abdomen soft, nondistended, nontender. Normoactive bowel sounds in all quadrants. Skin: General skin exam: normal color and no rashes or lesions noted Wounds: no wounds Neuro: Cranial nerves: Yes Equal, round and reactive pupils present Speech: normal speech Sensory Exam: normal sensation Other: A&O x4. +5in the upper extremities bilaterally. +4 in the lower extremities, right however worse than the left. Extrem: Other: 1+ pitting edema to the bilateral lower extremities, symmetric Psych: Mental Status: mental status grossly normal Affect: normal affect Other: Good insight and judgment, pleasant Objective Data Vital Signs Vital Signs: Vital Signs - 24 hr 01/19/25 14:49 01/19/25 16:04 01/19/25 20:00 Temperature Pulse Rate Respiratory Rate Blood Pressure 90/50 L 110/58 L Pulse Oximetry Oxygen Delivery Room Air 01/19/25 22:26 01/20/25 05:13 01/20/25 08:00 Temperature 97.6 F 97.6 F Pulse Rate 70 68 Respiratory Rate 20 18 Blood Pressure 106/49 L 109/80 Pulse Oximetry 100 94 Oxygen Delivery Room Air 01/20/25 09:20 01/20/25 13:48 Temperature 96.1 F L Pulse Rate 68 87 Respiratory Rate 16 Blood Pressure 111/63 Pulse Oximetry 100 Oxygen Delivery Intake/Output Intake/Output: Intake & Output 01/17/25 01/18/25 01/19/25 01/20/25 23:59 23:59 23:59 23:59 Intake Total 1000 567 461 5789 Output Total 2450 942 217 6448 Balance -1450 -370 640 262 Meds/Results Medications: Active Medications Generic Name Dose Route Start Last Admin Trade Name Freq PRN Reason Stop Dose Admin Acetaminophen 650 mg 01/12/25 12:59 01/19/25 09:40 Acetaminophen 325 Mg Tablet PO 650 mg Q4H PRN Administration Mild Pain (1-3) or Fever Hydrocodone Bitart/Acetaminophen 1 tab 01/12/25 15:25 01/19/25 10:32 Hydrocodone/Acetaminophen (*Crx) 5-325 Mg Tablet PO 1 tab Q4H PRN Administration Moderate Pain (4-6) Aspirin 81 mg 01/13/25 09:00 01/20/25 09:20 Aspirin 81 Mg Enteric Tablet PO 81 mg QAM DASHA Administration Benzonatate 200 mg 01/13/25 00:06 Benzonatate 100 Mg Capsule PO TID PRN cough Bisacodyl 5 mg 01/12/25 15:25 Bisacodyl 5 Mg Tablet Ec PO DAILY PRN Constipation Carvedilol 25 mg 01/13/25 09:00 01/20/25 09:20 Carvedilol 25 Mg Tablet PO 25 mg Q12HR DASHA Administration Dextrose 12.5 gm 01/12/25 15:25 Dextrose 50% 25 Gm/50 Ml Syringe IV PUSH PRN PRN Hypoglycemia Protocol Diazepam 5 mg 01/14/25 08:18 01/14/25 10:15 Diazepam Inj (*Crx) 10 Mg/2 Ml Syringe IV PUSH 5 mg ONCE PRN Administration Anxiety Enoxaparin Sodium 40 mg 01/16/25 14:05 01/20/25 09:20 Enoxaparin 40 Mg/0.4 Ml Syringe SUB-Q 40 mg DAILY DASHA Administration Furosemide 80 mg 01/13/25 09:00 01/19/25 08:20 Furosemide 40 Mg Tablet PO 80 mg On Hold: 01/19/25 14:55 DAILY DASHA Administration Glimepiride 1 mg 01/13/25 08:00 01/20/25 09:20 Glimepiride 1 Mg Tablet PO 1 mg DAILY@0800 DASHA Administration Glucagon 1 mg 01/12/25 15:25 Glucagon For Inj 1 Mg Vial IM PRN PRN Hypoglycemia Protocol Glucose 15 gm 01/12/25 15:25 Glucose Oral Gel 15 Gm Of Glucse In 37.5 Gm Tube PO PRN PRN Hypoglycemia Protocol Home Med 1 each 01/13/25 09:00 01/20/25 09:25 Teriflunomide [Aubagio] 14 Mg Tablet Home Med PO 02/12/25 08:59 1 each DAILY DASHA Administration Dextrose 1,000 mls @ 100 mls/hr 01/12/25 15:25 Dextrose 5% 1,000 Ml IVPB PRN PRN Hypoglycemia Protocol Insulin Aspart 4 - 8 units 01/12/25 17:00 01/20/25 11:27 Insulin Aspart (*Bkc) 100 Units/Ml SUB-Q Not Given TIDWM [facility] Protocol Morphine Sulfate 2 mg 01/12/25 15:40 Morphine Sulfate (*Crx) 4 Mg/Ml Inj IV PUSH Q4H PRN Pain Rated 7-10 Rosuvastatin Calcium 5 mg 01/13/25 09:00 01/20/25 09:20 Rosuvastatin 5 Mg Tablet PO 5 mg DAILY DASHA Administration Sitagliptin Phosphate 100 mg 01/13/25 09:00 01/20/25 09:21 Sitagliptin Phosphate 100 Mg Tablet PO 100 mg QAM DASHA Administration Solifenacin 10 mg 01/13/25 09:00 01/20/25 09:20 Solifenacin 5 Mg Tablet PO 10 mg QAM DASHA Administration Spironolactone 50 mg 01/13/25 09:00 01/20/25 09:20 Spironolactone 50 Mg Tablet PO 50 mg DAILY DASHA Administration Tizanidine HCl 2 mg 01/21/25 09:00 Tizanidine Hcl 2 Mg Tablet PO QAM DASHA Valsartan 160 mg 01/13/25 09:00 01/19/25 08:21 Valsartan 160 Mg Tablet PO 160 mg On Hold: 01/19/25 15:32 Q12HR DASHA Administration Vitamin D 100 mcg 01/13/25 09:00 01/20/25 09:20 Cholecalciferol (Vitamin D3) 25 Mcg (1,000 Units) Tablet PO 100 mcg DAILY DASHA Administration Radiology Results: ITS Impressions Lumbar Spine CT 01/12/25 11:28 IMPRESSION: 1. A degree thoracolumbar dextrocurvature with severe lower lumbar spondylosis. Lumbar Spine MRI 01/14/25 11:44 IMPRESSION: 1. Severe lumbar spondylosis. Cervical Spine MRI 01/14/25 12:27 IMPRESSION: 1. Again seen C4-C6 anterior spinal fusion with anterior plate and screw fixation. There is new magnetic field artifact now obscuring the C3-C4 disc space which was not present at the time of the prior study suggesting possible interval extension of the anterior fusion. Correlate with surgical history and could consider correlation with plain radiographs as clinically indicated. 2. No significant change in moderate cervical spondylosis including a small region of likely myelomalacia with decrease cross-sectional diameter of the cord and increased cord signal at the level of C4. 3. Multinodular goiter. Thoracic Spine MRI 01/14/25 20:35 IMPRESSION: 1. 25 degrees upper thoracic dextroscoliosis with mild spondylosis. Hip X-Ray 01/15/25 15:56 Impression: No acute fracture or malalignment. Knee X-Ray 01/15/25 15:56 Impression: No acute fracture or malalignment. Cervical Spine X-Ray 01/15/25 16:00 Impression: No acute abnormality. Brain MRI 01/16/25 11:46 IMPRESSION: 1. Extensive chronically unchanged cerebral and cerebellar white matter disease, consistent with quiescent multiple sclerosis. Labs Labs: Laboratory Results - last 24 hr 01/19/25 01/19/25 01/20/25 16:19 21:23 06:37 WBC 6.7 RBC 4.13 L Hgb 10.9 L Hct 35.3 L MCV 85.5 MCH 26.4 MCHC 30.9 L RDW 16.2 H Plt Count 175 MPV 11.5 H Immature Gran % (Auto) 0.4 Neut % (Auto) 46.7 Lymph % (Auto) 34.3 [place] % (Auto) 11.5 H Eos % (Auto) 6.1 H Baso % (Auto) 1.0 Lymph # (Auto) 2.30 [place] # (Auto) 0.8 H Eos # (Auto) 0.4 H Baso # (Auto) 0.1 Abs Immat Gran (auto) 0.03 Absolute Neuts (auto) 3.1 Absolute Nucleated RBC 0.000 Nucleated RBC % 0.0 Sodium 137 Potassium 3.8 Chloride 103 Carbon Dioxide 29 Anion Gap 5 BUN 19 H Creatinine 1.01 H Estim Creat Clear Calc 50 Estimated GFR 54 L Glucose 97 POC Capillary Glucose 212 H 186 H Calcium 8.6 Total Bilirubin 0.5 AST 41 H ALT 21 Alkaline Phosphatase 102 Total Protein 6.9 Albumin 3.4 L 01/20/25 01/20/25 07:18 11:04 WBC RBC Hgb Hct MCV MCH MCHC RDW Plt Count MPV Immature Gran % (Auto) Neut % (Auto) Lymph % (Auto) [place] % (Auto) Eos % (Auto) Baso % (Auto) Lymph # (Auto) [place] # (Auto) Eos # (Auto) Baso # (Auto) Abs Immat Gran (auto) Absolute Neuts (auto) Absolute Nucleated RBC Nucleated RBC % Sodium Potassium Chloride Carbon Dioxide Anion Gap BUN Creatinine Estim Creat Clear Calc Estimated GFR Glucose POC Capillary Glucose 104 126 H Calcium Total Bilirubin AST ALT Alkaline Phosphatase Total Protein Albumin Quality VTE Prophylaxis VTE prophylaxis: mechanical ordered
[2025-01-20 20:01] VITALS: BP 113/57; PULSE 75; RESP 18; TEMP 36.5; O2SAT 100
[2025-01-20 20:28] VITALS: PULSE 71; RESP 18; O2SAT 100
[2025-01-20] MEDS: HYDROcodone/acetaminophen (*CRX) 5-325 MG TABLET 1 TAB PO (22:04)
[2025-01-21 05:00] VITALS: BP 103/55; PULSE 66; RESP 16; TEMP 36.6; O2SAT 99
[2025-01-21 06:30] LABS: Hematocrit 32.9 % (37.0-47.0); Hemoglobin 10.0 g/dL (12.0-15.0); Immature Granulocyte Percent A 0.4 % (0-0.5); Lymphocytes Absolute Auto 2.36 K/mm3 (0.9-3.2); Mean Corpuscular HGB Conc 30.4 g/dl (32-36); Mean Corpuscular Hemoglobin 26.5 pg (26-34); Mean Corpuscular Volume 87.0 fl (80-100); Nucleated Red Blood Cells Absolute Auto 0.000 K/mm3 (0.0-0.012); Nucleated Red Blood Cells Perc 0.0 % (0.0-0.2); Platelet Count Result 168 k/mm3 (150-375); Red Blood Count 3.78 M/mm3 (4.2-5.4); White Blood Count 6.9 K/mm3 (4.5-10.0)
[2025-01-21 06:54] LABS: Alanine Aminotransferase 18 U/L (6-35); Albumin Level 3.2 g/dL (3.5-5.1); Alkaline Phosphatase 86 U/L (38-126); Anion Gap 6 mmol/L (4-12); Aspartate Amino Transferase 35 U/L (14-36); Bilirubin,Total 0.5 mg/dL (0.2-1.3); Blood Urea Nitrogen 17 mg/dL (7-17); Calcium 8.6 mg/dL (8.4-10.2); Carbon Dioxide 25 mmol/L (22-30); Chloride 105 mmol/L (98-107); Estimated CRCL calculation 58 ml/min; Estimated Glomerular Filt Rate > 60; Glucose 69 mg/dL (65-110); Magnesium 2.3 mg/dL (1.6-2.3); Potassium 3.6 mmol/L (3.4-5.0); Sodium 136 mmol/L (137-145); Total Protein 6.4 g/dL (6.3-8.2)
[2025-01-21] MEDS: CHOLECALCIFEROL (VITAMIN D3) 25 MCG (1,000 UNITS) TABLET 100 MCG PO (08:22)
[2025-01-21] MEDS: ROSUVASTATIN 5 MG TABLET PO (08:22)
[2025-01-21] MEDS: ENOXAPARIN 40 MG/0.4 ML SYRINGE SUB-Q (08:22)
[2025-01-21 08:23] VITALS: PULSE 72
[2025-01-21] MEDS: TIZANIDINE HCL 2 MG TABLET PO (08:23)
[2025-01-21] MEDS: SOLIFENACIN 5 MG TABLET 10 MG PO (08:24)
[2025-01-21] MEDS: GLIMEPIRIDE 1 MG TABLET PO (08:25)
[2025-01-21] MEDS: SPIRONOLACTONE 50 MG TABLET PO (08:25)
[2025-01-21] MEDS: ASPIRIN 81 MG ENTERIC TABLET PO (08:25)
[2025-01-21] MEDS: TERIFLUNOMIDE 14 MG 1 EACH PO (08:26)
[2025-01-21 09:09] LABS: Varicella-Zoster Ab, IgG Reactive (Non Reactive)
--- NOTE | 2025-01-21 13:00 | PM.IMPN ---
Progress Note: A&P Assessment and Plan (1) Lower extremity weakness: Qualifiers: Laterality: bilateral Qualified Code(s): R29.898 - Other symptoms and signs involving the musculoskeletal system Code(s): R29.898 - Other symptoms and signs involving the musculoskeletal system Status: Acute Assessment and Plan: 6 days of BLE weakness and lower back pain radiating into her R thigh. Patient has hx of multiple sclerosis for which Neurology has been consulted, possibility of flare up as etiology. PT/OT/care coordination consulted for evaluation and acute rehab services. Recent history of a right knee placement. Continues to have weakness R>L but it is slowly and slightly improving. Neurology has evaluated MRI Brain/C-spine/L-spine- no MS lesions identified. Patient's insurance has denied inpatient rehab despite peer to peer, they recommend correction facility with daily physical therapy instead at this time. Orthopedics to see, consider appeal if recommendations could change this outcome. Weakness continues to be present without much improvement. - PT/OT eval -Neurology recommends orthopedic surgery eval and consideration of element of diabetic amyotrophy given uncontrolled DM and patient is having extremity pain- EMG can be done 3-4 weeks after discharge. Also was recommended to consider neurosurgery input as well after orthopedics input if no diagnosis can be identified. Continue PT orthopedics is aware and on board, to see patient tomorrow 01/19. - care coordination for acute rehab - CT lumbar (01/12): A degree thoracolumbar dextrocurvature with severe lower lumbar spondylosis. - analgesics prn: Tylenol, Sylvia, morphine. Hold home tramadol. - MRI C spine: 1. Again seen C4-C6 anterior spinal fusion with anterior plate and screw fixation. There is new magnetic field artifact now obscuring the C3-C4 disc space which was not present at the time of the prior study suggesting possible interval extension of the anterior fusion. Correlate with surgical history and could consider correlation with plain radiographs as clinically indicated. 2. No significant change in moderate cervical spondylosis including a small region of likely myelomalacia with decrease cross-sectional diameter of the cord and increased cord signal at the level of C4. 3. Multinodular goiter. -MRI L-spine: Severe lumbar spondylosis. No comment as to MS lesions noted. -seen by Neurology, brain MRI ruled out multiple sclerosis lesions definitively as well as x-rays of the cervical spine, right knee, right hip were done. 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 Diabetes mellitus complication status: without complication Qualified Code(s): E11.9 - Type 2 diabetes mellitus without complications Code(s): E11.9 - Type 2 diabetes mellitus without complications Status: Acute Assessment and Plan: - hypoglycemia protocol - POC blood glucose ACHS - home medication: Continue glimepiride, tradjenta - correct regimen ordered - high dose TIDWM, based off BMI - A1C 9.6% on 10/13/2024 (4) Hyperlipidemia: Qualifiers: Hyperlipidemia type: mixed hyperlipidemia Qualified Code(s): E78.2 - Mixed hyperlipidemia Code(s): E78.5 - Hyperlipidemia, unspecified Status: Chronic Assessment and Plan: - continue rosuvastatin (5) Benign essential hypertension: Code(s): I10 - Essential (primary) hypertension Status: Chronic Assessment and Plan: - chronic, currently 135/75, stable. - continue home medications: Coreg, Lasix, spironolactone, valsartan - monitor Plan Diet: Diabetic GI Prophylaxis: n/a DVT Prophylaxis: SCDs IV fluids: None Lines/Tubes: Peripheral IV Code Status: Full code Awaiting Lumbar puncture Subjective Date/time seen: 01/21/25 13:00 Interval history: Comfortable at bedside noted no change in bilateral lower extremities weakness Awaiting Lumbar puncture Review of Systems Review of Systems: All systems reviewed & are unremarkable except as noted in HPI and below Exam Const: General: comfortable and no acute distress Other: , female, nontoxic appearance HENMT: Face/Nose/Sinus: Normal nares present Mouth: Yes moist mucous membranes Eyes: General: appearance normal, both eyes and all related structures Sclera: sclerae normal Pupils: Equal, round and reactive pupils present EOM: EOMs intact bilaterally Resp: Effort & Inspection: normal respiratory effort Auscultation: clear to auscultation bilaterally Cardio: Rate: regular rate Rhythm: regular rhythm Other: S1-S2 present without murmur, rub, ectopy GI: Other: Abdomen soft, nondistended, nontender. Normoactive bowel sounds in all quadrants. Skin: General skin exam: normal color and no rashes or lesions noted Wounds: no wounds Neuro: Cranial nerves: Yes Equal, round and reactive pupils present Speech: normal speech Sensory Exam: normal sensation Other: A&O x4. +5in the upper extremities bilaterally. +4 in the lower extremities, right however worse than the left. Extrem: Other: 1+ pitting edema to the bilateral lower extremities, symmetric Psych: Mental Status: mental status grossly normal Affect: normal affect Other: Good insight and judgment, pleasant Objective Data Vital Signs Vital Signs: Vital Signs - 24 hr 01/20/25 13:48 01/20/25 20:01 01/20/25 20:28 Temperature 96.1 F L 97.7 F Pulse Rate 87 75 71 Respiratory Rate 16 18 Blood Pressure 111/63 113/57 L Pulse Oximetry 100 100 Oxygen Delivery Fraction of Inspired Oxygen 01/20/25 20:28 01/21/25 05:00 01/21/25 08:00 Temperature 97.9 F Pulse Rate 71 66 Respiratory Rate 18 16 Blood Pressure 103/55 L Pulse Oximetry 100 99 Oxygen Delivery Room Air Room Air Fraction of Inspired Oxygen 21 01/21/25 08:23 Temperature Pulse Rate 72 Respiratory Rate Blood Pressure Pulse Oximetry Oxygen Delivery Fraction of Inspired Oxygen Intake/Output Intake/Output: Intake & Output 01/18/25 01/19/25 01/20/25 01/21/25 23:59 23:59 23:59 23:59 Intake Total 009 518 5221 378 Output Total 565 438 1256 600 Balance -064 398 4867 -222 Meds/Results Medications: Active Medications Generic Name Dose Route Start Last Admin Trade Name Freq PRN Reason Stop Dose Admin Acetaminophen 650 mg 01/12/25 12:59 01/19/25 09:40 Acetaminophen 325 Mg Tablet PO 650 mg Q4H PRN Administration Mild Pain (1-3) or Fever Hydrocodone Bitart/Acetaminophen 1 tab 01/12/25 15:25 01/20/25 22:04 Hydrocodone/Acetaminophen (*Crx) 5-325 Mg Tablet PO 1 tab Q4H PRN Administration Moderate Pain (4-6) Aspirin 81 mg 01/13/25 09:00 01/21/25 08:25 Aspirin 81 Mg Enteric Tablet PO 81 mg QAM DASHA Administration Benzonatate 200 mg 01/13/25 00:06 Benzonatate 100 Mg Capsule PO TID PRN cough Bisacodyl 5 mg 01/12/25 15:25 Bisacodyl 5 Mg Tablet Ec PO DAILY PRN Constipation Carvedilol 25 mg 01/13/25 09:00 01/21/25 08:23 Carvedilol 25 Mg Tablet PO 25 mg Q12HR DASHA Administration Dextrose 12.5 gm 01/12/25 15:25 Dextrose 50% 25 Gm/50 Ml Syringe IV PUSH PRN PRN Hypoglycemia Protocol Diazepam 5 mg 01/14/25 08:18 01/14/25 10:15 Diazepam Inj (*Crx) 10 Mg/2 Ml Syringe IV PUSH 5 mg ONCE PRN Administration Anxiety Enoxaparin Sodium 40 mg 01/16/25 14:05 01/21/25 08:22 Enoxaparin 40 Mg/0.4 Ml Syringe SUB-Q 40 mg DAILY DASHA Administration Furosemide 80 mg 01/13/25 09:00 01/19/25 08:20 Furosemide 40 Mg Tablet PO 80 mg On Hold: 01/19/25 14:55 DAILY DASHA Administration Glimepiride 1 mg 01/13/25 08:00 01/21/25 08:25 Glimepiride 1 Mg Tablet PO 1 mg DAILY@0800 DASHA Administration Glucagon 1 mg 01/12/25 15:25 Glucagon For Inj 1 Mg Vial IM PRN PRN Hypoglycemia Protocol Glucose 15 gm 01/12/25 15:25 Glucose Oral Gel 15 Gm Of Glucse In 37.5 Gm Tube PO PRN PRN Hypoglycemia Protocol Home Med 1 each 01/13/25 09:00 01/21/25 08:26 Teriflunomide [Aubagio] 14 Mg Tablet Home Med PO 02/12/25 08:59 1 each DAILY DASHA Administration Dextrose 1,000 mls @ 100 mls/hr 01/12/25 15:25 Dextrose 5% 1,000 Ml IVPB PRN PRN Hypoglycemia Protocol Insulin Aspart 4 - 8 units 01/12/25 17:00 01/21/25 12:20 Insulin Aspart (*Bkc) 100 Units/Ml SUB-Q Not Given TIDWM [facility] Protocol Morphine Sulfate 2 mg 01/12/25 15:40 Morphine Sulfate (*Crx) 4 Mg/Ml Inj IV PUSH Q4H PRN Pain Rated 7-10 Rosuvastatin Calcium 5 mg 01/13/25 09:00 01/21/25 08:22 Rosuvastatin 5 Mg Tablet PO 5 mg DAILY DASHA Administration Sitagliptin Phosphate 100 mg 01/13/25 09:00 01/21/25 08:25 Sitagliptin Phosphate 100 Mg Tablet PO 100 mg QAM DASHA Administration Solifenacin 10 mg 01/13/25 09:00 01/21/25 08:24 Solifenacin 5 Mg Tablet PO 10 mg QAM DASHA Administration Spironolactone 50 mg 01/13/25 09:00 01/21/25 08:25 Spironolactone 50 Mg Tablet PO 50 mg DAILY DASHA Administration Tizanidine HCl 2 mg 01/21/25 09:00 01/21/25 08:23 Tizanidine Hcl 2 Mg Tablet PO 2 mg QAM DASHA Administration Valsartan 160 mg 01/13/25 09:00 01/19/25 08:21 Valsartan 160 Mg Tablet PO 160 mg On Hold: 01/19/25 15:32 Q12HR DASHA Administration Vitamin D 100 mcg 01/13/25 09:00 01/21/25 08:22 Cholecalciferol (Vitamin D3) 25 Mcg (1,000 Units) Tablet PO 100 mcg DAILY DASHA Administration Radiology Results: ITS Impressions Lumbar Spine CT 01/12/25 11:28 IMPRESSION: 1. A degree thoracolumbar dextrocurvature with severe lower lumbar spondylosis. Lumbar Spine MRI 01/14/25 11:44 IMPRESSION: 1. Severe lumbar spondylosis. Cervical Spine MRI 01/14/25 12:27 IMPRESSION: 1. Again seen C4-C6 anterior spinal fusion with anterior plate and screw fixation. There is new magnetic field artifact now obscuring the C3-C4 disc space which was not present at the time of the prior study suggesting possible interval extension of the anterior fusion. Correlate with surgical history and could consider correlation with plain radiographs as clinically indicated. 2. No significant change in moderate cervical spondylosis including a small region of likely myelomalacia with decrease cross-sectional diameter of the cord and increased cord signal at the level of C4. 3. Multinodular goiter. Thoracic Spine MRI 01/14/25 20:35 IMPRESSION: 1. 25 degrees upper thoracic dextroscoliosis with mild spondylosis. Hip X-Ray 01/15/25 15:56 Impression: No acute fracture or malalignment. Knee X-Ray 01/15/25 15:56 Impression: No acute fracture or malalignment. Cervical Spine X-Ray 01/15/25 16:00 Impression: No acute abnormality. Brain MRI 01/16/25 11:46 IMPRESSION: 1. Extensive chronically unchanged cerebral and cerebellar white matter disease, consistent with quiescent multiple sclerosis. Labs Labs: Laboratory Results - last 24 hr 01/20/25 01/20/25 01/20/25 14:32 16:02 21:55 WBC RBC Hgb Hct MCV MCH MCHC RDW Plt Count MPV Immature Gran % (Auto) Neut % (Auto) Lymph % (Auto) [place] % (Auto) Eos % (Auto) Baso % (Auto) Lymph # (Auto) [place] # (Auto) Eos # (Auto) Baso # (Auto) Abs Immat Gran (auto) Absolute Neuts (auto) Absolute Nucleated RBC Nucleated RBC % Sodium Potassium Chloride Carbon Dioxide Anion Gap BUN Creatinine Estim Creat Clear Calc Estimated GFR Glucose POC Capillary Glucose 164 H 149 H Calcium Magnesium Total Bilirubin AST ALT Alkaline Phosphatase Total Protein Albumin Lyme IgG 18 kDa Band Cancelled Lyme IgG 23 kDa Band Cancelled Lyme IgG 28 kDa Band Cancelled Lyme IgG 30 kDa Band Cancelled Lyme IgG 39 kDa Band Cancelled Lyme IgG 41 kDa Band Cancelled Lyme IgG 45 kDa Band Cancelled Lyme IgG 58 kDa Band Cancelled Lyme IgG 66 kDa Band Cancelled Lyme IgG 93 kDa Band Cancelled Lyme IgG Ab (Immblot) Cancelled Lyme IgM Ab (Immblot) Cancelled Lyme IgM 23 kDa Band Cancelled Lyme IgM 39 kDa Band Cancelled Lyme IgM 41 kDa Band Cancelled VZV IgG Antibody Reactive 01/21/25 01/21/25 01/21/25 05:43 08:09 11:51 WBC 6.9 RBC 3.78 L Hgb 10.0 L Hct 32.9 L MCV 87.0 MCH 26.5 MCHC 30.4 L RDW 16.3 H Plt Count 168 MPV 11.9 H Immature Gran % (Auto) 0.4 Neut % (Auto) 44.4 L Lymph % (Auto) 34.4 [place] % (Auto) 12.5 H Eos % (Auto) 7.3 H Baso % (Auto) 1.0 Lymph # (Auto) 2.36 [place] # (Auto) 0.9 H Eos # (Auto) 0.5 H Baso # (Auto) 0.1 Abs Immat Gran (auto) 0.03 Absolute Neuts (auto) 3.1 Absolute Nucleated RBC 0.000 Nucleated RBC % 0.0 Sodium 136 L Potassium 3.6 Chloride 105 Carbon Dioxide 25 Anion Gap 6 BUN 17 Creatinine 0.87 Estim Creat Clear Calc 58 Estimated GFR > 60 Glucose 69 POC Capillary Glucose 79 115 H Calcium 8.6 Magnesium 2.3 Total Bilirubin 0.5 AST 35 ALT 18 Alkaline Phosphatase 86 Total Protein 6.4 Albumin 3.2 L Lyme IgG 18 kDa Band Lyme IgG 23 kDa Band Lyme IgG 28 kDa Band Lyme IgG 30 kDa Band Lyme IgG 39 kDa Band Lyme IgG 41 kDa Band Lyme IgG 45 kDa Band Lyme IgG 58 kDa Band Lyme IgG 66 kDa Band Lyme IgG 93 kDa Band Lyme IgG Ab (Immblot) Lyme IgM Ab (Immblot) Lyme IgM 23 kDa Band Lyme IgM 39 kDa Band Lyme IgM 41 kDa Band VZV IgG Antibody Quality VTE Prophylaxis VTE prophylaxis: mechanical ordered
[2025-01-21 14:00] VITALS: BP 109/50; PULSE 70; RESP 16; TEMP 36.4; O2SAT 98
[2025-01-21 14:09] LABS: CMV Quant DNA PCR, Plasma Negative (Negative)
[2025-01-21 21:01] VITALS: PULSE 63
[2025-01-21 21:26] VITALS: BP 124/63; PULSE 65; RESP 18; TEMP 36.3; O2SAT 100
[2025-01-22 05:47] VITALS: BP 110/88; PULSE 76; RESP 16; TEMP 36.3; O2SAT 97
[2025-01-22 06:12] LABS: Potassium 3.7 mmol/L (3.4-5.0)
[2025-01-22] MEDS: ACETAMINOPHEN 325 MG TABLET 650 MG PO (09:39)
[2025-01-22] MEDS: ENOXAPARIN 40 MG/0.4 ML SYRINGE SUB-Q (09:39)
[2025-01-22 09:40] VITALS: PULSE 76
[2025-01-22] MEDS: GLIMEPIRIDE 1 MG TABLET PO (09:40)
[2025-01-22] MEDS: SOLIFENACIN 5 MG TABLET 10 MG PO (09:40)
[2025-01-22] MEDS: ASPIRIN 81 MG ENTERIC TABLET PO (09:40)
[2025-01-22] MEDS: TIZANIDINE HCL 2 MG TABLET PO (09:40)
[2025-01-22] MEDS: CHOLECALCIFEROL (VITAMIN D3) 25 MCG (1,000 UNITS) TABLET 100 MCG PO (09:40)
[2025-01-22] MEDS: SPIRONOLACTONE 50 MG TABLET PO (09:42)
[2025-01-22] MEDS: ROSUVASTATIN 5 MG TABLET PO (09:42)
--- NOTE | 2025-01-22 09:43 | P.PNOP_ITS ---
Progress Note: A&P Assessment and Plan (1) Status post total knee replacement, right: Code(s): Z96.651 - Presence of right artificial knee joint Status: Acute Assessment and Plan: History, exam, radiographs, neurology and hospitalist notes reviewed. Radiographs of the right knee reveal right TKA in good position. No signs of loosening, dislocation. Right TKA by Dr. Gonzalez in March of 2024. Radiographs of the right hip negative for acute abnormalities. Patient has obvious stiffness of b/l LE on exam, right worse than left. Resistant to internal/external rotation of the right hip as well as extension of the right knee. No palpable knee joint effusion. No redness/warmth or notable swelling. No obvious signs of infection. Patient declines known injury. Progressive weakness x6 days prior to admission on 01/12. She has been seen by neurology with no concerns for acute MS flare based on MRI of brain, cervical, thoracic and lumbar spine results. Lumbar spine MRI with multilevel stenosis. Her symptoms of the right thigh pain/weakness could be a results of this. Neurosurgery consult to be considered per neurology. Agree. Discussed with hospitalist service possible differential diagnoses, trying muscle relaxes for the LE stiffness vs. steroids as mentioned briefly from neurosurgery. Recommended repeat radiographs today of the right hip/femur and knee. Ideally, the knee XR would be standing to better evaluate TKA. Patient continues to have difficulty with standing. Will await results. Continue PT/OT as tolerated in the interim. (2) Lower extremity weakness: Qualifiers: Laterality: bilateral Qualified Code(s): R29.898 - Other symptoms and signs involving the musculoskeletal system Code(s): R29.898 - Other symptoms and signs involving the musculoskeletal system Status: Acute Assessment and Plan: Spinal tap pending. (3) Muscle weakness: Code(s): M62.81 - Muscle weakness (generalized) Status: Acute (4) Weakness of both lower limbs: Code(s): R29.898 - Other symptoms and signs involving the musculoskeletal system Status: Acute (5) Multiple sclerosis: Code(s): G35 - Multiple sclerosis Status: Acute Plan Reviewed history, exam, radiographs and current labs with attending MD and covering surgeon, Dr. Barger, who agrees with current plan as indicated above. No further recommendations from Dr. Barger at this time. Subjective Subjective Date/Time Seen: 01/22/25 09:43 Interval history: Patient awake/alert. Still with complaints of pain/stiffness in the right knee/hip/femur. Spinal tap resutls pending. Review of Systems Review of Systems: All systems reviewed & are unremarkable except as noted in HPI and below Exam Const: General: cooperative and healthy appearing Orientation/consciousness: patient oriented x3 HENMT: Head: normal to inspection Ears: hearing grossly normal bilaterally Extrem: Right lower extremity: hip/thigh Details: tenderness Location: of the hip Location: anteromedially and anterolaterally and abnormal ROM Details: pain with active ROM during Details: to external rotation, pain with resistance to Details: to internal rotation and pain with passive ROM during Details: to internal rotation and to external rotation; no ecchymosis and no crepitus, knee Details: normal to inspection, tenderness Location: of the patella and abnormal ROM Details: held in an abnormal fashion Details: in flexion, pain with active ROM during Details: in extension and pain with passive ROM during Details: in extension, ankle Details: normal to inspection and no edema; no tenderness and no swelling and foot Details: normal capillary refill, toes with normal ROM and vascular exam Details: dorsalis pedis pulse present; no tenderness Left lower extremity: normal to inspection and hip/thigh Details: normal to inspection and normal ROM; no swelling Objective Data Vital Signs Vital Signs: Vital Signs - 24 hr 01/21/25 14:00 01/21/25 21:01 01/21/25 21:20 Temperature 36.4 C Pulse Rate 70 63 Respiratory Rate 16 Blood Pressure 109/50 L Pulse Oximetry 98 Oxygen Delivery Room Air 01/21/25 21:26 01/22/25 05:47 01/22/25 09:40 Temperature 36.3 C L 36.3 C L Pulse Rate 65 76 76 Respiratory Rate 18 16 Blood Pressure 124/63 110/88 Pulse Oximetry 100 97 Oxygen Delivery Intake/Output Intake/Output: Intake & Output 01/19/25 01/20/25 01/21/25 01/22/25 23:59 23:59 23:59 23:59 Intake Total 940 2084 1296 436 Output Total 300 1050 1000 300 Balance 640 1034 296 136 Meds/Results Medications: Active Medications Generic Name Dose Route Start Last Admin Trade Name Freq PRN Reason Stop Dose Admin Acetaminophen 650 mg 01/12/25 12:59 01/22/25 09:39 Acetaminophen 325 Mg Tablet PO 650 mg Q4H PRN Administration Mild Pain (1-3) or Fever Hydrocodone Bitart/Acetaminophen 1 tab 01/12/25 15:25 01/20/25 22:04 Hydrocodone/Acetaminophen (*Crx) 5-325 Mg Tablet PO 1 tab Q4H PRN Administration Moderate Pain (4-6) Aspirin 81 mg 01/13/25 09:00 01/22/25 09:40 Aspirin 81 Mg Enteric Tablet PO 81 mg QAM DASHA Administration Benzonatate 200 mg 01/13/25 00:06 Benzonatate 100 Mg Capsule PO TID PRN cough Bisacodyl 5 mg 01/12/25 15:25 Bisacodyl 5 Mg Tablet Ec PO DAILY PRN Constipation Carvedilol 25 mg 01/13/25 09:00 01/22/25 09:40 Carvedilol 25 Mg Tablet PO 25 mg Q12HR DASHA Administration Dextrose 12.5 gm 01/12/25 15:25 Dextrose 50% 25 Gm/50 Ml Syringe IV PUSH PRN PRN Hypoglycemia Protocol Diazepam 5 mg 01/14/25 08:18 01/14/25 10:15 Diazepam Inj (*Crx) 10 Mg/2 Ml Syringe IV PUSH 5 mg ONCE PRN Administration Anxiety Enoxaparin Sodium 40 mg 01/16/25 14:05 01/22/25 09:39 Enoxaparin 40 Mg/0.4 Ml Syringe SUB-Q 40 mg DAILY DASHA Administration Furosemide 80 mg 01/13/25 09:00 01/19/25 08:20 Furosemide 40 Mg Tablet PO 80 mg On Hold: 01/19/25 14:55 DAILY DASHA Administration Glimepiride 1 mg 01/13/25 08:00 01/22/25 09:40 Glimepiride 1 Mg Tablet PO 1 mg DAILY@0800 DASHA Administration Glucagon 1 mg 01/12/25 15:25 Glucagon For Inj 1 Mg Vial IM PRN PRN Hypoglycemia Protocol Glucose 15 gm 01/12/25 15:25 Glucose Oral Gel 15 Gm Of Glucse In 37.5 Gm Tube PO PRN PRN Hypoglycemia Protocol Home Med 1 each 01/13/25 09:00 01/21/25 08:26 Teriflunomide [Aubagio] 14 Mg Tablet Home Med PO 02/12/25 08:59 1 each DAILY DASHA Administration Dextrose 1,000 mls @ 100 mls/hr 01/12/25 15:25 Dextrose 5% 1,000 Ml IVPB PRN PRN Hypoglycemia Protocol Insulin Aspart 4 - 8 units 01/12/25 17:00 01/22/25 09:12 Insulin Aspart (*Bkc) 100 Units/Ml SUB-Q Not Given TIDWM DASHA Protocol Morphine Sulfate 2 mg 01/12/25 15:40 Morphine Sulfate (*Crx) 4 Mg/Ml Inj IV PUSH Q4H PRN Pain Rated 7-10 Rosuvastatin Calcium 5 mg 01/13/25 09:00 01/22/25 09:42 Rosuvastatin 5 Mg Tablet PO 5 mg DAILY DASHA Administration Sitagliptin Phosphate 100 mg 01/13/25 09:00 01/22/25 09:40 Sitagliptin Phosphate 100 Mg Tablet PO 100 mg QAM DASHA Administration Solifenacin 10 mg 01/13/25 09:00 01/22/25 09:40 Solifenacin 5 Mg Tablet PO 10 mg QAM DASHA Administration Spironolactone 50 mg 01/13/25 09:00 01/22/25 09:42 Spironolactone 50 Mg Tablet PO 50 mg DAILY DASHA Administration Tizanidine HCl 2 mg 01/21/25 09:00 01/22/25 09:40 Tizanidine Hcl 2 Mg Tablet PO 2 mg QAM DASHA Administration Valsartan 160 mg 01/13/25 09:00 01/19/25 08:21 Valsartan 160 Mg Tablet PO 160 mg On Hold: 01/19/25 15:32 Q12HR DASHA Administration Vitamin D 100 mcg 01/13/25 09:00 01/22/25 09:40 Cholecalciferol (Vitamin D3) 25 Mcg (1,000 Units) Tablet PO 100 mcg DAILY DASHA Administration Radiology Results: ITS Impressions Lumbar Spine CT 01/12/25 11:28 IMPRESSION: 1. A degree thoracolumbar dextrocurvature with severe lower lumbar spondylosis. Lumbar Spine MRI 01/14/25 11:44 IMPRESSION: 1. Severe lumbar spondylosis. Cervical Spine MRI 01/14/25 12:27 IMPRESSION: 1. Again seen C4-C6 anterior spinal fusion with anterior plate and screw fixati on. There is new magnetic field artifact now obscuring the C3-C4 disc space which was not present at the time of the prior study suggesting possible interval extension of the anterior fusion. Correlate with surgical history and could consider correlation with plain radiographs as clinically indicated. 2. No significant change in moderate cervical spondylosis including a small region of likely myelomalacia with decrease cross-sectional diameter of the cord and increased cord signal at the level of C4. 3. Multinodular goiter. Thoracic Spine MRI 01/14/25 20:35 IMPRESSION: 1. 25 degrees upper thoracic dextroscoliosis with mild spondylosis. Hip X-Ray 01/15/25 15:56 Impression: No acute fracture or malalignment. Knee X-Ray 01/15/25 15:56 Impression: No acute fracture or malalignment. Cervical Spine X-Ray 01/15/25 16:00 Impression: No acute abnormality. Brain MRI 01/16/25 11:46 IMPRESSION: 1. Extensive chronically unchanged cerebral and cerebellar white matter disease, consistent with quiescent multiple sclerosis. Labs Labs: Laboratory Results - last 24 hr 01/20/25 01/21/25 01/21/25 14:32 11:51 16:47 Potassium POC Capillary Glucose 115 H 137 H CMV DNA Quant PCR Negative CMV DNA PCR log IU/mL 01/21/25 01/22/25 01/22/25 21:22 05:32 07:43 Potassium 3.7 POC Capillary Glucose 175 H 84 CMV DNA Quant PCR CMV DNA PCR log IU/mL
[2025-01-22 10:45] LABS: Platelet Count Result 171 k/mm3 (150-375)
[2025-01-22 10:58] LABS: INR 1.1; Prothrombin Time 14.1 Seconds (11.1-14.7)
[2025-01-22 10:59] LABS: Partial Thromboplastin Time 29.3 Seconds (22.3-36.8)
--- NOTE | 2025-01-22 11:59 | PCPTNOTE ---
Attempted to see patient for PT, however patient was leaving room with X-ray tech assistance for testing.
--- NOTE | 2025-01-22 12:55 | PM.IMPN ---
Progress Note: A&P Assessment and Plan (1) Lower extremity weakness: Qualifiers: Laterality: bilateral Qualified Code(s): R29.898 - Other symptoms and signs involving the musculoskeletal system Code(s): R29.898 - Other symptoms and signs involving the musculoskeletal system Status: Acute Assessment and Plan: 6 days of BLE weakness and lower back pain radiating into her R thigh. Patient has hx of multiple sclerosis for which Neurology has been consulted, possibility of flare up as etiology. PT/OT/care coordination consulted for evaluation and acute rehab services. Recent history of a right knee placement. Continues to have weakness R>L but it is slowly and slightly improving. Neurology has evaluated MRI Brain/C-spine/L-spine- no MS lesions identified. Patient's insurance has denied inpatient rehab despite peer to peer, they recommend long term facility with daily physical therapy instead at this time. Orthopedics to see, consider appeal if recommendations could change this outcome. Weakness continues to be present without much improvement. - PT/OT eval -Neurology recommends orthopedic surgery eval and consideration of element of diabetic amyotrophy given uncontrolled DM and patient is having extremity pain- EMG can be done 3-4 weeks after discharge. Also was recommended to consider neurosurgery input as well after orthopedics input if no diagnosis can be identified. Continue PT orthopedics is aware and on board, to see patient tomorrow 01/19. - care coordination for acute rehab - CT lumbar (01/12): A degree thoracolumbar dextrocurvature with severe lower lumbar spondylosis. - analgesics prn: Tylenol, [place], morphine. Hold home tramadol. - MRI C spine: 1. Again seen C4-C6 anterior spinal fusion with anterior plate and screw fixation. There is new magnetic field artifact now obscuring the C3-C4 disc space which was not present at the time of the prior study suggesting possible interval extension of the anterior fusion. Correlate with surgical history and could consider correlation with plain radiographs as clinically indicated. 2. No significant change in moderate cervical spondylosis including a small region of likely myelomalacia with decrease cross-sectional diameter of the cord and increased cord signal at the level of C4. 3. Multinodular goiter. -MRI L-spine: Severe lumbar spondylosis. No comment as to MS lesions noted. -seen by Neurology, brain MRI ruled out multiple sclerosis lesions definitively as well as x-rays of the cervical spine, right knee, right hip were done. For Lumbar puncture today, F/u imaging hip and Femur and knee Since patient clarified that she has no weakness and MRI did not show any new lesions, no need for steroids at this time NEurology and ortho following (2) Multiple sclerosis: Code(s): G35 - Multiple sclerosis Status: Acute Assessment and Plan: - see above - patient reports she has previously been stable and has not had any significant progression in her disease since diagnosis many years ago -ordered MRI: as above; no MS lesions noted - follows with Neurology at [facility] - continue teriflulnomide -MRI Brain negative for new MS lesions (3) DM type 2 (diabetes mellitus, type 2): Qualifiers: Diabetes mellitus longterm insulin use: unspecified longterm insulin use status Diabetes mellitus complication status: without complication Qualified Code(s): E11.9 - Type 2 diabetes mellitus without complications Code(s): E11.9 - Type 2 diabetes mellitus without complications Status: Acute Assessment and Plan: - hypoglycemia protocol - POC blood glucose ACHS - home medication: Continue glimepiride, tradjenta - correct regimen ordered - high dose TIDWM, based off BMI - A1C 9.6% on 10/13/2024 (4) Hyperlipidemia: Qualifiers: Hyperlipidemia type: mixed hyperlipidemia Qualified Code(s): E78.2 - Mixed hyperlipidemia Code(s): E78.5 - Hyperlipidemia, unspecified Status: Chronic Assessment and Plan: - continue rosuvastatin (5) Benign essential hypertension: Code(s): I10 - Essential (primary) hypertension Status: Chronic Assessment and Plan: - chronic, currently 135/75, stable. - continue home medications: Coreg, Lasix, spironolactone, valsartan - monitor Plan Diet: Diabetic GI Prophylaxis: n/a DVT Prophylaxis: SCDs IV fluids: None Lines/Tubes: Peripheral IV Code Status: Full code Awaiting Lumbar puncture Subjective Date/time seen: 01/22/25 12:55 Interval history: Comfortable at bedside For LP today Patient stated she has Bilateral LE pain and denies any weakness Follow up on Ortho imaging studies Review of Systems Review of Systems: All systems reviewed & are unremarkable except as noted in HPI and below Exam Const: General: comfortable and no acute distress Other: , female, nontoxic appearance HENMT: Face/Nose/Sinus: Normal nares present Mouth: Yes moist mucous membranes Eyes: General: appearance normal, both eyes and all related structures Sclera: sclerae normal Pupils: Equal, round and reactive pupils present EOM: EOMs intact bilaterally Resp: Effort & Inspection: normal respiratory effort Auscultation: clear to auscultation bilaterally Cardio: Rate: regular rate Rhythm: regular rhythm Other: S1-S2 present without murmur, rub, ectopy GI: Other: Abdomen soft, nondistended, nontender. Normoactive bowel sounds in all quadrants. Skin: General skin exam: normal color and no rashes or lesions noted Wounds: no wounds Neuro: Cranial nerves: Yes Equal, round and reactive pupils present Speech: normal speech Sensory Exam: normal sensation Other: A&O x4. +5in the upper extremities bilaterally. +4 in the lower extremities, right however worse than the left. Extrem: Other: 1+ pitting edema to the bilateral lower extremities, symmetric Psych: Mental Status: mental status grossly normal Affect: normal affect Other: Good insight and judgment, pleasant Objective Data Vital Signs Vital Signs: Vital Signs - 24 hr 01/21/25 14:00 01/21/25 21:01 01/21/25 21:20 Temperature 97.6 F Pulse Rate 70 63 Respiratory Rate 16 Blood Pressure 109/50 L Pulse Oximetry 98 Oxygen Delivery Room Air 01/21/25 21:26 01/22/25 05:47 01/22/25 08:00 Temperature 97.3 F L 97.3 F L Pulse Rate 65 76 Respiratory Rate 18 16 Blood Pressure 124/63 110/88 Pulse Oximetry 100 97 Oxygen Delivery Room Air 01/22/25 09:40 Temperature Pulse Rate 76 Respiratory Rate Blood Pressure Pulse Oximetry Oxygen Delivery Intake/Output Intake/Output: Intake & Output 01/19/25 01/20/25 01/21/25 01/22/25 23:59 23:59 23:59 23:59 Intake Total 940 2084 1296 436 Output Total 300 1050 1000 300 Balance 640 1034 296 136 Meds/Results Medications: Active Medications Generic Name Dose Route Start Last Admin Trade Name Freq PRN Reason Stop Dose Admin Acetaminophen 650 mg 01/12/25 12:59 01/22/25 09:39 Acetaminophen 325 Mg Tablet PO 650 mg Q4H PRN Administration Mild Pain (1-3) or Fever Hydrocodone Bitart/Acetaminophen 1 tab 10/06/25 15:25 01/20/25 22:04 Hydrocodone/Acetaminophen (*Crx) 5-325 Mg Tablet PO 1 tab Q4H PRN Administration Moderate Pain (4-6) Aspirin 81 mg 01/13/25 09:00 01/22/25 09:40 Aspirin 81 Mg Enteric Tablet PO 81 mg QAM DASHA Administration Benzonatate 200 mg 01/13/25 00:06 Benzonatate 100 Mg Capsule PO TID PRN cough Bisacodyl 5 mg 01/12/25 15:25 Bisacodyl 5 Mg Tablet Ec PO DAILY PRN Constipation Carvedilol 25 mg 01/13/25 09:00 01/22/25 09:40 Carvedilol 25 Mg Tablet PO 25 mg Q12HR DASHA Administration Dextrose 12.5 gm 01/12/25 15:25 Dextrose 50% 25 Gm/50 Ml Syringe IV PUSH PRN PRN Hypoglycemia Protocol Diazepam 5 mg 01/14/25 08:18 01/14/25 10:15 Diazepam Inj (*Crx) 10 Mg/2 Ml Syringe IV PUSH 5 mg ONCE PRN Administration Anxiety Enoxaparin Sodium 40 mg 01/16/25 14:05 01/22/25 09:39 Enoxaparin 40 Mg/0.4 Ml Syringe SUB-Q 40 mg DAILY DASHA Administration Furosemide 80 mg 01/13/25 09:00 01/19/25 08:20 Furosemide 40 Mg Tablet PO 80 mg On Hold: 01/19/25 14:55 DAILY DASHA Administration Glimepiride 1 mg 01/13/25 08:00 01/22/25 09:40 Glimepiride 1 Mg Tablet PO 1 mg DAILY@0800 DASHA Administration Glucagon 1 mg 01/12/25 15:25 Glucagon For Inj 1 Mg Vial IM PRN PRN Hypoglycemia Protocol Glucose 15 gm 01/12/25 15:25 Glucose Oral Gel 15 Gm Of Glucse In 37.5 Gm Tube PO PRN PRN Hypoglycemia Protocol Home Med 1 each 01/13/25 09:00 01/22/25 09:48 Teriflunomide [Aubagio] 14 Mg Tablet Home Med PO 02/12/25 08:59 Not Given DAILY DASHA Dextrose 1,000 mls @ 100 mls/hr 01/12/25 15:25 Dextrose 5% 1,000 Ml IVPB PRN PRN Hypoglycemia Protocol Insulin Aspart 4 - 8 units 01/12/25 17:00 01/22/25 12:21 Insulin Aspart (*Bkc) 100 Units/Ml SUB-Q Not Given TIDWM DASHA Protocol Morphine Sulfate 2 mg 01/12/25 15:40 Morphine Sulfate (*Crx) 4 Mg/Ml Inj IV PUSH Q4H PRN Pain Rated 7-10 Rosuvastatin Calcium 5 mg 01/13/25 09:00 01/22/25 09:42 Rosuvastatin 5 Mg Tablet PO 5 mg DAILY DASHA Administration Sitagliptin Phosphate 100 mg 01/13/25 09:00 01/22/25 09:40 Sitagliptin Phosphate 100 Mg Tablet PO 100 mg QAM DASHA Administration Solifenacin 10 mg 01/13/25 09:00 01/22/25 09:40 Solifenacin 5 Mg Tablet PO 10 mg QAM DASHA Administration Spironolactone 50 mg 01/13/25 09:00 01/22/25 09:42 Spironolactone 50 Mg Tablet PO 50 mg DAILY DASHA Administration Tizanidine HCl 2 mg 01/21/25 09:00 01/22/25 09:40 Tizanidine Hcl 2 Mg Tablet PO 2 mg QAM DASHA Administration Valsartan 160 mg 01/13/25 09:00 01/19/25 08:21 Valsartan 160 Mg Tablet PO 160 mg On Hold: 01/19/25 15:32 Q12HR DASHA Administration Vitamin D 100 mcg 01/13/25 09:00 01/22/25 09:40 Cholecalciferol (Vitamin D3) 25 Mcg (1,000 Units) Tablet PO 100 mcg DAILY DASHA Administration Radiology Results: ITS Impressions Lumbar Spine CT 01/12/25 11:28 IMPRESSION: 1. A degree thoracolumbar dextrocurvature with severe lower lumbar spondylosis. Lumbar Spine MRI 01/14/25 11:44 IMPRESSION: 1. Severe lumbar spondylosis. Cervical Spine MRI 01/14/25 12:27 IMPRESSION: 1. Again seen C4-C6 anterior spinal fusion with anterior plate and screw fixation. There is new magnetic field artifact now obscuring the C3-C4 disc space which was not present at the time of the prior study suggesting possible interval extension of the anterior fusion. Correlate with surgical history and could consider correlation with plain radiographs as clinically indicated. 2. No significant change in moderate cervical spondylosis including a small region of likely myelomalacia with decrease cross-sectional diameter of the cord and increased cord signal at the level of C4. 3. Multinodular goiter. Thoracic Spine MRI 01/14/25 20:35 IMPRESSION: 1. 25 degrees upper thoracic dextroscoliosis with mild spondylosis. Cervical Spine X-Ray 01/15/25 16:00 Impression: No acute abnormality. Brain MRI 01/16/25 11:46 IMPRESSION: 1. Extensive chronically unchanged cerebral and cerebellar white matter disease, consistent with quiescent multiple sclerosis. Labs Labs: Laboratory Results - last 24 hr 01/20/25 01/21/25 01/21/25 14:32 16:47 21:22 Plt Count MPV PT INR APTT Potassium POC Capillary Glucose 137 H 175 H CMV DNA Quant PCR Negative CMV DNA PCR log IU/mL 01/22/25 01/22/25 01/22/25 05:32 07:43 10:34 Plt Count 171 MPV 11.5 H PT 14.1 INR 1.1 APTT 29.3 Potassium 3.7 POC Capillary Glucose 84 CMV DNA Quant PCR CMV DNA PCR log IU/mL 01/22/25 11:40 Plt Count MPV PT INR APTT Potassium POC Capillary Glucose 123 H CMV DNA Quant PCR CMV DNA PCR log IU/mL Quality VTE Prophylaxis VTE prophylaxis: mechanical ordered
--- NOTE | 2025-01-22 13:40 | CY_PTH ---
PATIENT: Jacinta Moreno LOC: [id number] U#:[id number] AGE/SX: 69/F ROOM: 328 RE01/13/[address]: Benita Balderas MD : [id number] BED: 01 DIS: 01/24/2025 SPEC #: [id number] RECD: 01/23/25 08:11 STATUS: KUMAR REQ #: [id number] NETO: 01/22/25 13:[address]: Benita Balderas DEPT: [facility] Cytology RECD BY: Chio Chadwick ENTERED: 01/23/25 08:11 SP TYPE: Cytology OTHR DR: MD Wilbert Sy MD Sajjan K. Nemani, MD Amardeep Shrestha, MD Tissues: A - CSF Procedures: Cytopathology Cytospin
[2025-01-22 15:02] LABS: Nucleated Cell CSF 0 /uL (0-5); Red Blood Cell CSF 1 (0-2)
[2025-01-22 15:30] VITALS: BP 127/73; PULSE 64; RESP 14; TEMP 36.2; O2SAT 100
[2025-01-22 20:28] VITALS: PULSE 71
[2025-01-22 21:34] VITALS: BP 138/57; PULSE 70; RESP 16; TEMP 36.6; O2SAT 98
[2025-01-23 05:49] VITALS: BP 123/66; PULSE 70; RESP 18; TEMP 36.8; O2SAT 99
[2025-01-23 07:51] LABS: Hematocrit 35.1 % (37.0-47.0); Hemoglobin 10.3 g/dL (12.0-15.0); Immature Granulocyte Percent A 0.3 % (0-0.5); Lymphocytes Absolute Auto 1.89 K/mm3 (0.9-3.2); Mean Corpuscular HGB Conc 29.3 g/dl (32-36); Mean Corpuscular Hemoglobin 25.7 pg (26-34); Mean Corpuscular Volume 87.5 fl (80-100); Nucleated Red Blood Cells Absolute Auto 0.000 K/mm3 (0.0-0.012); Nucleated Red Blood Cells Perc 0.0 % (0.0-0.2); Platelet Count Result 186 k/mm3 (150-375); Red Blood Count 4.01 M/mm3 (4.2-5.4); White Blood Count 7.2 K/mm3 (4.5-10.0)
[2025-01-23 08:08] LABS: JC Virus DNA,PCR (Whole Blood) Negative (Negative)
[2025-01-23 08:16] LABS: Alanine Aminotransferase 20 U/L (6-35); Albumin Level 3.4 g/dL (3.5-5.1); Alkaline Phosphatase 102 U/L (38-126); Anion Gap 5 mmol/L (4-12); Aspartate Amino Transferase 30 U/L (14-36); Bilirubin,Total 0.6 mg/dL (0.2-1.3); Blood Urea Nitrogen 13 mg/dL (7-17); Calcium 8.7 mg/dL (8.4-10.2); Carbon Dioxide 27 mmol/L (22-30); Chloride 106 mmol/L (98-107); Estimated CRCL calculation 58 ml/min; Estimated Glomerular Filt Rate > 60; Glucose 76 mg/dL (65-110); Magnesium 2.2 mg/dL (1.6-2.3); Potassium 3.9 mmol/L (3.4-5.0); Sodium 138 mmol/L (137-145); Total Protein 6.7 g/dL (6.3-8.2)
[2025-01-23] MEDS: GLIMEPIRIDE 1 MG TABLET PO (08:25)
[2025-01-23] MEDS: SPIRONOLACTONE 50 MG TABLET PO (08:25)
[2025-01-23] MEDS: TIZANIDINE HCL 2 MG TABLET PO (08:25)
[2025-01-23 08:26] VITALS: PULSE 70
[2025-01-23] MEDS: ROSUVASTATIN 5 MG TABLET PO (08:26)
[2025-01-23] MEDS: ASPIRIN 81 MG ENTERIC TABLET PO (08:26)
[2025-01-23] MEDS: CHOLECALCIFEROL (VITAMIN D3) 25 MCG (1,000 UNITS) TABLET 100 MCG PO (08:26)
[2025-01-23] MEDS: ENOXAPARIN 40 MG/0.4 ML SYRINGE SUB-Q (08:27)
[2025-01-23] MEDS: SOLIFENACIN 5 MG TABLET 10 MG PO (08:27)
[2025-01-23] MEDS: TERIFLUNOMIDE 14 MG 1 EACH PO (08:28)
[2025-01-23 08:49] LABS: Anisocytosis 1+; Hypochromasia 1+; Schistocytes None Seen
[2025-01-23] MEDS: BISACODYL 5 MG TABLET EC PO (09:42)
--- NOTE | 2025-01-23 09:42 | PM.PNORT ---
Progress Note: A&P Assessment and Plan (1) Status post total knee replacement, right: Code(s): Z96.651 - Presence of right artificial knee joint Status: Acute Assessment and Plan: History, exam, radiographs, neurology and hospitalist notes reviewed. Radiographs of the right knee reveal right TKA in good position. No signs of loosening, dislocation. Right TKA by Dr. Gonzalez in March of 2024. Radiographs of the right hip negative for acute abnormalities. Patient continues to have obvious stiffness RLE on exam. Resistant to internal/external rotation of the right hip as well as extension of the right knee. No palpable knee joint effusion. No redness/warmth or notable swelling. No obvious signs of infection. Patient declines known injury. Progressive weakness x6 days prior to admission on 01/12. She has been seen by neurology with no concerns for acute MS flare based on MRI of brain, cervical, thoracic and lumbar spine results. Lumbar spine MRI with multilevel stenosis. Her symptoms of the right thigh pain/weakness could be a results of this. Neurosurgery consult to be considered per neurology. Agree. Discussed with hospitalist service possible differential diagnoses, trying muscle relaxers for the LE stiffness vs. steroids as mentioned briefly from neurosurgery. New XRs reveal no abnormalities. Would recommend trial of antiinflammatories. Continue PT/OT. Patient will likely need placement to SNF or [facility]. (2) Lower extremity weakness: Qualifiers: Laterality: bilateral Qualified Code(s): R29.898 - Other symptoms and signs involving the musculoskeletal system Code(s): R29.898 - Other symptoms and signs involving the musculoskeletal system Status: Acute Assessment and Plan: Spinal tap pending. (3) Muscle weakness: Code(s): M62.81 - Muscle weakness (generalized) Status: Acute (4) Weakness of both lower limbs: Code(s): R29.898 - Other symptoms and signs involving the musculoskeletal system Status: Acute (5) Multiple sclerosis: Code(s): G35 - Multiple sclerosis Status: Acute Plan Reviewed history, exam, radiographs and current labs with attending MD and covering surgeon, Dr. Barger, who agrees with current plan as indicated above. No further recommendations from Dr. Barger at this time. Subjective Subjective Date/Time Seen: 01/23/25 09:42 Interval history: Patient awake/alert. Still with complaints of pain/stiffness in the right knee/hip/femur. Mild improvement. New radiographs obtained yesterday of the right hip/femur/knee. Spinal tap resutls pending. Review of Systems Review of Systems: All systems reviewed & are unremarkable except as noted in HPI and below Exam Const: General: cooperative and healthy appearing Orientation/consciousness: patient oriented x3 HENMT: Head: normal to inspection Ears: hearing grossly normal bilaterally Extrem: Right lower extremity: hip/thigh Details: tenderness Location: of the hip Location: anteromedially and anterolaterally and abnormal ROM Details: pain with active ROM during Details: to external rotation, pain with resistance to Details: to internal rotation and pain with passive ROM during Details: to internal rotation and to external rotation; no ecchymosis and no crepitus, knee Details: normal to inspection, tenderness Location: of the patella and abnormal ROM Details: held in an abnormal fashion Details: in flexion, pain with active ROM during Details: in extension and pain with passive ROM during Details: in extension, ankle Details: normal to inspection and no edema; no tenderness and no swelling and foot Details: normal capillary refill, toes with normal ROM and vascular exam Details: dorsalis pedis pulse present; no tenderness Left lower extremity: normal to inspection and hip/thigh Details: normal to inspection and normal ROM; no swelling Objective Data Vital Signs Vital Signs: Vital Signs - 24 hr 01/22/25 15:30 01/22/25 20:28 01/22/25 20:28 Temperature 36.2 C L Pulse Rate 64 71 Respiratory Rate 14 Blood Pressure 127/73 Pulse Oximetry 100 Oxygen Delivery Room Air 01/22/25 21:34 01/23/25 05:49 01/23/25 08:26 Temperature 36.6 C 36.8 C Pulse Rate 70 70 70 Respiratory Rate 16 18 Blood Pressure 138/57 L 123/66 Pulse Oximetry 98 99 Oxygen Delivery Intake/Output Intake/Output: Intake & Output 01/20/25 01/21/25 01/22/25 01/23/25 23:59 23:59 23:59 23:59 Intake Total 2084 1296 676 520 Output Total 1050 1000 950 650 Balance 1034 477 -800 -217 Meds/Results Medications: Active Medications Generic Name Dose Route Start Last Admin Trade Name Freq PRN Reason Stop Dose Admin Acetaminophen 650 mg 01/12/25 12:59 01/22/25 09:39 Acetaminophen 325 Mg Tablet PO 650 mg Q4H PRN Administration Mild Pain (1-3) or Fever Hydrocodone Bitart/Acetaminophen 1 tab 01/12/25 15:25 01/20/25 22:04 Hydrocodone/Acetaminophen (*Crx) 5-325 Mg Tablet PO 1 tab Q4H PRN Administration Moderate Pain (4-6) Aspirin 81 mg 01/13/25 09:00 01/23/25 08:26 Aspirin 81 Mg Enteric Tablet PO 81 mg QAM DASHA Administration Benzonatate 200 mg 01/13/25 00:06 Benzonatate 100 Mg Capsule PO TID PRN cough Bisacodyl 5 mg 01/12/25 15:25 Bisacodyl 5 Mg Tablet Ec PO DAILY PRN Constipation Carvedilol 25 mg 01/13/25 09:00 01/23/25 08:26 Carvedilol 25 Mg Tablet PO 25 mg Q12HR DASHA Administration Dextrose 12.5 gm 01/12/25 15:25 Dextrose 50% 25 Gm/50 Ml Syringe IV PUSH PRN PRN Hypoglycemia Protocol Diazepam 5 mg 01/14/25 08:18 01/14/25 10:15 Diazepam Inj (*Crx) 10 Mg/2 Ml Syringe IV PUSH 5 mg ONCE PRN Administration Anxiety Enoxaparin Sodium 40 mg 01/16/25 14:05 01/23/25 08:27 Enoxaparin 40 Mg/0.4 Ml Syringe SUB-Q 40 mg DAILY DASHA Administration Furosemide 80 mg 01/13/25 09:00 01/19/25 08:20 Furosemide 40 Mg Tablet PO 80 mg On Hold: 01/19/25 14:55 DAILY DASHA Administration Glimepiride 1 mg 01/13/25 08:00 01/23/25 08:25 Glimepiride 1 Mg Tablet PO 1 mg DAILY@0800 DASHA Administration Glucagon 1 mg 01/12/25 15:25 Glucagon For Inj 1 Mg Vial IM PRN PRN Hypoglycemia Protocol Glucose 15 gm 01/12/25 15:25 Glucose Oral Gel 15 Gm Of Glucse In 37.5 Gm Tube PO PRN PRN Hypoglycemia Protocol Home Med 1 each 01/13/25 09:00 01/23/25 08:28 Teriflunomide [Aubagio] 14 Mg Tablet Home Med PO 02/12/25 08:59 1 each DAILY DASHA Administration Dextrose 1,000 mls @ 100 mls/hr 01/12/25 15:25 Dextrose 5% 1,000 Ml IVPB PRN PRN Hypoglycemia Protocol Insulin Aspart 4 - 8 units 01/12/25 17:00 01/23/25 07:55 Insulin Aspart (*Bkc) 100 Units/Ml SUB-Q Not Given [facility] Protocol Ketorolac Tromethamine 30 mg 01/23/25 09:30 Ketorolac 30 Mg/Ml Vial (*Bkc) IM Q6H PRN Pain Rated 4-6 Morphine Sulfate 2 mg 01/12/25 15:40 Morphine Sulfate (*Crx) 4 Mg/Ml Inj IV PUSH Q4H PRN Pain Rated 7-10 Polyethylene Glycol 17 gm 01/23/25 09:00 Polyethylene Glycol 3350 17 Gm Powd.Pack PO QAM DASHA Rosuvastatin Calcium 5 mg 01/13/25 09:00 01/23/25 08:26 Rosuvastatin 5 Mg Tablet PO 5 mg DAILY DASHA Administration Sitagliptin Phosphate 100 mg 01/13/25 09:00 01/23/25 08:25 Sitagliptin Phosphate 100 Mg Tablet PO 100 mg QAM DASHA Administration Solifenacin 10 mg 01/13/25 09:00 01/23/25 08:27 Solifenacin 5 Mg Tablet PO 10 mg QAM DASHA Administration Spironolactone 50 mg 01/13/25 09:00 01/23/25 08:25 Spironolactone 50 Mg Tablet PO 50 mg DAILY DASHA Administration Tizanidine HCl 2 mg 01/21/25 09:00 01/23/25 08:25 Tizanidine Hcl 2 Mg Tablet PO 2 mg QAM DASHA Administration Valsartan 160 mg 01/13/25 09:00 01/19/25 08:21 Valsartan 160 Mg Tablet PO 160 mg On Hold: 01/19/25 15:32 Q12HR DASHA Administration Vitamin D 100 mcg 01/13/25 09:00 01/23/25 08:26 Cholecalciferol (Vitamin D3) 25 Mcg (1,000 Units) Tablet PO 100 mcg DAILY DASHA Administration Radiology Results: ITS Impressions Lumbar Spine CT 01/12/25 11:28 IMPRESSION: 1. A degree thoracolumbar dextrocurvature with severe lower lumbar spondylosis. Lumbar Spine MRI 01/14/25 11:44 IMPRESSION: 1. Severe lumbar spondylosis. Cervical Spine MRI 01/14/25 12:27 IMPRESSION: 1. Again seen C4-C6 anterior spinal fusion with anterior plate and screw fixation. There is new magnetic field artifact now obscuring the C3-C4 disc space which was not present at the time of the prior study suggesting possible interval extension of the anterior fusion. Correlate with surgical history and could consider correlation with plain radiographs as clinically indicated. 2. No significant change in moderate cervical spondylosis including a small region of likely myelomalacia with decrease cross-sectional diameter of the cord and increased cord signal at the level of C4. 3. Multinodular goiter. Thoracic Spine MRI 01/14/25 20:35 IMPRESSION: 1. 25 degrees upper thoracic dextroscoliosis with mild spondylosis. Cervical Spine X-Ray 01/15/25 16:00 Impression: No acute abnormality. Brain MRI 01/16/25 11:46 IMPRESSION: 1. Extensive chronically unchanged cerebral and cerebellar white matter disease, consistent with quiescent multiple sclerosis. Femur X-Ray 01/22/25 12:59 IMPRESSION: 1. No acute osseous abnormality at the right hip, femur or knee. 2. Right total knee arthroplasty with small right knee joint effusion. Hip X-Ray 01/22/25 12:59 IMPRESSION: 1. No acute osseous abnormality at the right hip, femur or knee. 2. Right total knee arthroplasty with small right knee joint effusion. Knee X-Ray 01/22/25 12:59 IMPRESSION: 1. No acute osseous abnormality at the right hip, femur or knee. 2. Right total knee arthroplasty with small right knee joint effusion. Lumbar Puncture Fluoroscopy 01/22/25 15:25 IMPRESSION: 1. Successful fluoro-guided lumbar puncture with normal opening pressure of 16 cm water. Labs Labs: Laboratory Results - last 24 hr 01/20/25 01/22/25 01/22/25 14:32 10:34 11:40 WBC RBC Hgb Hct MCV MCH MCHC RDW Plt Count 171 MPV 11.5 H Immature Gran % (Auto) Neut % (Auto) Lymph % (Auto) [place] % (Auto) Eos % (Auto) Baso % (Auto) Lymph # (Auto) [place] # (Auto) Eos # (Auto) Baso # (Auto) Abs Immat Gran (auto) Absolute Neuts (auto) Absolute Nucleated RBC Band Neutrophils % Nucleated RBC % Platelet Estimate Hypochromasia Anisocytosis Schistocytes PT 14.1 INR 1.1 APTT 29.3 Sodium Potassium Chloride Carbon Dioxide Anion Gap BUN Creatinine Estim Creat Clear Calc Estimated GFR Glucose POC Capillary Glucose 123 H Calcium Magnesium Total Bilirubin AST ALT Alkaline Phosphatase Total Protein Albumin CSF Source CSF Appearance CSF Color CSF RBC CSF Tot Nucleated Cells CSF Glucose CSF Total Protein CSF [place] RNA SHARI Virus DNA (PCR) Negative 01/22/25 01/22/25 01/22/25 13:40 13:40 16:50 WBC RBC Hgb Hct MCV MCH MCHC RDW Plt Count MPV Immature Gran % (Auto) Neut % (Auto) Lymph % (Auto) [place] % (Auto) Eos % (Auto) Baso % (Auto) Lymph # (Auto) [place] # (Auto) Eos # (Auto) Baso # (Auto) Abs Immat Gran (auto) Absolute Neuts (auto) Absolute Nucleated RBC Band Neutrophils % Nucleated RBC % Platelet Estimate Hypochromasia Anisocytosis Schistocytes PT INR APTT Sodium Potassium Chloride Carbon Dioxide Anion Gap BUN Creatinine Estim Creat Clear Calc Estimated GFR Glucose POC Capillary Glucose 84 Calcium Magnesium Total Bilirubin AST ALT Alkaline Phosphatase Total Protein Albumin CSF Source Csf Cancelled CSF Appearance Clear CSF Color Colorless CSF RBC 1 CSF Tot Nucleated Cells 0 CSF Glucose 67 CSF Total Protein 69 H CSF [place] RNA Cancelled SHARI Virus DNA (PCR) 01/22/25 01/23/25 01/23/25 21:36 07:01 07:44 WBC 7.2 RBC 4.01 L Hgb 10.3 L Hct 35.1 L MCV 87.5 MCH 25.7 L MCHC 29.3 L RDW 16.3 H Plt Count 186 MPV 11.7 H Immature Gran % (Auto) 0.3 Neut % (Auto) 55.9 Lymph % (Auto) 26.4 [place] % (Auto) 11.4 H Eos % (Auto) 5.2 H Baso % (Auto) 0.8 Lymph # (Auto) 1.89 [place] # (Auto) 0.8 H Eos # (Auto) 0.4 H Baso # (Auto) 0.1 Abs Immat Gran (auto) 0.02 Absolute Neuts (auto) 4.0 Absolute Nucleated RBC 0.000 Band Neutrophils % Not Reportable Nucleated RBC % 0.0 Platelet Estimate Adequate Hypochromasia 1+ Anisocytosis 1+ Schistocytes None seen PT INR APTT Sodium 138 Potassium 3.9 Chloride 106 Carbon Dioxide 27 Anion Gap 5 BUN 13 Creatinine 0.86 Estim Creat Clear Calc 58 Estimated GFR > 60 Glucose 76 POC Capillary Glucose 142 H 79 Calcium 8.7 Magnesium 2.2 Total Bilirubin 0.6 AST 30 ALT 20 Alkaline Phosphatase 102 Total Protein 6.7 Albumin 3.4 L CSF Source CSF Appearance CSF Color CSF RBC CSF Tot Nucleated Cells CSF Glucose CSF Total Protein CSF [place] RNA SHARI Virus DNA (PCR)
--- NOTE | 2025-01-23 13:14 | P.PNIM_ITS ---
Progress Note: A&P Assessment and Plan (1) Lower extremity weakness: Qualifiers: Laterality: bilateral Qualified Code(s): R29.898 - Other symptoms and signs involving the musculoskeletal system Code(s): R29.898 - Other symptoms and signs involving the musculoskeletal system Status: Acute Assessment and Plan: 6 days of BLE weakness and lower back pain radiating into her R thigh. Patient has hx of multiple sclerosis for which Neurology has been consulted, possibility of flare up as etiology. PT/OT/care coordination consulted for evaluation and acute rehab services. Recent history of a right knee placement. Continues to have weakness R>L but it is slowly and slightly improving. Neurology has evaluated MRI Brain/C-spine/L-spine- no MS lesions identified. Patient's insurance has denied inpatient rehab despite peer to peer, they recommend [facility] facility with daily physical therapy instead at this time. Orthopedics to see, consider appeal if recommendations could change this outcome. Weakness continues to be present without much improvement. - PT/OT eval -Neurology recommends orthopedic surgery eval and consideration of element of diabetic amyotrophy given uncontrolled DM and patient is having extremity pain- EMG can be done 3-4 weeks after discharge. Also was recommended to consider neurosurgery input as well after orthopedics input if no diagnosis can be identified. Continue PT orthopedics is aware and on board, to see patient tomorrow 01/19. - care coordination for acute rehab - CT lumbar (01/12): A degree thoracolumbar dextrocurvature with severe lower lumbar spondylosis. - analgesics prn: Tylenol, [place], morphine. Hold home tramadol. - MRI C spine: 1. Again seen C4-C6 anterior spinal fusion with anterior plate and screw fixation. There is new magnetic field artifact now obscuring the C3-C4 disc space which was not present at the time of the prior study suggesting possible interval extension of the anterior fusion. Correlate with surgical history and could consider correlation with plain radiographs as clinically indicated. 2. No significant change in moderate cervical spondylosis including a small region of likely myelomalacia with decrease cross-sectional diameter of the cord and increased cord signal at the level of C4. 3. Multinodular goiter. -MRI L-spine: Severe lumbar spondylosis. No comment as to MS lesions noted. -seen by Neurology, brain MRI ruled out multiple sclerosis lesions definitively as well as x-rays of the cervical spine, right knee, right hip were done. For Lumbar puncture today, F/u imaging hip and Femur and knee LE xrays showed right knee small fluids, Ortho reviewed and recommended antiinflammatory Appreciate Ortho and NEurology eval, awaiting placement now (2) Multiple sclerosis: Code(s): G35 - Multiple sclerosis Status: Acute Assessment and Plan: - see above - patient reports she has previously been stable and has not had any significant progression in her disease since diagnosis many years ago -ordered MRI: as above; no MS lesions noted - follows with Neurology at [facility] - continue teriflulnomide -MRI Brain negative for new MS lesions (3) DM type 2 (diabetes mellitus, type 2): Qualifiers: Diabetes mellitus [employer] insulin use: unspecified [employer] insulin use status Diabetes mellitus complication status: without complication Qualified Code(s): E11.9 - Type 2 diabetes mellitus without complications Code(s): E11.9 - Type 2 diabetes mellitus without complications Status: Acute Assessment and Plan: - hypoglycemia protocol - POC blood glucose ACHS - home medication: Continue glimepiride, tradjenta - correct regimen ordered - high dose TIDWM, based off BMI - A1C 9.6% on 10/13/2024 (4) Hyperlipidemia: Qualifiers: Hyperlipidemia type: mixed hyperlipidemia Qualified Code(s): E78.2 - Mixed hyperlipidemia Code(s): E78.5 - Hyperlipidemia, unspecified Status: Chronic Assessment and Plan: - continue rosuvastatin (5) Benign essential hypertension: Code(s): I10 - Essential (primary) hypertension Status: Chronic Assessment and Plan: - chronic, currently 135/75, stable. - continue home medications: Coreg, Lasix, spironolactone, valsartan - monitor Plan Diet: Diabetic GI Prophylaxis: n/a DVT Prophylaxis: SCDs IV fluids: None Lines/Tubes: Peripheral IV Code Status: Full code Awaiting placement Subjective Date/time seen: 01/23/25 13:14 Interval history: Noted stable pains Xrays from yesterday showed small fluids in Right knee with prior total arthroplasty Ortho reviewed and recommended antiinflammatory. Review of Systems Review of Systems: All systems reviewed & are unremarkable except as noted in HPI and below Exam Const: General: comfortable and no acute distress Other: , female, nontoxic appearance HENMT: Face/Nose/Sinus: Normal nares present Mouth: Yes moist mucous membranes Eyes: General: appearance normal, both eyes and all related structures Sclera: sclerae normal Pupils: Equal, round and reactive pupils present EOM: EOMs intact bilaterally Resp: Effort & Inspection: normal respiratory effort Auscultation: clear to auscultation bilaterally Cardio: Rate: regular rate Rhythm: regular rhythm Other: S1-S2 present without murmur, rub, ectopy GI: Other: Abdomen soft, nondistended, nontender. Normoactive bowel sounds in all quadra nts. Skin: General skin exam: normal color and no rashes or lesions noted Wounds: no wounds Neuro: Cranial nerves: Yes Equal, round and reactive pupils present Speech: normal speech Sensory Exam: normal sensation Other: A&O x4. +5in the upper extremities bilaterally. +4 in the lower extremities, right however worse than the left. Extrem: Other: 1+ pitting edema to the bilateral lower extremities, symmetric Psych: Mental Status: mental status grossly normal Affect: normal affect Other: Good insight and judgment, pleasant Objective Data Vital Signs Vital Signs: Vital Signs - 24 hr 01/22/25 15:30 01/22/25 20:28 01/22/25 20:28 Temperature 97.2 F L Pulse Rate 64 71 Respiratory Rate 14 Blood Pressure 127/73 Pulse Oximetry 100 Oxygen Delivery Room Air 01/22/25 21:34 01/23/25 05:49 01/23/25 08:25 Temperature 97.8 F 98.2 F Pulse Rate 70 70 Respiratory Rate 16 18 Blood Pressure 138/57 L 123/66 Pulse Oximetry 98 99 Oxygen Delivery Room Air 01/23/25 08:26 Temperature Pulse Rate 70 Respiratory Rate Blood Pressure Pulse Oximetry Oxygen Delivery Intake/Output Intake/Output: Intake & Output 01/20/25 01/21/25 01/22/25 01/23/25 23:59 23:59 23:59 23:59 Intake Total 1414 1296 676 520 Output Total 1050 8287 332 6248 Balance 1032 130 -486 -944 Meds/Results Medications: Active Medications Generic Name Dose Route Start Last Admin Trade Name Freq PRN Reason Stop Dose Admin Acetaminophen 650 mg 01/12/25 12:59 01/22/25 09:39 Acetaminophen 325 Mg Tablet PO 650 mg Q4H PRN Administration Mild Pain (1-3) or Fever Hydrocodone Bitart/Acetaminophen 1 tab 01/12/25 15:25 01/20/25 22:04 Hydrocodone/Acetaminophen (*Crx) 5-325 Mg Tablet PO 1 tab Q4H PRN Administration Moderate Pain (4-6) Aspirin 81 mg 01/13/25 09:00 01/23/25 08:26 Aspirin 81 Mg Enteric Tablet PO 81 mg QAM DASHA Administration Benzonatate 200 mg 01/13/25 00:06 Benzonatate 100 Mg Capsule PO TID PRN cough Bisacodyl 5 mg 01/12/25 15:25 Bisacodyl 5 Mg Tablet Ec PO DAILY PRN Constipation Carvedilol 25 mg 01/13/25 09:00 01/23/25 08:26 Carvedilol 25 Mg Tablet PO 25 mg Q12HR DASHA Administration Dextrose 12.5 gm 01/12/25 15:25 Dextrose 50% 25 Gm/50 Ml Syringe IV PUSH PRN PRN Hypoglycemia Protocol Diazepam 5 mg 01/14/25 08:18 01/14/25 10:15 Diazepam Inj (*Crx) 10 Mg/2 Ml Syringe IV PUSH 5 mg ONCE PRN Administration Anxiety Enoxaparin Sodium 40 mg 01/16/25 14:05 01/23/25 08:27 Enoxaparin 40 Mg/0.4 Ml Syringe SUB-Q 40 mg DAILY DASHA Administration Furosemide 80 mg 01/13/25 09:00 01/19/25 08:20 Furosemide 40 Mg Tablet PO 80 mg On Hold: 01/19/25 14:55 DAILY DASHA Administration Glimepiride 1 mg 01/13/25 08:00 01/23/25 08:25 Glimepiride 1 Mg Tablet PO 1 mg DAILY@0800 DASHA Administration Glucagon 1 mg 01/12/25 15:25 Glucagon For Inj 1 Mg Vial IM PRN PRN Hypoglycemia Protocol Glucose 15 gm 01/12/25 15:25 Glucose Oral Gel 15 Gm Of Glucse In 37.5 Gm Tube PO PRN PRN Hypoglycemia Protocol Home Med 1 each 01/13/25 09:00 01/23/25 08:28 Teriflunomide [Aubagio] 14 Mg Tablet Home Med PO 02/12/25 08:59 1 each DAILY DASHA Administration Dextrose 1,000 mls @ 100 mls/hr 01/12/25 15:25 Dextrose 5% 1,000 Ml IVPB PRN PRN Hypoglycemia Protocol Insulin Aspart 4 - 8 units 01/12/25 17:00 01/23/25 07:55 Insulin Aspart (*Bkc) 100 Units/Ml SUB-Q Not Given TIDWM DASHA Protocol Ketorolac Tromethamine 30 mg 01/23/25 09:30 Ketorolac 30 Mg/Ml Vial (*Bkc) IM Q6H PRN Pain Rated 4-6 Morphine Sulfate 2 mg 01/12/25 15:40 Morphine Sulfate (*Crx) 4 Mg/Ml Inj IV PUSH Q4H PRN Pain Rated 7-10 Polyethylene Glycol 17 gm 01/23/25 09:00 01/23/25 09:42 Polyethylene Glycol 3350 17 Gm Powd.Pack PO 17 gm QAM DASHA Administration Rosuvastatin Calcium 5 mg 01/13/25 09:00 01/23/25 08:26 Rosuvastatin 5 Mg Tablet PO 5 mg DAILY DASHA Administration Sitagliptin Phosphate 100 mg 01/13/25 09:00 01/23/25 08:25 Sitagliptin Phosphate 100 Mg Tablet PO 100 mg QAM DASHA Administration Solifenacin 10 mg 01/13/25 09:00 01/23/25 08:27 Solifenacin 5 Mg Tablet PO 10 mg QAM DASHA Administration Spironolactone 50 mg 01/13/25 09:00 01/23/25 08:25 Spironolactone 50 Mg Tablet PO 50 mg DAILY DASHA Administration Tizanidine HCl 2 mg 01/21/25 09:00 01/23/25 08:25 Tizanidine Hcl 2 Mg Tablet PO 2 mg QAM DASHA Administration Valsartan 160 mg 01/13/25 09:00 01/19/25 08:21 Valsartan 160 Mg Tablet PO 160 mg On Hold: 01/19/25 15:32 Q12HR DASHA Administration Vitamin D 100 mcg 01/13/25 09:00 01/23/25 08:26 Cholecalciferol (Vitamin D3) 25 Mcg (1,000 Units) Tablet PO 100 mcg DAILY DASHA Administration Radiology Results: ITS Impressions Lumbar Spine CT 01/12/25 11:28 IMPRESSION: 1. A degree thoracolumbar dextrocurvature with severe lower lumbar spondylosis. Lumbar Spine MRI 01/14/25 11:44 IMPRESSION: 1. Severe lumbar spondylosis. Cervical Spine MRI 01/14/25 12:27 IMPRESSION: 1. Again seen C4-C6 anterior spinal fusion with anterior plate and screw fixation. There is new magnetic field artifact now obscuring the C3-C4 disc space which was not present at the time of the prior study suggesting possible interval extension of the anterior fusion. Correlate with surgical history and could consider correlation with plain radiographs as clinically indicated. 2. No significant change in moderate cervical spondylosis including a small region of likely myelomalacia with decrease cross-sectional diameter of the cord and increased cord signal at the level of C4. 3. Multinodular goiter. Thoracic Spine MRI 01/14/25 20:35 IMPRESSION: 1. 25 degrees upper thoracic dextroscoliosis with mild spondylosis. Cervical Spine X-Ray 01/15/25 16:00 Impression: No acute abnormality. Brain MRI 01/16/25 11:46 IMPRESSION: 1. Extensive chronically unchanged cerebral and cerebellar white matter disease, consistent with quiescent multiple sclerosis. Femur X-Ray 01/22/25 12:59 IMPRESSION: 1. No acute osseous abnormality at the right hip, femur or knee. 2. Right total knee arthroplasty with small right knee joint effusion. Hip X-Ray 01/22/25 12:59 IMPRESSION: 1. No acute osseous abnormality at the right hip, femur or knee. 2. Right total knee arthroplasty with small right knee joint effusion. Knee X-Ray 01/22/25 12:59 IMPRESSION: 1. No acute osseous abnormality at the right hip, femur or knee. 2. Right total knee arthroplasty with small right knee joint effusion. Lumbar Puncture Fluoroscopy 01/22/25 15:25 IMPRESSION: 1. Successful fluoro-guided lumbar puncture with normal opening pressure of 16 cm water. Labs Labs: Laboratory Results - last 24 hr 01/20/25 01/22/25 01/22/25 14:32 13:40 13:40 WBC RBC Hgb Hct MCV MCH MCHC RDW Plt Count MPV Immature Gran % (Auto) Neut % (Auto) Lymph % (Auto) [place] % (Auto) Eos % (Auto) Baso % (Auto) Lymph # (Auto) [place] # (Auto) Eos # (Auto) Baso # (Auto) Abs Immat Gran (auto) Absolute Neuts (auto) Absolute Nucleated RBC Band Neutrophils % Nucleated RBC % Platelet Estimate Hypochromasia Anisocytosis Schistocytes Sodium Potassium Chloride Carbon Dioxide Anion Gap BUN Creatinine Estim Creat Clear Calc Estimated GFR Glucose POC Capillary Glucose Calcium Magnesium Total Bilirubin AST ALT Alkaline Phosphatase Total Protein Albumin CSF Source Csf Cancelled CSF Appearance Clear CSF Color Colorless CSF RBC 1 CSF Tot Nucleated Cells 0 CSF Neutrophils CSF Glucose 67 CSF Total Protein 69 H CSF [place] RNA Cancelled SHARI Virus DNA (PCR) Negative 01/22/25 01/22/25 01/23/25 16:50 21:36 07:01 WBC 7.2 RBC 4.01 L Hgb 10.3 L Hct 35.1 L MCV 87.5 MCH 25.7 L MCHC 29.3 L RDW 16.3 H Plt Count 186 MPV 11.7 H Immature Gran % (Auto) 0.3 Neut % (Auto) 55.9 Lymph % (Auto) 26.4 [place] % (Auto) 11.4 H Eos % (Auto) 5.2 H Baso % (Auto) 0.8 Lymph # (Auto) 1.89 [place] # (Auto) 0.8 H Eos # (Auto) 0.4 H Baso # (Auto) 0.1 Abs Immat Gran (auto) 0.02 Absolute Neuts (auto) 4.0 Absolute Nucleated RBC 0.000 Band Neutrophils % Not Reportable Nucleated RBC % 0.0 Platelet Estimate Adequate Hypochromasia 1+ Anisocytosis 1+ Schistocytes None seen Sodium 138 Potassium 3.9 Chloride 106 Carbon Dioxide 27 Anion Gap 5 BUN 13 Creatinine 0.86 Estim Creat Clear Calc 58 Estimated GFR > 60 Glucose 76 POC Capillary Glucose 84 142 H Calcium 8.7 Magnesium 2.2 Total Bilirubin 0.6 AST 30 ALT 20 Alkaline Phosphatase 102 Total Protein 6.7 Albumin 3.4 L CSF Source CSF Appearance CSF Color CSF RBC CSF Tot Nucleated Cells CSF Neutrophils CSF Glucose CSF Total Protein CSF [place] RNA SHARI Virus DNA (PCR) 01/23/25 01/23/25 07:44 11:32 WBC RBC Hgb Hct MCV MCH MCHC RDW Plt Count MPV Immature Gran % (Auto) Neut % (Auto) Lymph % (Auto) [place] % (Auto) Eos % (Auto) Baso % (Auto) Lymph # (Auto) [place] # (Auto) Eos # (Auto) Baso # (Auto) Abs Immat Gran (auto) Absolute Neuts (auto) Absolute Nucleated RBC Band Neutrophils % Nucleated RBC % Platelet Estimate Hypochromasia Anisocytosis Schistocytes Sodium Potassium Chloride Carbon Dioxide Anion Gap BUN Creatinine Estim Creat Clear Calc Estimated GFR Glucose POC Capillary Glucose 79 143 H Calcium Magnesium Total Bilirubin AST ALT Alkaline Phosphatase Total Protein Albumin CSF Source CSF Appearance CSF Color CSF RBC CSF Tot Nucleated Cells CSF Neutrophils CSF Glucose CSF Total Protein CSF [place] RNA SHARI Virus DNA (PCR) Quality VTE Prophylaxis VTE prophylaxis: mechanical ordered
[2025-01-23 14:00] VITALS: BP 110/79; PULSE 81; RESP 16; TEMP 36.6; O2SAT 99
[2025-01-23] MEDS: ACETAMINOPHEN 325 MG TABLET 650 MG PO ×2 (16:19→20:44)
[2025-01-23 20:00] VITALS: PULSE 72
[2025-01-23 22:00] VITALS: BP 112/55; PULSE 66; RESP 16; TEMP 36.4; O2SAT 100
[2025-01-24 06:00] VITALS: BP 120/43; PULSE 66; RESP 16; TEMP 36.2; O2SAT 100
[2025-01-24] MEDS: ENOXAPARIN 40 MG/0.4 ML SYRINGE SUB-Q (08:20)
[2025-01-24] MEDS: CHOLECALCIFEROL (VITAMIN D3) 25 MCG (1,000 UNITS) TABLET 100 MCG PO (08:21)
[2025-01-24] MEDS: SOLIFENACIN 5 MG TABLET 10 MG PO (08:21)
[2025-01-24] MEDS: SPIRONOLACTONE 50 MG TABLET PO (08:21)
[2025-01-24] MEDS: GLIMEPIRIDE 1 MG TABLET PO (08:21)
[2025-01-24] MEDS: ROSUVASTATIN 5 MG TABLET PO (08:21)
[2025-01-24] MEDS: ASPIRIN 81 MG ENTERIC TABLET PO (08:21)
[2025-01-24] MEDS: TERIFLUNOMIDE 14 MG 1 EACH PO (08:23)
[2025-01-24] MEDS: TIZANIDINE HCL 2 MG TABLET PO (08:23)
--- NOTE | 2025-01-24 13:18 | PM.DS ---
DS: Admitting Diagnosis Discharge Date 01/24/25 Admitting Diagnosis Weakness, Leg Pain DS: Discharge Diagnosis Discharge Diagnosis (1) Lower extremity pain, bilateral: Code(s): M79.604 - Pain in right leg; M79.605 - Pain in left leg Status: Acute DS: Summary Hospital Course Hospital Course: 69 y/o F with PMH of multiple sclerosis, polymyalgia rheumatica, OAB, SDH, DJD, breast cancer, hyperlipidemia, and diabetes, and hypertension presents here with lower extremity weakness and right lower extremity pain. Initially MS flare was suspected, and MRI brain did not showed any new lesions. MRI Cervical, thoracic and lumbar spine no structural cord defect. Neurology was consulted and no Pulsed steroid needed given no MRI findings. However patinet clarified that she is having pain not weakness, worse on RLE . Ortho was consulted and XRY Knee, hip and Femur no acute changes. Ortho recommended NSAIDs. Patient was placed on Toradol adn symptoms improved, markedly. Dishcarged on PRN [place] and DIclofenac. F/u with PCP in 3-5 days and continue follow up with MS specialist in [place] discharged to [facility]. Time Spent with Patient Time attestation: Total time spent providing and/or coordinating discharge services: DS: Data Data Completed and Pending Completed studies during hospitalization: Pending at discharge 01/20/25 13:51 Cytology [PTH] Routine Labs on day of discharge: Labs from last 24 hours 01/24/25 01/24/25 01/23/25 11:33 07:52 23:11 POC Capillary Glucose 148 H 91 127 H Miscellaneous Test 01/23/25 01/20/25 16:54 14:32 POC Capillary Glucose 158 H Miscellaneous Test Comment Preliminary micro results at discharge 01/22/25 13:40 Sterile Body Fluid Culture - Preliminary Cerebral Spinal Fluid 01/22/25 13:41 Fungal Culture - Preliminary Cerebral Spinal Fluid Discharge Plan Discharge Attending physician on discharge: Benita Balderas Consulting providers: Jorge A Jones; Yaniv Barger Discharging Clinician: Benita Balderas Anticipated Discharge Date/Time: 01/24/25 12:53 Patient Disposition: [facility] Activity: as tolerated Diet: as tolerated and diabetic Patient Language: Pashto Discharge Medications: New hydrocodone-acetaminophen 5-325 mg Tablet 1 tablet PO Q4H PRN (Reason: Moderate Pain (4-6)) 10 Days Qty: 12 0RF diclofenac sodium 75 mg tablet,delayed release (DR/EC) 75 mg PO BID PRN (Reason: pain) 14 Days Qty: 14 0RF Continued valsartan 160 mg tablet 160 mg PO BID Rx Instructions: 160 mg orally twice a day; spironolactone [Aldactone] 50 mg tablet 50 mg PO DAILY Qty: 90 1RF Rx Instructions: Please disregard script for Epleronone teriflunomide [Aubagio] 14 mg Tablet 14 mg PO DAILY aspirin 81 mg Tablet,Delayed Release (Dr/Ec) 81 mg PO QAM Qty: 30 0RF Tradjenta 5 mg tablet 5 mg PO QAM cholecalciferol (vitamin D3) 50 mcg (2,000 unit) capsule 100 mcg PO DAILY (DME) Contour Next Test Strips Strip See Rx Instructions .ROUTE .COMPLEX Qty: 100 2RF Dose Instruction: FOR PATIENT ON INSULIN - TESTS FOUR TIMES DAILY Rx Instructions: FOR PATIENT ON INSULIN - TESTS FOUR TIMES DAILY benzonatate 200 mg capsule See Rx Instructions .ROUTE .COMPLEX PRN (Reason: cough) Qty: 30 1RF Dose Instruction: TAKE 1 CAPSULE BY MOUTH THREE TIMES A DAY NEEDED FOR COUGH Rx Instructions: TAKE 1 CAPSULE BY MOUTH THREE TIMES A DAY NEEDED FOR COUGH PRN; furosemide 40 mg tablet See Rx Instructions .ROUTE .COMPLEX Qty: 180 2RF Dose Instruction: TAKE 1.5 TABLETS BY MOUTH EVERY DAY Rx Instructions: TAKE 2 TABLETS BY MOUTH EVERY DAY (DME) lancets Misc See Rx Instructions .Route Qty: 100 1RF Rx Instructions: Microlet Lancets: test 4 times a day glimepiride 1 mg tablet See Rx Instructions .ROUTE .COMPLEX Qty: 90 1RF Dose Instruction: TAKE 1 TABLET EVERY MORNINGWITH BREAKFAST Rx Instructions: TAKE 1 TABLET EVERY MORNINGWITH BREAKFAST rosuvastatin 5 mg tablet 5 mg PO DAILY Qty: 90 1RF Rx Instructions: Please D/C the Crestor 10. Thank you solifenacin [Vesicare] 10 mg tablet 10 mg PO DAILY Qty: 90 1RF (DME) lancets [Microlet Lancet] Misc See Rx Instructions .ROUTE .COMPLEX Qty: 200 0RF Dose Instruction: USE TO CHECK BLOOD SUGAR TWICE A DAY Rx Instructions: USE TO CHECK BLOOD SUGAR TWICE A DAY tramadol 50 mg tablet See Rx Instructions PO .COMPLEX PRN (Reason: pain) Qty: 40 0RF Rx Instructions: take 1-2 tabs orally PRN; carvedilol 25 mg tablet See Rx Instructions .ROUTE .COMPLEX Qty: 180 1RF Dose Instruction: TAKE 1 TABLET BY MOUTH EVERY 12 HOURS - MUST ADMINISTER WITH A MEAL/FOOD Rx Instructions: TAKE 1 TABLET BY MOUTH EVERY 12 HOURS - MUST ADMINISTER WITH A MEAL/FOOD Date of admission: 01/13/25 14:29 Primary Care Provider: Wilbert Crowder Admitting Provider: Scar Chand Attending physician on admission: Scar Chand Condition: Stable
[2025-01-24] MEDS: INFLUENZA VACCINE 45 MCG/0.5 ML SYRINGE IM (13:19)
[2025-01-24 14:00] VITALS: BP 128/64; PULSE 70; RESP 17; TEMP 35.9; O2SAT 100
[2025-01-26 08:08] LABS: West Nile Virus Source CSF (.); West Nile Virus by PCR Not Detected (.)
[2025-01-26 12:08] LABS: Epstein-Barr Virus RT PCR, CSF Negative (Negative)
[2025-01-26 13:08] LABS: West Nile Virus, IgG Negative (Negative); West Nile Virus, IgM Negative (Negative)
[2025-01-26 14:08] LABS: Albumin 3.5 g/dL (3.8-4.8); Albumin, CSF 26 mg/dL (10-46); IgG, Quant, CSF 8.6 mg/dL (0.0-6.7); IgG, Syn Rate,CSF 21.7 mg/day (-9.9 TO +3.3); IgG/Alb Ratio, CSF 0.33 (0.00-0.25); Immunoglobulin G, Qn 1058 mg/dL (586-1602)
[2025-01-27 16:08] LABS: Varicella-Zoster Ab, IgM Negative (Negative)
[2025-01-28 15:09] LABS: VDRL, CSF Non Reactive (Non Rea:<1:1)
== END 2025-01-24 15:48 | DRG 60 ==
LOC: ANHED 12:50 → ANH3MEDSUR 13:17
PROVIDERS: General Practice; Student in an Organized Health Care Education/Training Program; Admitting Provider Internal Medicine; Emergency Provider Nurse Practitioner Family; PCP Internal Medicine; Visit Provider Internal Medicine
DX: G35.D Multiple sclerosis, unspecified (principal); M48.061 Spinal stenosis, lumbar region without neurogenic claudication; M62.81 Muscle weakness (generalized); Z23 Encounter for immunization; E11.9 Type 2 diabetes mellitus without complications; E78.2 Mixed hyperlipidemia; I10 Essential (primary) hypertension; I87.2 Venous insufficiency (chronic) (peripheral); M54.50 Low back pain, unspecified; D63.8 Anemia in other chronic diseases classified elsewhere; N32.81 Overactive bladder; M19.90 Unspecified osteoarthritis, unspecified site; M35.3 Polymyalgia rheumatica; Z98.1 Arthrodesis status; Z96.651 Presence of right artificial knee joint; Z85.3 Personal history of malignant neoplasm of breast; Z90.710 Acquired absence of both cervix and uterus; Z91.81 History of falling
CPT/HCPCS: 36415; 62328; 70553; 72050; 72131; 72141; 72146; 72148; 73502; 73552; 73562; 73564; 80053; 81003; 82040; 82042; 82784; 82945; 82948; 83735; 83916; 84132; 84157; 85025; 85027; 85049; 85610; 85730; 86592; 86617; 86787; 86788; 87070; 87497; 87798; 87899; 88108; 89051; 90471; 90656; 97110; 97116; 97161; 97166; 97530; 97535; 99285; A9270; A9577; G0008; G0378; J1650; J1815; J3360; J7120